=== PATIENT | female | born 1960 | race Caucasian/White ===

== ENCOUNTER → 2018-01-26 07:43 | Outpatient (CLI) | payer OTHER, SELFPAY ==
--- NOTE | 2018-01-26 | DI.MRI.S_ITS ---
PROCEDURE: MR PELVIS WO CON INDICATIONS: Left ischial tuberosity contusion or occult fracture. TECHNIQUE: Noncontrast coronal and axial T1 spin echo and STIR as well as axial T2 with fat saturation through the bony pelvis. COMPARISON: None. FINDINGS: Image quality: Excellent. Bones: Bone marrow of the pelvic ring, sacrum, and proximal femurs demonstrate normal signal. There is a small avulsion fracture of the left ischial tuberosity posteriorly associated with the origin of the hamstring tendons. There is associated mild bone marrow edema. The visualized lower lumbar spine demonstrates mild degenerative disc disease which is incompletely evaluated on the current study. Tendons: The gluteus medius and minimus tendons appear grossly intact. There is associated mild peritendinous edema along the distal gluteal tendons extending through the greater trochanter. The adjacent proximal iliotibial band also appears intact. The iliopsoas tendon appears intact, without adjacent bursal fluid collections or evidence for impingement syndrome. There is a small avulsion fracture at the origin of the left hamstring tendons associated with mild peritendinous edema and minimal fluid. Findings are compatible with a peritendinitis or mild stranding. The straight and reflected heads of the rectus femoris muscle origin appear intact, as well as the conjoint tendon. Soft tissues: Visualized muscles demonstrate mild fatty atrophy of the gluteal muscles, anterior compartment of the visualized proximal thighs, and the visualized proximal hamstring musculature. No joint effusions. No free pelvic fluid. The urinary bladder is incompletely distended. Genitourinary structures and bowel loops appear normal where visualized. IMPRESSION: 1. Small avulsion fracture at the origin of the left hamstring tendons associated with a mild tendon strain or peritendinitis. The Dictated by: Carmelo Allen M.D. on 01/26/2018 at 13:58 Approved by: Carmelo Allen M.D. on 01/26/2018 at 14:05
== END ==
PROVIDERS: PCP Internal Medicine; Visit Provider Physical Medicine & Rehabilitation
DX: S32.612A Displaced avulsion fracture of left ischium, initial encounter for closed fracture (principal)
CPT/HCPCS: 72195

== ENCOUNTER → 2018-04-10 10:40 | Outpatient (CLI) | payer OTHER, SELFPAY ==
[2018-04-10 12:59] LABS: BUN Creatinine Ratio 19.1 (6-22); Blood Urea Nitrogen 21 mg/dL (7-17); Calcium 10.2 mg/dL (8.4-10.2); Carbon Dioxide 27 mmol/L (22-32); Chloride 99 mmol/L (98-107); Estimated Glomerular Filt Rate 51.2 mL/min (>60); Glucose 193 mg/dL (70-100); HEMOLYSIS < 15 (0-50); Potassium 5.2 mmol/L (3.4-5.1); Sodium 137 mmol/L (137-145)
[2018-04-14 18:11] LABS: C Peptide 0.66 ng/mL (0.80-3.85)
== END ==
PROVIDERS: PCP Internal Medicine; Visit Provider Internal Medicine
DX: E11.9 Type 2 diabetes mellitus without complications (principal)
CPT/HCPCS: 36415; 80048; 84681

== ENCOUNTER → 2018-04-26 16:21 | Outpatient (CLI) | payer OTHER, SELFPAY ==
--- NOTE | 2018-04-26 | DI.RAD.S_ITS ---
PROCEDURE: XR LUMBAR SPINE 2-3V INDICATIONS: FALL with lumbar pain TECHNIQUE: The 3 views of the lumbar spine were acquired. COMPARISON: [facility], CR, XR THORACIC SPINE 2V, 04/26/2018, 16:58. FINDINGS: Bones: 5 [id number] vertebrae are present. There is normal bony alignment. No vertebral body compression fractures but there is moderately severe degenerative disc disease at L3-4 and mild to moderate such degeneration at L4-5, and moderate degenerative disc disease at L5 S1. Facet osteoarthritis is progressively more prominent from L3 inferiorly.. No suspicious bony lesions. Soft tissues: Overlying bowel gas pattern is normal. No suspicious soft tissue calcifications. IMPRESSION: Degenerative disc disease and facet osteoarthritis is present over the lower two thirds of the lumbosacral spine to the degree that spinal and foraminal stenosis may be present but no acute trauma is found. Incidental noted is made of a control device for a gastric lap band partially visualized on the thoracic spine imaging same day. Dictated by: Troy Bennett M.D. on 04/26/2018 at 16:51 Approved by: Troy Bennett M.D. on 04/26/2018 at 16:52
--- NOTE | 2018-04-26 | DI.RAD.S_ITS ---
PROCEDURE: XR CHEST 2V INDICATIONS: INTERCOSTAL PAIN, LEFT SIDE CHEST PAIN TECHNIQUE: 2 views of the chest were acquired. COMPARISON: [facility], CR, XR SHOULDER LT MIN 2V, 04/26/2018, 16:49. FINDINGS: Surgical changes and devices: None. Lungs and pleura: Lungs are clear. No pleural effusions or pneumothorax. Mediastinum: Mediastinal contours are normal. Heart size is normal. Bones and chest wall: No suspicious bony abnormalities. Soft tissues appear unremarkable. IMPRESSION: No acute cardiopulmonary disease. Dictated by: Annalise Dee M.D. on 04/27/2018 at 9:21 Approved by: Annalise Dee M.D. on 04/27/2018 at 9:22
--- NOTE | 2018-04-26 | DI.RAD.S_ITS ---
PROCEDURE: XR SHOULDER LT MIN 2V INDICATIONS: left SHOULDER PAIN TECHNIQUE: A 3 views of the shoulder were acquired. COMPARISON: None. FINDINGS: Bones: No fractures or dislocations but there is mild osteoarthritis at the a.c. joint. No suspicious bony lesions. Visualized ribs appear intact. Soft tissues: No suspicious soft tissue calcifications. IMPRESSION: Mild a.c. joint osteoarthritis, no trauma found. Dictated by: Troy Bennett M.D. on 04/26/2018 at 16:50 Approved by: Troy Bennett M.D. on 04/26/2018 at 16:51
--- NOTE | 2018-04-26 | DI.RAD.S_ITS ---
PROCEDURE: XR THORACIC SPINE 2V INDICATIONS: FALL with thorasic rib pain TECHNIQUE: 3 views of the thoracic spine were acquired. COMPARISON: None. FINDINGS: Bones: No fractures or dislocations. No suspicious bony lesions. 12 pairs of ribs are noted, and appear intact where visualized. Soft tissues: No paravertebral stripe thickening. Note is made of what appears to be a lap band at the gastric hiatus as an incidental finding unrelated to the report of trauma. IMPRESSION: No trauma found. Dictated by: Troy Bennett M.D. on 04/26/2018 at 16:45 Approved by: Troy Bennett M.D. on 04/26/2018 at 16:46
== END ==
PROVIDERS: PCP Internal Medicine; Visit Provider Student in an Organized Health Care Education/Training Program
DX: M25.512 Pain in left shoulder (principal); R07.82 Intercostal pain; M19.012 Primary osteoarthritis, left shoulder; M51.36 Other intervertebral disc degeneration, lumbar region; M51.37 Other intervertebral disc degeneration, lumbosacral region; M47.816 Spondylosis without myelopathy or radiculopathy, lumbar region; M47.817 Spondylosis without myelopathy or radiculopathy, lumbosacral region; Z98.84 Bariatric surgery status
CPT/HCPCS: 71046; 72070; 72100; 73030

== ENCOUNTER → 2018-12-20 15:41 | Outpatient (CLI) | payer OTHER, SELFPAY ==
--- NOTE | 2018-12-20 | DI.RAD.S_ITS ---
PROCEDURE: XR ANKLE RT MIN 3V INDICATIONS: right ankle pain TECHNIQUE: 3 views of the ankle were acquired. COMPARISON: None. FINDINGS: Bones: There is mild periosteal reaction along the distal right fibular metaphysis. Ankle mortise is normally aligned. No suspicious bony lesions. Soft tissues: No tibiotalar joint effusion. IMPRESSION: Mild periosteal reaction along the distal right fibular metaphysis, which may represent the sequela of a nondisplaced fracture. Correlation with point tenderness or a history of trauma suggested. Consider followup radiographs if there is continued clinical concern. Dictated by: Jet Eagle M.D. on 12/20/2018 at 17:20 Approved by: Jet Eagle M.D. on 12/20/2018 at 17:24
--- NOTE | 2018-12-20 | DI.RAD.S_ITS ---
PROCEDURE: XR FOOT RT MIN 3V INDICATIONS: right ankle pain TECHNIQUE: 3 views of the foot were acquired. COMPARISON: None. FINDINGS: Bones: No fractures or dislocations. No suspicious bony lesions. There is minimal degenerative change of the right first metatarsophalangeal joint. Soft tissues: No tibiotalar joint effusion. There is minimal calcaneal enthesopathy. IMPRESSION: Minimal degenerative change of the right first metatarsophalangeal joint. Dictated by: Jet Eagle M.D. on 12/20/2018 at 17:31 Approved by: Jet Eagle M.D. on 12/20/2018 at 17:34
== END ==
PROVIDERS: PCP Internal Medicine; Visit Provider Internal Medicine
DX: M25.571 Pain in right ankle and joints of right foot (principal)
CPT/HCPCS: 73610; 73630

== ENCOUNTER → 2019-09-17 11:23 | Outpatient (CLI) | payer OTHER, SELFPAY ==
--- NOTE | 2019-09-17 | DI.RAD.S_ITS ---
PROCEDURE: XR KNEE LT 1TO2V INDICATIONS: Unspecified fall, initial encounter TECHNIQUE: 3 views of the knee were acquired. COMPARISON: None. FINDINGS: Bones: No fractures or dislocations. No suspicious bony lesions. Mild tricompartmental knee joint narrowing with periarticular osteophyte formation. Soft tissues: No joint effusion. No suspicious soft tissue calcifications. IMPRESSION: Mild tricompartmental knee joint degeneration. Dictated by: Alfredo Kay [facility] Interpreted: Donal Russell MD on 09/17/2019 at 11:56 Approved by: Donal Russell M.D. on 09/17/2019 at 17:02
--- NOTE | 2019-09-17 | DI.RAD.S_ITS ---
PROCEDURE: XR FEMUR LT MIN 2V INDICATIONS: Unspecified fall, initial encounter TECHNIQUE: 2 views of the femur were acquired. COMPARISON: [facility], CR, XR KNEE LT 1TO2V, 09/17/2019, 11:27. FINDINGS: Bones: No fractures or dislocations. No suspicious bony lesions. Mild joint narrowing with periarticular osteophyte formation. Soft tissues: No suspicious soft tissue calcifications or masses. IMPRESSION: Mild left hip and knee joint degeneration. Dictated by: Alfredo Kay [facility] Interpreted: Donal Russell MD on 09/17/2019 at 11:56 Approved by: Donal Russell M.D. on 09/17/2019 at 17:02
--- NOTE | 2019-09-17 | DI.RAD.S_ITS ---
PROCEDURE: XR HIP W PEL IF DONE LT 2V INDICATIONS: Unspecified fall, initial encounter TECHNIQUE: AP pelvis with lateral view(s) of the left hip(s). COMPARISON: None. FINDINGS: Bones: No fractures or dislocations. Pelvic ring appears intact. No suspicious bony lesions. Mild joint narrowing with periarticular osteophyte formation. Soft tissues: The visualized bowel gas pattern is normal. No suspicious soft tissue calcifications. IMPRESSION: Mild symmetric hip joint degeneration. Dictated by: Alfredo Kay [facility] Interpreted: Donal Russell MD on 09/17/2019 at 12:09 Approved by: Donal Russell M.D. on 09/17/2019 at 17:02
--- NOTE | 2019-09-17 | DI.RAD.S_ITS ---
PROCEDURE: XR LUMBAR SPINE 2-3V INDICATIONS: Unspecified fall, initial encounter TECHNIQUE: 3 views of the lumbar spine were acquired. COMPARISON: [facility], CR, XR LUMBAR SPINE 2-3V, 04/26/2018, 16:55. FINDINGS: Bones: 5 [id number] vertebrae are present. Mild levoscoliosis. Trace multilevel retrolisthesis. Multilevel disc degeneration, moderate at the at the L3-L4 and L5-S1 levels. Moderate L4-L5 and L5-S1 facet joint arthropathy.. No vertebral body compression fractures. No suspicious bony lesions. Soft tissues: Overlying bowel gas pattern is normal. No suspicious soft tissue calcifications. Change in ostomy tube present. IMPRESSION: Multilevel spondylosis. Dictated by: Alfredo Kay [facility] Interpreted: Donal Russell MD on 09/17/2019 at 11:54 Approved by: Donal Russell M.D. on 09/17/2019 at 17:02
== END ==
PROVIDERS: PCP Internal Medicine; Referring Provider Student in an Organized Health Care Education/Training Program; Visit Provider Student in an Organized Health Care Education/Training Program
DX: M25.552 Pain in left hip (principal); M25.562 Pain in left knee; M47.816 Spondylosis without myelopathy or radiculopathy, lumbar region; M47.817 Spondylosis without myelopathy or radiculopathy, lumbosacral region; M17.12 Unilateral primary osteoarthritis, left knee; M16.12 Unilateral primary osteoarthritis, left hip
CPT/HCPCS: 72100; 73502; 73552; 73560

== ENCOUNTER → 2020-04-16 16:13 | Outpatient (CLI) | payer OTHER, SELFPAY ==
[2020-04-16 17:39] LABS: Add Manual Diff / Slide Review NO; Basophils Absolute Auto 0 /uL (0-100); Basophils Percent Auto 0.5 % (0-2); Eosinophils Absolute Auto 500 /uL (0-450); Eosinophils Percent Auto 5.7 % (2-4); Hematocrit 37.5 % (36-46); Hemoglobin 12.1 g/dL (12.0-16.0); Lymphocytes Absolute Auto 1900 /uL (1100-4500); Mean Corpuscular HGB Conc 32.2 % (30-36); Mean Corpuscular Hemoglobin 26.2 PG (26-34); Mean Corpuscular Volume 81.3 fL (80-100); Monocytes Absolute Auto 700 /uL (0-900); Monocytes Percent Auto 8.3 % (3-14); Neutrophils Absolute Auto 5800 /uL (1500-7000); Neutrophils Percent Auto 64.5 % (50-75); Platelet Count 412 X10^3/uL (150-400); Red Blood Cell Count 4.61 X10^6/uL (4.0-5.2); Red Cell Distribution Width 15.5 % (11.6-14.8); White Blood Cell Count 8.9 X10^3/uL (4.5-11.0)
[2020-04-16 17:53] LABS: Hemoglobin A1C% w Est Avg Glu 9.8 % (4.0-6.0)
[2020-04-16 17:54] LABS: Alanine Aminotransferase 37 IU/L (<35); Albumin 4.6 g/dL (3.5-5.0); Albumin Globulin Ratio 1.6 (1.0-2.8); Alkaline Phosphatase 91 U/L (38-126); Aspartate Aminotransferase 42 IU/L (14-36); BUN Creatinine Ratio 22.1 (6-22); Bilirubin Total 0.4 mg/dL (0.2-1.3); Blood Urea Nitrogen 17 mg/dL (7-17); Calcium 9.6 mg/dL (8.4-10.2); Carbon Dioxide 30 mmol/L (22-32); Chloride 98 mmol/L (98-107); Cholesterol 232 mg/dL (140-199); Estimated Glomerular Filt Rate > 60.0 mL/min (>60); Globulin 2.8 g/dL (1.7-4.1); Glucose 205 mg/dL (70-100); HDL Cholesterol 78 mg/dL (40-60); HEMOLYSIS < 15 (0-50); LDL Cholesterol Calculated 103 mg/dL (<100); Potassium 4.1 mmol/L (3.4-5.1); Sodium 135 mmol/L (137-145); Total Protein 7.4 g/dL (6.3-8.2); Triglycerides 256 mg/dL (35-150)
[2020-04-16 18:48] LABS: Creatinine Urine Random 36.1 mg/dL
[2020-04-16 18:53] LABS: Microalbumi Creatinin Ratio Ur 24.9 ug/mg CR (<30); Microalbumin Urine Random 0.9 mg/dL (0-1.6)
[2020-04-16 18:55] LABS: TSH w/ Reflex to FT4 0.22 uIU/mL (0.47-4.68)
[2020-04-16 19:32] LABS: Free T4, Direct Thyroxine 1.36 ng/dL (0.78-2.19)
== END ==
PROVIDERS: PCP Internal Medicine; Referring Provider Internal Medicine; Visit Provider Internal Medicine
DX: E11.9 Type 2 diabetes mellitus without complications (principal); I10 Essential (primary) hypertension; E03.9 Hypothyroidism, unspecified; E78.2 Mixed hyperlipidemia
CPT/HCPCS: 36415; 80053; 80061; 82043; 82570; 83036; 84439; 84443; 85025

== ENCOUNTER 2020-07-12 13:49 | Observation (INO) | payer OTHER, SELFPAY ==
[2020-07-12] VITALS (20 sets, daily range): BP systolic 135–176; BP diastolic 70–98; PULSE 72–99; RESP 11–20; TEMP 36.4–36.6; O2SAT 94–100; BMI 35.4; BMI 35.9
--- NOTE | 2020-07-12 13:54 | DI.RAD.S_ITS ---
PROCEDURE: XR CHEST 1V INDICATIONS: chest pain TECHNIQUE: One view of the chest was acquired. COMPARISON: [facility], CR, XR CHEST 2V, 04/26/2018, 16:46. FINDINGS: Surgical changes and devices: None. Lungs and pleura: Lungs are clear. No pleural effusions or pneumothorax. Mediastinum: Mediastinal contours appear normal. Heart size is normal. Bones and chest wall: No suspicious bony lesions. Overlying soft tissues appear unremarkable. IMPRESSION: No acute cardiopulmonary disease process. Dictated by: Nicolasa Camejo MD, PhD on 07/12/2020 at 15:03 Approved by: Nicolasa Camejo MD, PhD on 07/12/2020 at 15:03
--- NOTE | 2020-07-12 14:22 | ED.DIZZY ---
HPI - Dizziness General Chief Complaint: Dizziness Stated Complaint: dizzy Time Seen by Provider: 07/12/20 14:19 Source: patient Mode of arrival: Ambulatory Limitations: no limitations History of Present Illness HPI Narrative: 60-year-old female nonsmoker with history of hypertension and diabetes presents with a chief complaint of dizziness affecting her ability to ambulate over the past week or so. She occasionally has episodes of blurred vision but denies any currently. She denies any facial weakness or speech trouble. She is vaguely dizzy and states it seems to be little bit worse when she moves but is also present when sitting still. She has had a difficult time ambulating and feels like she will fall over. She is unsafe to drive, and up until 1 week ago was ambulating without any difficulty. She denies any focal neurologic findings such as unilateral numbness, weakness or tingling. She denies any falls or injuries. She does state that her blood sugars have been abnormally high over the past week or so Related Data Home Medications Medication Instructions Recorded Confirmed benazepril 20 mg tablet 20 mg PO DAILY 06/01/19 06/01/19 clonazepam 0.5 mg tablet 0.25 mg PO BID 06/01/19 06/01/19 duloxetine 60 mg capsule,delayed 60 mg PO DAILY 06/01/19 06/01/19 release insulin detemir U-100 100 unit/mL 40 unit SUBCUT BEDTIME 06/01/19 06/01/19 subcutaneous solution insulin regular human 100 unit/mL 8 unit SUBCUT BID 06/01/19 06/01/19 injection solution levothyroxine 100 mcg capsule 100 mcg PO DAILY 06/01/19 06/01/19 metformin 500 mg tablet 500 mg PO BID 06/01/19 06/01/19 metoprolol succinate 25 mg 25 mg PO DAILY 06/01/19 06/01/19 tablet,extended release 24 hr rosuvastatin 40 mg tablet 40 mg PO DAILY 06/01/19 06/01/19 Previous Rx's Medication Instructions Recorded albuterol sulfate 90 mcg/actuation 2 puff INHALATION Q4-6H PRN #18 06/01/19 aerosol inhaler gram Allergies Allergy/AdvReac Type Severity Reaction Status Date / Time No Known Drug Allergies Allergy Verified 06/01/19 10:12 Review of Systems Constitutional Constitutional: Denies chills, Denies fatigue, Denies fever(s), Reports frequent falls, Denies lethargy and Denies weakness Eyes Eyes: Denies change in vision, Denies eye discharge, Denies irritation and Denies loss of vision ENT Ears, Nose, Mouth, and Throat: Denies change in voice, Reports dizziness, Denies neck pain, Denies sore throat and Denies throat swelling Cardiovascular Cardiovascular: Denies chest pain, Denies irregular heart rhythm, Denies lightheadedness, Denies palpitations, Denies dyspnea, Denies dyspnea on exertion and Denies orthopnea Respiratory Respiratory: Denies cough, Denies dyspnea, Denies dyspnea on exertion and Denies wheezing Gastrointestinal Gastrointestinal: Denies abdominal pain, Denies change in bowel habits, Denies diarrhea, Denies nausea and Denies vomiting Musculoskeletal Musculoskeletal: Denies neck pain and Denies numbness Integumentary/Breasts Skin/Breast: Denies pruritus, Denies erythema, Denies rash and Denies wounds Neurologic Neurologic: Denies behavioral changes, Denies confusion, Reports dizziness, Reports frequent falls, Denies loss of vision, Denies numbness and Denies weakness Psychiatric Psychiatric: Denies anxiety, Denies behavioral changes, Denies confusion, Denies depression, Denies homicidal ideation and Denies suicidal ideation Endocrine Endocrine: Denies fatigue, Denies flushing and Denies palpitations Hematologic/Lymphatic Hematologic/Lymphatic: Denies easy bruising Allergic/Immunologic Allergic/Immunologic: Denies urticaria, Denies throat swelling and Denies wheezing Patient History Medical History Anxiety disorder, unspecified Essential hypertension Hypothyroidism Long-term current use of insulin for diabetes mellitus Low back pain Major depressive disorder, single episode, unspecified Mixed hyperlipidemia Paroxysmal atrial fibrillation Type 2 diabetes mellitus with diabetic neuropathy, unspecified Social History Smoking Status: Never smoker Smoking Status: Never smoker Substance Use Type: does not use Exam Narrative Exam Narrative: GENERAL: [60] year old patient appears stated age. Well-nourished, well-developed patient, in mild distress. HEAD: Atraumatic. Normocephalic. EYES: Pupils equal round and reactive. Extraocular motions intact. No scleral icterus. No injection or drainage. ENT: Nose without bleeding, purulent drainage. Throat without erythema, tonsillar hypertrophy or exudate. Airway patent. Left TM with tube in place, right TM without effusion, bulging or drainage, tympanostomy has fallen out NECK: Trachea midline. Non tender CARDIOVASCULAR: Regular rate and rhythm without murmurs, gallops, or rubs. RESPIRATORY: Clear to auscultation. Breath sounds equal bilaterally. No wheezes, rales, or rhonchi. GASTROINTESTINAL: Abdomen soft, non-tender, nondistended. EXTREMITIES: No edema or joint tenderness. BACK: Nontender without deformity or crepitance. No flank tenderness. NEURO: AOx3. SKIN: No rash or erythema of visible areas NIH Stroke Scale 1a. LOC: Patient is alert and keenly responsive (0) 1b. LOC Questions: Patient answers both LOC questions accurately (0) 1c. LOC Commands: Patient performs both tasks correctly (0) 2. Best Gaze: Normal (0) 3. Visual: No visual loss (0) 4. Facial palsy: Normal symmetrical movements (0) 5. Motor arm: No drift (0) 6. Motor leg: No drift (0) 7. Limb ataxia: Absent (0) 8. Sensory: Normal (0) 9. Best language: No aphasia; normal (0) 10. Dysarthria: Normal (0) 11. Extinction and inattention: No abnormality (0) NIHSS: 0 Initial Vital Signs Initial Vital Signs: Vital Signs Temperature 97.9 F 07/12/20 13:55 Pulse Rate 92 H 07/12/20 13:55 Respiratory Rate 20 07/12/20 13:55 Blood Pressure 176/84 H 07/12/20 13:55 Pulse Oximetry 99 07/12/20 13:55 Course Course Course Narrative: Patient requiring significant assistance with ambulation, she is significantly dizzy, this is addressed departure from her baseline from a few days ago. Orders Ordered: ED Orders 07/12/20 13:54 XR chest 1V Stat EKG-12 Lead Stat 07/12/20 14:15 Complete Blood Count AUTO DIFF Stat Comprehensive Metabolic Panel Stat Lipase Stat Magnesium Stat Partial Thromboplastin Time Stat Prothrombin Time INR Stat Troponin & CK Cardiac Panel Stat 07/12/20 14:31 CT head/brain wo con Stat 07/12/20 16:14 MR head/brain wo con Stat 07/12/20 17:00 COVID19 - ADMIT ([employer]PER[employer]OR swab/PCR) Stat Vital Signs Vital signs: Vital Signs - 8 hr 07/12/20 13:55 07/12/20 14:07 07/12/20 14:08 Temperature 97.9 F Pulse Rate 92 H 85 Pulse Rate [Orthostatic Lying] Pulse Rate [Orthostatic Sitting] Pulse Rate [Orthostatic Standing] Respiratory Rate 20 Blood Pressure 176/84 H Blood Pressure [Orthostatic Lying] Blood Pressure [Orthostatic Sitting] Blood Pressure [Orthostatic Standing] Pulse Oximetry 99 98 98 07/12/20 14:30 07/12/20 15:00 07/12/20 15:30 Temperature Pulse Rate 77 81 80 Pulse Rate [Orthostatic Lying] Pulse Rate [Orthostatic Sitting] Pulse Rate [Orthostatic Standing] Respiratory Rate 12 14 11 L Blood Pressure 135/71 142/72 H 139/82 Blood Pressure [Orthostatic Lying] Blood Pressure [Orthostatic Sitting] Blood Pressure [Orthostatic Standing] Pulse Oximetry 97 96 98 07/12/20 15:53 07/12/20 15:54 07/12/20 15:55 Temperature Pulse Rate 82 83 88 Pulse Rate [Orthostatic Lying] Pulse Rate [Orthostatic Sitting] Pulse Rate [Orthostatic Standing] Respiratory Rate 18 16 16 Blood Pressure 147/80 H 144/80 H 153/73 H Blood Pressure [Orthostatic Lying] Blood Pressure [Orthostatic Sitting] Blood Pressure [Orthostatic Standing] Pulse Oximetry 99 99 98 07/12/20 16:00 07/12/20 16:01 07/12/20 16:33 Temperature Pulse Rate 96 H 88 99 H Pulse Rate [Orthostatic Lying] 83 Pulse Rate [Orthostatic Sitting] 81 Pulse Rate [Orthostatic Standing] 88 Respiratory Rate 16 16 16 Blood Pressure Blood Pressure [Orthostatic Lying] 147/80 H Blood Pressure [Orthostatic Sitting] 144/70 H Blood Pressure [Orthostatic Standing] 153/73 H Pulse Oximetry 94 99 98 07/12/20 17:00 07/12/20 17:30 07/12/20 18:00 Temperature Pulse Rate 72 84 80 Pulse Rate [Orthostatic Lying] Pulse Rate [Orthostatic Sitting] Pulse Rate [Orthostatic Standing] Respiratory Rate 18 17 16 Blood Pressure Blood Pressure [Orthostatic Lying] Blood Pressure [Orthostatic Sitting] Blood Pressure [Orthostatic Standing] Pulse Oximetry 100 99 100 MDM - Dizziness Lab Data Result diagrams: 07/12/20 14:15 07/12/20 14:15 Labs: Lab Results 07/12/20 07/12/20 07/12/20 Range/Units 14:15 14:15 14:15 WBC 6.2 (4.5-11.0) X10^3/uL RBC 4.57 (4.0-5.2) X10^6/uL Hgb 11.6 L (12.0-16.0) g/dL Hct 35.7 L (36-46) % MCV 78.1 L (80-100) fL MCH 25.3 L (26-34) PG MCHC 32.4 (30-36) % RDW 15.6 H (11.6-14.8) % Plt Count 392 (150-400) X10^3/uL Neut % (Auto) 54.5 (50-75) % Lymph % (Auto) 27.3 (25-40) % [place] % (Auto) 9.5 (3-14) % Eos % (Auto) 7.9 H (2-4) % Baso % (Auto) 0.8 (0-2) % Neut # (Auto) 3400 (6080-6967) /uL Lymph # (Auto) 1700 (1786-5113) /uL [place] # (Auto) 600 (0-900) /uL Eos # (Auto) 500 H (0-450) /uL Baso # (Auto) 0 (0-100) /uL PT 10.8 (10.1-12.7) SECONDS INR 1.0 (0.9-1.3) APTT 30 (26.4-36.2) SECONDS Sodium 136 L (137-145) mmol/L Potassium 4.2 (3.4-5.1) mmol/L Chloride 100 (98-107) mmol/L Carbon Dioxide 26 (22-32) mmol/L BUN 16 (7-17) mg/dL Creatinine 0.74 (0.52-1.04) mg/dL Estimated GFR > 60.0 (>60) mL/min BUN/Creatinine Ratio 21.6 (6-22) Glucose 187 H (80-110) mg/dL Calcium 10.0 (8.4-10.2) mg/dL Magnesium 1.6 (1.6-2.3) mg/dL Total Bilirubin 0.5 (0.2-1.3) mg/dL AST 51 H (14-36) IU/L ALT 49 H (<35) IU/L Alkaline Phosphatase 98 (38-126) U/L Total Creatine Kinase 70 (30-135) U/L CK-MB (CK-2) TNP CK-MB (CK-2) Rel Index TNP Troponin I < 0.012 (0.01-0.034) ng/mL Total Protein 7.3 (6.3-8.2) g/dL Albumin 4.2 (3.5-5.0) g/dL Globulin 3.1 (1.7-4.1) g/dL Albumin/Globulin Ratio 1.4 (1.0-2.8) Lipase 62 (23-300) U/L SARS-CoV-2 (PCR) (Negative) 07/12/20 Range/Units 17:00 WBC (4.5-11.0) X10^3/uL RBC (4.0-5.2) X10^6/uL Hgb (12.0-16.0) g/dL Hct (36-46) % MCV (80-100) fL MCH (26-34) PG MCHC (30-36) % RDW (11.6-14.8) % Plt Count (150-400) X10^3/uL Neut % (Auto) (50-75) % Lymph % (Auto) (25-40) % [place] % (Auto) (3-14) % Eos % (Auto) (2-4) % Baso % (Auto) (0-2) % Neut # (Auto) (7239-1767) /uL Lymph # (Auto) (0485-4770) /uL [place] # (Auto) (0-900) /uL Eos # (Auto) (0-450) /uL Baso # (Auto) (0-100) /uL PT (10.1-12.7) SECONDS INR (0.9-1.3) APTT (26.4-36.2) SECONDS Sodium (137-145) mmol/L Potassium (3.4-5.1) mmol/L Chloride (98-107) mmol/L Carbon Dioxide (22-32) mmol/L BUN (7-17) mg/dL Creatinine (0.52-1.04) mg/dL Estimated GFR (>60) mL/min BUN/Creatinine Ratio (6-22) Glucose (80-110) mg/dL Calcium (8.4-10.2) mg/dL Magnesium (1.6-2.3) mg/dL Total Bilirubin (0.2-1.3) mg/dL AST (14-36) IU/L ALT (<35) IU/L Alkaline Phosphatase (38-126) U/L Total Creatine Kinase (30-135) U/L CK-MB (CK-2) CK-MB (CK-2) Rel Index Troponin I (0.01-0.034) ng/mL Total Protein (6.3-8.2) g/dL Albumin (3.5-5.0) g/dL Globulin (1.7-4.1) g/dL Albumin/Globulin Ratio (1.0-2.8) Lipase (23-300) U/L SARS-CoV-2 (PCR) Negative (Negative) Imaging Data CT scan - head: Radiologist's Impression: [address] [id number] Scan ReportSigned Patient: GAURAV ROBERT EMR#: [id number]: 1Acct:[id number]/Sex: 60 / FDate of Service: 07/12/20Loc: EDAccession Number: [id number] Procedure: CT head/brain wo con Ordering Provider: Farhat Linder D.O. PROCEDURE: CT HEAD/BRAIN WO CON INDICATIONS: repeat visit dizzy TECHNIQUE: Noncontrast 4.5 mm thick angled axial sections acquired from the foramen magnum to the vertex, with coronal and sagittal reformats. For radiation dose reduction, the following was used: automated exposure control, adjustment of mA and/or kV according to patient size. COMPARISON: None. FINDINGS: Image quality: Excellent. CSF spaces: Basal cisterns are patent. No extra-axial fluid collections. The ventricles are symmetric in size and shape. Brain: No intracranial bleeds or masses. There is cerebral volume loss for age, with resultant ventricular and sulcal prominence. There are periventricular and deep white matter chronic small vessel ischemic changes. There is intracranial internal carotid artery atherosclerosis. Skull and face: Calvarium and visualized facial bones appear intact, without suspicious lesions. Sinuses: Visualized sinuses and mastoids are clear. IMPRESSION: No acute intracranial disease process. Dictated by: Nicolasa Camejo MD, PhD on 07/12/2020 at 16:07 Approved by: Nicolasa Camejo MD, PhD on 07/12/2020 at 16:08 [facility] Narrative Medical decision making narrative: Patient has significant dizziness, affecting her ability to ambulate for the past few days. She has no nystagmus or clear peripheral etiology. Head CT is unremarkable but given her risk and symptoms she will require hospitalization for stroke workup including echo and MRI. Discharge Plan Departure Patient Disposition: Admitted as Observation Clinical Impression: Brain TIA, Dizziness Prescriptions: No Action metoprolol succinate 25 mg tablet extended release 24 hr 25 mg PO DAILY RF: 0 levothyroxine 100 mcg capsule 100 mcg PO DAILY RF: 0 Levemir U-100 Insulin 100 unit/mL solution 40 unit SUBCUT BEDTIME RF: 0 Humulin R Regular U-100 Insuln 100 unit/mL solution 8 unit SUBCUT BID RF: 0 rosuvastatin 40 mg tablet 40 mg PO DAILY RF: 0 duloxetine 60 mg capsule,delayed release(DR/EC) 60 mg PO DAILY RF: 0 clonazepam 0.5 mg tablet 0.25 mg PO BID RF: 0 metformin 500 mg tablet 500 mg PO BID RF: 0 benazepril 20 mg tablet 20 mg PO DAILY RF: 0 albuterol sulfate 90 mcg/actuation HFA aerosol inhaler 2 puff INHALATION Q4-6H PRN (Reason: shortness of breath or wheezing) Qty: 18 RF: 0 Referrals: Cristhian Méndez MD [Primary Care Provider] -
--- NOTE | 2020-07-12 14:31 | DI.CT.S_ITS ---
PROCEDURE: CT HEAD/BRAIN WO CON INDICATIONS: repeat visit dizzy TECHNIQUE: Noncontrast 4.5 mm thick angled axial sections acquired from the foramen magnum to the vertex, with coronal and sagittal reformats. For radiation dose reduction, the following was used: automated exposure control, adjustment of mA and/or kV according to patient size. COMPARISON: None. FINDINGS: Image quality: Excellent. CSF spaces: Basal cisterns are patent. No extra-axial fluid collections. The ventricles are symmetric in size and shape. Brain: No intracranial bleeds or masses. There is cerebral volume loss for age, with resultant ventricular and sulcal prominence. There are periventricular and deep white matter chronic small vessel ischemic changes. There is intracranial internal carotid artery atherosclerosis. Skull and face: Calvarium and visualized facial bones appear intact, without suspicious lesions. Sinuses: Visualized sinuses and mastoids are clear. IMPRESSION: No acute intracranial disease process. Dictated by: Nicolasa Camejo MD, PhD on 07/12/2020 at 16:07 Approved by: Nicolasa Camejo MD, PhD on 07/12/2020 at 16:08
[2020-07-12 14:33] LABS: Add Manual Diff / Slide Review NO; Basophils Absolute Auto 0 /uL (0-100); Basophils Percent Auto 0.8 % (0-2); Eosinophils Absolute Auto 500 /uL (0-450); Eosinophils Percent Auto 7.9 % (2-4); Hematocrit 35.7 % (36-46); Hemoglobin 11.6 g/dL (12.0-16.0); Lymphocytes Absolute Auto 1700 /uL (1100-4500); Lymphocytes Percent Auto 27.3 % (25-40); Mean Corpuscular HGB Conc 32.4 % (30-36); Mean Corpuscular Hemoglobin 25.3 PG (26-34); Mean Corpuscular Volume 78.1 fL (80-100); Monocytes Absolute Auto 600 /uL (0-900); Monocytes Percent Auto 9.5 % (3-14); Neutrophils Absolute Auto 3400 /uL (1500-7000); Neutrophils Percent Auto 54.5 % (50-75); Platelet Count 392 X10^3/uL (150-400); Red Blood Cell Count 4.57 X10^6/uL (4.0-5.2); Red Cell Distribution Width 15.6 % (11.6-14.8); White Blood Cell Count 6.2 X10^3/uL (4.5-11.0)
[2020-07-12 14:39] LABS: Prothrombin Time 10.8 SECONDS (10.1-12.7)
[2020-07-12 14:41] LABS: PTT Partial Thromboplastin Tim 30 SECONDS (26.4-36.2)
[2020-07-12 14:51] LABS: Alanine Aminotransferase 49 IU/L (<35); Albumin 4.2 g/dL (3.5-5.0); Albumin Globulin Ratio 1.4 (1.0-2.8); Alkaline Phosphatase 98 U/L (38-126); Aspartate Aminotransferase 51 IU/L (14-36); BUN Creatinine Ratio 21.6 (6-22); Bilirubin Total 0.5 mg/dL (0.2-1.3); Blood Urea Nitrogen 16 mg/dL (7-17); Carbon Dioxide 26 mmol/L (22-32); Chloride 100 mmol/L (98-107); Creatine Kinase 70 U/L (30-135); Estimated Glomerular Filt Rate > 60.0 mL/min (>60); Globulin 3.1 g/dL (1.7-4.1); Glucose 187 mg/dL (80-110); HEMOLYSIS < 15 (0-50); Lipase 62 U/L (23-300); Magnesium 1.6 mg/dL (1.6-2.3); Potassium 4.2 mmol/L (3.4-5.1); Sodium 136 mmol/L (137-145); Total Protein 7.3 g/dL (6.3-8.2)
[2020-07-12 15:03] LABS: Troponin I < 0.012 ng/mL (0.01-0.034)
[2020-07-12 18:18] LABS: COVID19 - ADMIT (NP swab/PCR) Negative (Negative)
--- NOTE | 2020-07-12 19:27 | DI.MRI.S_ITS ---
PROCEDURE: MR STROKE Pre- and post-contrast brain MRI, non-contrast brain MR angiogram, pre- and postcontrast neck MR angiogram INDICATIONS: TIA vs stroke TECHNIQUE: Brain: Noncontrast axial T1 spin echo, axial T2 fast spin echo, sagittal and axial FLAIR, coronal T2 fast spin echo, axial gradient echo, axial diffusion and ADC through the brain. After the administration of contrast, axial 3D VIBE of the cranial vasculature and brain. Brain MRA: Non-contrast 3-D time of flight MR angiogram, with multiple arazrzl-sajxiobpd-xxuvvcyatj (MIP) reformats performed. Neck MRA: Axial and sagittal TruFISP through the neck. Coronal dynamic MR angiogram during administration of contrast in the arterial and venous phases, with 3-dimenstional hixaqkz-atycmqnwq-zgaviuwtcd (MIP) reformats constructed from subtraction images. COMPARISON: [facility], CT, CT HEAD/BRAIN WO CON, 07/12/2020, 15:40. FINDINGS: Image quality: Excellent. BRAIN: CSF spaces: Ventricles are normal in size and shape. Basal cisterns are patent. No extra-axial fluid collections. Brain: No intracranial bleeds or mass effects. De [place]a-white matter interface is normal. Diffusion weighted images show no acute ischemic insults. Brainstem appears normal. Normal intravascular flow voids are present. No abnormal intracranial enhancement. Note is made of age-appropriate brain parenchymal volume loss and chronic small vessel ischemic changes. Skull and face: Calvarial marrow signal is normal. Orbits appear normal. Note is made of bilateral lens replacements. Sinuses: Sinuses and mastoids are clear. BRAIN MR ANGIOGRAM: Anterior circulation: Intracranial internal carotid arteries are normal in size and enhancement. The flow within the paired anterior cerebral arteries is normal and symmetric. The flow within the middle cerebral arteries is normal and symmetric. The anterior communicating artery is seen. No stenoses, occlusions, or aneurysms. Posterior circulation: The visualized portions of the vertebral arteries demonstrate normal caliber, and join to form a normal appearing basilar artery. The flow within the posterior cerebral arteries is normal and symmetric. No stenoses, occlusions, or aneurysms. NECK MR ANGIOGRAM: Carotids: Great vessels demonstrate a conventional anatomy as they arise from the aortic arch. The origins of the common carotid arteries appear patent. The calibers and courses of both common carotid arteries are normal. The bifurcation regions demonstrate mild atherosclerotic irregularity. There is 20-30% narrowing seen involving the left proximal internal carotid artery. Posterior circulation: The origins of the vertebral arteries appear patent. More superior portions of both vertebral arteries demonstrate normal course and caliber, and join to form a normal appearing basilar artery. Miscellaneous: Subclavian arteries appear patent. Pre-contrast images through the neck show no soft tissue abnormalities. IMPRESSION: BRAIN MRI: No findings of acute or subacute infarction can be seen. Mild brain parenchymal volume loss and chronic small vessel ischemic change can be seen. BRAIN MR ANGIOGRAM: No significant intracranial arterial abnormality is seen. NECK MR ANGIOGRAM: Within the arteries of the neck, no hemodynamically significant stenosis can be seen. There is 20-30% narrowing seen involving the left proximal internal carotid artery. Dictated by: Ran Marquis M.D. on 07/13/2020 at 9:32 Approved by: Ran Marquis M.D. on 07/13/2020 at 9:35
--- NOTE | 2020-07-12 19:39 | P.HP_ITS ---
History of Present Illness History of Present Illness Date Patient Seen: 07/12/20 Time Patient Seen: 19:39 Chief complaint: dizzy Narrative: Patient is a 60-year-old female Felicitas Simms who presented to the ED with a chief complaint of dizziness affecting her ability to ambulate over the past week or so. She occasionally has episodes of blurred vision but denies any currently. She denies any facial weakness or speech trouble. Patient reports that she has dizziness with laying sitting, standing, or with ambulation. It seems to be triggered with eye movement, unable to state if specific eye movement or direction triggers. Patient feels as if she is spinning knocked the room. Patient denies any pain with eye movement or pressure breathing high knee I, patient wears glasses and has yearly diabetic eye exams. She has had a difficult time ambulating and feels like she will fall over. She is unsafe to drive, and up until 1 week ago was ambulating without any difficulty. 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 patient has had eustachian tubes in place since childhood last placement was a couple years ago, ED found no blockage. She denies any focal neurologic findings such as unilateral numbness, weakness or tingling. She denies any falls or injuries. She does state that her blood sugars have been abnormally high over the past week or so. Patient had advised the nurse upon being admitted to the floor that she was suicidal. Patient stated to me that she is not suicidal at this time and she will not harm herself while in the facility, her depression is 15/10 and her anxiety is 10/10 she states that she feels like her medications are no longer working for her, she does have a gautam eduled appointment with her psychiatrist (Dr. Daniel antoine/[facility]) in 2 days and establishing with a counselor and verbalizes that she has not attempted suicide since the age of 25, and was unable to verbalize a plan. Patient became repeatedly tearful and emotional during the interview when answering questions and she states that this is common for her during any & all conversations with others. Patient verbalized that adjustment of her medications will resolve her current depressive state as it has in the past. Patient has a history hypertension, hyperlipidemia, insulin-dependent diabetes, atrial fibrillation, major depressive disorder, anxiety with a history suicide attempts the last being at age 25, cervical cancer, genetic progressive hearing loss with chronic eustachian tubes, and hypothyroidism. Patient's vitals upon admit temp 97.9?, BP 168/73, HR 76, RR 14, O2 saturation 97% on room air. Patient's labs for the most part are unremarkable HGB 11.6, HCT 35.7, RDW 15.6, Na 136, AST 51, ALT 49, NIH score: 0. Head CT and CXR were both unremarkable. I personally reviewed patient's EKG: Normal sinus rhythm with a ventricular rate of 84 with left BBB noted. Patient admitted for TIA versus stroke. Patient History Medical History (Updated 07/12/20 @ 21:59 by GWENDOLYN Rowe) Anxiety disorder, unspecified Essential hypertension Eustachian tube disorder History of cervical cancer in adulthood Hypothyroidism Long-term current use of insulin for diabetes mellitus Low back pain Major depressive disorder, single episode, unspecified Mixed hyperlipidemia Obesity (BMI 30-39.9) Paroxysmal atrial fibrillation Progressive hearing loss of both ears Type 2 diabetes mellitus with diabetic neuropathy, unspecified Surgical History (Updated 07/12/20 @ 21:59 by LIAN Rowe-KALE) History of arthroscopic surgery of shoulder History of hysterectomy History of laparoscopic adjustable gastric banding History of placement of ear tubes Family & Social History Family History (Updated 07/12/20 @ 22:01 by LIAN Rowe-KALE) Mother Congestive heart failure Lung cancer Father COPD (chronic obstructive pulmonary disease) Cardiovascular disease Diabetes mellitus Social History: household members patient lives with her , but they are estranged and her lives on 1 floor and she lives on the other. Pat tolu's depressive disorder has hindered her ability to seek employment. Patient has no children. Prior Living Arrangements House Safety & Behavioral: Feels Safe in Current Yes Environment Been Physically Hurt or No Threatened By a Person Suicidal Ideation Description Vague- denies at the time of admit. Patient does have a history of suicidal attempts the last 1 age 25 she cut her wrist. Patient has verbalized that she will not harm herself while an in-patient. Patient verbalized that correction of her medication dosages should return her to a manageable state of depression without suicidal ideation. Patient is gautam eduled with Dr. Sanchez psychiatrist in 2 days and outpatient counseling. Suicide Plan Description patient could not verbalize an organized plan or mode of suicide at the time of admit. Patient will complete a safety plan. Tobacco & Substance use: Smoking Status Never smoker alcohol intake never Substance Use Type does not use Meds Home Medications and Allergies Home Medications Medication Instructions Recorded Confirmed Type benazepril 20 mg tablet 20 mg PO DAILY 06/01/19 07/12/20 History clonazepam 0.5 mg tablet 0.25 mg PO DAILY 06/01/19 07/12/20 History duloxetine 60 mg capsule,delayed 60 mg PO DAILY 06/01/19 07/12/20 History release insulin detemir U-100 100 unit/mL 60 unit SUBCUT BEDTIME 06/01/19 07/12/20 History subcutaneous solution levothyroxine 100 mcg capsule 100 mcg PO DAILY 06/01/19 07/12/20 History metformin 500 mg tablet 1,000 mg PO BID 06/01/19 07/12/20 History metoprolol succinate 25 mg 25 mg PO DAILY 06/01/19 07/12/20 History tablet,extended release 24 hr rosuvastatin 40 mg tablet 40 mg PO BEDTIME 06/01/19 07/12/20 History clonazepam 0.5 mg PO BEDTIME 07/12/20 07/12/20 History insulin lispro [Humalog U-100 0 sliding scale dose SUBCUT ACHS 07/12/20 07/12/20 History Insulin] pantoprazole 40 mg PO DAILY 07/12/20 07/12/20 History Allergies Allergy/AdvReac Type Severity Reaction Status Date / Time No Known Drug Allergies Allergy Verified 06/01/19 10:12 Review of Systems Review of Systems ROS: Yes All systems reviewed with the patient and are negative except as otherwise documented Constitutional Constitutional: Reports system reviewed and no additional complaints, except as documented Psychiatric Psychiatric: Reports anxiety, Reports depression and Reports suicidal ideation (Suicidal ideation comes and goes,denies suicidal ideation at time of admit.) Exam Vital Signs (past 8 hours): - 07/12/20 13:55 07/12/20 14:07 07/12/20 14:08 Temperature 97.9 F Pulse Rate 92 H 85 Pulse Rate [Orthostatic Lying] Pulse Rate [Orthostatic Sitting] Pulse Rate [Orthostatic Standing] Respiratory Rate 20 Blood Pressure 176/84 H Blood Pressure [Orthostatic Lying] Blood Pressure [Orthostatic Sitting] Blood Pressure [Orthostatic Standing] Pulse Oximetry 99 98 98 07/12/20 14:30 07/12/20 15:00 07/12/20 15:30 Temperature Pulse Rate 77 81 80 Pulse Rate [Orthostatic Lying] Pulse Rate [Orthostatic Sitting] Pulse Rate [Orthostatic Standing] Respiratory Rate 12 14 11 L Blood Pressure 135/71 142/72 H 139/82 Blood Pressure [Orthostatic Lying] Blood Pressure [Orthostatic Sitting] Blood Pressure [Orthostatic Standing] Pulse Oximetry 97 96 98 07/12/20 15:53 07/12/20 15:54 07/12/20 15:55 Temperature Pulse Rate 82 83 88 Pulse Rate [Orthostatic Lying] Pulse Rate [Orthostatic Sitting] Pulse Rate [Orthostatic Standing] Respiratory Rate 18 16 16 Blood Pressure 147/80 H 144/80 H 153/73 H Blood Pressure [Orthostatic Lying] Blood Pressure [Orthostatic Sitting] Blood Pressure [Orthostatic Standing] Pulse Oximetry 99 99 98 07/12/20 16:00 07/12/20 16:01 07/12/20 16:33 Temperature Pulse Rate 96 H 88 99 H Pulse Rate [Orthostatic Lying] 83 Pulse Rate [Orthostatic Sitting] 81 Pulse Rate [Orthostatic Standing] 88 Respiratory Rate 16 16 16 Blood Pressure Blood Pressure [Orthostatic Lying] 147/80 H Blood Pressure [Orthostatic Sitting] 144/70 H Blood Pressure [Orthostatic Standing] 153/73 H Pulse Oximetry 94 99 98 07/12/20 17:00 07/12/20 17:30 07/12/20 18:00 Temperature Pulse Rate 72 84 80 Pulse Rate [Orthostatic Lying] Pulse Rate [Orthostatic Sitting] Pulse Rate [Orthostatic Standing] Respiratory Rate 18 17 16 Blood Pressure Blood Pressure [Orthostatic Lying] Blood Pressure [Orthostatic Sitting] Blood Pressure [Orthostatic Standing] Pulse Oximetry 100 99 100 07/12/20 18:30 07/12/20 19:00 07/12/20 19:06 Temperature Pulse Rate 74 78 76 Pulse Rate [Orthostatic Lying] Pulse Rate [Orthostatic Sitting] Pulse Rate [Orthostatic Standing] Respiratory Rate 11 L 14 Blood Pressure 168/73 H Blood Pressure [Orthostatic Lying] Blood Pressure [Orthostatic Sitting] Blood Pressure [Orthostatic Standing] Pulse Oximetry 100 97 Oxygen Delivery Method Room Air Narrative Exam Narrative: General: Patient is a well-developed, well-nourished in no distress at this time. HEENT: Normocephalic, atraumatic, extraocular muscles intact, oral pharynx is clear and mucous membranes are moist. Neck is supple and symmetric, trachea is midline, no adenopathy, no thyroid enlargement, nontender, no masses palpated. Negative for JVD Chest: Normal AP diameter and contour without kyphoscoliosis, no nasal flaring, retractions, or tachypneic labored Lungs: Auscultation of all lung arce are clear without adventitious sounds, wheezes, rhonchi, or rales. Cardio: S1 & S2 with regular rate and rhythm without murmur, rubs, or gallops, no carotid bruit, no cardiac pulsations present. Abdomen: Soft nontender, negative for organomegaly, or masses. Bowel sounds are present in all 4 quadrants without guarding or rebound, no CVA tenderness. Musculoskeletal: Muscle strength and tone are equal within normal limits, no deformity, crepitus, effusions, cyanosis, clubbing or edema present. Full range of motion intact radial and pedal pulses are normal. Skin: Warm dry and intact without rashes, ulcerations or petechiae. Neuro: Alert and orientated x3, strength is +5/5 in all extremities, sensation to touch intact, no gross deficits noted of cranial nerves. Psych: Patient has a well-kept appearance, appropriate affect, mental status attitude thought context and judgment are appropriate for age. Objective Labs Result Diagrams: 07/12/20 14:15 07/12/20 14:15 Labs: Laboratory Results - last 24 hr 07/12/20 07/12/20 07/12/20 14:15 14:15 14:15 WBC 6.2 RBC 4.57 Hgb 11.6 L Hct 35.7 L MCV 78.1 L MCH 25.3 L MCHC 32.4 RDW 15.6 H Plt Count 392 Neut % (Auto) 54.5 Lymph % (Auto) 27.3 Carson % (Auto) 9.5 Eos % (Auto) 7.9 H Baso % (Auto) 0.8 Neut # (Auto) 3400 Lymph # (Auto) 1700 Carson # (Auto) 600 Eos # (Auto) 500 H Baso # (Auto) 0 PT 10.8 INR 1.0 APTT 30 Sodium 136 L Potassium 4.2 Chloride 100 Carbon Dioxide 26 BUN 16 Creatinine 0.74 Estimated GFR > 60.0 BUN/Creatinine Ratio 21.6 Glucose 187 H Calcium 10.0 Magnesium 1.6 Total Bilirubin 0.5 AST 51 H ALT 49 H Alkaline Phosphatase 98 Total Creatine Kinase 70 CK-MB (CK-2) TNP CK-MB (CK-2) Rel Index TNP Troponin I < 0.012 Total Protein 7.3 Albumin 4.2 Globulin 3.1 Albumin/Globulin Ratio 1.4 Lipase 62 SARS-CoV-2 (PCR) 07/12/20 17:00 WBC RBC Hgb Hct MCV MCH MCHC RDW Plt Count Neut % (Auto) Lymph % (Auto) Carson % (Auto) Eos % (Auto) Baso % (Auto) Neut # (Auto) Lymph # (Auto) Carson # (Auto) Eos # (Auto) Baso # (Auto) PT INR APTT Sodium Potassium Chloride Carbon Dioxide BUN Creatinine Estimated GFR BUN/Creatinine Ratio Glucose Calcium Magnesium Total Bilirubin AST ALT Alkaline Phosphatase Total Creatine Kinase CK-MB (CK-2) CK-MB (CK-2) Rel Index Troponin I Total Protein Albumin Globulin Albumin/Globulin Ratio Lipase SARS-CoV-2 (PCR) Negative Assessment & Plan Assessment & Plan narrative: This patient requires acute care inpatient hospital management for ruling out TIA vs Stroke . The patient is at much higher risk for medical and surgical complications because of her history of hypertension, atrial fibrillation, hyperlipidemia, insulin-dependent diabetes, atrial fibrillation, depression with anxiety, and hypothyroidism. These factors increase the difficulty and complexity of medical and surgical interventions and increases the chances of poor outcomes such as morbidity and mortality. 1. Neuro deficit (dizziness with unstable gait) rule out possible TIA vs. stroke, acute, guarded, not present on admission -differential diagnosis TIA, stroke symptoms lasting greater than 24 hours, ischemic stroke, intracranial hemorrhage, subdural hematoma, epidural hematoma, seizure, brain tumor, migraine, vertigo, hypoglycemia, Paige [place] syndrome, multiple sclerosis, aortic dissection, vestibular neuritis, benign paroxysmal positional vertigo, vestibular paroxysmia. -suspect benign paroxysmal positional vertigo or vestibular neuritis- if neg MR ordered PT consult for [place]-Hallpike maneuver. Due to patient's long standing history genetic progressive hearing loss related to chronic eustachian tube dysfunction with chronic tube placement. Vital signs q.4 hours, neuro checks as needed, notify provider for temp greater than 38 C, , heart rate >100 -treat systolic blood pressure>220 or diastolic blood pressure> 120 -activity bed rest until initial physical therapy assessment is performed, then mobilize JVOANA as guided by Physical therapy, strict fall precautions. -supplemental O2 to maintain> 94%, check capillary blood glucose q.6 hours. -Diet NPO until swallow evaluation is done, then Carb controlled if cleared -fluids:Saline lock -Medications: Aspirin 325 mg p.o. q.day within 48 hours, Plavix 75 mg daily, atorvastatin 80 mg -labs CBC with platelets, PT/PTT/INR, CMP, TSH, troponins, glucose, hemoglobin A1c, Lipid panel -consult, PT/OT/evaluations -ABCD2 score:5 -diagnostics, non-contrast CT of head- Negative, EKG LT BBB-echo & stroke MR tomorrow -discharge planning establish patient has a safe home environment if going home 2. Major depressive disorder, recurrent with anxiety and history of suicide attempt, acute on chronic, present on admission -patient verbalized to the nurse that she was suicidal and that she had a plan. In completing my admit in review patient denied suicidal ideation at this time and that she would not harm herself at any time during her hospitalization. The patient stated I really like this room all I need is a microwave and I can move in and make at home. Based on her verbalization I felt moving the patient would only cause increased distress. The patient was unable to describe a concrete plan or access for a suicide. I determined patient did not need to be placed in the ICU for 1-1 observation. Nurse to have patient complete safety plan and Nurse to complete Room safety checklist. Devanen depression 28/11, anxiety 11/23. Patient has scheduled follow-up appointment with Dr. Sanchez(psychiatrist) at [facility] July 15, 2020 and with counseling for follow up care following hospitalization. -Ordered ativan 2mg Q6 hrs for anxiety -continue patient's clonazepam 0.25 mg in a.m. and 0.5 mg p.o. at bedtime and duloxetine 60 mg. 3. Atrial fibrillation Paroxysmal, chronic, not present on admission, in the setting essential hypertension, acute on chronic, present on admission and hyperlipidemia, chronic, not present on admission, induced due to insulin- dependent type 2 diabetes with neuropathy, acute on chronic, present on admission, control unknown -as evidence by admit BP 168/73, glucose 187. Patient placed on telemedicine, lipid panel, A1c ordered -continue patient's benazepril, metoprolol. -patient placed on diabetes protocol medium does meal insulin, blood sugars ACHS, and 60 units of Lantus at bedtime. Holding patient's metformin. -holding patient's rosuvastatin, placed on atorvastatin 80 mg q.day 4. Hypothyroidism, acquired, chronic, not present on admission, control unknown -TSH ordered continue patient's levothyroxine 5. Obesity, as evidence by BMI 35.9, acute on chronic, present on admission -consideration will be given to dietary counseling Code status: DNR (per patient) Surrogate decision maker: Patient's spouse (estranged) Beck SINGLETON PCR: Negative DVT/VTE prophylaxis: Medication contraindicated patient placed on Plavix 75 mg and SCDs only Scores GCS Garibaldi coma scale eye opening: Spontaneous Garibaldi coma scale verbal response: Orientated Garibaldi coma scale motor response: Obey commands Zhao coma scale total score: 15 ABCD2 Age >= 60 years: yes Initial BP. Either SBP >= 140 or DBP >= 90.: yes Clinical features of the TIA: other symptoms Duration of symptoms: >= 60 minutes History of diabetes: yes ABCD2 Score: 5 NIHSS Level of Conciousness: Alert, keenly responsive Ask month/age: Answers both questions correctly. Open/close eyes, close hand: Performs both tasks correctly Best gaze horizontal: Normal Visual arce: No visual loss Facial palsy: Normal symetrical movement Left arm drift: No drift for full 10 sec Right arm drift: No drift for full 10 sec Left leg drift: No drift for full 5 sec Right leg drift: No drift for full 5 sec Limb ataxia: Absent Sensory on face/arms/legs: Normal, no sensory loss Best language: No aphasia, normal Dysarthria: Normal Extinction or inattention: No abnormality Total NIH Stroke scale score: 0 Wells' Criteria for PE Clinical signs and symptoms of DVT: No Heart rate > 100: No Immobilization at least 3 days or surg in previous 4 weeks: No History of PE or DVT: No Hemoptysis: No Malignancy w/Treatment within 6 months or palliative: No Quality VTE Deep Vein Thrombosis/Pulmonary Embolism Present on Admission: No
--- NOTE | 2020-07-12 20:19 | PC.NURSE ---
Addendum entered by Yasmin Love R.N. 07/12/20 21:12: FLOOR WORKER evaluated patient and denies suicidal ideation at this time and made verbal contract with FLOOR WORKER that she will not harm herself while in facility. Original Note: Admission note: Patient arrived to floor at 1910, transferred self to inpatient bed with c/o dizziness. Last fall was 4 months ago. During admission assessment, patient reported suicidal ideation with clear plan (disappear and overdose on medications). Notified coordinator and JASMINE Restrepo of patients suicidal ideation. NIH: 0, passed swallow screen, placed on telemetry and notified ICU. Hypertensive, all other vital signs stable. Moderate fall risk, d/t weakness. Fall risk and call light education given, bed alarm on and functioning, call light in reach. Awaiting bed reassignment plan for patient from coordinator at this time.
[2020-07-12 20:54] LABS: Magnesium 1.6 mg/dL (1.6-2.3)
[2020-07-12 21:06] LABS: Troponin I < 0.012 ng/mL (0.01-0.034)
[2020-07-12] MEDS: ATORVASTATIN 20 MG TABLET 80 MG PO (21:45)
[2020-07-12] MEDS: clonazePAM 0.5 MG TABLET PO (21:45)
[2020-07-12] MEDS: INSULIN GLARGINE 100 UNIT/ML 3ML PEN 60 UNIT SUBCUT (21:46)
[2020-07-12] MEDS: INSULIN LISPRO 100 UNIT/ML 3ML VIAL SUBCUT (21:46)
[2020-07-13] VITALS (9 sets, daily range): BP systolic 115–143; BP diastolic 65–86; PULSE 71–85; RESP 14–20; TEMP 35.8–36.6; O2SAT 95–97
[2020-07-13] MEDS: LEVOTHYROXINE 100 MCG TABLET PO (05:46)
[2020-07-13] MEDS: PANTOPRAZOLE DR 20 MG TABLET PO (05:46)
[2020-07-13 06:13] LABS: Add Manual Diff / Slide Review NO; Basophils Absolute Auto 100 /uL (0-100); Basophils Percent Auto 1.1 % (0-2); Eosinophils Absolute Auto 500 /uL (0-450); Eosinophils Percent Auto 7.9 % (2-4); Hematocrit 33.6 % (36-46); Lymphocytes Absolute Auto 2000 /uL (1100-4500); Lymphocytes Percent Auto 32.4 % (25-40); Mean Corpuscular HGB Conc 32.7 % (30-36); Mean Corpuscular Hemoglobin 25.4 PG (26-34); Mean Corpuscular Volume 77.6 fL (80-100); Monocytes Absolute Auto 600 /uL (0-900); Monocytes Percent Auto 10.4 % (3-14); Neutrophils Absolute Auto 3000 /uL (1500-7000); Neutrophils Percent Auto 48.2 % (50-75); Platelet Count 384 X10^3/uL (150-400); Red Blood Cell Count 4.33 X10^6/uL (4.0-5.2); Red Cell Distribution Width 15.8 % (11.6-14.8); White Blood Cell Count 6.1 X10^3/uL (4.5-11.0)
[2020-07-13 06:15] LABS: Prothrombin Time 11.6 SECONDS (10.1-12.7)
[2020-07-13 06:22] LABS: BUN Creatinine Ratio 21.1 (6-22); Blood Urea Nitrogen 15 mg/dL (7-17); Calcium 9.5 mg/dL (8.4-10.2); Carbon Dioxide 27 mmol/L (22-32); Chloride 104 mmol/L (98-107); Cholesterol 186 mg/dL (140-199); Estimated Glomerular Filt Rate > 60.0 mL/min (>60); Glucose 149 mg/dL (80-110); HDL Cholesterol 48 mg/dL (40-60); HEMOLYSIS < 15 (0-50); LDL Cholesterol Calculated 92 mg/dL (<100); Potassium 3.9 mmol/L (3.4-5.1); Sodium 138 mmol/L (137-145); Triglycerides 232 mg/dL (35-150)
[2020-07-13 06:28] LABS: Hemoglobin A1C% w Est Avg Glu 11.5 % (4.0-6.0)
[2020-07-13 06:51] LABS: Thyroid Stimulating Hormone 2.23 uIU/mL (0.47-4.68)
[2020-07-13] MEDS: clonazePAM 0.5 MG TABLET 0.25 MG PO (08:36)
[2020-07-13] MEDS: CLOPIDOGREL 75 MG TABLET PO (08:36)
[2020-07-13] MEDS: ASPIRIN EC 325 MG TABLET PO (08:36)
[2020-07-13] MEDS: lisinopriL 20 MG TABLET PO (08:38)
[2020-07-13] MEDS: DULOXETINE 30 MG CAPSULE 60 MG PO (08:38)
[2020-07-13] MEDS: METOPROLOL ER 25 MG TABLET PO (08:38)
[2020-07-13] MEDS: INSULIN LISPRO 100 UNIT/ML 3ML VIAL SUBCUT ×2 (08:38→11:15)
--- NOTE | 2020-07-13 09:35 | PC.NURSE ---
Day shift: Pt off unit for MRI at approx 0930. Off tele and [employer]ING APPRENTICE informed.
--- NOTE | 2020-07-13 10:12 | PC.NURSE ---
Day shift: Pt back on AC unit at this time (1012).. Call light in reach. Bed alrm is on. Pt agrees to not get OOB w/o help from staff.
--- NOTE | 2020-07-13 12:34 | PT.IIE ---
Surgical History (Last Updated 07/12/20 @ 21:59 by Nellie Restrepo [facility]) History of arthroscopic surgery of shoulder History of hysterectomy History of laparoscopic adjustable gastric banding History of placement of ear tubes Medical History (Last Updated 07/12/20 @ 21:59 [facility] Anxiety disorder, unspecified Essential hypertension Eustachian tube disorder History of cervical cancer in adulthood Hypothyroidism Long-term current use of insulin for diabetes mellitus Low back pain Major depressive disorder, single episode, unspecified Mixed hyperlipidemia Obesity (BMI 30-39.9) Paroxysmal atrial fibrillation Progressive hearing loss of both ears Type 2 diabetes mellitus with diabetic neuropathy, unspecified Physical Therapy Inpatient Evaluation/Re-Eval M1 PT/OT-IP Prior Functional Status Start: 07/13/20 09:42 Freq: NEEDED Status: Discharge Protocol: Document 07/13/20 12:34 AW (Rec: 07/13/20 14:35 AW [id number]) Medical Review Prior Functional Status Medical History Reviewed Yes Communication WNL Mobility and Gait Pt ambulates without AD but does have a falls history. She has had progressive hearing loss since childhood and is regularly treated with eutstachian tubes. She was treated by OP PT in [place] for balance disturbance earlier this year. After she had a new left eustachian tube placed, her balance improved significantly and she was discharged from therapy. Activities of Daily Living and IADL's Independent Prior Functional Level (Other details) Pt has depression and anxiety which she reports are worse recently but she has mental health providers in place and plans to see them this week. Social History Household Members spouse Living Arrangements House Number of Floors (Floors) Two Floors Number of Stairs To Enter/Railing? 8 [place]INT[place] with R rail ascending. Pt stays carpentry specialist. Home Environment High Toilet,Walk in Shower Home Equipment Four Wheel Walker,Hand Held Shower Employment Status Unemployed Additional Social History Comment Pt lives with her spouse, Beck . M2 PT-IP Current Condition Start: 07/13/20 09:42 Freq: NEEDED Status: Discharge Protocol: Document 07/13/20 12:34 AW (Rec: 07/13/20 14:35 AW [id number]) Physical Therapy Current Condition Current Condition Evaluation Date 07/13/20 Treatment Diagnosis dizziness; balance disturbance Onset Date one week M3 PT-IP Subjective Start: 07/13/20 09:42 Freq: NEEDED Status: Discharge Protocol: Document 07/13/20 12:34 AW (Rec: 07/13/20 14:35 AW [id number]) Subjective Physical Therapy Visit Type Type Initial Evaluation Visit Start Time 12:11 Visit Stop Time 12:34 Total Visit Minutes 23 Notes Pt states she was prescribed meclizine earlier this week for dizziness but it made her symptoms worse. Number of FLOWER CHENILLER Visits 0 Physical Therapy Visit Comments Patient Comments Pt is willing to work with PT Patient Goals Decrease dizziness, improve balance Therapy Pain Assessment Pain When Pain Assessed During Mobility Pain Present Pain Present Pain Reported Location left hip Scale Used not quantified M4 PT-IP Mobility and Gait Start: 07/13/20 09:42 Freq: NEEDED Status: Discharge Protocol: Document 07/13/20 12:34 AW (Rec: 07/13/20 14:35 AW [id number]) PT-Bed Mobility Assessment Supine to Sit Supine to Sit Independent Scooting Scooting to Edge of Bed Independent PT-Transfer Assessment Sit to and From Stand Sit to and from Stand Independent Equipment Transfer Assistive Device None,Gait Belt Orthotic/Prosthetic Devices or Brace: No Transfers Transfer Destination Chair Transfer Technique Stand Step Pivot Transfer Ability Level of Assist Independent Comments Mobility Comments Pt was sitting up in bed as PT arrived. She completed all bed mobility without assist and stood for static balance assessment. She ambulated the halls with decreased LLE stance time. Pt complained of left hip pain in weightbearing . On return to the room, pt transferred to the chair without assist where she was left with call light in reach. Gait Assessment Gait Gait Assistance Required: Standby Assistance Distance (Feet) 250 Assistive Devices Assistive Device None,Gait Belt Orthotic/Prosthetic Devices or Brace: No Gait Deviations General Gait Pattern Antalgic,Step-to Gait Factors Limiting Gait Function Factors Limiting Gait Function Decreased Sensation,Pain,Poor Balance Comments Gait Comments Pt completed 4-item DGI, scoring 10/12 with single points deducted for path deviation and mild change in gait speed during vertical and horizontal head turns. Stair Climbing Assessment Evaluation Level of Assist On Stairs Independent Devices Stair Climbing Assistive Devices Right Railing Technique/Endurance Stair Climbing Direction Ascend and Descend Stair Climbing Technique Step Over Step Number of Steps Climbed 3 Query Text: Stair Climbing Set # Repetitions (reps) 2 PT-Balance Assessment Sitting Balance and Reactions Static Sitting Balance Ability Good Dynamic Sitting Balance Ability Good Standing Balance and Reactions Static Standing Balance Ability Good Dynamic Standing Balance Ability Good Device Used no AD Balance Tests Romberg WNL EO; increased sway with EC Tandem Standing requires assist to get into position; unable to hold Functional Assessments Functional Tests Dynamic Gait Index 4 item DGI: 11/25 M5 PT-IP Objective Assessments Start: 07/13/20 09:42 Freq: NEEDED Status: Discharge Protocol: Document 07/13/20 12:34 AW (Rec: 07/13/20 14:35 AW [id number]) Orientation Orientation/Cognition Level of Alertness Alert Orientation Name,Day of Week,Place, Situation Language Function Ability No Deficits Noted Safety Awareness Understands Safety Issues Memory Description No Deficits Noted Gross Range of Motion Upper Extremity ROM Assessment Within Functional Limits Lower Extremity ROM Assessment Within Functional Limits Strength Upper Extremity Strength Assessment Within Functional Limits Lower Extremity Strength Assessment Within Functional Limits Coordination Assessment Gross Coordination Gross Coordination WNL Assessment Finger to Nose Test Normal Performance Foot Tapping Test Normal Performance Sensation Assessment Sensation Gross Sensation Right LE Impaired,Left LE Impaired Light Touch Impaired Proprioception (Position) Impaired Comments Sensation Comments Chronic peripheral neuropathy affects bilateral feet up to mid raphael. Muscle Tone Muscle Tone WNL Yes Other Assessments Other Other Assessments Occulomotor and vestibular exam were grossly normal. Smooth pursuits, saccades, and head thrust did not provoke dizziness and were normal. M6 PT-IP Treatment Start: 07/13/20 09:42 Freq: NEEDED Status: Discharge Protocol: Document 07/13/20 12:34 AW (Rec: 07/13/20 14:35 AW [id number]) Physical Therapy Treatment Education Education Provided Safety M7 PT-IP Assessment and Plan Start: 07/13/20 09:42 Freq: NEEDED Status: Discharge Protocol: Document 07/13/20 12:34 AW (Rec: 07/13/20 14:35 AW [id number]) PT Summary Assessment and Plan Potential Rehabilitation Potential Good Status of Condition at Evaluation Stable Summary Impairments Pain,Balance,Gait Assessment Summary Felicitas is a 60 yo woman who is followed by ENT for progressive hearing loss and need for eustachian tubes. She presents to acute PT with complaints of dizziness worsening over the last week ( particularly exacerbated by meclizine) which has now cleared. Pt described her dizziness as associated with occular movement. When I move my eyes to the right, it sounds like bees in my head closing a zipper going to the left. This PT was unable to provoke this sensation on clinical exam. Cranial nerves and vestibulo-occular reflex were grossly normal. Coordination was normal. Pt did have some path deviation in gait during horizontal and vertical head turns but 4-item DGI score of 10/12 does not indicate need for further testing. Pt was advised to seek the assistance of a vestibular physical therapist should symptoms return. At this time, no acute PT needs are identified and pt is safe to return home. Frequency of Treatment Frequency Of Treatment Discharge Recommendations To Nursing Amount of Assist Needed Independent,Standby Assistance Discharge Recommendations PT Discharge Recommendations Home,Outpatient PT Transportation Needs at Discharge Private Vehicle
--- NOTE | 2020-07-13 12:45 | PM.DS.1 ---
History of Present Illness History of Present Illness Date Patient Seen: 07/13/20 Time Patient Seen: 12:45 Chief complaint: dizzy Narrative: Per Nellie Restrepo, INSURANCE SALES REPRESENTATIVE-[facility]: Patient is a 60-year-old female Felicitas Simms who presented to the ED with a chief complaint of dizziness affecting her ability to ambulate over the past week or so. She occasionally has episodes of blurred vision but denies any currently. She denies any facial weakness or speech trouble. Patient reports that she has dizziness with laying sitting, standing, or with ambulation. It seems to be triggered with eye movement, unable to state if specific eye movement or direction triggers. Patient feels as if she is spinning knocked the room. Patient denies any pain with eye movement or pressure breathing high knee I, patient wears glasses and has yearly diabetic eye exams. She has had a difficult time ambulating and feels like she will fall over. She is unsafe to drive, and up until 1 week ago was ambulating without any difficulty. 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 patient has had eustachian tubes in place since childhood last placement was a couple years ago, ED found no blockage. She denies any focal neurologic findings such as unilateral numbness, weakness or tingling. She denies any falls or injuries. She does state that her blood sugars have been abnormally high over the past week or so. Patient had advised the nurse upon being admitted to the floor that she was suicidal. Patient stated to me that she is not suicidal at this time and she will not harm herself while in the facility, her depression is 15/10 and her anxiety is 10/10 she states that she feels like her medications are no longer working for her, she does have a scheduled appointment with her psychiatrist (Dr. Daniel antoine/[facility]) in 2 days and establishing with a counselor and verbalizes that she has not attempted suicide since the age of 25, and was unable to verbalize a plan. Patient became repeatedly tearful and emotional during the interview when answering questions and she states that this is common for her during any & all conversations with others. Patient verbalized that adjustment of her medications will resolve her current depressive state as it has in the past. Patient has a history hypertension, hyperlipidemia, insulin-dependent diabetes, atrial fibrillation, major depressive disorder, anxiety with a history suicide attempts the last being at age 25, cervical cancer, genetic progressive hearing loss with chronic eustachian tubes, and hypothyroidism. Patient's vitals upon admit temp 97.9?, BP 168/73, HR 76, RR 14, O2 saturation 97% on room air. Patient's labs for the most part are unremarkable HGB 11.6, HCT 35.7, RDW 15.6, Na 136, AST 51, ALT 49, NIH score: 0. Head CT and CXR were both unremarkable. I personally reviewed patient's EKG: Normal sinus rhythm with a ventricular rate of 84 with left BBB noted. Patient admitted for TIA versus stroke. Discharge Providers Provider Date of admission: 07/12/20 19:03 Discharge Date: 07/13/20 Primary care physician: Cristhian Méndez MD Consults: 07/12/20 19:27 Consult to Discharge Planning Routine Comment: Consult to Occupational Therapy Evaluate & Treat Comment: Physician Instructions: Evaluate and treat Consult to Physical Therapy Evaluate & Treat Comment: Physician Instructions: Evaluate and Treat Consult to Speech Therapy Evaluate & Treat Comment: Physician Instructions: Evaluate and treat 07/13/20 10:00 Consult to Physical Therapy Evaluate & Treat Comment: Rogers-Hallpike maneuver after neg MR Physician Instructions: Evaluate and Treat Discharge provider: Vlad Scott DO Summary Hospital Course Discharge Diagnosis: 1. Peipneral vertigo, present on admission, improved. 2. Major depressive disorder, recurrent with anxiety and history of suicide attempt, acute on chronic, present on admission 3. Atrial fibrillation Paroxysmal, chronic 4. Hypothyroidism, acquired, chronic 5. Obesity, as evidenced by BMI 35.9 6. Essential hypertension 7. History of eustacean tube placement 8. type 2 diabetes with hyperglcyemia, uncontrolled. Hospital Course: This is a 60 year old who was admitted over concern for possible TIA or CVA given description of dizziness that was present at rest. The following morning her symptoms had resolved, and her description had changed slightly to predominantly dizziness associated with movement. She had an MRI which revealed no acute infarcts. Patient was seen by PT and cleared for discharge home. Per PT it also appeared symptoms were more peripheral in nature. Patient's symptoms also improved with meclizine. She should follow up with her ENT provider (eustacean tubes) for possible referral to vestibular therapy and can trial meclizine at home. No other medication changes are currently recommended. She already takes a baby aspirin and statin medication which can serve as secondary prevention. Her glucose levels were also markedly elevated and A1c was >11%. She reported glucose readings of too high to be read at home. This may also be contributing to her dizziness as well. She was recommended to add 20 units of levemir in the morning in addition to her 60 units at night. She was advised to keep a strict log and plans to follow up with her PCP for continued adjustments of medications. Exam Vital Signs (past 8 hours): - 07/13/20 06:00 07/13/20 06:42 07/13/20 08:28 Temperature 97.1 F L 96.4 F L Pulse Rate 79 78 Respiratory Rate 16 14 Blood Pressure 121/74 115/69 Pulse Oximetry 97 96 95 07/13/20 08:38 07/13/20 10:12 07/13/20 10:20 Temperature Pulse Rate 71 85 Respiratory Rate Blood Pressure Pulse Oximetry 95 07/13/20 11:23 Temperature 98 F Pulse Rate 85 Respiratory Rate 14 Blood Pressure 124/65 Pulse Oximetry 95 Oxygen Delivery Method Room Air Oxygen Flow Rate 0 Narrative Exam Narrative: General: Patient is a well-developed, well-nourished in no distress at this time. HEENT: Normocephalic, atraumatic, extraocular muscles intact, oral pharynx is clear and mucous membranes are moist. Neck is supple and symmetric, trachea is midline, no adenopathy, no thyroid enlargement, nontender, no masses palpated. Negative for JVD Chest: Normal AP diameter and contour without kyphoscoliosis, no nasal flaring, retractions, or tachypneic labored Lungs: Auscultation of all lung arce are clear without adventitious sounds, wheezes, rhonchi, or rales. Cardio: S1 & S2 with regular rate and rhythm without murmur, rubs, or gallops, no carotid bruit, no cardiac pulsations present. Abdomen: Soft nontender, negative for organomegaly, or masses. Bowel sounds are present in all 4 quadrants without guarding or rebound, no CVA tenderness. Musculoskeletal: Muscle strength and tone are equal within normal limits, no deformity, crepitus, effusions, cyanosis, clubbing or edema present. Full range of motion intact radial and pedal pulses are normal. Skin: Warm dry and intact without rashes, ulcerations or petechiae. Neuro: Alert and orientated x3, strength is +5/5 in all extremities, sensation to touch intact, no gross deficits noted of cranial nerves. No nystagmus. Psych: Patient has a well-kept appearance, appropriate affect, mental status attitude thought context and judgment are appropriate for age. Objective Labs Result Diagrams: 07/13/20 05:55 07/13/20 05:55 Labs: Laboratory Results - last 24 hr 07/12/20 07/12/20 07/12/20 14:15 14:15 14:15 WBC 6.2 RBC 4.57 Hgb 11.6 L Hct 35.7 L MCV 78.1 L MCH 25.3 L MCHC 32.4 RDW 15.6 H Plt Count 392 Neut % (Auto) 54.5 Lymph % (Auto) 27.3 [place] % (Auto) 9.5 Eos % (Auto) 7.9 H Baso % (Auto) 0.8 Neut # (Auto) 3400 Lymph # (Auto) 1700 [place] # (Auto) 600 Eos # (Auto) 500 H Baso # (Auto) 0 PT 10.8 INR 1.0 APTT 30 Sodium 136 L Potassium 4.2 Chloride 100 Carbon Dioxide 26 BUN 16 Creatinine 0.74 Estimated GFR > 60.0 BUN/Creatinine Ratio 21.6 Glucose 187 H Hemoglobin A1c Calcium 10.0 Magnesium 1.6 Total Bilirubin 0.5 AST 51 H ALT 49 H Alkaline Phosphatase 98 Total Creatine Kinase 70 CK-MB (CK-2) TNP CK-MB (CK-2) Rel Index TNP Troponin I < 0.012 Total Protein 7.3 Albumin 4.2 Globulin 3.1 Albumin/Globulin Ratio 1.4 Triglycerides Cholesterol LDL Cholesterol, Calc HDL Cholesterol Lipase 62 TSH SARS-CoV-2 (PCR) 07/12/20 07/12/20 07/12/20 17:00 20:25 20:25 WBC RBC Hgb Hct MCV MCH MCHC RDW Plt Count Neut % (Auto) Lymph % (Auto) [place] % (Auto) Eos % (Auto) Baso % (Auto) Neut # (Auto) Lymph # (Auto) [place] # (Auto) Eos # (Auto) Baso # (Auto) PT INR APTT Sodium Potassium Chloride Carbon Dioxide BUN Creatinine Estimated GFR BUN/Creatinine Ratio Glucose Hemoglobin A1c Calcium Magnesium 1.6 Total Bilirubin AST ALT Alkaline Phosphatase Total Creatine Kinase CK-MB (CK-2) CK-MB (CK-2) Rel Index Troponin I < 0.012 Total Protein Albumin Globulin Albumin/Globulin Ratio Triglycerides Cholesterol LDL Cholesterol, Calc HDL Cholesterol Lipase TSH SARS-CoV-2 (PCR) Negative 07/13/20 07/13/20 07/13/20 05:55 05:55 05:55 WBC RBC Hgb Hct MCV MCH MCHC RDW Plt Count Neut % (Auto) Lymph % (Auto) [place] % (Auto) Eos % (Auto) Baso % (Auto) Neut # (Auto) Lymph # (Auto) [place] # (Auto) Eos # (Auto) Baso # (Auto) PT 11.6 INR 1.0 APTT Sodium 138 Potassium 3.9 Chloride 104 Carbon Dioxide 27 BUN 15 Creatinine 0.71 Estimated GFR > 60.0 BUN/Creatinine Ratio 21.1 Glucose 149 H Hemoglobin A1c 11.5 H Calcium 9.5 Magnesium Total Bilirubin AST ALT Alkaline Phosphatase Total Creatine Kinase CK-MB (CK-2) CK-MB (CK-2) Rel Index Troponin I Total Protein Albumin Globulin Albumin/Globulin Ratio Triglycerides 232 H Cholesterol 186 LDL Cholesterol, Calc 92 HDL Cholesterol 48 Lipase TSH SARS-CoV-2 (PCR) 07/13/20 07/13/20 05:55 05:55 WBC 6.1 RBC 4.33 Hgb 11.0 L Hct 33.6 L MCV 77.6 L MCH 25.4 L MCHC 32.7 RDW 15.8 H Plt Count 384 Neut % (Auto) 48.2 L Lymph % (Auto) 32.4 [place] % (Auto) 10.4 Eos % (Auto) 7.9 H Baso % (Auto) 1.1 Neut # (Auto) 3000 Lymph # (Auto) 2000 [place] # (Auto) 600 Eos # (Auto) 500 H Baso # (Auto) 100 PT INR APTT Sodium Potassium Chloride Carbon Dioxide BUN Creatinine Estimated GFR BUN/Creatinine Ratio Glucose Hemoglobin A1c Calcium Magnesium Total Bilirubin AST ALT Alkaline Phosphatase Total Creatine Kinase CK-MB (CK-2) CK-MB (CK-2) Rel Index Troponin I Total Protein Albumin Globulin Albumin/Globulin Ratio Triglycerides Cholesterol LDL Cholesterol, Calc HDL Cholesterol Lipase TSH 2.23 SARS-CoV-2 (PCR) [facility] Medical History (Updated 07/12/20 @ 21:59 by NEVAEH Rowe) Anxiety disorder, unspecified Essential hypertension Eustachian tube disorder History of cervical cancer in adulthood Hypothyroidism Long-term current use of insulin for diabetes mellitus Low back pain Major depressive disorder, single episode, unspecified Mixed hyperlipidemia Obesity (BMI 30-39.9) Paroxysmal atrial fibrillation Progressive hearing loss of both ears Type 2 diabetes mellitus with diabetic neuropathy, unspecified Surgical History (Updated 07/12/20 @ 21:59 by Nellie Restrepo [facility]) History of arthroscopic surgery of shoulder History of hysterectomy History of laparoscopic adjustable gastric banding History of placement of ear tubes Family History (Updated 07/12/20 @ 22:01 by Nellie Restrepo [facility]) Mother Congestive heart failure Lung cancer Father COPD (chronic obstructive pulmonary disease) Cardiovascular disease Diabetes mellitus Social History household members: spouse Smoking Status: Never smoker alcohol intake: never Discharge Plan Discharge Plan Patient Disposition: Home Provider Discharge Comment: You were admitted to the hospital with dizziness. You had an MRI which did not show any evidence of a stroke. That does not rule out a TIA, or commonly called a mini-stroke. This may be due to your ear issues as well and can ask your ENT office next week. You are currently on medications designed to help reduce your risk of having a stroke including aspirin and appropriate statin therapy. Your A1c was very elevated at 11.5%. Please follow-up with your primary care provider as previously scheduled. I do recommend that you add 20 units of Levemir in the morning. Watch your diet for high glucose foods. If you develop lows please consult your PCP for adjustments. Please try and keep an accurate log over the next few days of your blood sugar levels, testing 4-5 times per day ideally. Discharge orders & Medications Prescriptions: New Levemir FlexTouch U-100 Insuln 100 unit/mL (3 mL) insulin pen 20 unit SUBCUT DAILY 30 Days Qty: 3 RF: 0 Continued metoprolol succinate 25 mg tablet extended release 24 hr 25 mg PO DAILY RF: 0 levothyroxine 100 mcg capsule 100 mcg PO DAILY RF: 0 Levemir U-100 Insulin 100 unit/mL solution 60 unit SUBCUT BEDTIME RF: 0 rosuvastatin 40 mg tablet 40 mg PO BEDTIME RF: 0 duloxetine 60 mg capsule,delayed release(DR/EC) 60 mg PO DAILY RF: 0 clonazepam 0.5 mg tablet 0.25 mg PO DAILY RF: 0 metformin 500 mg tablet 1,000 mg PO BID RF: 0 benazepril 20 mg tablet 20 mg PO DAILY RF: 0 clonazepam 0.5 mg tablet 0.5 mg PO BEDTIME RF: 0 insulin lispro [Humalog U-100 Insulin] 100 unit/mL solution 0 sliding scale dose SUBCUT ACHS RF: 0 pantoprazole 40 mg tablet,delayed release (DR/EC) 40 mg PO DAILY RF: 0 Medication counseling provided by Pharmacist: Yes Follow up/Referrals: Cristhian Méndez MD [Primary Care Provider] - Diet/Activity/Treatments Diet: Diet as Tolerated Activity: As tolerated Visit Report/Discharge Packet Instructions: DI for Transient Ischemic Attack, How to Prevent Falls Discharge Data Primary Care Provider: Cristhian Méndez Attending Provider: Vlad Scott VTE Deep Vein Thrombosis/Pulmonary Embolism Present on Admission: No
--- NOTE | 2020-07-13 14:04 | PC.NURSE ---
Day shift: Pt left unit at approx 1400. Taken to car via WC by this caption writer. Pt's spouse is driving her home. No new MD scripts. MD made a change in Pt's insulin dosage and Pt has that information. Paperwork signed and all questions answered. Pt has all personal belongings. Pt stated that she is happy to be going home today.
--- NOTE | 2020-07-13 14:36 | CM.DANOTE ---
Discharge Planning/Care Management DCP: case received, EMR reviewed. Discussed case during Team Bedside Rounds but did not meet pt and she was off the until for MRI. At that time Dr. Scott stated that pt would likely be able to d/c to home later today pending results of MRI. Pt is a 60 year old female who admitted last night to care of hospitalist team. PCP: Cristhian Méndez Payer: [facility] Admission status: OBS: confirmed by UR SHOBHA Tapia. Pt also sees an ENT specialist for ongoing issues that affect her hearing. A check in now shows pt was cleared for d/c by Dr. Scott and will follow up with her PCP as well as ENT provider. Went home in company of her Beck. No d/c concerns were noted by the care team members. CM Discharge Assessment Start: 07/13/20 14:35 Freq: Status: Active Protocol: Document 07/13/20 14:35 ITV (Rec: 07/13/20 14:36 ITV [id number]) Discharge Planning Assessment Advance Directives? No History Provided By Medical Record Prior Living Arrangements House Household Members spouse Is patient alert and oriented? Yes Discharge Plan Home
== END 2020-07-13 14:10 | disposition home or self-care (01) ==
LOC: ED 18:23 → AC 19:04
PROVIDERS: Emergency Medicine; Nurse Practitioner Family; Admitting Provider Internal Medicine; Emergency Provider Emergency Medicine; PCP Internal Medicine; Referring Provider Emergency Medicine; Visit Provider Internal Medicine
DX: R42 Dizziness and giddiness (principal); I10 Essential (primary) hypertension; Z79.4 Long term (current) use of insulin; F32.9 Major depressive disorder, single episode, unspecified; F41.9 Anxiety disorder, unspecified; Z91.5 Personal history of self-harm; E78.5 Hyperlipidemia, unspecified; H69.90 Unspecified Eustachian tube disorder, unspecified ear; E03.9 Hypothyroidism, unspecified; E66.9 Obesity, unspecified; Z68.35 Body mass index [BMI] 35.0-35.9, adult; I48.0 Paroxysmal atrial fibrillation; E11.40 Type 2 diabetes mellitus with diabetic neuropathy, unspecified; Z20.822 Contact with and (suspected) exposure to COVID-19
CPT/HCPCS: 36415; 70450; 70548; 70553; 71045; 80048; 80053; 80061; 82550; 82962; 83036; 83690; 83735; 84443; 84484; 85025; 85610; 85730; 87635; 93005; 96372; 97161; 99285; C9803; G0378; J1815

== ENCOUNTER → 2020-07-23 15:13 | Outpatient (CLI) | payer OTHER, SELFPAY ==
[2020-07-12 19:16] VITALS: BMI 35.9
--- NOTE | 2020-07-23 15:18 | DI.RAD.S_ITS ---
PROCEDURE: XR HIP W PEL IF DONE ERIKA MIN 4V INDICATIONS: LT HIP PAIN TECHNIQUE: AP pelvis with lateral view(s) of the left and right hip(s). COMPARISON: Merged With [facility], [facility]I, XR HIP W PEL IF DONE LT 2V, 09/17/2019, 11:27. FINDINGS: Bones: No fractures or dislocations. Pelvic ring appears intact. No suspicious bony lesions. Soft tissues: The visualized bowel gas pattern is normal. No suspicious soft tissue calcifications. IMPRESSION: No trauma found, source of pain is not identified. There is a mild degree of hip joint osteoarthritis, symmetric bilaterally. Dictated by: Troy Bennett M.D. on 07/23/2020 at 16:30 Approved by: Troy Bennett M.D. on 07/23/2020 at 16:31
== END ==
PROVIDERS: PCP Internal Medicine; Referring Provider Internal Medicine; Visit Provider Internal Medicine
DX: M25.552 Pain in left hip (principal); M16.0 Bilateral primary osteoarthritis of hip
CPT/HCPCS: 73522

== ENCOUNTER → 2021-09-10 15:45 | Outpatient (CLI) | payer OTHER, SELFPAY ==
[2020-07-12 19:16] VITALS: BMI 35.9
--- NOTE | 2021-09-10 15:51 | DI.RAD.S_ITS ---
PROCEDURE: XR HAND RT MIN 3V INDICATIONS: Pain in right hand TECHNIQUE: 3 views of the hand(s) acquired. COMPARISON: None. FINDINGS: Bones: No fractures or dislocations. Carpal bones are normally aligned. No suspicious bony lesions. Soft tissues: No suspicious soft tissue calcifications. IMPRESSION: No definite radiographic abnormality. If pain persists with conservative management, consider cross sectional imaging such as CT or MRI for further assessment. Dictated by: Alfredo Kay [facility] Interpreted: Samanta Maya MD on 09/10/2021 at 16:12 Transcribed by: PATTI on 09/10/2021 at 16:12 Approved by: Samanta Maya M.D. on 09/10/2021 at 17:28
== END ==
PROVIDERS: PCP Internal Medicine; Referring Provider Internal Medicine; Visit Provider Internal Medicine
DX: M79.641 Pain in right hand (principal)
CPT/HCPCS: 73130

== ENCOUNTER → 2021-10-21 15:04 | Outpatient (CLI) | payer OTHER, SELFPAY ==
[2020-07-12 19:16] VITALS: BMI 35.9
--- NOTE | 2021-10-21 | DI.MRI.S_ITS ---
PROCEDURE: MR HEAD/BRAIN WO CON INDICATIONS: syncope and collapse/acute post traumatic headache TECHNIQUE: Non-contrast axial T1 spin echo, axial T2 fast spin echo, sagittal and axial FLAIR, coronal T2 fast spin echo, axial gradient echo, axial diffusion and ADC through the brain. COMPARISON: MR, MR STROKE, 07/13/2020, 9:22. FINDINGS: Image quality: Excellent. CSF spaces: Ventricles appear symmetric in size and shape. Basal cisterns are patent. No extra-axial fluid collections. Brain: No intracranial bleeds or mass effects. There is cerebral volume loss for age. There are periventricular and deep white matter chronic small vessel ischemic changes. Brainstem appears normal. Diffusion-weighted images show no acute ischemic insults. No chronic ischemic insults. Normal intravascular flow voids are present. Skull and face: Calvarial bone marrow is normal in signal. Orbits are normal. Sinuses: Mild bilateral maxillary sinus mucosal thickening. Sinuses and mastoids are otherwise clear. IMPRESSION: 1. Volume loss and small vessel ischemic disease. 2. No acute intracranial abnormality. No recent infarct. 3. Mild sinus disease. Dictated by: Rubens Barnes M.D. on 10/21/2021 at 15:56 Transcribed by: LALY on 10/21/2021 at 15:57 Approved by: Rubens Barnes M.D. on 10/21/2021 at 16:56
== END ==
PROVIDERS: PCP Internal Medicine; Referring Provider Internal Medicine; Visit Provider Internal Medicine
DX: R55 Syncope and collapse (principal); G44.319 Acute post-traumatic headache, not intractable; I67.89 Other cerebrovascular disease; J32.8 Other chronic sinusitis
CPT/HCPCS: 70551

== ENCOUNTER → 2022-02-15 10:38 | Outpatient (CLI) | payer OTHER, MEDICAID, SELFPAY ==
[2020-07-12 19:16] VITALS: BMI 35.9
[2022-02-15 11:38] LABS: Hemoglobin A1C% w Est Avg Glu 8.3 % (4.0-6.0)
[2022-02-15 11:42] LABS: Alanine Aminotransferase 25 IU/L (<35); Albumin 4.4 g/dL (3.5-5.0); Albumin Globulin Ratio 1.3 (1.0-2.8); Alkaline Phosphatase 73 U/L (38-126); Aspartate Aminotransferase 29 IU/L (14-36); BUN Creatinine Ratio 14.7 (6-22); Bilirubin Total 0.5 mg/dL (0.2-1.3); Blood Urea Nitrogen 11 mg/dL (7-17); Calcium 9.5 mg/dL (8.4-10.2); Carbon Dioxide 25 mmol/L (22-32); Chloride 99 mmol/L (98-107); Cholesterol 194 mg/dL (140-199); Estimated Glomerular Filt Rate > 60 mL/min (>60); Globulin 3.3 g/dL (1.7-4.1); Glucose 113 mg/dL (80-110); HDL Cholesterol 73 mg/dL (40-60); HEMOLYSIS < 15 (0-50); LDL Cholesterol Calculated 92 mg/dL (<100); Potassium 4.3 mmol/L (3.4-5.1); Sodium 136 mmol/L (137-145); Total Protein 7.7 g/dL (6.3-8.2); Triglycerides 144 mg/dL (35-150)
[2022-02-15 12:01] LABS: Creatinine Urine Random 64.7 mg/dL
[2022-02-15 12:07] LABS: Microalbumi Creatinin Ratio Ur 15.4 ug/mg CR (<30)
== END ==
PROVIDERS: PCP Family Medicine; Referring Provider Family Medicine; Visit Provider Family Medicine
DX: E11.40 Type 2 diabetes mellitus with diabetic neuropathy, unspecified (principal); E78.5 Hyperlipidemia, unspecified; F32.9 Major depressive disorder, single episode, unspecified; F41.1 Generalized anxiety disorder; I10 Essential (primary) hypertension; I48.0 Paroxysmal atrial fibrillation; Z79.4 Long term (current) use of insulin
CPT/HCPCS: 36415; 80053; 80061; 82043; 82570; 83036

== ENCOUNTER → 2022-03-08 12:07 | Outpatient (CLI) | payer OTHER, MEDICAID, SELFPAY ==
[2020-07-12 19:16] VITALS: BMI 35.9
[2022-03-09 07:37] LABS: Fecal Immunochemical Test Positive (Negative)
== END ==
PROVIDERS: PCP Family Medicine; Referring Provider Family Medicine; Visit Provider Family Medicine
DX: Z12.11 Encounter for screening for malignant neoplasm of colon (principal)
CPT/HCPCS: 82274

== ENCOUNTER → 2022-03-30 14:29 | Outpatient (CLI) | payer OTHER, MEDICAID, SELFPAY ==
[2020-07-12 19:16] VITALS: BMI 35.9
--- NOTE | 2022-03-30 14:30 | DI.MG.S_ITS ---
BILATERAL DIGITAL SCREENING MAMMOGRAM 3D/2D WITH CAD: 03/30/2022 CLINICAL: Routine screening. Family history of breast cancer. No prior exams were available for comparison. Both breasts are almost entirely fatty (category a/<25% glandular tissue). Current study was also evaluated with a Computer Aided Detection (CAD) system. There is a possible 0.5 cm oval equal density asymmetry in the right breast sub-areolar depth lateral region seen on the craniocaudal view only. No other significant masses, calcifications, or other findings are seen in either breast. IMPRESSION: INCOMPLETE: NEEDS ADDITIONAL IMAGING EVALUATION The possible 0.5 cm oval equal density asymmetry in the right breast is indeterminate. Additional views with possible ultrasound are recommended. Based on the Tyrer Cuzick model (a risk assessment model) the patient's lifetime risk is 10.9% and her 10 year risk is 4.6%. According to the ACR, ACS, and NCCN guidelines, an annual breast MRI exam along with mammogram is recommended if the patient's lifetime risk is 20% or greater. This exam was interpreted at Station ID: [id number]. NOTE: For mammograms, a report in lay terms will be sent to the patient. Approximately 15% of breast malignancies will not be visualized mammographically. In the management of a palpable breast mass, a negative mammogram must not discourage biopsy of a clinically suspicious lesion. Electronically Signed By: Abundio shaver/lucille:03/30/2022 15:26:16 letter sent: Additional Imaging Needed ACR BI-RADS Category 0: Incomplete 3340F
== END ==
PROVIDERS: PCP Family Medicine; Referring Provider Family Medicine; Visit Provider Family Medicine
DX: Z12.31 Encounter for screening mammogram for malignant neoplasm of breast (principal); Z80.3 Family history of malignant neoplasm of breast
CPT/HCPCS: 77063; 77067

== ENCOUNTER 2022-04-06 10:30 | Day surgery (SDC) | payer OTHER, MEDICAID, SELFPAY ==
[2020-07-12 19:16] VITALS: BMI 35.9
[2022-04-06 10:59] VITALS: BP 144/82; PULSE 84; RESP 16; TEMP 36.4; O2SAT 96
[2022-04-06 11:26] VITALS: BMI 31.4
[2022-04-06] MEDS: LACTATED RINGERS 1,000 ML 200 ML IV (11:39)
--- NOTE | 2022-04-06 11:42 | P.HP_ITS ---
History of Present Illness History of Present Illness Date Patient Seen: 04/06/22 Time Patient Seen: 11:42 Chief complaint: Colonoscopy Narrative: The patient presents for colorectal screening. She is here for diagnostic colonoscopy after a positive fit. Previously normal colonoscopy 10 years ago No personal or family history of colon cancer. On further history denies any recent gastrointestinal symptoms. No nausea, vomiting, abdominal pain, loss of appetite, unexplained weight loss, change in bowel habits, or blood per rectum. Patient History Medical History (Updated 04/06/22 @ 11:43 by Florentin Goodman MD) Anxiety disorder, unspecified Benign essential HTN Essential hypertension Eustachian tube disorder JUANA (generalized anxiety disorder) GERD (gastroesophageal reflux disease) History of cervical cancer in adulthood Hyperlipidemia Hypothyroidism Hypothyroidism Long-term current use of insulin for diabetes mellitus Low back pain Major depression Major depressive disorder, single episode, unspecified Mixed hyperlipidemia Obesity (BMI 30-39.9) Paroxysmal atrial fibrillation Paroxysmal atrial fibrillation Progressive hearing loss of both ears Type 2 diabetes mellitus with diabetic neuropathy, unspecified Type 2 diabetes mellitus with diabetic neuropathy, with long-term current use of insulin Surgical History (Updated 02/10/22 @ 10:49 by Pedro Alberto DO) History of arthroscopic surgery of shoulder History of hysterectomy History of laparoscopic adjustable gastric banding Family & Social History Family History (Updated 07/12/20 @ 22:01 by [facility] Mother Congestive heart failure Lung cancer Father COPD (chronic obstructive pulmonary disease) Cardiovascular disease Diabetes mellitus Social History: household members spouse Tobacco & Substance use: Smoking Status Never smoker alcohol intake never Substance Use Type does not use Meds Home Medications and Allergies Home Medications Medication Instructions Recorded Confirmed Type alpha lipoic acid 600 mg capsule 600 mg PO BID 02/10/22 04/06/22 History aripiprazole 5 mg tablet 5 mg PO DAILY #90 tabs 02/10/22 04/06/22 Rx aspirin 81 mg tablet,delayed 81 mg PO DAILY 02/10/22 04/06/22 History release (Adult Aspirin Regimen) benazepril 20 mg tablet 20 mg PO DAILY #90 tabs 02/10/22 04/06/22 Rx cetirizine 10 mg tablet (Aller-Rosibel) 10 mg PO DAILY PRN Allergy Symptoms 02/10/22 04/06/22 History cholecalciferol (vitamin D3) 25 25 mcg PO DAILY 02/10/22 04/06/22 History mcg (1,000 unit) capsule chromium picolinate 400 mcg tablet 800 mcg PO DAILY 02/10/22 04/06/22 History clonazepam 0.5 mg tablet 0.5 mg PO BEDTIME Anxiety #30 tabs 02/10/22 04/06/22 Rx coenzyme Q10 [H2Q CoQ10] See Rx Instructions .Route .COMPLEX 02/10/22 04/06/22 History cranberry extract See Rx Instructions .Route 02/10/22 04/06/22 History .COMPLEX cholesterol control dabigatran etexilate 150 mg 150 mg PO BID #180 caps 02/10/22 04/06/22 Rx capsule (Pradaxa) duloxetine 20 mg capsule,delayed 20 mg PO DAILY #90 caps 02/10/22 04/06/22 Rx release (Cymbalta) duloxetine 60 mg capsule,delayed 60 mg PO DAILY #90 caps 02/10/22 04/06/22 Rx release insulin detemir U-100 100 unit/mL 56 unit (0.56 mL) SUBCUT BID #60 mL 02/10/22 04/06/22 Rx subcutaneous solution (Levemir U-100 Insulin) levothyroxine 100 mcg capsule 100 mcg PO DAILY #90 caps 02/10/22 04/06/22 Rx metformin 500 mg tablet 1,000 mg PO BID #360 tabs 02/10/22 04/06/22 Rx metoprolol succinate 25 mg 25 mg PO DAILY #90 tabs 02/10/22 04/06/22 Rx tablet,extended release 24 hr pantoprazole 40 mg tablet,delayed 40 mg PO DAILY #90 tabs 02/10/22 04/06/22 Rx release rosuvastatin 40 mg tablet 40 mg PO BEDTIME #90 tabs 02/10/22 04/06/22 Rx insulin lispro 100 unit/mL See Rx Instructions .Route .COMPLEX 04/06/22 04/06/22 History subcutaneous pen (Humalog KwikPen (U-100) Insulin) Allergies Allergy/AdvReac Type Severity Reaction Status Date / Time No Known Drug Allergies Allergy Verified 04/06/22 11:25 Exam Vital Signs (past 8 hours): - 04/06/22 10:59 Temperature 97.5 F L Pulse Rate 84 Respiratory Rate 16 Blood Pressure 144/82 H Pulse Oximetry 96 Oxygen Delivery Method Room Air Oxygen Delivery Method Room Air Narrative Exam Narrative: General adult woman alert oriented no acute distress Assessment & Plan Assessment and plan (1) Positive FIT (fecal immunochemical test): Status: Acute Assessment & Plan narrative: Patient needs a colonoscopy following a positive fit. Technical details were discussed. Risks, benefits, alternatives explained. Risks including but not limited to myocardial infarction, aspiration, bleeding, pain, missed lesion, incomplete examination, need for further radiographic studies, colonic perforation, and need for major abdominal surgery were discussed. All questions were answered to their satisfaction, and they are in agreement with this plan. Time Spent With Patient Critical Care time: I spent a total of [] minutes of critical care time on this patient's care today; this time is exclusive of procedural time.
--- NOTE | 2022-04-06 11:43 | PM.OP.COLON ---
Operative Date/Time/Diagnoses Date of procedure: 04/06/22 Time of procedure: 12:15 Pre-op diagnosis: Positive fecal immunochemical test Post-op diagnosis: same Procedure & Clinicians Study performed: Colonoscopy Same procedure as scheduled: Yes Indications: Positive fecal immunochemical test Surgeon: Florentin Goodman Procedure Notes Procedure in detail: The history and physical was performed/updated and the patient is ASA class is 2. The procedure was discussed in detail with the patient. Potential risks complications including infection, bleeding, missed diagnosis, perforation, need for surgery, and were explained. Their questions were answered and informed consent was obtained. Patient was brought to the procedure room and placed standard monitoring equipment. The patient's vital signs were monitored continuously throughout the entire procedure. Prior to starting time-out was performed. The patient was placed in the left lateral recumbent position. Procedural sedation was administered by anesthesia. Examination began with a thorough inspection of the perianal area there was no evidence of fissures, fistulae, external hemorrhoids or cutaneous malignancy. The colonoscopy scope was then placed into the anal canal and was advanced to the cecum, which was identified by the ileocecal valve, the appendiceal orifice and the confluence of the taenia. The scope was then slowly withdrawn examining colon thoroughly in all directions, irrigating it of any residual stool. No masses polyps or inflammation were observed within the colon. Grade 1 internal hemorrhoids on retroflexion within the rectum. The patient tolerated the procedure well. They will be discharged once criteria are met. The prep was of good/excellent quality. The withdrawl time was 6 minutes. Specimen(s): none sent Complications: none Impression: Normal colonoscopy Post-procedure Recommendations: Colonoscopy in 10 years and High fiber diet Disposition: same day surgery
[2022-04-06 12:16] VITALS: BP 101/65; PULSE 73; RESP 14; TEMP 36.4; O2SAT 98
[2022-04-06 12:21] VITALS: BP 100/53; PULSE 70; RESP 15; O2SAT 99
[2022-04-06 12:28] VITALS: BP 111/48; PULSE 77; RESP 15; TEMP 36.4; O2SAT 96
== END 2022-04-06 12:38 | disposition home or self-care (01) ==
PROVIDERS: PCP Family Medicine; Referring Provider Surgery; Visit Provider Surgery
PROC: 0DJD8ZZ Inspection of Lower Intestinal Tract, Via Natural or Artificial Opening Endoscopic (ICD-10-PCS; CPT 45378; principal; 2022-04-06 11:45)
DX: Z12.11 Encounter for screening for malignant neoplasm of colon (principal); R19.5 Other fecal abnormalities; K64.0 First degree hemorrhoids
CPT/HCPCS: 45378; J2704

== ENCOUNTER → 2022-04-20 08:39 | Outpatient (CLI) | payer OTHER, MEDICAID, SELFPAY ==
[2020-07-12 19:16] VITALS: BMI 35.9
--- NOTE | 2022-04-20 08:41 | DI.MG.S_ITS ---
UNILATERAL RIGHT DIGITAL DIAGNOSTIC MAMMOGRAM 3D/2D WITH ADDITIONAL VIEWS: 04/20/2022 CLINICAL: Additional evaluation requested from prior study. Comparison is made to exam dated: 03/30/2022 mammogram - [facility]. The right breast is almost entirely fatty (category a/<25% glandular tissue). Previously questioned asymmetry is confirmed and likely represents 0.5 cm dilated duct in the right breast sub-areolar depth central to the nipple seen on the craniocaudal view only. IMPRESSION: INCOMPLETE: NEEDS ADDITIONAL IMAGING EVALUATION Suspected 0.5 cm dilated duct in the right breast. An ultrasound is recommended. Based on the Tyrer Cuzick model (a risk assessment model) the patient's lifetime risk is 10.9% and her 10 year risk is 4.6%. According to the ACR, ACS, and NCCN guidelines, an annual breast MRI exam along with mammogram is recommended if the patient's lifetime risk is 20% or greater. This exam was interpreted at Station ID: [id number]. NOTE: For mammograms, a report in lay terms will be sent to the patient. Approximately 15% of breast malignancies will not be visualized mammographically. In the management of a palpable breast mass, a negative mammogram must not discourage biopsy of a clinically suspicious lesion. Electronically Signed By: Hamzah Gonzalez M.D. jr/:04/20/2022 13:59:36 ACR BI-RADS Category 0: Incomplete 3340F
--- NOTE | 2022-04-20 08:41 | DI.US.S_ITS ---
LIMITED ULTRASOUND OF RIGHT BREAST: 04/20/2022 CLINICAL: Patient returns today to evaluate a focal asymmetry in the right breast. Comparison is made to exams dated: 04/20/2022 mammogram and 03/30/2022 mammogram - [facility]. Color flow and real-time ultrasound of the right breast were performed. There is a benign 0.5 cm dilated duct in the right breast central to the nipple in the retroareolar region. This dilated duct displays no posterior acoustic shadowing or enhancement. IMPRESSION: BENIGN There is no sonographic evidence of malignancy. The 0.5 cm dilated duct in the right breast is benign. A 1 year screening mammogram is recommended. This exam was interpreted at Station ID: [id number]. Electronically Signed By: Hamzah Gonzalez M.D., jr/lucille:04/20/2022 14:00:24 letter sent: Normal Exam Ultrasound BI-RADS: 2 Benign
== END ==
PROVIDERS: PCP Family Medicine; Referring Provider Family Medicine; Visit Provider Family Medicine
DX: R92.8 Other abnormal and inconclusive findings on diagnostic imaging of breast (principal); N60.41 Mammary duct ectasia of right breast
CPT/HCPCS: 76642; 77065; G0279

== ENCOUNTER → 2022-05-05 11:06 | Outpatient (CLI) | payer OTHER, MEDICAID, SELFPAY ==
[2020-07-12 19:16] VITALS: BMI 35.9
[2022-05-05 12:22] LABS: Hemoglobin A1C% w Est Avg Glu 7.7 % (4.0-6.0)
== END ==
PROVIDERS: PCP Family Medicine; Referring Provider Family Medicine; Visit Provider Family Medicine
DX: E11.40 Type 2 diabetes mellitus with diabetic neuropathy, unspecified (principal); Z79.4 Long term (current) use of insulin
CPT/HCPCS: 36415; 83036

== ENCOUNTER 2022-06-06 10:00 | Observation (INO) | payer OTHER, MEDICAID, SELFPAY ==
[2020-07-12 19:16] VITALS: BMI 35.9
[2022-06-06] VITALS (23 sets, daily range): BP systolic 120–168; BP diastolic 62–76; PULSE 76–94; RESP 11–20; TEMP 36.2–36.8; O2SAT 93–99; BMI 33.0
--- NOTE | 2022-06-06 10:06 | ED.SOB ---
HPI - SOB/Dyspnea General Chief Complaint: Shortness of Breath/Dyspnea Stated Complaint: SOB Time Seen by Provider: 06/06/22 10:01 History of Present Illness HPI Narrative: Patient is a 62-year-old female history of diabetes atrial fibrillation on Pradaxa and metoprolol, hypertension, hyperlipidemia, presenting today with shortness of breath. She reports that she woke up about 4:00 a.m. was feeling short of breath she had a little bit of dizziness and chest tightness. EMS was called she is found to be in AFib with RVR heart rate 120-190. She self converted and has been in normal science. She has no evidence of hypoxia. She is overall feeling better. She states she was in her normal state of health when she went to bed. She denies any fever or chills. No nausea vomiting or other symptoms. Related Data Home Medications Medication Instructions Recorded Confirmed alpha lipoic acid 600 mg capsule 600 mg PO BID 02/10/22 06/06/22 aspirin 81 mg tablet,delayed 81 mg PO DAILY 02/10/22 06/06/22 release (Adult Aspirin Regimen) cetirizine 10 mg tablet (Aller-Rosibel) 10 mg PO DAILY PRN Allergy Symptoms 02/10/22 06/06/22 cholecalciferol (vitamin D3) 25 25 mcg PO DAILY 02/10/22 06/06/22 mcg (1,000 unit) capsule chromium picolinate 400 mcg tablet 800 mcg PO DAILY 02/10/22 06/06/22 coenzyme Q10 [H2Q CoQ10] See Rx Instructions .Route .COMPLEX 02/10/22 06/06/22 cranberry extract See Rx Instructions .Route 02/10/22 06/06/22 .COMPLEX cholesterol control insulin lispro 100 unit/mL See Rx Instructions .Route .COMPLEX 04/06/22 06/06/22 subcutaneous pen (Humalog KwikPen (U-100) Insulin) Previous Rx's Medication Instructions Recorded aripiprazole 5 mg tablet 5 mg PO DAILY #90 tabs 02/10/22 benazepril 20 mg tablet 20 mg PO DAILY #90 tabs 02/10/22 clonazepam 0.5 mg tablet 0.5 mg PO BEDTIME Anxiety #30 tabs 02/10/22 dabigatran etexilate 150 mg 150 mg PO BID #180 caps 02/10/22 capsule (Pradaxa) duloxetine 20 mg capsule,delayed 20 mg PO DAILY #90 caps 02/10/22 release (Cymbalta) duloxetine 60 mg capsule,delayed 60 mg PO DAILY #90 caps 02/10/22 release insulin detemir U-100 100 unit/mL 56 unit (0.56 mL) SUBCUT BID #60 mL 02/10/22 subcutaneous solution (Levemir U-100 Insulin) levothyroxine 100 mcg capsule 100 mcg PO DAILY #90 caps 02/10/22 metformin 500 mg tablet 1,000 mg PO BID #360 tabs 02/10/22 metoprolol succinate 25 mg 25 mg PO DAILY #90 tabs 02/10/22 tablet,extended release 24 hr pantoprazole 40 mg tablet,delayed 40 mg PO DAILY #90 tabs 02/10/22 release rosuvastatin 40 mg tablet 40 mg PO BEDTIME #90 tabs 02/10/22 liraglutide 0.6 mg/0.1 mL (18 mg/3 0.6 mg (0.1 mL) SUBCUT DAILY 05/26/22 mL) subcutaneous pen injector diabetes #18 mL (Victoza 2-Cecilio) blood sugar diagnostic (Advocate #100 ea 06/02/22 Test Strips) Allergies Allergy/AdvReac Type Severity Reaction Status Date / Time No Known Drug Allergies Allergy Verified 05/05/22 10:24 Review of Systems Review of Systems ROS Unobtainable: All systems reviewed & are unremarkable except as noted in HPI and below Patient History Medical History (Updated 06/06/22 @ 15:35 by Tia Garibay) Anxiety disorder, unspecified Benign essential HTN Carpal tunnel syndrome (~2015) Cervical cancer (~1979) Chicken pox (~1964) COPD (chronic obstructive pulmonary disease) Essential hypertension Eustachian tube disorder JUANA (generalized anxiety disorder) (~1987) GERD (gastroesophageal reflux disease) History of cervical cancer in adulthood History of recurrent ear infection Hyperlipidemia Hyperthyroidism (~1991) Hypothyroidism Hypothyroidism Long-term current use of insulin for diabetes mellitus Low back pain Major depression Major depressive disorder, single episode, unspecified Measles (~1964) Mixed hyperlipidemia Mumps (~1964) Neuropathy of both feet Obesity (BMI 30-39.9) Paroxysmal atrial fibrillation Paroxysmal atrial fibrillation (~2018) Progressive hearing loss of both ears PTSD (post-traumatic stress disorder) Recurrent sinusitis Type 2 diabetes mellitus with diabetic neuropathy, unspecified Type 2 diabetes mellitus with diabetic neuropathy, with long-term current use of insulin (~1988) Surgical History (Updated 05/04/22 @ 18:58 by Jazmin Gleason) Anesthesia History of arthroscopic surgery of shoulder History of carpal tunnel release History of hysterectomy History of laparoscopic adjustable gastric banding Family History (Updated 05/04/22 @ 18:59 by Jazmin Gleason) Mother Congestive heart failure Lung cancer Hyperlipidemia Hypertension Father COPD (chronic obstructive pulmonary disease) Cardiovascular disease Diabetes mellitus History of heart disease Hypertension Hyperlipidemia Social History household members: spouse Smoking Status: Never smoker alcohol intake: never Smoking Status: Never smoker Substance Use Type: does not use Exam Initial Vital Signs Initial Vital Signs: Vital Signs Pulse Rate 90 06/06/22 10:03 Pulse Oximetry 96 06/06/22 10:03 GENERAL: Alert pleasant 62-year-old and in no acute distress. HEENT: Head atraumatic,EOMI, pupils reactive, face symmetric, moist mucous membranes CARDIOVASCULAR: Regular rate and rhythm without murmurs, rubs or gallops. RESPIRATORY: Breath sounds equal bilaterally, no wheezes rales or rhonchi. ABDOMEN: Soft, nontender. Normoactive bowel sounds all 4 quadrants. No guarding or rebound. EXTREMITIES: Normal range of motion, no clubbing or edema. Neurovascularly intact NEUROLOGICAL: Alert and oriented x4.Normal gait and speech. Cranial nerves II through XII grossly intact. SKIN: Warm, dry, no laceration, no petechiae, no rashes or lesions. Course Orders Ordered: ED Orders 06/06/22 10:07 XR chest 1V Stat 06/06/22 10:10 Complete Blood Count AUTO DIFF Stat Comprehensive Metabolic Panel Stat Lipase Stat NT-proBNP (BNP-Adult 18+) Stat PTT [PTT Partial Thromboplastin Sammy] Stat Prothrombin Time INR Stat Troponin & CK Cardiac Panel Stat 06/06/22 11:59 Urine Culture Stat Urine Microscopic Stat 06/06/22 12:10 Trop I [Troponin I] Stat 06/06/22 13:15 COVID19 -Nasal RAPID Stat Vital Signs Vital signs: Vital Signs - 8 hr 06/06/22 10:04 06/06/22 10:03 06/06/22 10:30 Temperature 97.1 F L Pulse Rate 89 90 Respiratory Rate 18 Blood Pressure 130/67 120/62 Pulse Oximetry 94 96 Oxygen Delivery Method Room Air 06/06/22 10:30 06/06/22 11:00 06/06/22 11:00 Temperature Pulse Rate 86 86 Respiratory Rate 12 13 Blood Pressure 129/68 Pulse Oximetry 98 99 Oxygen Delivery Method 06/06/22 11:30 06/06/22 11:30 06/06/22 11:47 Temperature Pulse Rate 79 Respiratory Rate 12 Blood Pressure 123/66 134/69 Pulse Oximetry 98 Oxygen Delivery Method 06/06/22 11:47 06/06/22 12:00 06/06/22 12:00 Temperature Pulse Rate 80 94 H Respiratory Rate 15 20 Blood Pressure 166/69 H Pulse Oximetry 99 93 Oxygen Delivery Method Room Air 06/06/22 12:15 06/06/22 12:15 06/06/22 12:30 Temperature Pulse Rate 80 Respiratory Rate 13 Blood Pressure 130/62 139/66 Pulse Oximetry 99 Oxygen Delivery Method 06/06/22 12:30 06/06/22 12:45 06/06/22 12:45 Temperature Pulse Rate 83 76 Respiratory Rate 15 11 L Blood Pressure 132/67 Pulse Oximetry 98 98 Oxygen Delivery Method 06/06/22 13:00 06/06/22 13:01 06/06/22 13:15 Temperature Pulse Rate 78 Respiratory Rate 13 Blood Pressure 138/72 136/69 Pulse Oximetry 99 Oxygen Delivery Method 06/06/22 13:15 06/06/22 13:30 06/06/22 13:30 Temperature Pulse Rate 84 78 Respiratory Rate 18 19 Blood Pressure 129/69 Pulse Oximetry 97 98 Oxygen Delivery Method 06/06/22 13:45 06/06/22 13:45 Temperature Pulse Rate 76 Respiratory Rate 17 Blood Pressure 133/69 Pulse Oximetry 98 Oxygen Delivery Method MDM - SOB/Dyspnea Lab Data 06/06/22 10:10 06/06/22 10:10 Labs: Lab Results 06/06/22 06/06/22 06/06/22 Range/Units 10:10 10:10 10:10 WBC 5.8 (4.5-11.0) X10^3/uL RBC 4.39 (4.0-5.2) X10^6/uL Hgb 9.5 L (12.0-16.0) g/dL Hct 30.1 L (36-46) % MCV 68.7 L (80-100) fL MCH 21.7 L (26-34) PG MCHC 31.6 (30-36) % RDW 17.8 H (11.6-14.8) % Plt Count 425 H (150-400) X10^3/uL Neut % (Auto) 72.5 (50-75) % Lymph % (Auto) 15.1 L (25-40) % [place] % (Auto) 7.6 (3-14) % Eos % (Auto) 3.7 (2-4) % Baso % (Auto) 1.1 (0-2) % Neut # (Auto) 4200 (1736-6817) /uL Lymph # (Auto) 900 L (8225-1449) /uL [place] # (Auto) 400 (0-900) /uL Eos # (Auto) 200 (0-450) /uL Baso # (Auto) 100 (0-100) /uL RBC Morphology See below Hypochromasia 1+ H Poikilocytosis 1+ H Anisocytosis 1+ H Microcytosis 1+ H PT 12.7 (10.1-12.7) SECONDS INR 1.1 (0.9-1.3) APTT 49 H (26-36) SECONDS Sodium 133 L (137-145) mmol/L Potassium 5.3 H (3.4-5.1) mmol/L Chloride 100 (98-107) mmol/L Carbon Dioxide 25 (22-32) mmol/L BUN 13 (7-17) mg/dL Creatinine 0.70 (0.52-1.04) mg/dL Estimated GFR > 60 (>60) mL/min BUN/Creatinine Ratio 18.6 (6-22) Glucose 299 H (80-110) mg/dL Calcium 9.3 (8.4-10.2) mg/dL Magnesium (1.6-2.3) mg/dL Total Bilirubin 0.5 (0.2-1.3) mg/dL AST 46 H (14-36) IU/L ALT 25 (<35) IU/L Alkaline Phosphatase 62 (38-126) U/L Total Creatine Kinase 100 (30-135) U/L CK-MB (CK-2) TNP CK-MB (CK-2) Rel Index TNP Troponin I 0.208 H* (0.01-0.034) ng/mL NT-Pro-B Natriuret Pep 171 H (<125) pg/mL Total Protein 6.7 (6.3-8.2) g/dL Albumin 4.0 (3.5-5.0) g/dL Globulin 2.7 (1.7-4.1) g/dL Albumin/Globulin Ratio 1.5 (1.0-2.8) Lipase 82 (23-300) U/L Urine RBC (0-5/HPF) Urine WBC (0-5/HPF) Ur Squamous Epith Cells (0-5/HPF) Urine Bacteria (None) Ur Culture Indicated? SARS-CoV-2 (PCR) (Negative) 06/06/22 06/06/22 06/06/22 Range/Units 11:59 12:10 12:10 WBC (4.5-11.0) X10^3/uL RBC (4.0-5.2) X10^6/uL Hgb (12.0-16.0) g/dL Hct (36-46) % MCV (80-100) fL MCH (26-34) PG MCHC (30-36) % RDW (11.6-14.8) % Plt Count (150-400) X10^3/uL Neut % (Auto) (50-75) % Lymph % (Auto) (25-40) % [place] % (Auto) (3-14) % Eos % (Auto) (2-4) % Baso % (Auto) (0-2) % Neut # (Auto) (1332-8691) /uL Lymph # (Auto) (2074-6486) /uL [place] # (Auto) (0-900) /uL Eos # (Auto) (0-450) /uL Baso # (Auto) (0-100) /uL RBC Morphology Hypochromasia Poikilocytosis Anisocytosis Microcytosis PT (10.1-12.7) SECONDS INR (0.9-1.3) APTT (26-36) SECONDS Sodium (137-145) mmol/L Potassium (3.4-5.1) mmol/L Chloride (98-107) mmol/L Carbon Dioxide (22-32) mmol/L BUN (7-17) mg/dL Creatinine (0.52-1.04) mg/dL Estimated GFR (>60) mL/min BUN/Creatinine Ratio (6-22) Glucose (80-110) mg/dL Calcium (8.4-10.2) mg/dL Magnesium 1.7 (1.6-2.3) mg/dL Total Bilirubin (0.2-1.3) mg/dL AST (14-36) IU/L ALT (<35) IU/L Alkaline Phosphatase (38-126) U/L Total Creatine Kinase (30-135) U/L CK-MB (CK-2) CK-MB (CK-2) Rel Index Troponin I 0.770 H* (0.01-0.034) ng/mL NT-Pro-B Natriuret Pep (<125) pg/mL Total Protein (6.3-8.2) g/dL Albumin (3.5-5.0) g/dL Globulin (1.7-4.1) g/dL Albumin/Globulin Ratio (1.0-2.8) Lipase (23-300) U/L Urine RBC 0-1/hpf (0-5/HPF) Urine WBC 10-30/hpf H (0-5/HPF) Ur Squamous Epith Cells 1-5 /hpf (0-5/HPF) Urine Bacteria Moderate (10-30) H (None) Ur Culture Indicated? Specimen cultured SARS-CoV-2 (PCR) (Negative) 06/06/22 Range/Units 13:15 WBC (4.5-11.0) X10^3/uL RBC (4.0-5.2) X10^6/uL Hgb (12.0-16.0) g/dL Hct (36-46) % MCV (80-100) fL MCH (26-34) PG MCHC (30-36) % RDW (11.6-14.8) % Plt Count (150-400) X10^3/uL Neut % (Auto) (50-75) % Lymph % (Auto) (25-40) % [place] % (Auto) (3-14) % Eos % (Auto) (2-4) % Baso % (Auto) (0-2) % Neut # (Auto) (5905-7005) /uL Lymph # (Auto) (7853-9696) /uL [place] # (Auto) (0-900) /uL Eos # (Auto) (0-450) /uL Baso # (Auto) (0-100) /uL RBC Morphology Hypochromasia Poikilocytosis Anisocytosis Microcytosis PT (10.1-12.7) SECONDS INR (0.9-1.3) APTT (26-36) SECONDS Sodium (137-145) mmol/L Potassium (3.4-5.1) mmol/L Chloride (98-107) mmol/L Carbon Dioxide (22-32) mmol/L BUN (7-17) mg/dL Creatinine (0.52-1.04) mg/dL Estimated GFR (>60) mL/min BUN/Creatinine Ratio (6-22) Glucose (80-110) mg/dL Calcium (8.4-10.2) mg/dL Magnesium (1.6-2.3) mg/dL Total Bilirubin (0.2-1.3) mg/dL AST (14-36) IU/L ALT (<35) IU/L Alkaline Phosphatase (38-126) U/L Total Creatine Kinase (30-135) U/L CK-MB (CK-2) CK-MB (CK-2) Rel Index Troponin I (0.01-0.034) ng/mL NT-Pro-B Natriuret Pep (<125) pg/mL Total Protein (6.3-8.2) g/dL Albumin (3.5-5.0) g/dL Globulin (1.7-4.1) g/dL Albumin/Globulin Ratio (1.0-2.8) Lipase (23-300) U/L Urine RBC (0-5/HPF) Urine WBC (0-5/HPF) Ur Squamous Epith Cells (0-5/HPF) Urine Bacteria (None) Ur Culture Indicated? SARS-CoV-2 (PCR) Negative (Negative) Urine Dip Bedside Urine Glucose 250 mg/dl Bedside Urine Bilirubin - Negative Bedside Urine Ketone - Negative Urine Specific [place] 1.010 Bedside Urine Occult Blood - Negative Bedside Urine pH 7.0 Bedside Urine Protein - Negative Bedside Urine Urobilinogen - Negative Bedside Urine Nitrite - Negative Bedside Urine Leukocytes + 70 Esterase Imaging Data Chest x-ray: Radiologist's Impression: PROCEDURE:? XR CHEST 1V ? INDICATIONS:? chest pain ? TECHNIQUE:? One view of the chest was acquired.? ? COMPARISON:? [facility], CR, XR CHEST 1V, 07/12/2020, 14:32. ? FINDINGS:? ? Surgical changes and devices:? None.? ? Lungs and pleura:? Lungs are clear.? No pleural effusions or pneumothorax.? ? Mediastinum:? Mediastinal contours appear normal.? Heart size is normal.? ? Bones and chest wall:? No suspicious bony lesions.? Overlying soft tissues appear unremarkable.? ? IMPRESSION:? No acute cardiopulmonary findings ? ? ? Approved by: Kenrick Dobbs M.D. on 06/06/2022 at 11:09? ECG Data Interpretation: Normal sinus rhythm rate 86 [place] interval 136 QRS [address] changes no T-wave inversions with left bundle-branch block similar to previous EKGs, no Sgarbossa criteria EKG 2. Sinus rhythm rate 81 similar to prior no acute ischemic MDM Narrative Medical decision making narrative: Patient is 62-year-old female history of hypertension hyperlipidemia atrial fibrillation on Pradaxa presenting today with shortness of breath she was initially found to be in AFib with RVR per EMS however she self converted. Overall feeling better now in the ED in sinus rhythm. Mild anemia hemoglobin 9.5, hematocrit 30.1 previously 11, 33.6 respectively. No evidence of bleeding. Sodium is noted to be 133 potassium 5.3 glucose 299 creatinine 0.7. Troponins are noted to be elevated and rising with initial troponin 0.208 and 0.770. Initially thought elevated troponins were secondary to AFib with RVR. Dr. Wheeler Cardiology updated patient's symptoms test results agrees likely secondary to AFib with RVR however based on multiple risk factors recommends placing an observation for echo and stress test. Dr. Ricci updated on patient's test results Cardiology recommendations and kindly accepts patient. Patient has a history of atrial fibrillation presents with symptoms of atrial fibrillation. Unlikely to be pulmonary embolism on Pradaxa she is not hypoxic, no evidence congestive heart failure, pneumonia or pneumothorax. Discharge Plan Departure Patient Disposition: Admitted as Observation Clinical Impression: Acute non-ST elevation myocardial infarction (NSTEMI), Atrial fibrillation, Hyperlipidemia Admit Date/Time: 06/06/22 13:59 Admit Provider: Minerva Sterling
--- NOTE | 2022-06-06 10:07 | DI.RAD.S_ITS ---
PROCEDURE: XR CHEST 1V INDICATIONS: chest pain TECHNIQUE: One view of the chest was acquired. COMPARISON: [facility], CR, XR CHEST 1V, 07/12/2020, 14:32. FINDINGS: Surgical changes and devices: None. Lungs and pleura: Lungs are clear. No pleural effusions or pneumothorax. Mediastinum: Mediastinal contours appear normal. Heart size is normal. Bones and chest wall: No suspicious bony lesions. Overlying soft tissues appear unremarkable. IMPRESSION: No acute cardiopulmonary findings Approved by: Kenrick Dobbs M.D. on 06/06/2022 at 11:09
[2022-06-06 10:22] LABS: Add Manual Diff / Slide Review NO; Basophils Absolute Auto 100 /uL (0-100); Basophils Percent Auto 1.1 % (0-2); Eosinophils Absolute Auto 200 /uL (0-450); Eosinophils Percent Auto 3.7 % (2-4); Hematocrit 30.1 % (36-46); Hemoglobin 9.5 g/dL (12.0-16.0); Lymphocytes Absolute Auto 900 /uL (1100-4500); Lymphocytes Percent Auto 15.1 % (25-40); Mean Corpuscular HGB Conc 31.6 % (30-36); Mean Corpuscular Hemoglobin 21.7 PG (26-34); Mean Corpuscular Volume 68.7 fL (80-100); Monocytes Absolute Auto 400 /uL (0-900); Monocytes Percent Auto 7.6 % (3-14); Neutrophils Absolute Auto 4200 /uL (1500-7000); Neutrophils Percent Auto 72.5 % (50-75); Platelet Count 425 X10^3/uL (150-400); Red Blood Cell Count 4.39 X10^6/uL (4.0-5.2); Red Cell Distribution Width 17.8 % (11.6-14.8); White Blood Cell Count 5.8 X10^3/uL (4.5-11.0)
[2022-06-06 10:36] LABS: Alanine Aminotransferase 25 IU/L (<35); Albumin Globulin Ratio 1.5 (1.0-2.8); Alkaline Phosphatase 62 U/L (38-126); Aspartate Aminotransferase 46 IU/L (14-36); BUN Creatinine Ratio 18.6 (6-22); Bilirubin Total 0.5 mg/dL (0.2-1.3); Blood Urea Nitrogen 13 mg/dL (7-17); Calcium 9.3 mg/dL (8.4-10.2); Carbon Dioxide 25 mmol/L (22-32); Chloride 100 mmol/L (98-107); Creatine Kinase 100 U/L (30-135); Estimated Glomerular Filt Rate > 60 mL/min (>60); Globulin 2.7 g/dL (1.7-4.1); Glucose 299 mg/dL (80-110); Lipase 82 U/L (23-300); Sodium 133 mmol/L (137-145); Total Protein 6.7 g/dL (6.3-8.2)
[2022-06-06 10:40] LABS: Potassium 5.3 mmol/L (3.4-5.1)
[2022-06-06 10:48] LABS: NT-proBNP (BNP-Adult 18+) 171 pg/mL (<125)
[2022-06-06 11:02] LABS: Anisocytosis 1+; Hypochromasia 1+; Microcytosis 1+
[2022-06-06 11:03] LABS: Poikilocytosis 1+
[2022-06-06 11:12] LABS: HEMOLYSIS 77 (0-50)
[2022-06-06 11:14] LABS: Troponin I 0.208 ng/mL (0.01-0.034)
[2022-06-06 11:38] LABS: INR 1.1 (0.9-1.3); Prothrombin Time 12.7 SECONDS (10.1-12.7)
[2022-06-06 11:41] LABS: PTT Partial Thromboplastin Tim 49 SECONDS (26-36)
[2022-06-06 12:24] LABS: RBC Urine 0-1/HPF (0-5/HPF); Squamous Epithelial Cell Urine 1-5 /HPF (0-5/HPF); WBC Urine 10-30/HPF (0-5/HPF)
[2022-06-06 12:25] LABS: Bacteria Urine Moderate (10-30); Culture Indicated Urine Specimen Cultured
[2022-06-06 13:40] LABS: COVID19 -Nasal RAPID Negative (Negative)
[2022-06-06 14:56] LABS: Magnesium 1.7 mg/dL (1.6-2.3)
--- NOTE | 2022-06-06 16:08 | PC.NURSE ---
Patient arrived from ER via wheelchair at 1510. A&O x4, SBA/independent. Telemetry box #3 placed, NSR and BBB. VSS.
--- NOTE | 2022-06-06 16:31 | PM.HP.1 ---
History of Present Illness History of Present Illness Date Patient Seen: 06/06/22 Chief complaint: SOB Narrative: Patient is a 62-year-old female history of diabetes atrial fibrillation on Pradaxa and metoprolol, hypertension, hyperlipidemia, presented today to the ER with shortness of breath.? She reports that she woke up about 4:00 a.m. was feeling short of breath. She had a little bit of dizziness and chest tightness.? EMS was called she is found to be in AFib with RVR heart rate 120-190.? She self converted on route to the hospital and has been in normal since.? She has no evidence of hypoxia.? She is overall feeling better.? She states she was in her normal state of health when she went to bed.? She denies any fever or chills.? No nausea vomiting or other symptoms. [facility] Medical History Anxiety disorder, unspecified Benign essential HTN Carpal tunnel syndrome (~2015) Cervical cancer (~1979) Chicken pox (~1964) COPD (chronic obstructive pulmonary disease) Essential hypertension Eustachian tube disorder JUANA (generalized anxiety disorder) (~1987) GERD (gastroesophageal reflux disease) History of cervical cancer in adulthood History of recurrent ear infection Hyperlipidemia Hyperthyroidism (~1991) Hypothyroidism Hypothyroidism Long-term current use of insulin for diabetes mellitus Low back pain Major depression Major depressive disorder, single episode, unspecified Measles (~1964) Mixed hyperlipidemia Mumps (~1964) Neuropathy of both feet Obesity (BMI 30-39.9) Paroxysmal atrial fibrillation Paroxysmal atrial fibrillation (~2018) Progressive hearing loss of both ears PTSD (post-traumatic stress disorder) Recurrent sinusitis Type 2 diabetes mellitus with diabetic neuropathy, unspecified Type 2 diabetes mellitus with diabetic neuropathy, with long-term current use of insulin (~1988) Surgical History Anesthesia History of arthroscopic surgery of shoulder History of carpal tunnel release History of hysterectomy History of laparoscopic adjustable gastric banding Family History Mother Congestive heart failure Lung cancer Hyperlipidemia Hypertension Father COPD (chronic obstructive pulmonary disease) Cardiovascular disease Diabetes mellitus History of heart disease Hypertension Hyperlipidemia Social History household members: spouse Smoking Status: Never smoker alcohol intake: never Meds Home Medications and Allergies Home Medications Medication Instructions Recorded Confirmed Type alpha lipoic acid 600 mg capsule 600 mg PO BID 02/10/22 06/06/22 History aripiprazole 5 mg tablet 5 mg PO DAILY #90 tabs 02/10/22 06/06/22 Rx aspirin 81 mg tablet,delayed 81 mg PO DAILY 02/10/22 06/06/22 History release (Adult Aspirin Regimen) benazepril 20 mg tablet 20 mg PO DAILY #90 tabs 02/10/22 06/06/22 Rx cetirizine 10 mg tablet (Aller-Rosibel) 10 mg PO DAILY PRN Allergy Symptoms 02/10/22 06/06/22 History cholecalciferol (vitamin D3) 25 25 mcg PO DAILY 02/10/22 06/06/22 History mcg (1,000 unit) capsule chromium picolinate 400 mcg tablet 800 mcg PO DAILY 02/10/22 06/06/22 History clonazepam 0.5 mg tablet 0.5 mg PO BEDTIME Anxiety #30 tabs 02/10/22 06/06/22 Rx coenzyme Q10 [H2Q CoQ10] See Rx Instructions .Route .COMPLEX 02/10/22 06/06/22 History cranberry extract See Rx Instructions .Route 02/10/22 06/06/22 History .COMPLEX cholesterol control dabigatran etexilate 150 mg 150 mg PO BID #180 caps 02/10/22 06/06/22 Rx capsule (Pradaxa) duloxetine 20 mg capsule,delayed 20 mg PO DAILY #90 caps 02/10/22 06/06/22 Rx release (Cymbalta) duloxetine 60 mg capsule,delayed 60 mg PO DAILY #90 caps 02/10/22 06/06/22 Rx release insulin detemir U-100 100 unit/mL 56 unit (0.56 mL) SUBCUT BID #60 mL 02/10/22 06/06/22 Rx subcutaneous solution (Levemir U-100 Insulin) levothyroxine 100 mcg capsule 100 mcg PO DAILY #90 caps 02/10/22 06/06/22 Rx metformin 500 mg tablet 1,000 mg PO BID #360 tabs 02/10/22 06/06/22 Rx metoprolol succinate 25 mg 25 mg PO DAILY #90 tabs 02/10/22 06/06/22 Rx tablet,extended release 24 hr pantoprazole 40 mg tablet,delayed 40 mg PO DAILY #90 tabs 02/10/22 06/06/22 Rx release rosuvastatin 40 mg tablet 40 mg PO BEDTIME #90 tabs 02/10/22 06/06/22 Rx insulin lispro 100 unit/mL See Rx Instructions .Route .COMPLEX 04/06/22 06/06/22 History subcutaneous pen (Humalog KwikPen (U-100) Insulin) liraglutide 0.6 mg/0.1 mL (18 mg/3 0.6 mg (0.1 mL) SUBCUT DAILY 05/26/22 06/06/22 Rx mL) subcutaneous pen injector diabetes #18 mL (Victoza 2-Cecilio) blood sugar diagnostic (Advocate #100 ea 06/02/22 06/06/22 Rx Test Strips) Allergies Allergy/AdvReac Type Severity Reaction Status Date / Time No Known Drug Allergies Allergy Verified 05/05/22 10:24 Review of Systems Review of Systems Narrative: Fourteen system review was completed and pertinent findings in history of chief complaint Exam Vital Signs (past 8 hours): - 06/06/22 10:04 06/06/22 10:03 06/06/22 10:30 Temperature 97.1 F L Pulse Rate 89 90 Respiratory Rate 18 Blood Pressure 130/67 120/62 Pulse Oximetry 94 96 Oxygen Delivery Method Room Air 06/06/22 10:30 06/06/22 11:00 06/06/22 11:00 Temperature Pulse Rate 86 86 Respiratory Rate 12 13 Blood Pressure 129/68 Pulse Oximetry 98 99 Oxygen Delivery Method 06/06/22 11:30 06/06/22 11:30 06/06/22 11:47 Temperature Pulse Rate 79 Respiratory Rate 12 Blood Pressure 123/66 134/69 Pulse Oximetry 98 Oxygen Delivery Method 06/06/22 11:47 06/06/22 12:00 06/06/22 12:00 Temperature Pulse Rate 80 94 H Respiratory Rate 15 20 Blood Pressure 166/69 H Pulse Oximetry 99 93 Oxygen Delivery Method Room Air 06/06/22 12:15 06/06/22 12:15 06/06/22 12:30 Temperature Pulse Rate 80 Respiratory Rate 13 Blood Pressure 130/62 139/66 Pulse Oximetry 99 Oxygen Delivery Method 06/06/22 12:30 06/06/22 12:45 06/06/22 12:45 Temperature Pulse Rate 83 76 Respiratory Rate 15 11 L Blood Pressure 132/67 Pulse Oximetry 98 98 Oxygen Delivery Method 06/06/22 13:00 06/06/22 13:01 06/06/22 13:15 Temperature Pulse Rate 78 Respiratory Rate 13 Blood Pressure 138/72 136/69 Pulse Oximetry 99 Oxygen Delivery Method 06/06/22 13:15 06/06/22 13:30 06/06/22 13:30 Temperature Pulse Rate 84 78 Respiratory Rate 18 19 Blood Pressure 129/69 Pulse Oximetry 97 98 Oxygen Delivery Method 06/06/22 13:45 06/06/22 13:45 06/06/22 14:00 Temperature Pulse Rate 76 Respiratory Rate 17 Blood Pressure 133/69 140/67 Pulse Oximetry 98 Oxygen Delivery Method 06/06/22 14:00 06/06/22 14:15 06/06/22 14:15 Temperature Pulse Rate 84 81 Respiratory Rate 16 16 Blood Pressure 152/76 H Pulse Oximetry 98 98 Oxygen Delivery Method Room Air 06/06/22 14:30 06/06/22 14:30 06/06/22 14:45 Temperature Pulse Rate 76 Respiratory Rate 20 Blood Pressure 130/71 145/74 H Pulse Oximetry 98 Oxygen Delivery Method 06/06/22 14:45 06/06/22 15:13 Temperature 98.2 F Pulse Rate 81 77 Respiratory Rate 17 16 Blood Pressure 140/63 Pulse Oximetry 97 98 Oxygen Delivery Method Oxygen Delivery Method Room Air Narrative Exam Narrative: GENERAL:? Alert pleasant 62-year-old and in no acute medical distress. HEENT: Head atraumatic, extraocular movements normal, pupils reactive, face symmetric, moist mucous membranes CARDIOVASCULAR: Regular rate and rhythm with no extra sounds or murmurs. RESPIRATORY: Breath sounds equal bilaterally, no wheezes rales or rhonchi. ABDOMEN: Soft, nontender.? Bowel sounds normal. Nontender. EXTREMITIES: Normal range of motion, no clubbing or edema.? Neurovascularly intact NEUROLOGICAL: Alert and oriented x4.Normal gait and speech. Cranial nerves II through XII grossly intact. ? SKIN: Warm, dry, no laceration, no rashes or lesions. Objective Labs 06/06/22 10:10 06/06/22 10:10 Labs: Laboratory Results - last 24 hr 06/06/22 06/06/2206/06/23 10:10 10:10 10:10 WBC 5.8 RBC 4.39 Hgb 9.5 L Hct 30.1 L MCV 68.7 L MCH 21.7 L MCHC 31.6 RDW 17.8 H Plt Count 425 H Neut % (Auto) 72.5 Lymph % (Auto) 15.1 L [place] % (Auto) 7.6 Eos % (Auto) 3.7 Baso % (Auto) 1.1 Neut # (Auto) 4200 Lymph # (Auto) 900 L [place] # (Auto) 400 Eos # (Auto) 200 Baso # (Auto) 100 RBC Morphology See below Hypochromasia 1+ H Poikilocytosis 1+ H Anisocytosis 1+ H Microcytosis 1+ H PT 12.7 INR 1.1 APTT 49 H Sodium 133 L Potassium 5.3 H Chloride 100 Carbon Dioxide 25 BUN 13 Creatinine 0.70 Estimated GFR > 60 BUN/Creatinine Ratio 18.6 Glucose 299 H Calcium 9.3 Magnesium Total Bilirubin 0.5 AST 46 H ALT 25 Alkaline Phosphatase 62 Total Creatine Kinase 100 CK-MB (CK-2) TNP CK-MB (CK-2) Rel Index TNP Troponin I 0.208 H* NT-Pro-B Natriuret Pep 171 H Total Protein 6.7 Albumin 4.0 Globulin 2.7 Albumin/Globulin Ratio 1.5 Lipase 82 Urine RBC Urine WBC Ur Squamous Epith Cells Urine Bacteria Ur Culture Indicated? SARS-CoV-2 (PCR) 06/06/22 06/06/22 06/06/22 11:59 12:10 12:10 WBC RBC Hgb Hct MCV MCH MCHC RDW Plt Count Neut % (Auto) Lymph % (Auto) [place] % (Auto) Eos % (Auto) Baso % (Auto) Neut # (Auto) Lymph # (Auto) [place] # (Auto) Eos # (Auto) Baso # (Auto) RBC Morphology Hypochromasia Poikilocytosis Anisocytosis Microcytosis PT INR APTT Sodium Potassium Chloride Carbon Dioxide BUN Creatinine Estimated GFR BUN/Creatinine Ratio Glucose Calcium Magnesium 1.7 Total Bilirubin AST ALT Alkaline Phosphatase Total Creatine Kinase CK-MB (CK-2) CK-MB (CK-2) Rel Index Troponin I 0.770 H* NT-Pro-B Natriuret Pep Total Protein Albumin Globulin Albumin/Globulin Ratio Lipase Urine RBC 0-1/hpf Urine WBC 10-30/hpf H Ur Squamous Epith Cells 1-5 /hpf Urine Bacteria Moderate (10-30) H Ur Culture Indicated? Specimen cultured SARS-CoV-2 (PCR) 06/06/22 13:15 WBC RBC Hgb Hct MCV MCH MCHC RDW Plt Count Neut % (Auto) Lymph % (Auto) [place] % (Auto) Eos % (Auto) Baso % (Auto) Neut # (Auto) Lymph # (Auto) [place] # (Auto) Eos # (Auto) Baso # (Auto) RBC Morphology Hypochromasia Poikilocytosis Anisocytosis Microcytosis PT INR APTT Sodium Potassium Chloride Carbon Dioxide BUN Creatinine Estimated GFR BUN/Creatinine Ratio Glucose Calcium Magnesium Total Bilirubin AST ALT Alkaline Phosphatase Total Creatine Kinase CK-MB (CK-2) CK-MB (CK-2) Rel Index Troponin I NT-Pro-B Natriuret Pep Total Protein Albumin Globulin Albumin/Globulin Ratio Lipase Urine RBC Urine WBC Ur Squamous Epith Cells Urine Bacteria Ur Culture Indicated? SARS-CoV-2 (PCR) Negative Assessment & Plan Assessment & Plan narrative: ?1. Rapid rate atrial fibrillation. Settled spontaneously. Continue to monitor with telemetry to ensure stability. History of atrial fibrillation paroxysmal in the past. Echocardiogram. 2. Shortness of breaths showed a weighted with atrial fibrillation. Resolved. 3. Major depressive disorder history. Previous history of suicide attempt. Continue patient's regular medication duloxetine. Continue Abilify. 4. Type 2 diabetes. Continue patient's regular medication. Associated neuropathy with type 2 diabetes. 5. Hypertension. Continue benazepril 20 mg daily continue metoprolol as ordered for atrial fibrillation. 6. Hyperlipidemia. Continue rosuvastatin 40 mg day 7. Hypothyroidism. Measure TSH, free T4 and free T3, continue levothyroxine 100 mcg to 8. General obesity. No active treatment. 9. Concern for urinary tract infection. Culture urine. Treat expectantly with ceftriaxone 1 g IV every 24. 10. Elevated troponin. Likely demand ischemia secondary to atrial fibrillation. Follow trend. Nuclear stress test. Aspirin 81 mg daily 11. GERD. Continue pantoprazole 40 mg daily 12. Concern for NSTEMI. Monitored troponin to see trend evaluate for NSTEMI. With stress test, echocardiogram. Telemetry monitoring. 13. Anxiety. Clonazepam 0.5 mg p.o. q.h.s. Code status: DNR (per patient) Surrogate decision maker:? Patient's spouse (estranged) Beck Simms ARELI PCR: Negative DVT/VTE prophylaxis:? Medication contraindicated patient placed on Dabigatran and SCDs only Disposition:? Patient admitted for observation expected length of stay less than 2 midnights. I have utilized all available immediate resources to obtain, update, or review the patient's current medications. I confirmed that the patient's advanced care plan is present, Code status is documented and/or surrogate decision maker is listed in the patient's medical record. I have personally reviewed patient's chart notes from PCP, specialists, diagnostic imaging, and laboratory results. Quality VTE Deep Vein Thrombosis/Pulmonary Embolism Present on Admission: Yes
--- NOTE | 2022-06-06 16:55 | DI.NM.S_ITS ---
PROCEDURE: NM PAULINE PERF SPECT R&S PHARM Rest and pharmacological stress myocardial perfusion SPECT with gated imaging and ejection fraction RADIOPHARMACEUTICAL: 8.6 mCi Tc-99m tetrafosmin IV at rest and 26.6 mCi Tc-99m tetrafosmin IV at peak effect of pharmacological stress. A [id number] was performed. INDICATIONS: Shortness of breath/atrial fibrillation TECHNIQUE: Radiopharmaceutical was injected at peak stress test, and also at rest. SPECT images were obtained. SPECT myocardial perfusion images were displayed in short axis, horizontal long axis, and vertical long axis views. Gated images were reviewed using [employer] software. COMPARISON: None. CARDIAC STRESS: A pharmacologic stress test was performed under the supervision of an attending staff, using an infusion of regadenoson 0.4 mg IV. Hemodynamic data: There is normal blood pressure and heart rate response to pharmacologic stress. Symptoms: The patient complained of shortness of breath and mild chest tightness 2 out of 10. EKG: No diagnostic changes of ischemia; no ectopy. FINDINGS: Raw data: There is good myocardial uptake of radiotracer. No significant motion artifacts. Narc-ec-[id number] ratio is 0.39 (normal is less than 0.38 for tetrafosmin tracer). Left ventricle function: Gated images demonstrate normal left ventricular wall thickening. No segmental wall motion abnormalities. No transient ischemic dilation; TID is 1.2 (normal less than 1.3). Left ventricle stress ejection fraction is 74%; normal range is above 45%. Myocardial perfusion: There is a large size, moderate intensity fixed inferior and inferoseptal wall defect that mostly resolves in prone imaging however remains fixed in the apical inferoseptal region. No reversible perfusion defects. IMPRESSION: Likely low risk study. No reversible perfusion defects. The fixed inferior and inferoseptal wall defect shows near complete resolution in prone imaging however remains fixed in the apical inferoseptal region and so prior infarct in this area cannot be ruled out. In the setting of normal wall motion, this defect is most likely due to attenuation artifact. Normal LV function and wall motion. Dictated by: Shital Tapia D.O. on 06/07/2022 at 16:28 Approved by: Shital Tapia D.O. on 06/07/2022 at 16:35
--- NOTE | 2022-06-06 16:55 | DI.ECHO.S_ITS ---
[facility]---------+ [facility] +---------+ : : [address] : : : : [id number] : : : : Phone: [phone]+ Echocardiogram Report + + :Name: GAURAV ROBERT Study Date: 06/07/2022 Height: 70 in : [facility] ReadingLocation: Weight: 230 lb : : Gender: Female BSA: 2.2 m2 : :: 1960 Age: 62 yrs BP: 165/71 mmHg: :Reason For Study: ATRIAL FIBRILLATION : :Ordering Physician: BRITTANY, : :REFUGIO Performed By: Maddison Roman : :Referring: REFUGIO SOTO : + + Interpretation Summary The patient was in atrial fibrillation with heart rates between 89-114 bpm during the exam. Mild concentric left ventricular hypertrophy with ejection fraction 55-60%. Mild aortic valve sclerosis. No valvular regurgitation. Procedure: A two-dimensional transthoracic echocardiogram with color flow and Doppler was performed. The study quality was technically difficult. There is no prior echocardiogram noted for this patient. The patient was in atrial fibrillation with heart rates between 89-114 bpm during the exam. The patient had a bundle branch block rhythm during the exam. Left Ventricle: The left ventricle is normal in size. There is mild concentric left ventricular hypertrophy. The ejection fraction is estimated to be 55-60%. Septal motion is consistent with conduction abnormality. Diastolic function could not be accurately assessed due to atrial fibrillation. Right Ventricle: The right ventricle is normal in size and function. Atria: The left atrial size is normal. Right atrial size is normal. There is no Doppler evidence for an interatrial shunt. Mitral Valve: The mitral valve is normal in structure and function. There is no mitral regurgitation noted. Aortic Valve: The aortic valve is trileaflet. The aortic valve opens well. There is mild aortic valve sclerosis. There is no aortic valve stenosis. No aortic regurgitation is present. Tricuspid Valve: The tricuspid valve is normal in structure and function. There is trace tricuspid regurgitation. Pulmonic Valve: The pulmonic valve is not well visualized. There is no pulmonic valvular regurgitation. Great Vessels: The aortic root is normal size. The dimensions of the ascending aorta are normal. The IVC is of normal diameter and collapses greater than 50% with a sniff. This suggests a low right atrial pressure of 3 mm Hg. Pericardium/ Pleura There is no pericardial effusion. There is no pleural effusion. MMode/2D Measurements & Calculations LVIDd: 5.0 cm LVOT diam: 2.2 cm LVIDs: 3.7 cm Ao root diam: 2.8 cm FS: 26.0 % asc Aorta Diam: 2.9 cm EPSS: 0.94 cm Ao Arch Diam (Prox Trans): 2.7 cm IVSd: 1.2 cm LVPWd: 0.88 cm LV perez. diameter/BSA (cm/m^2): 2.2 LV sys. diameter/BSA (cm/m^2): 1.7 LA A2 area: 19.1 cm2 RA long axis: 5.0 cm LA A4 area: 16.9 cm2 RA area: 13.9 cm2 LA length (vol): 5.3 cm RA vol: 32.7 ml LA vol: 52.3 ml RA : 14.7 ml/m2 LA vol index: 23.6 ml/m2 IVC diam: 1.3 cm RVD1 (basal): 3.0 cm TAPSE: 2.3 cm Doppler Measurements & Calculations Ao V2 max: 148.4 cm/sec LVOT Max Jeyson: 81.6 cm/sec Ao V2 mean: 106.2 cm/sec LV V1 max P.7 mmHg Ao max P.8 mmHg LV V1 VTI: 14.9 cm Ao mean P.0 mmHg DILLAN(I,D): 2.1 cm2 Ao V2 VTI: 27.6 cm DILLAN(V,D): 2.1 cm2 sev ratio: 0.54 DILLAN indexed to BSA (cm^2/m^2): 0.95 Med Peak E' Jeyson: 11.4 cm/sec SV(LVOT): 58.0 ml Lat Peak E' Jeyson: 10.8 cm/sec Electronically signed by: Mahogany Zimmer on Reading Physician:06/07/2022 10:24 AM
[2022-06-06] MEDS: SODIUM CHLORIDE 0.9% 500 ML 21 ML IV (17:03)
[2022-06-06] MEDS: cefTRIAXone 1,000 MG in SODIUM CHLORIDE 0.9% 100 ML 200 MG IV (17:38)
[2022-06-06] MEDS: ATORVASTATIN 20 MG TABLET 80 MG PO (20:41)
[2022-06-06] MEDS: METFORMIN HCL 500 MG TABLET 1000 MG PO (20:41)
[2022-06-06] MEDS: clonazePAM 0.5 MG TABLET PO (20:42)
[2022-06-06] MEDS: MELATONIN 3 MG TABLET PO (20:42)
[2022-06-06] MEDS: INSULIN GLARGINE 100 UNIT/ML 3ML PEN 56 UNIT SUBCUT (20:43)
[2022-06-06] MEDS: NITROGLYCERIN OINT 1 INCH/GM OINT...G. 0.5 INCH TOP (20:44)
[2022-06-06 21:18] LABS: Hemoglobin 8.9 g/dL (12.0-16.0); Mean Corpuscular HGB Conc 31.8 % (30-36); Mean Corpuscular Hemoglobin 21.7 PG (26-34); Mean Corpuscular Volume 68.1 fL (80-100); Platelet Count 398 X10^3/uL (150-400); Red Blood Cell Count 4.11 X10^6/uL (4.0-5.2); Red Cell Distribution Width 17.8 % (11.6-14.8); White Blood Cell Count 6.5 X10^3/uL (4.5-11.0)
[2022-06-06 21:21] LABS: INR 1.1 (0.9-1.3)
[2022-06-06 21:23] LABS: PTT Partial Thromboplastin Tim 40 SECONDS (26-36)
[2022-06-06] MEDS: HEPARIN DRIP 25,000 UNIT/500 ML IV.SOLN 20 UNIT IV (21:37)
[2022-06-07 02:32] LABS: Basophils Absolute Auto 0 /uL (0-100); Basophils Percent Auto 0.7 % (0-2); Eosinophils Absolute Auto 200 /uL (0-450); Eosinophils Percent Auto 3.1 % (2-4); Hematocrit 26.6 % (36-46); Hemoglobin 8.6 g/dL (12.0-16.0); Lymphocytes Absolute Auto 1700 /uL (1100-4500); Lymphocytes Percent Auto 25.9 % (25-40); Mean Corpuscular HGB Conc 32.1 % (30-36); Mean Corpuscular Volume 68.5 fL (80-100); Monocytes Absolute Auto 800 /uL (0-900); Monocytes Percent Auto 11.4 % (3-14); Neutrophils Absolute Auto 3900 /uL (1500-7000); Neutrophils Percent Auto 58.9 % (50-75); Platelet Count 387 X10^3/uL (150-400); Red Blood Cell Count 3.89 X10^6/uL (4.0-5.2); Red Cell Distribution Width 17.4 % (11.6-14.8); White Blood Cell Count 6.7 X10^3/uL (4.5-11.0)
[2022-06-07 02:38] LABS: PTT Partial Thromboplastin Tim 32 SECONDS (26-36)
[2022-06-07 02:40] LABS: Alanine Aminotransferase 23 IU/L (<35); Albumin 3.8 g/dL (3.5-5.0); Albumin Globulin Ratio 1.6 (1.0-2.8); Alkaline Phosphatase 74 U/L (38-126); Aspartate Aminotransferase 31 IU/L (14-36); BUN Creatinine Ratio 21.1 (6-22); Bilirubin Total 0.4 mg/dL (0.2-1.3); Blood Urea Nitrogen 15 mg/dL (7-17); Carbon Dioxide 25 mmol/L (22-32); Chloride 98 mmol/L (98-107); Estimated Glomerular Filt Rate > 60 mL/min (>60); Globulin 2.4 g/dL (1.7-4.1); Glucose 296 mg/dL (80-110); HEMOLYSIS < 15 (0-50); Sodium 132 mmol/L (137-145); Total Protein 6.2 g/dL (6.3-8.2)
[2022-06-07 02:41] LABS: Add Manual Diff / Slide Review SLIDE REVIEW
[2022-06-07 03:00] VITALS: PULSE 93
[2022-06-07 03:12] LABS: Anisocytosis 2+; Microcytosis 2+
[2022-06-07 03:14] LABS: Free T3, Triiodothyronine Free 3.25 pg/mL (2.77-5.27); Free T4, Direct Thyroxine 1.16 ng/dL (0.78-2.19)
[2022-06-07 03:28] LABS: Thyroid Stimulating Hormone 2.63 uIU/mL (0.47-4.68)
[2022-06-07 04:12] VITALS: BP 165/71; PULSE 98; RESP 16; TEMP 37.2; O2SAT 95
[2022-06-07 08:00] VITALS: TEMP 36.7
[2022-06-07 08:38] LABS: PTT Partial Thromboplastin Tim 58 SECONDS (26-36)
[2022-06-07 11:00] VITALS: BP 165/75; PULSE 80; RESP 18; TEMP 36.5; O2SAT 97
--- NOTE | 2022-06-07 12:33 | CM.DANOTE ---
DCP/Assessment: Reviewed chart. Patient is a 62yr old female admitted to [facility] under [facility] with chest pain. Cardiac w/u in progress. PCP is Dr. Alberto. Primary payor is 1)STinser. Met with spouse at bedside, patient off floor for stress test. Spouse reports that patient is completely I with all ADL's. Spouse does not anticipate any d/c planning needs. P: Home when stable. [facility] Discharge Planning/Care Management CM Discharge Assessment Start: 06/07/22 12:24 Freq: Status: Active Protocol: Document 06/07/22 12:24 KJS (Rec: 06/07/22 12:33 KJS [id number]) Discharge Planning Assessment Assigned Autobody Technician LUCERO Jay DPOA/Assigned Designee Name Beck Simms Advance Directives? No History Provided By Patient,Medical Record Has Patient been admitted in last 30 No days? Prior Living Arrangements House Household Members spouse Type of transporation used prior to Drives own vehicle admit Independent with ADL's Yes Is patient alert and oriented? Yes Caregiver for Another No Patient/Family Preference [facility] Facility Barriers to Discharge No Discharge Plan Home Transportation Arrangement Family Referrals Initiated None needed Whiteboard Updated in Patient Room with Yes name and ext. # of Autobody Technician Review Status In Process Next Review Type Continued Stay Review
[2022-06-07] MEDS: ASPIRIN EC 81 MG TABLET PO (12:36)
[2022-06-07] MEDS: PANTOPRAZOLE DR 40 MG TABLET PO (12:36)
[2022-06-07] MEDS: DULOXETINE 20 MG CAPSULE PO (12:36)
[2022-06-07] MEDS: LEVOTHYROXINE 100 MCG TABLET PO (12:36)
[2022-06-07] MEDS: MAGNESIUM CHLORIDE 64 MG TABLET 128 MG PO (12:36)
[2022-06-07] MEDS: METFORMIN HCL 500 MG TABLET 1000 MG PO ×2 (12:37→20:39)
[2022-06-07] MEDS: DULOXETINE 30 MG CAPSULE 60 MG PO (12:37)
[2022-06-07] MEDS: CHOLECALCIFEROL (VITAMIN D3) 1,000 UNIT TABLET 1000 UNIT PO (12:37)
[2022-06-07] MEDS: lisinopriL 20 MG TABLET PO (12:38)
[2022-06-07] MEDS: ARIPiprazole 10 MG TABLET 5 MG PO (12:38)
[2022-06-07] MEDS: INSULIN LISPRO 100 UNIT/ML 3ML VIAL 8 UNIT SUBCUT ×2 (12:40→17:22)
--- NOTE | 2022-06-07 14:31 | P.PN_ITS ---
Subjective Subjective Interval history: Feels well not complaining of chest pain. Had your medicine stress test today, results not available yet. No new complaints. Exam Vital Signs (past 8 hours): - 06/07/22 08:00 06/07/22 11:00 Temperature 98.1 F 97.7 F Pulse Rate 80 Respiratory Rate 18 Blood Pressure 165/75 H Pulse Oximetry 97 Oxygen Flow Rate 0 Oxygen Delivery Method Room Air Oxygen Flow Rate 0 Narrative Exam Narrative: GENERAL:? Alert pleasant in no acute medical distress. HEENT: Head atraumatic, extraocular movements normal, pupils reactive, face symmetric, moist mucous membranes CARDIOVASCULAR: Regular rate and rhythm with no extra sounds or murmurs. RESPIRATORY: Breath sounds equal bilaterally, no wheezes rales or rhonchi. ABDOMEN: Soft, nontender.? Bowel sounds normal.? Nontender. EXTREMITIES: Normal range of motion, no clubbing or edema.? Neurovascularly intact NEUROLOGICAL: Alert and oriented x4.Normal gait and speech. Cranial nerves II through XII grossly intact. ? SKIN: Warm, dry, no laceration, no rashes or lesions. Objective Labs 06/07/22 02:16 06/07/22 02:16 Labs: Laboratory Results - last 24 hr 06/06/22 06/06/22 06/06/22 12:10 16:55 20:49 WBC 6.5 RBC 4.11 Hgb 8.9 L Hct 28.0 L MCV 68.1 L MCH 21.7 L MCHC 31.8 RDW 17.8 H Plt Count 398 Neut % (Auto) Lymph % (Auto) [place] % (Auto) Eos % (Auto) Baso % (Auto) Neut # (Auto) Lymph # (Auto) [place] # (Auto) Eos # (Auto) Baso # (Auto) RBC Morphology Anisocytosis Microcytosis PT INR APTT Sodium Potassium Chloride Carbon Dioxide BUN Creatinine Estimated GFR BUN/Creatinine Ratio Glucose Calcium Magnesium 1.7 Total Bilirubin AST ALT Alkaline Phosphatase Troponin I 1.880 H* Total Protein Albumin Globulin Albumin/Globulin Ratio TSH Free T4 Free T3 06/06/22 06/06/22 06/07/22 20:49 23:20 02:16 WBC RBC Hgb Hct MCV MCH MCHC RDW Plt Count Neut % (Auto) Lymph % (Auto) [place] % (Auto) Eos % (Auto) Baso % (Auto) Neut # (Auto) Lymph # (Auto) [place] # (Auto) Eos # (Auto) Baso # (Auto) RBC Morphology Anisocytosis Microcytosis PT 13.0 H INR 1.1 APTT 40 H D Sodium Potassium Chloride Carbon Dioxide BUN Creatinine Estimated GFR BUN/Creatinine Ratio Glucose Calcium Magnesium Total Bilirubin AST ALT Alkaline Phosphatase Troponin I 1.830 H* Total Protein Albumin Globulin Albumin/Globulin Ratio TSH 2.63 Free T4 1.16 Free T3 3.25 06/07/22 06/07/22 06/07/22 02:16 02:16 02:16 WBC 6.7 RBC 3.89 L Hgb 8.6 L Hct 26.6 L MCV 68.5 L MCH 22.0 L MCHC 32.1 RDW 17.4 H Plt Count 387 Neut % (Auto) 58.9 Lymph % (Auto) 25.9 [place] % (Auto) 11.4 Eos % (Auto) 3.1 Baso % (Auto) 0.7 Neut # (Auto) 3900 Lymph # (Auto) 1700 [place] # (Auto) 800 Eos # (Auto) 200 Baso # (Auto) 0 RBC Morphology See below Anisocytosis 2+ H Microcytosis 2+ H PT INR APTT Sodium 132 L Potassium 4.0 D Chloride 98 Carbon Dioxide 25 BUN 15 Creatinine 0.71 Estimated GFR > 60 BUN/Creatinine Ratio 21.1 Glucose 296 H Calcium 9.0 Magnesium Total Bilirubin 0.4 AST 31 ALT 23 Alkaline Phosphatase 74 Troponin I 1.540 H* Total Protein 6.2 L Albumin 3.8 Globulin 2.4 Albumin/Globulin Ratio 1.6 TSH Free T4 Free T3 06/07/22 06/07/22 02:16 08:05 WBC RBC Hgb Hct MCV MCH MCHC RDW Plt Count Neut % (Auto) Lymph % (Auto) [place] % (Auto) Eos % (Auto) Baso % (Auto) Neut # (Auto) Lymph # (Auto) [place] # (Auto) Eos # (Auto) Baso # (Auto) RBC Morphology Anisocytosis Microcytosis PT INR APTT 32 D 58 H D Sodium Potassium Chloride Carbon Dioxide BUN Creatinine Estimated GFR BUN/Creatinine Ratio Glucose Calcium Magnesium Total Bilirubin AST ALT Alkaline Phosphatase Troponin I Total Protein Albumin Globulin Albumin/Globulin Ratio TSH Free T4 Free T3 [facility] Medical History Anxiety disorder, unspecified Benign essential HTN Carpal tunnel syndrome (~2016) Cervical cancer (~1979) Chicken pox (~1964) COPD (chronic obstructive pulmonary disease) Essential hypertension Eustachian tube disorder JUANA (generalized anxiety disorder) (~1987) GERD (gastroesophageal reflux disease) History of cervical cancer in adulthood History of recurrent ear infection Hyperlipidemia Hyperthyroidism (~1991) Hypothyroidism Hypothyroidism Long-term current use of insulin for diabetes mellitus Low back pain Major depression Major depressive disorder, single episode, unspecified Measles (~1964) Mixed hyperlipidemia Mumps (~1964) Neuropathy of both feet Obesity (BMI 30-39.9) Paroxysmal atrial fibrillation Paroxysmal atrial fibrillation (~2018) Progressive hearing loss of both ears PTSD (post-traumatic stress disorder) Recurrent sinusitis Type 2 diabetes mellitus with diabetic neuropathy, unspecified Type 2 diabetes mellitus with diabetic neuropathy, with long-term current use of insulin (~1988) Surgical History Anesthesia History of arthroscopic surgery of shoulder History of carpal tunnel release History of hysterectomy History of laparoscopic adjustable gastric banding Family History Mother Congestive heart failure Lung cancer Hyperlipidemia Hypertension Father COPD (chronic obstructive pulmonary disease) Cardiovascular disease Diabetes mellitus History of heart disease Hypertension Hyperlipidemia Social History household members: spouse Smoking Status: Never smoker alcohol intake: never Assessment & Plan Assessment & Plan narrative: ?1. Rapid rate atrial fibrillation.? Settled spontaneously.? Continue to monitor with telemetry to ensure stability.? History of atrial fibrillation paroxysmal in the past.? Echocardiogram shows ejection fracture 55-60%. 2. Shortness of breaths showed a weighted with atrial fibrillation.? Resolved. 3. Major depressive disorder history.? Previous history of suicide attempt.? Continue patient's regular medication duloxetine.? Continue Abilify. 4. Type 2 diabetes.? Continue patient's regular medication.? Associated neuropathy with type 2 diabetes. 5. Hypertension.? Continue benazepril 20 mg daily continue metoprolol as ordered for atrial fibrillation. 6. Hyperlipidemia.? Continue rosuvastatin 40 mg day 7. Hypothyroidism.? Measure TSH, free T4 and free T3, continue levothyroxine 100 mcg -all thyroid tests done today are within normal values. 8. General obesity.? No active treatment. 9. Concern for urinary tract infection.? Culture urine.? Treat expectantly with ceftriaxone 1 g IV every 24. Urine shows no growth therefore discontinued ceftriaxone. 10. Elevated troponin.? Likely demand ischemia secondary to atrial fibrillation.? Follow trend.? Nuclear stress test.? Aspirin 81 mg daily. Pending result from nuclear stress test. Troponin is trending downward continue to follow. 11. GERD.? Continue pantoprazole 40 mg daily 12. Concern for NSTEMI.? Monitored troponin to see trend evaluate for NSTEMI.? With stress test, echocardiogram.? Telemetry monitoring. Pending stress test results. 13. Anxiety.? Clonazepam 0.5 mg p.o. q.h.s. Code status: DNR (per patient) Surrogate decision maker:? Patient's spouse (estranged) Beck SINGLETON PCR: Negative DVT/VTE prophylaxis:? Medication contraindicated patient placed on Dabigatran and SCDs only Quality VTE Deep Vein Thrombosis/Pulmonary Embolism Present on Admission: Yes
[2022-06-07 16:00] VITALS: BP 137/77; PULSE 89; RESP 18; TEMP 36.7; O2SAT 98
[2022-06-07 19:53] VITALS: BP 140/73; PULSE 92; RESP 19; TEMP 36.5; O2SAT 99
[2022-06-07] MEDS: ATORVASTATIN 20 MG TABLET 80 MG PO (20:38)
[2022-06-07] MEDS: INSULIN GLARGINE 100 UNIT/ML 3ML PEN 56 UNIT SUBCUT (20:38)
[2022-06-07] MEDS: clonazePAM 0.5 MG TABLET PO (20:39)
[2022-06-07] MEDS: SENNOSIDES 8.6 MG TABLET 17.2 MG PO (20:39)
[2022-06-07] MEDS: MELATONIN 3 MG TABLET PO (20:39)
[2022-06-08] VITALS (8 sets, daily range): BP systolic 124–145; BP diastolic 62–71; PULSE 85–98; RESP 15–19; TEMP 36.1–36.7; O2SAT 93–98
--- NOTE | 2022-06-08 03:51 | PC.NURSE ---
0325: Tele reading wide QRS tachycardia for 15 beats. pt was sleeping, vitals taken: BP 145/65 HR 82 96% RA. Hospitalist Dr. Pozo made aware.
[2022-06-08] MEDS: LEVOTHYROXINE 100 MCG TABLET PO (05:28)
[2022-06-08 05:37] LABS: Add Manual Diff / Slide Review SLIDE REVIEW; Basophils Absolute Auto 100 /uL (0-100); Eosinophils Absolute Auto 300 /uL (0-450); Eosinophils Percent Auto 5.4 % (2-4); Hematocrit 27.4 % (36-46); Hemoglobin 8.9 g/dL (12.0-16.0); Lymphocytes Absolute Auto 1400 /uL (1100-4500); Lymphocytes Percent Auto 25.3 % (25-40); Mean Corpuscular HGB Conc 32.3 % (30-36); Mean Corpuscular Volume 68.1 fL (80-100); Monocytes Absolute Auto 500 /uL (0-900); Monocytes Percent Auto 9.8 % (3-14); Neutrophils Absolute Auto 3200 /uL (1500-7000); Neutrophils Percent Auto 58.5 % (50-75); Platelet Count 405 X10^3/uL (150-400); Red Blood Cell Count 4.03 X10^6/uL (4.0-5.2); Red Cell Distribution Width 17.5 % (11.6-14.8); White Blood Cell Count 5.5 X10^3/uL (4.5-11.0)
[2022-06-08 05:48] LABS: Magnesium 1.6 mg/dL (1.6-2.3)
[2022-06-08 05:49] LABS: Alanine Aminotransferase 21 IU/L (<35); Albumin 3.9 g/dL (3.5-5.0); Albumin Globulin Ratio 1.7 (1.0-2.8); Alkaline Phosphatase 70 U/L (38-126); Aspartate Aminotransferase 26 IU/L (14-36); BUN Creatinine Ratio 20.3 (6-22); Bilirubin Total 0.5 mg/dL (0.2-1.3); Blood Urea Nitrogen 13 mg/dL (7-17); Calcium 9.1 mg/dL (8.4-10.2); Carbon Dioxide 25 mmol/L (22-32); Chloride 100 mmol/L (98-107); Estimated Glomerular Filt Rate > 60 mL/min (>60); Globulin 2.3 g/dL (1.7-4.1); Glucose 208 mg/dL (80-110); HEMOLYSIS < 15 (0-50); Potassium 4.4 mmol/L (3.4-5.1); Sodium 133 mmol/L (137-145); Total Protein 6.2 g/dL (6.3-8.2)
[2022-06-08 05:59] LABS: Troponin I 0.871 ng/mL (0.01-0.034)
[2022-06-08 06:19] LABS: Anisocytosis 2+; Microcytosis 1+
--- NOTE | 2022-06-08 06:54 | PM.EVENT ---
Event Note Date Patient Seen: 06/08/22 Time Patient Seen: 06:10 Event Note (Rapid Response, Code, or fall): Called by RN for clinical change in patient. Was noted on telemetry to be in rapid rhythm, wide complex, concerning for ventricular tachycardia with monomorphic appearance. Arrived in room and patient felt mild symptoms of shortness of breath and lightheadedness that had some improvement on their own. She was mentating normally, work of breathing normal. Vitals showed heart rate in the 190s-200s, blood pressure 90s/60s, with maps in the high 60s-70s throughout the event. EKG done showed winde complex tachcyardia with rate 198, consistent likely with ventricular tachycardia vs atrial fibrillation with aberrancy. Pacer pads were put in place if cardioversion were to be needed. Iv fluid bolus ordered. Labs ordered and notable for magensium of 1.6. 2gm magnesium ordered. Amiodarone was planned to be given and ordered, but with vagal maneuver her heart rhythm converted to sinus rhythm. Her symptoms resolved with no shortness of breath. Her heart rate improved to 90s-100s, blood pressure to systolic 140s. EKG showed left bundle branch block and sinus rhythm rate of 97.
[2022-06-08] MEDS: METOPROLOL ER 25 MG TABLET PO ×3 (06:57→09:48)
[2022-06-08] MEDS: MAGNESIUM SULFATE 2 GM/50 ML PIGGYBACK IV (06:58)
[2022-06-08] MEDS: SODIUM CHLORIDE 0.9% 1,000 ML 1000 ML IV (07:00)
--- NOTE | 2022-06-08 07:43 | PC.NURSE ---
0605: LINER CHECKER noticed tele showing Vtach. Dr. Pozo notified and arrived to room. Coordinator, 2 LINER CHECKER and this RN in room. Pt Axo3, c/o of some SOB. Vitals 88/55 HR 190-200s 98% RA. EKG completed showing wide tachy. 1L NS bolus and 2mg magnesium started. Vagal maneuver done, HR down to 90s, pt stating 'i feel better'. Another EKG completed, showing NSR. BP 146/72, HR 90s 98% RA. Metoprolol PO given.
--- NOTE | 2022-06-08 08:06 | PC.NURSE ---
Late entry for 06/08 810am: VORB: Dr. Oh order to stop heparin gtt this morning (discontinue heparin infusion). PTT already just drawn by lab. Patient without complaint, waiting for stress test and ECHO results.
[2022-06-08] MEDS: ARIPiprazole 10 MG TABLET 5 MG PO (08:49)
[2022-06-08] MEDS: PANTOPRAZOLE DR 40 MG TABLET PO (08:50)
[2022-06-08] MEDS: CHOLECALCIFEROL (VITAMIN D3) 1,000 UNIT TABLET 1000 UNIT PO (08:50)
[2022-06-08] MEDS: ASPIRIN EC 81 MG TABLET PO (08:50)
[2022-06-08] MEDS: METFORMIN HCL 500 MG TABLET 1000 MG PO (08:50)
[2022-06-08] MEDS: INSULIN GLARGINE 100 UNIT/ML 3ML PEN 56 UNIT SUBCUT (08:51)
[2022-06-08] MEDS: lisinopriL 20 MG TABLET PO (08:51)
[2022-06-08] MEDS: DULOXETINE 30 MG CAPSULE 60 MG PO (08:51)
[2022-06-08] MEDS: DULOXETINE 20 MG CAPSULE PO (08:51)
[2022-06-08] MEDS: INSULIN LISPRO 100 UNIT/ML 3ML VIAL 8 UNIT SUBCUT ×2 (08:52→12:21)
--- NOTE | 2022-06-08 12:35 | PM.DS.1 ---
History of Present Illness History of Present Illness Date Patient Seen: 06/06/22 Chief complaint: SOB Narrative: Patient is a 62-year-old female history of diabetes atrial fibrillation on Pradaxa and metoprolol, hypertension, hyperlipidemia, presented today to the ER with shortness of breath.? She reports that she woke up about 4:00 a.m. was feeling short of breath. She had a little bit of dizziness and chest tightness.? EMS was called she is found to be in AFib with RVR heart rate 120-190.? She self converted on route to the hospital and has been in normal since.? She has no evidence of hypoxia.? She is overall feeling better.? She states she was in her normal state of health when she went to bed.? She denies any fever or chills.? No nausea vomiting or other symptoms. Discharge Providers Provider Date of admission: 06/08/22 10:27 Discharge Date: 06/08/22 Primary care physician: Pdero Feliciano, Discharge provider: Will Lowe DO Summary Hospital Course Discharge Diagnosis: 1. Rapid rate atrial fibrillation.? Settled spontaneously.? Continue to monitor with telemetry to ensure stability.? History of atrial fibrillation paroxysmal in the past.? Echocardiogram shows ejection fracture 55-60%. Home metoprolol increased to 50mg BID with good rate control effect. 2. Shortness of breaths related to atrial fibrillation.? Resolved. 3. Major depressive disorder history.? Previous history of suicide attempt.? Continue patient's regular medication duloxetine.? Continue Abilify. 4. Type 2 diabetes.? Continue patient's regular medication.? Associated neuropathy with type 2 diabetes. 5. Hypertension.? Continue benazepril 20 mg daily continue metoprolol as ordered for atrial fibrillation. 6. Hyperlipidemia.? Continue rosuvastatin 40 mg day 7. Hypothyroidism.? TSH normal at 2.63, continue levothyroxine 100 mcg 8. General obesity.? No active treatment. 9. Concern for urinary tract infection.? Culture urine.? Treat expectantly with ceftriaxone 1 g IV every 24.? Urine shows no growth therefore discontinued ceftriaxone. 10. Elevated troponin.? Likely demand ischemia secondary to atrial fibrillation.? Follow trend.? Nuclear stress test reassuring.? Aspirin 81 mg daily.? Troponin is trending downward continue to follow. 11. GERD.? Continue pantoprazole 40 mg daily 12. Concern for NSTEMI.? Monitored troponin to see trend evaluate for NSTEMI.? Stress test and echo were reassuring. 13. Anxiety.? Clonazepam 0.5 mg p.o. q.h.s. Hospital Course: Admitted for A-fib RVR which improved with increase in metoprolol dosage to 50mg BID. Spoke with cardiology who recommended f/u with Dr. Venessa JIMENEZ cardiology as outpatient. Had elevated troponin but nuclear stress test and echo were reassuring. Time Spent with Patient Time spent: Greater than 30 minutes Exam Vital Signs (past 8 hours): - 06/08/22 06:57 06/08/22 08:50 06/08/22 08:51 Temperature Pulse Rate 91 H 98 H 98 H Respiratory Rate Blood Pressure 134/70 143/70 H 143/70 H Pulse Oximetry Oxygen Flow Rate 06/08/22 08:00 06/08/22 09:48 06/08/22 12:00 Temperature 97.0 F L 98.0 F Pulse Rate 98 H 98 H 85 Respiratory Rate 16 15 Blood Pressure 143/70 H 143/70 H 143/70 H Pulse Oximetry 95 98 Oxygen Flow Rate 0 0 Oxygen Delivery Method Room Air Oxygen Flow Rate 0 Narrative Exam Narrative: GENERAL:? Alert pleasant in no acute medical distress. HEENT: Head atraumatic, extraocular movements normal, pupils reactive, face symmetric, moist mucous membranes CARDIOVASCULAR: Regular rate and rhythm with no extra sounds or murmurs. RESPIRATORY: Breath sounds equal bilaterally, no wheezes rales or rhonchi. ABDOMEN: Soft, nontender.? Bowel sounds normal.? Nontender. EXTREMITIES: Normal range of motion, no clubbing or edema.? Neurovascularly intact NEUROLOGICAL: Alert and oriented x4.Normal gait and speech. Cranial nerves II through XII grossly intact. ? SKIN: Warm, dry, no laceration, no rashes or lesions. Objective Labs 06/08/22 04:50 06/08/22 04:50 Labs: Laboratory Results - last 24 hr 06/08/22 06/08/22 06/08/22 04:50 04:50 04:50 WBC 5.5 RBC 4.03 Hgb 8.9 L Hct 27.4 L MCV 68.1 L MCH 22.0 L MCHC 32.3 RDW 17.5 H Plt Count 405 H Neut % (Auto) 58.5 Lymph % (Auto) 25.3 [place] % (Auto) 9.8 Eos % (Auto) 5.4 H Baso % (Auto) 1.0 Neut # (Auto) 3200 Lymph # (Auto) 1400 [place] # (Auto) 500 Eos # (Auto) 300 Baso # (Auto) 100 RBC Morphology See below Anisocytosis 2+ H Microcytosis 1+ H Sodium Potassium Chloride Carbon Dioxide BUN Creatinine Estimated GFR BUN/Creatinine Ratio Glucose Calcium Magnesium 1.6 Total Bilirubin AST ALT Alkaline Phosphatase Troponin I 0.871 H* Total Protein Albumin Globulin Albumin/Globulin Ratio 06/08/22 04:50 WBC RBC Hgb Hct MCV MCH MCHC RDW Plt Count Neut % (Auto) Lymph % (Auto) [place] % (Auto) Eos % (Auto) Baso % (Auto) Neut # (Auto) Lymph # (Auto) [place] # (Auto) Eos # (Auto) Baso # (Auto) RBC Morphology Anisocytosis Microcytosis Sodium 133 L Potassium 4.4 Chloride 100 Carbon Dioxide 25 BUN 13 Creatinine 0.64 Estimated GFR > 60 BUN/Creatinine Ratio 20.3 Glucose 208 H Calcium 9.1 Magnesium Total Bilirubin 0.5 AST 26 ALT 21 Alkaline Phosphatase 70 Troponin I Total Protein 6.2 L Albumin 3.9 Globulin 2.3 Albumin/Globulin Ratio 1.7 PFSH Medical History Anxiety disorder, unspecified Benign essential HTN Carpal tunnel syndrome (~2015) Cervical cancer (~1979) Chicken pox (~1964) COPD (chronic obstructive pulmonary disease) Essential hypertension Eustachian tube disorder UJANA (generalized anxiety disorder) (~1987) GERD (gastroesophageal reflux disease) History of cervical cancer in adulthood History of recurrent ear infection Hyperlipidemia Hyperthyroidism (~1991) Hypothyroidism Hypothyroidism Long-term current use of insulin for diabetes mellitus Low back pain Major depression Major depressive disorder, single episode, unspecified Measles (~1964) Mixed hyperlipidemia Mumps (~1964) Neuropathy of both feet Obesity (BMI 30-39.9) Paroxysmal atrial fibrillation Paroxysmal atrial fibrillation (~2018) Progressive hearing loss of both ears PTSD (post-traumatic stress disorder) Recurrent sinusitis Type 2 diabetes mellitus with diabetic neuropathy, unspecified Type 2 diabetes mellitus with diabetic neuropathy, with long-term current use of insulin (~1988) Surgical History Anesthesia History of arthroscopic surgery of shoulder History of carpal tunnel release History of hysterectomy History of laparoscopic adjustable gastric banding Family History Mother Congestive heart failure Lung cancer Hyperlipidemia Hypertension Father COPD (chronic obstructive pulmonary disease) Cardiovascular disease Diabetes mellitus History of heart disease Hypertension Hyperlipidemia Social History household members: spouse Smoking Status: Never smoker alcohol intake: never Discharge Plan Discharge Plan Patient Disposition: Home Provider Discharge Comment: You came into the hospital due to rapid A-fib which we controlled with increased dose of metoprolol. You will now be on 50mg twice daily. Please get a referral from your PCP to see Dr. Clifford at [facility] who is a specialist in A-fib. Discharge orders & Medications Prescriptions: New metoprolol succinate 50 mg tablet extended release 24 hr 50 mg PO BID Qty: 60 0RF Continued Victoza 2-Cecilio 0.6 mg/0.1 mL (18 mg/3 mL) pen injector 0.6 mg SUBCUT DAILY Qty: 18 3RF (DME) Advocate Test Strips Strip See Rx Instructions .ROUTE .MEDSUPPLY Qty: 100 3RF Rx Instructions: As directed, 4 times daily as needed aspirin [Adult Aspirin Regimen] 81 mg tablet,delayed release (DR/EC) 81 mg PO DAILY cetirizine [Aller-Rosibel] 10 mg tablet 10 mg PO DAILY PRN (Reason: Allergy Symptoms) cholecalciferol (vitamin D3) 25 mcg (1,000 unit) capsule 25 mcg PO DAILY coenzyme Q10 [H2Q CoQ10] See Rx Instructions .ROUTE .COMPLEX Rx Instructions: cholesterol control cranberry extract See Rx Instructions .ROUTE .COMPLEX Rx Instructions: PO alpha lipoic acid 600 mg capsule 600 mg PO BID chromium picolinate 400 mcg tablet 800 mcg PO DAILY aripiprazole 5 mg tablet 5 mg PO DAILY Qty: 90 3RF benazepril 20 mg tablet 20 mg PO DAILY Qty: 90 3RF clonazepam 0.5 mg tablet 0.5 mg PO BEDTIME Qty: 30 5RF Rx Instructions: to last 30 days duloxetine 60 mg capsule,delayed release(DR/EC) 60 mg PO DAILY Qty: 90 3RF Rx Instructions: 80 mg total/day duloxetine [Cymbalta] 20 mg capsule,delayed release(DR/EC) 20 mg PO DAILY Qty: 90 3RF Rx Instructions: 80 mg total/day dabigatran etexilate [Pradaxa] 150 mg capsule 150 mg PO BID Qty: 180 3RF Levemir U-100 Insulin 100 unit/mL solution 56 unit SUBCUT BID Qty: 60 3RF levothyroxine 100 mcg capsule 100 mcg PO DAILY Qty: 90 3RF metformin 500 mg tablet 1,000 mg PO BID Qty: 360 3RF pantoprazole 40 mg tablet,delayed release (DR/EC) 40 mg PO DAILY Qty: 90 3RF rosuvastatin 40 mg tablet 40 mg PO BEDTIME Qty: 90 3RF insulin lispro [Humalog KwikPen Insulin] 100 unit/mL insulin pen See Rx Instructions .ROUTE .COMPLEX Rx Instructions: prn sliding scale if needed. Discontinued metoprolol succinate 25 mg tablet extended release 24 hr 25 mg PO DAILY Qty: 90 3RF Follow up/Referrals: Pedro Felicaino DO [Primary Care Provider] - 06/22/22 10:00 am (appt:06/22 @ 10:00 w/Dr Feliciano please arrive 15 minutes prior to your scheduled appointment time.Dr feliciano's nurse is placing a referaal for Dr Clifford you should hear from that office. ) Visit Report/Discharge Packet Instructions: DI for Heart Attack Stand Alone Forms: Patient Portal/API, Stroke Signs & Symptoms Discharge Data Primary Care Provider: Pedro Feliciano Attending Provider: Minerva Sterling Admit Date/Time: 06/06/22 13:59 Discharges patient from system. Discharge Date/Time: 06/08/22 14:01 Quality VTE Deep Vein Thrombosis/Pulmonary Embolism Present on Admission: Yes
== END 2022-06-08 14:01 | disposition home or self-care (01) ==
LOC: ED 10:22 → AC 13:59
PROVIDERS: Nurse Practitioner Family; Admitting Provider Neuromusculoskeletal Medicine, Sports Medicine; Emergency Provider Emergency Medicine; PCP Family Medicine; Referring Provider Emergency Medicine; Visit Provider Neuromusculoskeletal Medicine, Sports Medicine
DX: I48.91 Unspecified atrial fibrillation (principal); E11.9 Type 2 diabetes mellitus without complications; Z79.4 Long term (current) use of insulin; I10 Essential (primary) hypertension; Z79.84 Long term (current) use of oral hypoglycemic drugs; F32.A Depression, unspecified; E03.9 Hypothyroidism, unspecified; E66.9 Obesity, unspecified; R77.8 Other specified abnormalities of plasma proteins; F41.9 Anxiety disorder, unspecified; K21.9 Gastro-esophageal reflux disease without esophagitis; Z20.822 Contact with and (suspected) exposure to COVID-19
CPT/HCPCS: 36415; 71045; 78452; 80053; 81003; 81015; 82550; 82962; 83690; 83735; 83880; 84439; 84443; 84481; 84484; 85025; 85027; 85610; 85730; 87086; 87635; 93005; 93010; 93017; 93306; 96361; 96365; 96366; 96367; 96372; 99283; 99284; C9803; G0378; A9502; J0696; J1644; J1815; J2785; J3475

== ENCOUNTER → 2022-06-22 10:15 | Outpatient (CLI) | payer OTHER, MEDICAID, SELFPAY ==
[2022-06-06 15:06] VITALS: BMI 33.0
[2022-06-22 11:44] LABS: HEMOLYSIS < 15 (0-50); Iron 22 ug/dL (37-170)
[2022-06-22 11:53] LABS: Percent Iron Saturation 4 % (15-50); Total Iron Binding Capacity 512 ug/dL (265-497); Transferrin 392 mg/dL (206-381)
[2022-06-22 12:24] LABS: Ferritin 3 ng/mL (11-264)
== END ==
PROVIDERS: PCP Family Medicine; Referring Provider Family Medicine; Visit Provider Family Medicine
DX: R71.8 Other abnormality of red blood cells (principal)
CPT/HCPCS: 36415; 82728; 83540; 83550

== ENCOUNTER → 2022-08-04 11:21 | Outpatient (CLI) | payer OTHER, MEDICAID, SELFPAY ==
[2022-06-06 15:06] VITALS: BMI 33.0
[2022-08-05 07:17] LABS: x Labcorp Estim. Avg Glu (eAG) 146 mg/dL (.); x Labcorp Hemoglobin A1c 6.7 % (4.8-5.6)
== END ==
PROVIDERS: PCP Family Medicine; Referring Provider Family Medicine; Visit Provider Family Medicine
DX: E11.9 Type 2 diabetes mellitus without complications (principal)
CPT/HCPCS: 83036

== ENCOUNTER → 2022-09-06 15:30 | Oncology outpatient (ONC) | payer OTHER, MEDICAID, SELFPAY ==
[2022-06-06 15:06] VITALS: BMI 33.0
[2022-08-30 15:39] VITALS: BP 146/73; PULSE 69; RESP 18; TEMP 36.7; O2SAT 100
[2022-08-30] MEDS: ferumoxytoL 510 MG in SODIUM CHLORIDE 0.9% 100 ML 351 MG IV (16:00)
[2022-09-06] MEDS: ferumoxytoL 510 MG in SODIUM CHLORIDE 0.9% 100 ML 351 MG IV (15:55)
[2022-09-06 16:33] VITALS: BP 144/74; PULSE 65; RESP 16; TEMP 36.2; O2SAT 98
== END ==
PROVIDERS: PCP Family Medicine; Referring Provider Family Medicine; Visit Provider Family Medicine
DX: D50.9 Iron deficiency anemia, unspecified (principal)
CPT/HCPCS: 96365; Q0138

== ENCOUNTER 2022-11-08 20:51 | Inpatient (IN) | payer OTHER, MEDICAID, SELFPAY ==
[2022-06-06 15:06] VITALS: BMI 33.0
[2022-11-08 20:55] VITALS: BP 194/93; PULSE 63; RESP 18; TEMP 36.4; O2SAT 96; BMI 33.5
[2022-11-08 20:56] VITALS: BP 194/93; PULSE 63; O2SAT 96
[2022-11-08 21:00] VITALS: BP 173/90; PULSE 61; RESP 19; O2SAT 97
[2022-11-08] MEDS: ONDANSETRON 4 MG/2 ML INJ IV (21:08)
[2022-11-08 21:13] LABS: Add Manual Diff / Slide Review NO; Basophils Absolute Auto 0 /uL (0-100); Basophils Percent Auto 0.2 % (0-2); Eosinophils Absolute Auto 0 /uL (0-450); Eosinophils Percent Auto 0.2 % (2-4); Hematocrit 37.8 % (36-46); Hemoglobin 12.5 g/dL (12.0-16.0); Lymphocytes Absolute Auto 300 /uL (1100-4500); Lymphocytes Percent Auto 2.7 % (25-40); Mean Corpuscular HGB Conc 33.2 % (30-36); Mean Corpuscular Hemoglobin 27.2 PG (26-34); Mean Corpuscular Volume 81.8 fL (80-100); Monocytes Absolute Auto 900 /uL (0-900); Neutrophils Absolute Auto 10100 /uL (1500-7000); Neutrophils Percent Auto 88.9 % (50-75); Platelet Count 312 X10^3/uL (150-400); Red Blood Cell Count 4.62 X10^6/uL (4.0-5.2); Red Cell Distribution Width 24.9 % (11.6-14.8); White Blood Cell Count 11.4 X10^3/uL (4.5-11.0)
[2022-11-08 21:22] LABS: Creatine Kinase 40 U/L (30-135)
[2022-11-08 21:23] LABS: Alanine Aminotransferase 508 IU/L (<35); Albumin Globulin Ratio 1.3 (1.0-2.8); Alkaline Phosphatase 265 U/L (38-126); Aspartate Aminotransferase 397 IU/L (14-36); Bilirubin Total 1.7 mg/dL (0.2-1.3); Blood Urea Nitrogen 11 mg/dL (7-17); Calcium 8.8 mg/dL (8.4-10.2); Carbon Dioxide 21 mmol/L (22-32); Chloride 97 mmol/L (98-107); Estimated Glomerular Filt Rate > 60 mL/min (>60); Globulin 3.1 g/dL (1.7-4.1); Glucose 200 mg/dL (80-110); HEMOLYSIS 46 (0-50); Lipase 44 U/L (23-300); Potassium 4.5 mmol/L (3.4-5.1); Sodium 128 mmol/L (137-145); Total Protein 7.1 g/dL (6.3-8.2)
[2022-11-08 21:31] LABS: Anisocytosis 2+
--- NOTE | 2022-11-08 21:32 | DI.US.S_ITS ---
PROCEDURE: US ABDOMEN COMPLETE INDICATIONS: LEFT UPPER QUADRANT PAIN. INCREASED LIVER FUNCTION TESTS. TECHNIQUE: Real-time scanning was performed of the abdominal and retroperitoneal organs, with image documentation. COMPARISON: None. FINDINGS: Liver: The liver demonstrates no focal mass lesions. There is increased parenchymal echogenicity compatible with fatty infiltration. Gallbladder: Multiple mobile gallstones are demonstrated in the fundus. There is gallbladder wall thickening measuring up to 1.1 cm in thickness. There is a small amount of pericholecystic fluid. Biliary system: No intra or extrahepatic biliary ductal dilatation. Pancreas: Visualized pancreas appears unremarkable sonographically. Spleen: The spleen is normal in size. Kidneys: Right kidney measures 12.3 cm long; left kidney measures 11.5 cm long. No hydronephrosis. Aorta: Visualized aorta is normal in caliber at less than 3 cm. Iliacs: Proximal common iliac arteries are normal in caliber at less than 2.5 cm. IVC: Intrahepatic inferior vena cava is patent. Miscellaneous: No free abdominal fluid. IMPRESSION: 1. Cholelithiasis with gallbladder wall thickening and pericholecystic fluid suspicious for cholecystitis. Dictated by: Carmelo Allen M.D. on 11/08/2022 at 23:50 Approved by: Carmelo Allen M.D. on 11/08/2022 at 23:53
[2022-11-08 21:33] LABS: Acanthocytes 1+
[2022-11-08 21:34] LABS: Ammonia (NH3) < 9 umol/L (9-30)
[2022-11-08 21:35] LABS: Troponin I < 0.012 ng/mL (0.01-0.034)
[2022-11-08] MEDS: KETOROLAC 30 MG/ML VIAL 15 MG IV (21:54)
[2022-11-08 23:13] VITALS: PULSE 66; O2SAT 95
[2022-11-08 23:14] VITALS: BP 171/76; PULSE 56; O2SAT 95
[2022-11-08 23:30] VITALS: BP 171/77; PULSE 65; O2SAT 94
[2022-11-08] MEDS: PIPERACILLIN/TAZO 4.5 GM in SODIUM CHLORIDE 0.9% 100 ML IV (23:45)
[2022-11-09] VITALS (21 sets, daily range): BP systolic 94–196; BP diastolic 50–97; PULSE 55–85; RESP 18–32; TEMP 36.2–37.3; O2SAT 88–100; BMI 33.5
--- NOTE | 2022-11-09 00:35 | ED.ABDPAIN ---
HPI - Abdominal Pain General Chief Complaint: Abdominal Pain Stated Complaint: Abd pain Time Seen by Provider: 11/08/22 21:32 Source: patient and EMS Mode of arrival: EMS Limitations: no limitations History of Present Illness HPI narrative: 62-year-old female with history of insulin-dependent diabetes, dyslipidemia, atrial fibrillation on Pradaxa, tremor, prior coronary artery disease, hypothyroidism with complaint of upper abdominal pain left and right that started about 5 days ago it resolved and then returned. Been worsening over time it is a little bit more localized to the right currently but with somewhat on the left. She is been sweaty and chilled intermittently. No chest pain, no shortness of breath. She would nausea dry heaves today. She denies any diarrhea constipation states she was stooling regularly. No she is having little difficulty with urination but has been able to urinate today no dysuria urgency or frequency noted. She is not had similar symptoms in the past. Denies back or flank pain. Patient states she is had a prior hysterectomy, denies any other intra-abdominal surgeries. No known drug allergies. No tobacco, alcohol or illicit. Dr. Alberto is her primary care physician. Related Data Home Medications Medication Instructions Recorded Confirmed alpha lipoic acid 600 mg capsule 600 mg PO BID 02/10/22 11/09/22 aspirin 81 mg tablet,delayed 81 mg PO DAILY A-fib 02/10/22 11/09/22 release (Adult Aspirin Regimen) cetirizine 10 mg tablet (Aller-Rosibel) 10 mg PO DAILY PRN Allergy Symptoms 02/10/22 11/09/22 cholecalciferol (vitamin D3) 25 25 mcg PO DAILY 02/10/22 11/09/22 mcg (1,000 unit) capsule chromium picolinate 400 mcg tablet 800 mcg PO DAILY 02/10/22 11/09/22 coenzyme Q10 [H2Q CoQ10] See Rx Instructions .Route .COMPLEX 02/10/22 11/09/22 cranberry extract See Rx Instructions .Route 02/10/22 11/09/22 .COMPLEX cholesterol control insulin lispro 100 unit/mL See Rx Instructions .Route .COMPLEX 04/06/22 11/09/22 subcutaneous pen (Humalog KwikPen (U-100) Insulin) aripiprazole 5 mg tablet 5 mg PO DAILY depression 11/09/22 11/09/22 benazepril 20 mg tablet 20 mg PO DAILY High blood pressure 11/09/22 11/09/22 blood sugar diagnostic (True 11/09/22 11/09/22 Metrix Glucose Test Strip) insulin detemir U-100 100 unit/mL 50 unit SUBCUT BID 11/09/22 11/09/22 subcutaneous solution (Levemir U-100 Insulin) Previous Rx's Medication Instructions Recorded dabigatran etexilate 150 mg 150 mg PO BID #180 caps 02/10/22 capsule (Pradaxa) duloxetine 20 mg capsule,delayed 20 mg PO DAILY #90 caps 02/10/22 release (Cymbalta) duloxetine 60 mg capsule,delayed 60 mg PO DAILY #90 caps 02/10/22 release metformin 500 mg tablet 1,000 mg PO BID #360 tabs 02/10/22 pantoprazole 40 mg tablet,delayed 40 mg PO DAILY #90 tabs 02/10/22 release rosuvastatin 40 mg tablet 40 mg PO BEDTIME #90 tabs 02/10/22 liraglutide 0.6 mg/0.1 mL (18 mg/3 0.6 mg (0.1 mL) SUBCUT DAILY 05/26/22 mL) subcutaneous pen injector diabetes #18 mL (Victoza 2-Cecilio) metoprolol succinate 50 mg 50 mg PO BID #180 tabs 07/05/22 tablet,extended release 24 hr clonazepam 0.5 mg tablet 0.5 mg PO BEDTIME Anxiety #30 tabs 08/12/22 levothyroxine 100 mcg tablet 100 mcg PO DAILY #90 tabs 11/02/22 Allergies Allergy/AdvReac Type Severity Reaction Status Date / Time No Known Drug Allergies Allergy Verified 08/04/22 10:27 Review of Systems Review of Systems ROS Unobtainable: All systems reviewed & are unremarkable except as noted in HPI and below Patient History Medical History Anxiety disorder, unspecified Benign essential HTN Cervical cancer (~1979) Chicken pox (~1964) COPD (chronic obstructive pulmonary disease) Essential hypertension Eustachian tube disorder JUANA (generalized anxiety disorder) (~1987) GERD (gastroesophageal reflux disease) History of cervical cancer in adulthood History of recurrent ear infection Hyperlipidemia Hyperthyroidism (~1991) Hypothyroidism Hypothyroidism Iron deficiency anemia Long-term current use of insulin for diabetes mellitus Low back pain Major depression Major depressive disorder, single episode, unspecified Measles (~1964) Mixed hyperlipidemia Mumps (~1964) Neuropathy of both feet Obesity (BMI 30-39.9) Paroxysmal atrial fibrillation Progressive hearing loss of both ears PTSD (post-traumatic stress disorder) Tremor Type 2 diabetes mellitus with diabetic neuropathy, unspecified Type 2 diabetes mellitus with diabetic neuropathy, with long-term current use of insulin (~1988) Surgical History Anesthesia History of arthroscopic surgery of shoulder History of carpal tunnel release History of hysterectomy History of laparoscopic adjustable gastric banding Family History Mother Congestive heart failure Lung cancer Hyperlipidemia Hypertension Father COPD (chronic obstructive pulmonary disease) Cardiovascular disease Diabetes mellitus History of heart disease Hypertension Hyperlipidemia Social History household members: spouse Smoking Status: Never smoker alcohol intake: never Smoking Status: Never smoker Substance Use Type: does not use Exam Narrative Exam Narrative: GENERAL: Alert and oriented x three, obese female in mild distress. HEENT: Head normocephalic, atraumatic, EOMI, pupils reactive, face symmetric, moist mucous membranes NECK: Supple, full range of motion CARDIOVASCULAR: Regular rate and rhythm without murmurs, rubs or gallops. RESPIRATORY: Breath sounds equal bilaterally, no wheezes rales or rhonchi. ABDOMEN: Soft, positive for upper abdominal pain right greater than left. Normoactive bowel sounds all 4 quadrants. No guarding or rebound, rigidity, no mass : No CVA tenderness EXTREMITIES: Normal range of motion, no clubbing or edema. Neurovascularly intact NEUROLOGICAL: Cranial nerves II through XII grossly intact. Moving all extremities, patient does have tremor of the right upper extremity, does sometimes resolve when she is focused in discussion but then recurs. SKIN: Warm, dry, no petechiae, no rashes or lesions. Initial Vital Signs Initial Vital Signs: Vital Signs Temperature 97.5 F L 11/08/22 20:55 Pulse Rate 63 11/08/22 20:55 Respiratory Rate 18 11/08/22 20:55 Blood Pressure 194/93 H 11/08/22 20:55 Pulse Oximetry 96 11/08/22 20:55 Oxygen Delivery Method Room Air 11/08/22 20:55 Course Orders Ordered: ED Orders 11/08/22 21:02 Ammonia (NH3) Stat Complete Blood Count AUTO DIFF Stat Comprehensive Metabolic Panel Stat Lipase Stat Troponin & CK Cardiac Panel Stat 11/08/22 21:32 US abdomen complete Stat 11/09/22 EKG-12 Lead Stat Dextrose (Dextrose 50 % In Water 25 Gm/50 Ml Syringe) 25 gm IV PRN PRN; Protocol PRN Reason: Hypoglycemia Sodium Chloride (Normal Saline 0.9%) 1,000 mls @ 100 mls/hr IV CONT TEODORO Last Admin: 11/09/22 02:22 Dose: 100 mls/hr Documented By: RONY Piperacillin Sod/Tazobactam (Sod 3.375 gm/ Sodium Chloride) 100 mls @ 25 mls/hr IV Q8H [facility] Last Admin: 11/09/22 04:29 Dose: 25 mls/hr Documented By: ZACHARIAH Dextrose (D10w) 100 mls @ 1,200 mls/hr IV PRN PRN PRN Reason: Hypoglycemia Sodium Chloride (Normal Saline 0.45%) 1,000 mls @ 100 mls/hr IV CONT [facility] Last Admin: 11/09/22 04:21 Dose: 100 mls/hr Documented By: ZACHARIAH Insulin Glargine (Insulin Glargine 100 Unit/Ml 3ml Pen) 10 unit SUBCUT Q12HR TE[facility]O Insulin Human Lispro (Insulin Lispro 100 Unit/Ml 3ml Vial) 0 unit SUBCUT ACHS TEODORO; Protocol Metoprolol Tartrate (Metoprolol Tartrate 5 Mg/5 Ml Inj) 2 mg IV Q6H TE[facility] Morphine Sulfate (Morphine 4 Mg/Ml Inj) 3 mg IV Q4HR PRN PRN Reason: Pain, Severe (7-10) Naloxone HCl (Naloxone 0.4 Mg/Ml Vial) 0.2 mg IV Q2MIN PRN PRN Reason: Opiate Reversal Ondansetron HCl (Ondansetron 4 Mg/2 Ml Inj) 4 mg IV Q8HR PRN PRN Reason: Nausea And Vomiting Discontinued Medications Piperacillin Sod/Tazobactam (Sod 4.5 gm/ Sodium Chloride) 100 mls @ 200 mls/hr IV NOW ONE Stop: 11/08/22 23:34 Last Infusion: 11/09/22 00:18 Dose: 0 mls/hr Documented By: Admin: 11/08/22 23:45 Dose: 200 mls/hr Documented By: Influenza Virus Vaccine (Influenza Vaccine Qiv 0.5 Ml Syringe) 0.5 ml IM .ONCE ONE Stop: 11/09/22 03:00 Ketorolac Tromethamine (Ketorolac 30 Mg/Ml Vial) 15 mg IV NOW ONE Stop: 11/08/22 21:33 Last Admin: 11/08/22 21:54 Dose: 15 mg Documented By: ES Metoprolol Succinate (Metoprolol Er 50 Mg Tablet) 50 mg PO NOW ONE Stop: 11/09/22 00:36 Last Admin: 11/09/22 00:49 Dose: 50 mg Documented By: Ondansetron HCl (Ondansetron 4 Mg/2 Ml Inj) 4 mg IV NOW ONE Stop: 11/08/22 21:02 Last Admin: 11/08/22 21:08 Dose: 4 mg Documented By: Vital Signs Vital signs: Vital Signs - 8 hr 11/08/22 23:13 11/08/22 23:14 11/08/22 23:14 Pulse Rate 66 56 L Respiratory Rate Blood Pressure 171/76 H Pulse Oximetry 95 95 11/08/22 23:30 11/08/22 23:30 11/09/22 00:00 Pulse Rate 65 60 Respiratory Rate Blood Pressure 171/77 H Pulse Oximetry 94 98 11/09/22 00:01 11/09/22 00:01 11/09/22 00:34 Pulse Rate 60 68 Respiratory Rate Blood Pressure 196/86 H Pulse Oximetry 98 100 11/09/22 00:34 11/09/22 01:00 11/09/22 01:01 Pulse Rate 61 60 Respiratory Rate 20 21 Blood Pressure 170/75 H Pulse Oximetry 98 99 11/09/22 01:01 11/09/22 01:30 11/09/22 01:30 Pulse Rate 70 Respiratory Rate Blood Pressure 162/72 H 162/72 H 154/97 H Pulse Oximetry 11/09/22 01:30 11/09/22 02:00 11/09/22 02:00 Pulse Rate 69 68 Respiratory Rate 19 21 Blood Pressure 179/79 H Pulse Oximetry 96 100 MDM - Abdominal Pain Lab Data 11/08/22 21:02 11/08/22 21:02 Labs: Lab Results 11/08/22 11/08/22 11/08/22 Range/Units 21:02 21:02 21:02 WBC 11.4 H (4.5-11.0) X10^3/uL RBC 4.62 (4.0-5.2) X10^6/uL Hgb 12.5 (12.0-16.0) g/dL Hct 37.8 (36-46) % MCV 81.8 (80-100) fL MCH 27.2 (26-34) PG MCHC 33.2 (30-36) % RDW 24.9 H (11.6-14.8) % Plt Count 312 (150-400) X10^3/uL Neut % (Auto) 88.9 H (50-75) % Lymph % (Auto) 2.7 L (25-40) % [place] % (Auto) 8.0 (3-14) % Eos % (Auto) 0.2 L (2-4) % Baso % (Auto) 0.2 (0-2) % Neut # (Auto) 91679 H (3437-2074) /uL Lymph # (Auto) 300 L (4458-8620) /uL [place] # (Auto) 900 (0-900) /uL Eos # (Auto) 0 (0-450) /uL Baso # (Auto) 0 (0-100) /uL RBC Morphology See below Anisocytosis 2+ H Acanthocytes (Spur) 1+ H Sodium 128 L (137-145) mmol/L Potassium 4.5 (3.4-5.1) mmol/L Chloride 97 L (98-107) mmol/L Carbon Dioxide 21 L (22-32) mmol/L BUN 11 (7-17) mg/dL Creatinine 0.58 (0.52-1.04) mg/dL Estimated GFR > 60 (>60) mL/min BUN/Creatinine Ratio 19.0 (6-22) Glucose 200 H (80-110) mg/dL Calcium 8.8 (8.4-10.2) mg/dL Total Bilirubin 1.7 H (0.2-1.3) mg/dL AST 397 H (14-36) IU/L ALT 508 H (<35) IU/L Alkaline Phosphatase 265 H (38-126) U/L Ammonia < 9 L (9-30) umol/L Total Creatine Kinase (30-135) U/L Troponin I (0.01-0.034) ng/mL Total Protein 7.1 (6.3-8.2) g/dL Albumin 4.0 (3.5-5.0) g/dL Globulin 3.1 (1.7-4.1) g/dL Albumin/Globulin Ratio 1.3 (1.0-2.8) Lipase 44 (23-300) U/L 11/08/22 Range/Units 21:02 WBC (4.5-11.0) X10^3/uL RBC (4.0-5.2) X10^6/uL Hgb (12.0-16.0) g/dL Hct (36-46) % MCV (80-100) fL MCH (26-34) PG MCHC (30-36) % RDW (11.6-14.8) % Plt Count (150-400) X10^3/uL Neut % (Auto) (50-75) % Lymph % (Auto) (25-40) % [place] % (Auto) (3-14) % Eos % (Auto) (2-4) % Baso % (Auto) (0-2) % Neut # (Auto) (7470-9992) /uL Lymph # (Auto) (3785-2513) /uL [place] # (Auto) (0-900) /uL Eos # (Auto) (0-450) /uL Baso # (Auto) (0-100) /uL RBC Morphology Anisocytosis Acanthocytes (Spur) Sodium (137-145) mmol/L Potassium (3.4-5.1) mmol/L Chloride (98-107) mmol/L Carbon Dioxide (22-32) mmol/L BUN (7-17) mg/dL Creatinine (0.52-1.04) mg/dL Estimated GFR (>60) mL/min BUN/Creatinine Ratio (6-22) Glucose (80-110) mg/dL Calcium (8.4-10.2) mg/dL Total Bilirubin (0.2-1.3) mg/dL AST (14-36) IU/L ALT (<35) IU/L Alkaline Phosphatase (38-126) U/L Ammonia (9-30) umol/L Total Creatine Kinase 40 (30-135) U/L Troponin I < 0.012 (0.01-0.034) ng/mL Total Protein (6.3-8.2) g/dL Albumin (3.5-5.0) g/dL Globulin (1.7-4.1) g/dL Albumin/Globulin Ratio (1.0-2.8) Lipase (23-300) U/L Point of care testing: Urine Dip Bedside Urine Glucose 250 mg/dl Bedside Urine Bilirubin - Negative Bedside Urine Ketone + 15 Urine Specific Conrad 1.015 Bedside Urine Occult Blood - Negative Bedside Urine pH 6.0 Bedside Urine Protein - Negative Bedside Urine Urobilinogen - Negative Bedside Urine Nitrite - Negative Imaging Data US - abdomen: Radiologist's Impression: Felicitas Simms??She/Her/Hers??62??F??1960 ? Allergy/Adv: No Known Drug Allergies (More??) Close Abdomen Ultrasound (Signed) Carmelo Allen - 11/08/22 Myocardial Perfusion Scan Nuc Med (Signed) Shital Tapia - 06/06/22 Echocardiogram Ultrasound (Signed) Mahogany Brandon - 06/06/22 Telemetry Strips 06/06/22 Telemetry Strips 06/06/22 Chest X-Ray (Signed) Kenrick Dobbs - 06/06/22 Mammogram, Additional Views (Signed) Hamzah Gonzalez - 04/20/22 Breast Ultrasound (Signed) Hamzah Gonzalez - 04/20/22 Mammogram Screening (Signed) Abundio Carney - 03/30/22 Brain MRI (Signed) Rubens Barnes - 10/21/21 Hand X-Ray (Signed) Samanat Maya - 09/10/21 Hip X-Ray (Signed) Troy Bennett - 07/23/20 Brain MRI (Signed) Ran Marquis - 07/12/20 Telemetry Strips 07/12/[address] (Signed) Nicolasa Camejo - 07/12/20 Chest X-Ray (Signed) Nicolasa Camejo - 07/12/20 Lumbar Spine X-Ray (Signed) Donal Russell - 09/17/19 Knee X-Ray (Signed) Donal Russell - 09/17/19 Hip X-Ray (Signed) Dnoal Russell - 09/17/19 Femur X-Ray (Signed) Donal Russell - 09/17/19 Foot X-Ray (Signed) Jet Eagle - 12/20/18 Ankle X-Ray (Signed) Jet Eagle - 12/20/18 Thoracic Spine X-Ray (Signed) DonaldTroy - 04/26/18 Shoulder X-Ray (Signed) Troy Bennett - 04/26/18 Lumbar Spine X-Ray (Signed) Troy Bennett - 04/26/18 Chest X-Ray (Signed) Sanya Dee - 04/26/18 Pelvis MRI (Signed) Carmelo Allen - 01/26/18 [place] [address] Ultrasound Report Signed Patient: Felicitas Simms MR#: [id number] : 1960 Acct:[id number] Age/Sex: 62 / F Date of Service: 11/08/22 Loc: ED Accession Number: [id number] ?? Procedure: US abdomen complete Ordering Provider: Aisha Parsons D.O. PROCEDURE:? US ABDOMEN COMPLETE ? INDICATIONS:? LEFT UPPER QUADRANT PAIN. INCREASED LIVER FUNCTION TESTS. ? TECHNIQUE:? Real-time scanning was performed of the abdominal and retroperitoneal organs, with image documentation.? ? COMPARISON:? None. ? FINDINGS:? ? Liver: The liver demonstrates no focal mass lesions.? There is increased parenchymal echogenicity compatible with fatty infiltration. ? Gallbladder:? Multiple mobile gallstones are demonstrated in the fundus.? There is gallbladder wall thickening measuring up to 1.1 cm in thickness.? There is a small amount of pericholecystic fluid. ? Biliary system: No intra or extrahepatic biliary ductal dilatation. ? Pancreas: Visualized pancreas appears unremarkable sonographically. ? Spleen:? The spleen is normal in size. ? Kidneys:? Right kidney measures 12.3 cm long; left kidney measures 11.5 cm long.? No hydronephrosis.? ? Aorta:? Visualized aorta is normal in caliber at less than 3 cm.? ? Iliacs:? Proximal common iliac arteries are normal in caliber at less than 2.5 cm.? ? IVC:? Intrahepatic inferior vena cava is patent.? ? Miscellaneous:? No free abdominal fluid.? ? ? IMPRESSION:? ? 1. Cholelithiasis with gallbladder wall thickening and pericholecystic fluid suspicious for cholecystitis. ? Dictated by: Carmelo Allen M.D. on 11/08/2022 at 23:50 ? ? Approved by: Carmelo Allen M.D. on 11/08/2022 at 23:53?? ECG Data Attestation: I personally reviewed and interpreted this ECG as follows: Prior ECG tracings: available for review Interpretation: Sinus rhythm, left axis deviation, left bundle-branch block. Rate of 60 2p are 148 QRS of 162 QTC 489. Patient has prior from 06/08/2022 which appears similar. MDM Narrative Medical decision making narrative: This is a pleasant 62-year-old female with multiple medical issues anticoagulated with aspirin and Pradaxa for atrial fibrillation, patient presents today with upper abdominal pain, nausea vomiting slight leukocytosis at 11 normal Platelets. Sodium is 128, patient does not appear to run on the lower end but slightly lower than her usual she was 133 on 06/08. Potassium 4.5, creatinine is appropriate glucose is 200, bilirubin is 1.7, AST ALT of [id number], alk-phos is 265, troponin is negative. Patient's EKG shows left bundle-branch which appears similar to prior. Patient is quite tender on examination and had ultrasound of abdomen which shows changes consistent with cholecystitis. Patient has cholelithiasis with gallbladder wall thickening pericholecystic fluid suspicious for cholecystitis. Dr. Johnson, general surgery: Reviewed patient's findings, workup thus far appears to have cholecystitis. He is happy to see the patient for poteniall surgery in the a.m.. Patient has multiple medical issues and felt appropriate for admission to the hospitalist with General surgery consult. Dr. Porter, tele-hospitalist: accepts for admission for cholecystitis with cholelithiasis, patient has multiple medical issues is on Pradaxa daily which will be held this with plan for OR for surgical treatment. Discussed patient does not appear septic at this time. She did receive her home metoprolol doses she is quite hypertensive. Has received fluids, pain medication and dose of Zosyn. Pain is currently controlled. Discharge Plan Departure Patient Disposition: Admitted As Inpatient Clinical Impression: Cholecystitis Admit Date/Time: 11/09/22 02:23 Admit Provider: Jada Porter
[2022-11-09] MEDS: METOPROLOL ER 50 MG TABLET PO (00:49)
[2022-11-09] MEDS: SODIUM CHLORIDE 0.9% 1,000 ML 100 ML IV ×2 (02:22→15:28)
[2022-11-09] MEDS: SODIUM CHLORIDE 0.45% 1,000 ML 100 ML IV (04:21)
[2022-11-09] MEDS: PIPERACILLIN/TAZO 3.375 GM in SODIUM CHLORIDE 0.9% 100 ML IV ×3 (04:29→20:14)
--- NOTE | 2022-11-09 05:09 | P.HP_ITS ---
History of Present Illness History of Present Illness Chief complaint: Abd pain Narrative: CHIEF COMPLAINT Epigastric pain, Nausea, and vomiting X 3 days HPI 62-year-old female with a history of psychiatric illness, paroxysmal atrial fibrillation, Pradaxa anticoagulation, COPD, laparoscopic adjustable band, diabetes mellitus type 2, hypothyroidism, hysterectomy for cervical cancer. For the past 3-4 days she has experienced sharp epigastric pain radiating to the right side of her abdomen associated with nausea. It would worsen when she would try to eat or drink. She did feel clammy and did experience some sweats. In the emergency room she did not appear toxic. She was afebrile with a normal heart rate and her blood pressure was elevated to 154/97. There was tenderness in the epigastric and right upper upper quadrant regions without surgical signs. Labs are significant for WBC 11.4, sodium 128, bicarb 21, glucose 200, total bilirubin 1.7, AST 397, ALT 508, and alkaline phosphatase of 265. Lipase was normal. Urinalysis was negative. Abdominal ultrasound confirmed calculus cholecystitis with associated pericholecystic fluid. General surgery agrees to consult. Zosyn, IV fluids, a nd other as needed medications have been started. [facility] Medical History Anxiety disorder, unspecified Benign essential HTN Cervical cancer (~1979) Chicken pox (~1964) COPD (chronic obstructive pulmonary disease) Essential hypertension Eustachian tube disorder JUANA (generalized anxiety disorder) (~1987) GERD (gastroesophageal reflux disease) History of cervical cancer in adulthood History of recurrent ear infection Hyperlipidemia Hyperthyroidism (~1991) Hypothyroidism Hypothyroidism Iron deficiency anemia Long-term current use of insulin for diabetes mellitus Low back pain Major depression Major depressive disorder, single episode, unspecified Measles (~1964) Mixed hyperlipidemia Mumps (~1964) Neuropathy of both feet Obesity (BMI 30-39.9) Paroxysmal atrial fibrillation Progressive hearing loss of both ears PTSD (post-traumatic stress disorder) Tremor Type 2 diabetes mellitus with diabetic neuropathy, unspecified Type 2 diabetes mellitus with diabetic neuropathy, with long-term current use of insulin (~1988) Surgical History Anesthesia History of arthroscopic surgery of shoulder History of carpal tunnel release History of hysterectomy History of laparoscopic adjustable gastric banding Family History Mother Congestive heart failure Lung cancer Hyperlipidemia Hypertension Father COPD (chronic obstructive pulmonary disease) Cardiovascular disease Diabetes mellitus History of heart disease Hypertension Hyperlipidemia Social History household members: spouse Smoking Status: Never smoker alcohol intake: never Meds Home Medications and Allergies Home Medications Medication Instructions Recorded Confirmed Type alpha lipoic acid 600 mg capsule 600 mg PO BID 02/10/22 11/09/22 History aspirin 81 mg tablet,delayed 81 mg PO DAILY A-fib 02/10/22 11/09/22 History release (Adult Aspirin Regimen) cetirizine 10 mg tablet (Aller-Rosibel) 10 mg PO DAILY PRN Allergy Symptoms 02/10/22 11/09/22 History cholecalciferol (vitamin D3) 25 25 mcg PO DAILY 02/10/22 11/09/22 History mcg (1,000 unit) capsule chromium picolinate 400 mcg tablet 800 mcg PO DAILY 02/10/22 11/09/22 History coenzyme Q10 [H2Q CoQ10] See Rx Instructions .Route .COMPLEX 02/10/22 11/09/22 History cranberry extract See Rx Instructions .Route 02/10/22 11/09/22 History .COMPLEX cholesterol control dabigatran etexilate 150 mg 150 mg PO BID #180 caps 02/10/22 11/09/22 Rx capsule (Pradaxa) duloxetine 20 mg capsule,delayed 20 mg PO DAILY #90 caps 02/10/22 11/09/22 Rx release (Cymbalta) duloxetine 60 mg capsule,delayed 60 mg PO DAILY #90 caps 02/10/22 11/09/22 Rx release metformin 500 mg tablet 1,000 mg PO BID #360 tabs 02/10/22 11/09/22 Rx pantoprazole 40 mg tablet,delayed 40 mg PO DAILY #90 tabs 02/10/22 11/09/22 Rx release rosuvastatin 40 mg tablet 40 mg PO BEDTIME #90 tabs 02/10/22 11/09/22 Rx insulin lispro 100 unit/mL See Rx Instructions .Route .COMPLEX 04/06/22 11/09/22 History subcutaneous pen (Humalog KwikPen (U-100) Insulin) liraglutide 0.6 mg/0.1 mL (18 mg/3 0.6 mg (0.1 mL) SUBCUT DAILY 05/26/22 11/09/22 Rx mL) subcutaneous pen injector diabetes #18 mL (Victoza 2-Cecilio) metoprolol succinate 50 mg 50 mg PO BID #180 tabs 07/05/22 11/09/22 Rx tablet,extended release 24 hr clonazepam 0.5 mg tablet 0.5 mg PO BEDTIME Anxiety #30 tabs 08/12/22 11/09/22 Rx levothyroxine 100 mcg tablet 100 mcg PO DAILY #90 tabs 11/02/22 11/09/22 Rx aripiprazole 5 mg tablet 5 mg PO DAILY depression 11/09/22 11/09/22 History benazepril 20 mg tablet 20 mg PO DAILY High blood pressure 11/09/22 11/09/22 History blood sugar diagnostic (True 11/09/22 11/09/22 History Metrix Glucose Test Strip) insulin detemir U-100 100 unit/mL 50 unit SUBCUT BID 11/09/22 11/09/22 History subcutaneous solution (Levemir U-100 Insulin) Allergies Allergy/AdvReac Type Severity Reaction Status Date / Time No Known Drug Allergies Allergy Verified 08/04/22 10:27 Current Medications Medications: Home Medications alpha lipoic acid 600 mg capsule 600 mg PO BID 02/10/22 [History Confirmed 11/09/22] aspirin 81 mg tablet,delayed release (Adult Aspirin Regimen) 81 mg PO DAILY A- fib 02/10/22 [History Confirmed 11/09/22] cetirizine 10 mg tablet (Aller-Rosibel) 10 mg PO DAILY PRN Allergy Symptoms 02/10/22 [History Confirmed 11/09/22] cholecalciferol (vitamin D3) 25 mcg (1,000 unit) capsule 25 mcg PO DAILY 02/10/22 [History Confirmed 11/09/22] chromium picolinate 400 mcg tablet 800 mcg PO DAILY 02/10/22 [History Confirmed 11/09/22] coenzyme Q10 [H2Q CoQ10] See Rx Instructions .Route .COMPLEX 02/10/22 [History Confirmed 11/09/22] cranberry extract See Rx Instructions .Route .COMPLEX cholesterol control 02/10/22 [History Confirmed 11/09/22] dabigatran etexilate 150 mg capsule (Pradaxa) 150 mg PO BID #180 caps 02/10/22 [Rx Confirmed 11/09/22] duloxetine 20 mg capsule,delayed release (Cymbalta) 20 mg PO DAILY #90 caps 02/10/22 [Rx Confirmed 11/09/22] duloxetine 60 mg capsule,delayed release 60 mg PO DAILY #90 caps 02/10/22 [Rx Confirmed 11/09/22] metformin 500 mg tablet 1,000 mg PO BID #360 tabs 02/10/22 [Rx Confirmed 11/09/22] pantoprazole 40 mg tablet,delayed release 40 mg PO DAILY #90 tabs 02/10/22 [Rx Confirmed 11/09/22] rosuvastatin 40 mg tablet 40 mg PO BEDTIME #90 tabs 02/10/22 [Rx Confirmed 11/09/22] insulin lispro 100 unit/mL subcutaneous pen (Humalog KwikPen (U-100) Insulin) See Rx Instructions .Route .COMPLEX 04/06/22 [History Confirmed 11/09/22] liraglutide 0.6 mg/0.1 mL (18 mg/3 mL) subcutaneous pen injector (Victoza 2-Cecilio) 0.6 mg (0.1 mL) SUBCUT DAILY diabetes #18 mL 05/26/22 [Rx Confirmed 11/09/22] metoprolol succinate 50 mg tablet,extended release 24 hr 50 mg PO BID #180 tabs 07/05/22 [Rx Confirmed 11/09/22] clonazepam 0.5 mg tablet 0.5 mg PO BEDTIME Anxiety #30 tabs 08/12/22 [Rx Confirmed 11/09/22] levothyroxine 100 mcg tablet 100 mcg PO DAILY #90 tabs 11/02/22 [Rx Confirmed 11/09/22] aripiprazole 5 mg tablet 5 mg PO DAILY depression 11/09/22 [History Confirmed 11/09/22] benazepril 20 mg tablet 20 mg PO DAILY High blood pressure 11/09/22 [History Confirmed 11/09/22] blood sugar diagnostic (True Metrix Glucose Test Strip) 11/09/22 [History Confirmed 11/09/22] insulin detemir U-100 100 unit/mL subcutaneous solution (Levemir U-100 Insulin) 50 unit SUBCUT BID 11/09/22 [History Confirmed 11/09/22] Visit Medications (administered) Generic Name Dose Route Start Last Admin Trade Name Freq PRN Reason Stop Dose Admin Sodium Chloride 1,000 mls @ 100 mls/hr 11/09/22 02:15 11/09/22 02:22 Normal Saline 0.9% IV 100 mls/hr CONT TEODORO Administration Piperacillin Sod/Tazobactam 100 mls @ 25 mls/hr 11/09/22 04:00 11/09/22 04:29 Sod 3.375 gm/ Sodium Chloride IV 25 mls/hr Q8H TEODORO Administration Sodium Chloride 1,000 mls @ 100 mls/hr 11/09/22 04:15 11/09/22 04:21 Normal Saline 0.45% IV 100 mls/hr CONT TEODORO Administration Review of Systems Review of Systems Narrative: Significant for findings noted in the HPI. Rest of complete review of systems is negative Exam Vital Signs (past 8 hours): - 11/08/22 23:13 11/08/22 23:14 11/08/22 23:14 Temperature Pulse Rate 66 56 L Respiratory Rate Blood Pressure 171/76 H Pulse Oximetry 95 95 Oxygen Delivery Method Oxygen Flow Rate 11/08/22 23:30 11/08/22 23:30 11/09/22 00:00 Temperature Pulse Rate 65 60 Respiratory Rate Blood Pressure 171/77 H Pulse Oximetry 94 98 Oxygen Delivery Method Oxygen Flow Rate 11/09/22 00:01 11/09/22 00:01 11/09/22 00:34 Temperature Pulse Rate 60 68 Respiratory Rate Blood Pressure 196/86 H Pulse Oximetry 98 100 Oxygen Delivery Method Oxygen Flow Rate 11/09/22 00:34 11/09/22 01:00 11/09/22 01:01 Temperature Pulse Rate 61 60 Respiratory Rate 20 21 Blood Pressure 170/75 H Pulse Oximetry 98 99 Oxygen Delivery Method Oxygen Flow Rate 11/09/22 01:01 11/09/22 01:30 11/09/22 01:30 Temperature Pulse Rate 70 Respiratory Rate Blood Pressure 162/72 H 162/72 H 154/97 H Pulse Oximetry Oxygen Delivery Method Oxygen Flow Rate 11/09/22 01:30 11/09/22 02:00 11/09/22 02:00 Temperature Pulse Rate 69 68 Respiratory Rate 19 21 Blood Pressure 179/79 H Pulse Oximetry 96 100 Oxygen Delivery Method Oxygen Flow Rate 11/09/22 02:30 11/09/22 02:30 11/09/22 02:59 Temperature Pulse Rate 74 Respiratory Rate 23 Blood Pressure 165/77 H Pulse Oximetry 100 Oxygen Delivery Method Room Air Oxygen Flow Rate 11/09/22 02:35 Temperature 99.2 F Pulse Rate 74 Respiratory Rate 19 Blood Pressure 157/63 H Pulse Oximetry 98 Oxygen Delivery Method Oxygen Flow Rate 0 Oxygen Delivery Method Room Air Oxygen Flow Rate 0 Narrative Exam Narrative: EXAMINATION: Bedside RN assisted in examination along with telemedicine devices. Please note there are inherent limitations to this exam GEN: Alert and oriented x3 does not appear toxic or distressed HEENT: Normocephalic. Pupils are equal and reactive to light. Mucous membranes are moist. NECK: No lumps, JVD, or bruit CVS: S1 + S2 RESP: Clear to auscultation bilaterally GIT: Protuberant abdomen. Minimal epigastric tenderness. No current surgical signs. EXTR: No cyanosis, clubbing or edema. 2+ Pulses. NEURO: No gross focal motor deficits + resting tremor in the right hand. Improved with wrapping SKIN: No rash or breakdown Objective ECG Impression: NSR 60's with LBBB Imaging US - abdomen: My impression: Agree with report Radiologist's impression: IMPRESSION:? ? 1. Cholelithiasis with gallbladder wall thickening and pericholecystic fluid suspicious for cholecystitis. ? Dictated by: Carmelo Allen M.D. on 11/08/2022 at 23:50 ? ? Approved by: Carmelo Allen M.D. on 11/08/2022 at 23:53 ? Labs 11/08/22 21:02 11/08/22 21:02 Labs: Laboratory Results - last 24 hr 11/08/22 11/08/22 11/08/22 21:02 21:02 21:02 WBC 11.4 H RBC 4.62 Hgb 12.5 Hct 37.8 MCV 81.8 MCH 27.2 MCHC 33.2 RDW 24.9 H Plt Count 312 Neut % (Auto) 88.9 H Lymph % (Auto) 2.7 L [place] % (Auto) 8.0 Eos % (Auto) 0.2 L Baso % (Auto) 0.2 Neut # (Auto) 01066 H Lymph # (Auto) 300 L [place] # (Auto) 900 Eos # (Auto) 0 Baso # (Auto) 0 RBC Morphology See below Anisocytosis 2+ H Acanthocytes (Spur) 1+ H Sodium 128 L Potassium 4.5 Chloride 97 L Carbon Dioxide 21 L BUN 11 Creatinine 0.58 Estimated GFR > 60 BUN/Creatinine Ratio 19.0 Glucose 200 H Calcium 8.8 Total Bilirubin 1.7 H AST 397 H ALT 508 H Alkaline Phosphatase 265 H Ammonia < 9 L Total Creatine Kinase Troponin I Total Protein 7.1 Albumin 4.0 Globulin 3.1 Albumin/Globulin Ratio 1.3 Lipase 44 11/08/22 21:02 WBC RBC Hgb Hct MCV MCH MCHC RDW Plt Count Neut % (Auto) Lymph % (Auto) [place] % (Auto) Eos % (Auto) Baso % (Auto) Neut # (Auto) Lymph # (Auto) [place] # (Auto) Eos # (Auto) Baso # (Auto) RBC Morphology Anisocytosis Acanthocytes (Spur) Sodium Potassium Chloride Carbon Dioxide BUN Creatinine Estimated GFR BUN/Creatinine Ratio Glucose Calcium Total Bilirubin AST ALT Alkaline Phosphatase Ammonia Total Creatine Kinase 40 Troponin I < 0.012 Total Protein Albumin Globulin Albumin/Globulin Ratio Lipase Assessment & Plan Assessment and plan (1) Cholecystitis: Status: Acute (2) Hyponatremia: Status: Acute (3) Atrial fibrillation: Qualifiers: Atrial fibrillation type: paroxysmal Qualified Code(s): I48.0 - Paroxysmal atrial fibrillation Status: Acute Assessment & Plan narrative: ASSESSMENT/PLAN: 62-year-old female with a history of psychiatric illness, paroxysmal atrial fibrillation, Pradaxa anticoagulation, COPD, laparoscopic adjustable band, diabetes mellitus type 2, hypothyroidism, hysterectomy for cervical cancer. She is admitted for calculus cholecystitis #Calculus cholecystitis 4 days of epigastric pain, right upper quadrant pain, with nausea and vomiting Has elevated LFTs -Zosyn -N.p.o. ?Normal saline -Dr. Johnson from general surgery was consulted by the ER ?Last Pradaxa dose was on Tuesday morning 11/08 #Hyponatremia Related to nausea and vomiting -Normal saline #Atrial fibrillation: Paroxysmal Normal sinus rhythm with left bundle branch block -Telemetry -Metoprolol IV #Diabetes mellitus type 2 Requires insulin and oral hypoglycemics -Reduce Lantus -Sliding scale -Hypoglycemics MED REC - Reviewed. DVT Risk -SCDs -Hold Eliquis CODE STATUS: -Full Code FEN - IV Fluids # SECONDARY PROBLEMS Anxiety Major depression disorder PTSD Trauma Tremor Neuropathy Hypertension COPD Ear infections GERD Laparoscopic adjustable gastric band Obesity Cervical cancer Diabetes mellitus type 2 + long-term insulin Hypothyroid Hyperlipidemia Iron deficiency anemia Low back pain Measles history -Hold all other home medications and resume once taking PO -Note she is on levothyroixine dailys. Quality VTE Deep Vein Thrombosis/Pulmonary Embolism Present on Admission: No
[2022-11-09 05:21] LABS: Basophils Absolute Auto 0 /uL (0-100); Basophils Percent Auto 0.1 % (0-2); Eosinophils Absolute Auto 0 /uL (0-450); Eosinophils Percent Auto 0.3 % (2-4); Lymphocytes Absolute Auto 200 /uL (1100-4500); Lymphocytes Percent Auto 1.7 % (25-40); Mean Corpuscular HGB Conc 33.4 % (30-36); Mean Corpuscular Hemoglobin 27.3 PG (26-34); Mean Corpuscular Volume 81.9 fL (80-100); Monocytes Absolute Auto 1300 /uL (0-900); Monocytes Percent Auto 9.3 % (3-14); Neutrophils Absolute Auto 12800 /uL (1500-7000); Neutrophils Percent Auto 88.6 % (50-75); Platelet Count 307 X10^3/uL (150-400); Red Cell Distribution Width 24.7 % (11.6-14.8); White Blood Cell Count 14.4 X10^3/uL (4.5-11.0)
[2022-11-09 05:28] LABS: Alanine Aminotransferase 406 IU/L (<35); Albumin 3.6 g/dL (3.5-5.0); Albumin Globulin Ratio 1.2 (1.0-2.8); Alkaline Phosphatase 245 U/L (38-126); Aspartate Aminotransferase 193 IU/L (14-36); BUN Creatinine Ratio 16.4 (6-22); Bilirubin Total 1.5 mg/dL (0.2-1.3); Blood Urea Nitrogen 12 mg/dL (7-17); Calcium 8.7 mg/dL (8.4-10.2); Carbon Dioxide 21 mmol/L (22-32); Chloride 94 mmol/L (98-107); Estimated Glomerular Filt Rate > 60 mL/min (>60); Globulin 2.9 g/dL (1.7-4.1); Glucose 233 mg/dL (80-110); HEMOLYSIS < 15 (0-50); Potassium 4.5 mmol/L (3.4-5.1); Sodium 127 mmol/L (137-145); Total Protein 6.5 g/dL (6.3-8.2)
[2022-11-09 05:32] LABS: Add Manual Diff / Slide Review SLIDE REVIEW
[2022-11-09 06:59] LABS: Anisocytosis 2+; Microcytosis 1+
--- NOTE | 2022-11-09 09:06 | CM.DANOTE ---
DCP: Case received, EMR reviewed and met with patient. Spouse, Beck, was at bedside. Introduced self and role. Was able to obtain information regarding patient's baseline activity status at home prior to admission. DCP assessment completed with information currently available. Patient is a 62 year old female who admitted early this morning to the care of the hospitalist team. PCP: Dr. Alberto. Payer: confirmed: [employer]/Medicaid. Patient came to the hospital via ambulance secondary to having complaints of upper abdominal pain, worsening. Notes indicate that patient had also complained of being sweaty and chilled intermittently. Patient was diagnosed with cholecystitis. Plan is for patient to have surgery today. Met with patient and spouse today. Confirmed that they both reside in the [facility]. Patient is independent at her baseline. Confirmed that she sees Dr. Alberto as her provider. Patient confirmed that she is having surgery today. P: DCP to continue to follow. Patient should be able to go home when deemed medically stable. Magaly Colin RN/Executive Pilot Discharge Planning/Care Management CM Discharge Assessment Start: 11/09/22 09:02 Freq: Status: Active Protocol: Document 11/09/22 09:02 (Rec: 11/09/22 09:03 [id number]) Discharge Planning Assessment Assigned [employer] Magaly Colin RN/Executive Pilot Advance Directives? No History Provided By Patient,Medical Record Prior Living Arrangements House Household Members spouse Type of transporation used prior to Drives own vehicle admit Independent with ADL's Yes Is patient alert and oriented? Yes Caregiver for Another No Barriers to Discharge No Discharge Plan Home Transportation Arrangement Family Referrals Initiated None needed Whiteboard Updated in Patient Room with Yes name and ext. # of [employer] Review Status In Process Next Review Type Continued Stay Review
[2022-11-09] MEDS: INSULIN LISPRO 100 UNIT/ML 3ML VIAL SUBCUT ×4 (09:42→20:33)
--- NOTE | 2022-11-09 10:36 | PM.HP.1 ---
History of Present Illness History of Present Illness Date Patient Seen: 11/09/22 Time Patient Seen: 10:36 Date of Onset of Symptoms: 11/07/22 Chief complaint: Abd pain Narrative: 62-year-old female with a history of psychiatric illness, paroxysmal atrial fibrillation, Pradaxa anticoagulation, COPD, laparoscopic adjustable band, diabetes mellitus type 2, hypothyroidism, hysterectomy for cervical cancer.? For the past 3-4 days she has experienced sharp epigastric pain radiating to the right side of her abdomen associated with nausea.? It would worsen when she would try to eat or drink.? She did feel clammy and did experience some sweats. In the emergency room she did not appear toxic.? She was afebrile with a normal heart rate and her blood pressure was elevated to 154/97.? There was tenderness in the epigastric and right upper upper quadrant regions without surgical signs. Labs are significant for WBC 11.4, sodium 128, bicarb 21, glucose 200, total bilirubin 1.7, AST 397, ALT 508, and alkaline phosphatase of 265.? Lipase was normal.? Urinalysis was negative. Abdominal ultrasound confirmed calculus cholecystitis with associated pericholecystic fluid.? General surgery agrees to consult.? Zosyn, IV fluids, and other as needed medications have been started. 11/09 AM: pain has improved, she is doing well. It is primarily RUQ and does not radiate. It comes and goes and increases with eating. Urine was very dark transiently several days ago. [facility] Medical History Anxiety disorder, unspecified Benign essential HTN Cervical cancer (~1979) Chicken pox (~1964) COPD (chronic obstructive pulmonary disease) Essential hypertension Eustachian tube disorder JUANA (generalized anxiety disorder) (~1987) GERD (gastroesophageal reflux disease) History of cervical cancer in adulthood History of recurrent ear infection Hyperlipidemia Hyperthyroidism (~1991) Hypothyroidism Hypothyroidism Iron deficiency anemia Long-term current use of insulin for diabetes mellitus Low back pain Major depression Major depressive disorder, single episode, unspecified Measles (~1964) Mixed hyperlipidemia Mumps (~1964) Neuropathy of both feet Obesity (BMI 30-39.9) Paroxysmal atrial fibrillation Progressive hearing loss of both ears PTSD (post-traumatic stress disorder) Tremor Type 2 diabetes mellitus with diabetic neuropathy, unspecified Type 2 diabetes mellitus with diabetic neuropathy, with long-term current use of insulin (~1988) Surgical History Anesthesia History of arthroscopic surgery of shoulder History of carpal tunnel release History of hysterectomy History of laparoscopic adjustable gastric banding Family History Mother Congestive heart failure Lung cancer Hyperlipidemia Hypertension Father COPD (chronic obstructive pulmonary disease) Cardiovascular disease Diabetes mellitus History of heart disease Hypertension Hyperlipidemia Social History household members: spouse Smoking Status: Never smoker alcohol intake: never Meds Home Medications and Allergies Home Medications Medication Instructions Recorded Confirmed Type alpha lipoic acid 600 mg capsule 600 mg PO BID 02/10/22 11/09/22 History aspirin 81 mg tablet,delayed 81 mg PO DAILY A-fib 02/10/22 11/09/22 History release (Adult Aspirin Regimen) cetirizine 10 mg tablet (Aller-Rosibel) 10 mg PO DAILY PRN Allergy Symptoms 02/10/22 11/09/22 History cholecalciferol (vitamin D3) 25 25 mcg PO DAILY 02/10/22 11/09/22 History mcg (1,000 unit) capsule chromium picolinate 400 mcg tablet 800 mcg PO DAILY 02/10/22 11/09/22 History coenzyme Q10 [H2Q CoQ10] See Rx Instructions .Route .COMPLEX 02/10/22 11/09/22 History cranberry extract See Rx Instructions .Route 02/10/22 11/09/22 History .COMPLEX cholesterol control dabigatran etexilate 150 mg 150 mg PO BID #180 caps 02/10/22 11/09/22 Rx capsule (Pradaxa) duloxetine 20 mg capsule,delayed 20 mg PO DAILY #90 caps 02/10/22 11/09/22 Rx release (Cymbalta) duloxetine 60 mg capsule,delayed 60 mg PO DAILY #90 caps 02/10/22 11/09/22 Rx release metformin 500 mg tablet 1,000 mg PO BID #360 tabs 02/10/22 11/09/22 Rx pantoprazole 40 mg tablet,delayed 40 mg PO DAILY #90 tabs 02/10/22 11/09/22 Rx release rosuvastatin 40 mg tablet 40 mg PO BEDTIME #90 tabs 02/10/22 11/09/22 Rx insulin lispro 100 unit/mL See Rx Instructions .Route .COMPLEX 04/06/22 11/09/22 History subcutaneous pen (Humalog KwikPen (U-100) Insulin) liraglutide 0.6 mg/0.1 mL (18 mg/3 0.6 mg (0.1 mL) SUBCUT DAILY 05/26/22 11/09/22 Rx mL) subcutaneous pen injector diabetes #18 mL (Victoza 2-Cecilio) metoprolol succinate 50 mg 50 mg PO BID #180 tabs 07/05/22 11/09/22 Rx tablet,extended release 24 hr clonazepam 0.5 mg tablet 0.5 mg PO BEDTIME Anxiety #30 tabs 08/12/22 11/09/22 Rx levothyroxine 100 mcg tablet 100 mcg PO DAILY #90 tabs 11/02/22 11/09/22 Rx aripiprazole 5 mg tablet 5 mg PO DAILY depression 11/09/22 11/09/22 History benazepril 20 mg tablet 20 mg PO DAILY High blood pressure 11/09/22 11/09/22 History blood sugar diagnostic (True 11/09/22 11/09/22 History Metrix Glucose Test Strip) insulin detemir U-100 100 unit/mL 50 unit SUBCUT BID 11/09/22 11/09/22 History subcutaneous solution (Levemir U-100 Insulin) Allergies Allergy/AdvReac Type Severity Reaction Status Date / Time No Known Drug Allergies Allergy Verified 08/04/22 10:27 Review of Systems Review of Systems Narrative: All else reviewed and otherwise unremarkable except as noted on the H&P. Denies pain, dyspnea, constipation or other concerns. Exam Vital Signs (past 8 hours): - 11/09/22 02:59 11/09/22 07:00 Temperature 97.1 F L Pulse Rate 76 Respiratory Rate 18 Blood Pressure 123/50 L Pulse Oximetry 94 Oxygen Delivery Method Room Air Oxygen Flow Rate 0 Oxygen Delivery Method Room Air Oxygen Flow Rate 0 Narrative Exam Narrative: The patient is awake and in NAD. Normal speech and mentation. Normal judgement, and calm affect. She has an essential tremor affecting her right arm and both feet. Head is atraumatic and EOMI. Anicteric sclera. Oropharynx is moist. Neck is supple and trachea is midline. Lungs are CTA, with normal rate and effort. Heart is RRR, without murmur, gallop, or rub. Abdomen is soft, NT and ND. Extremities are free of edema. Good arm pulses. Good leg pulses. Skin is free of rash or lesions. Joints are free of swelling or deformity. Back with normal ROM. Objective Labs 11/09/22 05:07 11/09/22 05:07 Labs: Laboratory Results - last 24 hr 11/08/22 11/08/22 11/08/22 21:02 21:02 21:02 WBC 11.4 H RBC 4.62 Hgb 12.5 Hct 37.8 MCV 81.8 MCH 27.2 MCHC 33.2 RDW 24.9 H Plt Count 312 Neut % (Auto) 88.9 H Lymph % (Auto) 2.7 L [place] % (Auto) 8.0 Eos % (Auto) 0.2 L Baso % (Auto) 0.2 Neut # (Auto) 82065 H Lymph # (Auto) 300 L [place] # (Auto) 900 Eos # (Auto) 0 Baso # (Auto) 0 RBC Morphology See below Anisocytosis 2+ H Microcytosis Acanthocytes (Spur) 1+ H Sodium 128 L Potassium 4.5 Chloride 97 L Carbon Dioxide 21 L BUN 11 Creatinine 0.58 Estimated GFR > 60 BUN/Creatinine Ratio 19.0 Glucose 200 H Calcium 8.8 Total Bilirubin 1.7 H AST 397 H ALT 508 H Alkaline Phosphatase 265 H Ammonia < 9 L Total Creatine Kinase Troponin I Total Protein 7.1 Albumin 4.0 Globulin 3.1 Albumin/Globulin Ratio 1.3 Lipase 44 11/08/22 11/09/22 11/09/22 21:02 05:07 05:07 WBC 14.4 H RBC 4.40 Hgb 12.0 Hct 36.0 MCV 81.9 MCH 27.3 MCHC 33.4 RDW 24.7 H Plt Count 307 Neut % (Auto) 88.6 H Lymph % (Auto) 1.7 L [place] % (Auto) 9.3 Eos % (Auto) 0.3 L Baso % (Auto) 0.1 Neut # (Auto) 94565 H Lymph # (Auto) 200 L [place] # (Auto) 1300 H Eos # (Auto) 0 Baso # (Auto) 0 RBC Morphology See below Anisocytosis 2+ H Microcytosis 1+ H Acanthocytes (Spur) Sodium 127 L Potassium 4.5 Chloride 94 L Carbon Dioxide 21 L BUN 12 Creatinine 0.73 Estimated GFR > 60 BUN/Creatinine Ratio 16.4 Glucose 233 H Calcium 8.7 Total Bilirubin 1.5 H AST 193 H ALT 406 H Alkaline Phosphatase 245 H Ammonia Total Creatine Kinase 40 Troponin I < 0.012 Total Protein 6.5 Albumin 3.6 Globulin 2.9 Albumin/Globulin Ratio 1.2 Lipase Assessment & Plan Assessment & Plan narrative: 62-year-old female with a history of psychiatric illness, paroxysmal atrial fibrillation, Pradaxa anticoagulation, COPD, laparoscopic adjustable band, diabetes mellitus type 2, hypothyroidism, hysterectomy for cervical cancer.? She is admitted for calculus cholecystitis 1. Calculus cholecystitis, POA and active. -4 days of epigastric pain, right upper quadrant pain, with nausea and vomiting and has elevated LFTs -Zosyn IV Q8 -N.p.o. ?Normal saline -Dr. Johnson from general surgery was consulted by the ER ?Last Pradaxa dose was on Tuesday morning 11/08 2. Hyponatremia (hypovolemic), POA and active. -Related to nausea and vomiting -Normal saline, contiuous infusion. 3. Atrial fibrillation: Paroxysmal. POA and stable. -Normal sinus rhythm with left bundle branch block -Telemetry -Metoprolol IV 4. Diabetes mellitus type 2, POA and stable. -Requires insulin and oral hypoglycemics -Reduce Lantus -Sliding scale -Hypoglycemics MED REC - Reviewed.? DVT Risk? -SCDs -Hold Eliquis CODE STATUS:? -Full Code FEN -? IV Fluids SECONDARY PROBLEMS (POA and stable): Anxiety Major depression disorder PTSD Trauma Tremor Neuropathy Hypertension COPD Ear infections GERD Laparoscopic adjustable gastric band Obesity Cervical cancer Diabetes mellitus type 2 + long-term insulin Hypothyroid Hyperlipidemia Iron deficiency anemia Low back pain Measles history Plan: -Hold all other home medications and resume once taking PO -Note she is on levothyroixine daily. Quality VTE Deep Vein Thrombosis/Pulmonary Embolism Present on Admission: No Time Spent With Patient Time with patient: 30 to 49 minutes with 50% spent counseling/coordinating care Quality VTE Deep Vein Thrombosis/Pulmonary Embolism Present on Admission: No
--- NOTE | 2022-11-09 11:36 | P.CONS_ITS ---
History of Present Illness Consult details Date Patient Seen: 11/09/22 Time Patient Seen: 11:37 Chief complaint: Abd pain Narrative: Felicitas is a 62-year-old woman with atrial fibrillation who presented with 4 days of right upper quadrant pain. She was found to acute cholecystitis on ultrasound. She has an elevated white blood cell count and mildly elevated LFTs. She does take Pradaxa and her last dose was yesterday morning about 24 hours ago. Meds Home Medications and Allergies Home Medications Medication Instructions Recorded Confirmed Type alpha lipoic acid 600 mg capsule 600 mg PO BID 02/10/22 11/09/22 History aspirin 81 mg tablet,delayed 81 mg PO DAILY A-fib 02/10/22 11/09/22 History release (Adult Aspirin Regimen) cetirizine 10 mg tablet (Aller-Rosibel) 10 mg PO DAILY PRN Allergy Symptoms 02/10/22 11/09/22 History cholecalciferol (vitamin D3) 25 25 mcg PO DAILY 02/10/22 11/09/22 History mcg (1,000 unit) capsule chromium picolinate 400 mcg tablet 800 mcg PO DAILY 02/10/22 11/09/22 History coenzyme Q10 [H2Q CoQ10] See Rx Instructions .Route .COMPLEX 02/10/22 11/09/22 History cranberry extract See Rx Instructions .Route 02/10/22 11/09/22 History .COMPLEX cholesterol control dabigatran etexilate 150 mg 150 mg PO BID #180 caps 02/10/22 11/09/22 Rx capsule (Pradaxa) duloxetine 20 mg capsule,delayed 20 mg PO DAILY #90 caps 02/10/22 11/09/22 Rx release (Cymbalta) duloxetine 60 mg capsule,delayed 60 mg PO DAILY #90 caps 02/10/22 11/09/22 Rx release metformin 500 mg tablet 1,000 mg PO BID #360 tabs 02/10/22 11/09/22 Rx pantoprazole 40 mg tablet,delayed 40 mg PO DAILY #90 tabs 02/10/22 11/09/22 Rx release rosuvastatin 40 mg tablet 40 mg PO BEDTIME #90 tabs 02/10/22 11/09/22 Rx insulin lispro 100 unit/mL See Rx Instructions .Route .COMPLEX 04/06/22 11/09/22 History subcutaneous pen (Humalog KwikPen (U-100) Insulin) liraglutide 0.6 mg/0.1 mL (18 mg/3 0.6 mg (0.1 mL) SUBCUT DAILY 05/26/22 11/09/22 Rx mL) subcutaneous pen injector diabetes #18 mL (Victoza 2-Cecilio) metoprolol succinate 50 mg 50 mg PO BID #180 tabs 07/05/22 11/09/22 Rx tablet,extended release 24 hr clonazepam 0.5 mg tablet 0.5 mg PO BEDTIME Anxiety #30 tabs 08/12/22 11/09/22 Rx levothyroxine 100 mcg tablet 100 mcg PO DAILY #90 tabs 11/02/22 11/09/22 Rx aripiprazole 5 mg tablet 5 mg PO DAILY depression 11/09/22 11/09/22 History benazepril 20 mg tablet 20 mg PO DAILY High blood pressure 11/09/22 11/09/22 History blood sugar diagnostic (True 11/09/22 11/09/22 History Metrix Glucose Test Strip) insulin detemir U-100 100 unit/mL 50 unit SUBCUT BID 11/09/22 11/09/22 History subcutaneous solution (Levemir U-100 Insulin) Allergies Allergy/AdvReac Type Severity Reaction Status Date / Time No Known Drug Allergies Allergy Verified 08/04/22 10:27 Exam Vital Signs (past 8 hours): - 11/09/22 07:00 Temperature 97.1 F L Pulse Rate 76 Respiratory Rate 18 Blood Pressure 123/50 L Pulse Oximetry 94 Oxygen Flow Rate 0 Oxygen Delivery Method Room Air Oxygen Flow Rate 0 Narrative Exam Narrative: Right upper quadrant tender to palpation No peritoneal signs Sclera are anicteric Objective Labs 11/09/22 05:07 11/09/22 05:07 Labs: Laboratory Results - last 24 hr 11/08/22 11/08/22 11/08/22 21:02 21:02 21:02 WBC 11.4 H RBC 4.62 Hgb 12.5 Hct 37.8 MCV 81.8 MCH 27.2 MCHC 33.2 RDW 24.9 H Plt Count 312 Neut % (Auto) 88.9 H Lymph % (Auto) 2.7 L [place] % (Auto) 8.0 Eos % (Auto) 0.2 L Baso % (Auto) 0.2 Neut # (Auto) 49480 H Lymph # (Auto) 300 L [place] # (Auto) 900 Eos # (Auto) 0 Baso # (Auto) 0 RBC Morphology See below Anisocytosis 2+ H Microcytosis Acanthocytes (Spur) 1+ H Sodium 128 L Potassium 4.5 Chloride 97 L Carbon Dioxide 21 L BUN 11 Creatinine 0.58 Estimated GFR > 60 BUN/Creatinine Ratio 19.0 Glucose 200 H Calcium 8.8 Total Bilirubin 1.7 H AST 397 H ALT 508 H Alkaline Phosphatase 265 H Ammonia < 9 L Total Creatine Kinase Troponin I Total Protein 7.1 Albumin 4.0 Globulin 3.1 Albumin/Globulin Ratio 1.3 Lipase 44 11/08/22 11/09/22 11/09/22 21:02 05:07 05:07 WBC 14.4 H RBC 4.40 Hgb 12.0 Hct 36.0 MCV 81.9 MCH 27.3 MCHC 33.4 RDW 24.7 H Plt Count 307 Neut % (Auto) 88.6 H Lymph % (Auto) 1.7 L [place] % (Auto) 9.3 Eos % (Auto) 0.3 L Baso % (Auto) 0.1 Neut # (Auto) 15771 H Lymph # (Auto) 200 L [place] # (Auto) 1300 H Eos # (Auto) 0 Baso # (Auto) 0 RBC Morphology See below Anisocytosis 2+ H Microcytosis 1+ H Acanthocytes (Spur) Sodium 127 L Potassium 4.5 Chloride 94 L Carbon Dioxide 21 L BUN 12 Creatinine 0.73 Estimated GFR > 60 BUN/Creatinine Ratio 16.4 Glucose 233 H Calcium 8.7 Total Bilirubin 1.5 H AST 193 H ALT 406 H Alkaline Phosphatase 245 H Ammonia Total Creatine Kinase 40 Troponin I < 0.012 Total Protein 6.5 Albumin 3.6 Globulin 2.9 Albumin/Globulin Ratio 1.2 Lipase [facility] Medical History Anxiety disorder, unspecified Benign essential HTN Cervical cancer (~1979) Chicken pox (~1964) COPD (chronic obstructive pulmonary disease) Essential hypertension Eustachian tube disorder JUANA (generalized anxiety disorder) (~1987) GERD (gastroesophageal reflux disease) History of cervical cancer in adulthood History of recurrent ear infection Hyperlipidemia Hyperthyroidism (~1991) Hypothyroidism Hypothyroidism Iron deficiency anemia Long-term current use of insulin for diabetes mellitus Low back pain Major depression Major depressive disorder, single episode, unspecified Measles (~1964) Mixed hyperlipidemia Mumps (~1964) Neuropathy of both feet Obesity (BMI 30-39.9) Paroxysmal atrial fibrillation Progressive hearing loss of both ears PTSD (post-traumatic stress disorder) Tremor Type 2 diabetes mellitus with diabetic neuropathy, unspecified Type 2 diabetes mellitus with diabetic neuropathy, with long-term current use of insulin (~1988) Surgical History Anesthesia History of arthroscopic surgery of shoulder History of carpal tunnel release History of hysterectomy History of laparoscopic adjustable gastric banding Family History Mother Congestive heart failure Lung cancer Hyperlipidemia Hypertension Father COPD (chronic obstructive pulmonary disease) Cardiovascular disease Diabetes mellitus History of heart disease Hypertension Hyperlipidemia Social History household members: spouse Tobacco & Substance Use Smoking Status: Never smoker alcohol intake: never Assessment & Plan Assessment and plan (1) Acute cholecystitis: Status: Acute Plan Plan for laparoscopic cholecystectomy with Dr. Stack tomorrow. She can have clear liquid diet tonight and be NPO after midnight.
[2022-11-09] MEDS: INSULIN GLARGINE 100 UNIT/ML 3ML PEN 10 UNIT SUBCUT ×2 (12:23→20:33)
[2022-11-09] MEDS: ARIPiprazole 10 MG TABLET 5 MG PO (15:27)
[2022-11-09] MEDS: DULOXETINE 20 MG CAPSULE PO (15:28)
[2022-11-09] MEDS: DULOXETINE 30 MG CAPSULE 60 MG PO (15:28)
[2022-11-09] MEDS: ONDANSETRON 4 MG/2 ML INJ IV (20:18)
[2022-11-09] MEDS: AMIODARONE 150 MG/3 ML VIAL 300 MG IV (21:50)
[2022-11-09] MEDS: LORazepam 2 MG/ML INJ (21:58)
[2022-11-09] MEDS: AMIODARONE 360 MG/200 ML PIGGYBACK 33.3 MG IV (22:00)
--- NOTE | 2022-11-09 22:11 | PM.CALLCOV.1 ---
Call Coverage Note Note Narrative of Care Provided: D/W team. Seen patient seen via telemed. 9:39 pm PST Stable but sustained VTACH Gave Amio 300 mg IV and started gtt STAT BMP, Mag, and Trop sent Persistent STABLE VTACH Gave Lorazepam 2 mg IV for sedation and performed synchronized cardioversion - successful result to sinus rhythm now Patient is asyptomaitc. Transfer to ICU. Serial cardiac enzymes. TTE in AM. Cardiology consult in AM. D/W House sup and care team Mary Ann Collier MD
[2022-11-09 22:35] LABS: BUN Creatinine Ratio 11.9 (6-22); Blood Urea Nitrogen 8 mg/dL (7-17); Calcium 8.9 mg/dL (8.4-10.2); Carbon Dioxide 21 mmol/L (22-32); Chloride 99 mmol/L (98-107); Estimated Glomerular Filt Rate > 60 mL/min (>60); Glucose 228 mg/dL (80-110); HEMOLYSIS < 15 (0-50); Magnesium 1.5 mg/dL (1.6-2.3); Potassium 3.8 mmol/L (3.4-5.1); Sodium 129 mmol/L (137-145)
[2022-11-09 22:47] LABS: Troponin I < 0.012 ng/mL (0.01-0.034)
[2022-11-09] MEDS: MAGNESIUM SULFATE 2 GM/50 ML PIGGYBACK IV (23:09)
--- NOTE | 2022-11-09 23:20 | PM.CALLCOV.1 ---
Call Coverage Note Note Narrative of Care Provided: Reassessed and stable Mag 1.5 - replaced IV Amiodarone gtt infusing Patient is in ICU and comfortbale Post code debrief completed with care team Sinus rhythm
[2022-11-10] VITALS (65 sets, daily range): BP systolic 106–192; BP diastolic 61–122; PULSE 67–178; RESP 14–33; TEMP 37.4–38.1; O2SAT 89–96
[2022-11-10] MEDS: AMIODARONE 360 MG/200 ML PIGGYBACK 16.7 MG IV ×2 (03:31→14:35)
--- NOTE | 2022-11-10 03:53 | PC.NURSE ---
Rapid Response Note @2149 Rapid Response activated overhead. Telehealth Dr. Martina Collier attending provider @2149 Pulses present, airway patent, patient A/Ox4, AED pads in place, rhythm is monomorphic V-tach with HR 178, BP 102/65. Amiodarone 300 mg IVP and NS flush IVP administered @2150 Rhythm V-tach with HR 161 @2153 left hand PIV started @2154 Rhythm V-tach with HR 162 and BP 145/71 @2157 Lorazepam 2 mg IVP and NS flush IVP administered in preparation for syncronized cardioversion @2158 Rhythm V-tach with HR 210, pulses present. Shock of 200 joules delivered @2158 Rhythm converted to NSR with wide QRS and pulses present. BP 155/60 and HR 93 @0 Amiodarone drip 360 mg/200 mL started at 33.3 mL/hr. Full blood panel drawn, orders for BNP, troponin, and magnesium ordered @2206 Rhythm NSR. BP 136/65 HR 82 RR 26 SpO2 98% RA @2210 Patient transferred to ICU from Acute Care See Rapid Response Form for additional details
[2022-11-10] MEDS: PIPERACILLIN/TAZO 3.375 GM in SODIUM CHLORIDE 0.9% 100 ML IV ×3 (04:35→20:28)
[2022-11-10 05:27] LABS: Magnesium 1.9 mg/dL (1.6-2.3)
[2022-11-10 05:28] LABS: Alanine Aminotransferase 234 IU/L (<35); Albumin 3.4 g/dL (3.5-5.0); Albumin Globulin Ratio 1.2 (1.0-2.8); Alkaline Phosphatase 216 U/L (38-126); Aspartate Aminotransferase 45 IU/L (14-36); BUN Creatinine Ratio 10.8 (6-22); Bilirubin Total 1.1 mg/dL (0.2-1.3); Blood Urea Nitrogen 7 mg/dL (7-17); Calcium 8.5 mg/dL (8.4-10.2); Carbon Dioxide 21 mmol/L (22-32); Chloride 98 mmol/L (98-107); Estimated Glomerular Filt Rate > 60 mL/min (>60); Globulin 2.9 g/dL (1.7-4.1); Glucose 245 mg/dL (80-110); HEMOLYSIS < 15 (0-50); Potassium 3.9 mmol/L (3.4-5.1); Sodium 128 mmol/L (137-145); Total Protein 6.3 g/dL (6.3-8.2)
[2022-11-10] MEDS: MAGNESIUM SULFATE 2 GM/50 ML PIGGYBACK IV (06:08)
--- NOTE | 2022-11-10 07:21 | DI.ECHO.S_ITS ---
[facility]---------+ [facility] +---------+ : : [address] : : : : [id number] : : : : Phone: [phone]+ Echocardiogram Report + + :Name: GAURAV ROBERT Study Date: 11/10/2022 Height: 70 in : :[facility] ReadingLocation: Weight: 217 lb : : Gender: Female BSA: 2.2 m2 : :: 1960 Age: 62 yrs BP: 182/77 mmHg: :Reason For Study: VTACH : :Ordering Physician: JAYE, : :TRIPP Guerra Performed By: Maddisno Roman : :Referring: TRIPP CEE : + + Interpretation Summary The study quality was technically difficult. The ejection fraction is estimated to be 50-55%. Unable to grade diastolic function. The right ventricle grossly appears normal in size with probable normal systolic function. There is mild mitral regurgitation. Pulmonary artery pressures cannot be estimated because of the lack of a measurable TR jet velocity but the IVC suggests a CVP of around 8 mmHg. Compared to the prior study dated 06/07/2022, sinus rhythm with frequent ectopy has replaced atrial fibrillation and there is a very slight reduction in ejection fraction. Procedure: A two-dimensional transthoracic echocardiogram with color flow and Doppler was performed. The study quality was technically difficult. Comparison is made with the echocardiogram of 06/07/2022. The heart rate ranged between 45-141 bpm during the study. Left Ventricle: The left ventricle is normal in size and wall thickness. The ejection fraction is estimated to be 50-55%. There is a significant dyssynchronous contraction pattern, consistent with a conduction abnormality. Right Ventricle: The right ventricle is not well visualized. The right ventricle grossly appears normal in size with probable normal systolic function. Atria: The left atrial size is normal. Right atrial size is normal. There is no Doppler evidence for an interatrial shunt. Mitral Valve: The mitral valve is normal. There is mild mitral regurgitation. Aortic Valve: The aortic valve is not well visualized. The aortic valve opens well. There is no aortic valve stenosis. No aortic regurgitation is present. Tricuspid Valve: The tricuspid valve is normal in structure and function. There is trace tricuspid regurgitation. Pulmonary artery pressures cannot be estimated because of the lack of a measurable TR jet velocity but the IVC suggests a CVP of around 8 mmHg. Pulmonic Valve: The pulmonic valve is not well visualized. There is no pulmonic valvular regurgitation. Great Vessels: The aortic root is normal size. The dimensions of the ascending aorta are normal. The IVC is dilated (diameter is greater than 2.1 cm) yet it collapses greater than 50% with a sniff. This suggests a right atrial pressure of 8 mm Hg. Pericardium/ Pleura There is no pericardial effusion. There is no pleural effusion. MMode/2D Measurements & Calculations LVIDd: 5.7 cm LVOT diam: 2.3 cm LVIDs: 3.8 cm Ao root diam: 2.6 cm FS: 34.1 % asc Aorta Diam: 2.8 cm IVSd: 1.0 cm Ao Arch Diam (Prox Trans): 2.8 cm LVPWd: 0.77 cm LV perez. diameter/BSA (cm/m^2): 2.7 LV sys. diameter/BSA (cm/m^2): 1.8 LA A2 area: 18.5 cm2 RA long axis: 5.4 cm LA A4 area: 16.7 cm2 RA area: 14.6 cm2 LA length (vol): 5.0 cm RA vol: 33.8 ml LA vol: 52.1 ml RA : 15.6 ml/m2 LA vol index: 24.1 ml/m2 IVC diam: 2.1 cm Doppler Measurements & Calculations Ao V2 max: 152.7 cm/sec LVOT Max Jeyson: 94.6 cm/sec Ao V2 mean: 111.6 cm/sec LV V1 max P.6 mmHg Ao max P.3 mmHg LV V1 VTI: 20.7 cm Ao mean P.5 mmHg DILLAN(I,D): 2.6 cm2 Ao V2 VTI: 33.2 cm DILLAN(V,D): 2.6 cm2 sev ratio: 0.62 DILLAN indexed to BSA (cm^2/m^2): 1.2 MV E max jeyson: 81.0 cm/sec PA pr(Accel): 46.5 mmHg MV A max jeyson: 104.7 cm/sec MV E/A: 0.77 Med Peak E' Jeyson: 6.9 cm/sec E/E' med: 11.8 Lat Peak E' Jeyson: 7.5 cm/sec E/E' lat: 10.8 E/e' average: 11.3 MV dec time: 0.22 sec SV(LVOT): 87.2 ml Reading Physician:01:04 PM
[2022-11-10] MEDS: INSULIN LISPRO 100 UNIT/ML 3ML VIAL SUBCUT ×3 (08:14→18:49)
--- NOTE | 2022-11-10 08:42 | P.PN_ITS ---
Subjective Subjective Interval history: Had stable VT requiring a cardioversion last night. On AMiodarone IV. No cardiac history and chronic LBBB. Mg was 1.5, repleted. Denies chest pain or dyspnea. Her for abdomen pain and cholecystitis (planned surgery today, will be deferred_. Minimal RUQ pain this AM, No nausea. Exam Vital Signs (past 8 hours): - 11/10/22 01:00 11/10/22 01:00 11/10/22 01:30 Pulse Rate 74 Respiratory Rate 23 Blood Pressure 160/73 H 163/73 H Pulse Oximetry 95 11/10/22 01:30 11/10/22 02:00 11/10/22 02:00 Pulse Rate 73 73 Respiratory Rate 26 H 24 Blood Pressure 156/74 H Pulse Oximetry 96 95 11/10/22 02:30 11/10/22 02:30 11/10/22 03:00 Pulse Rate 72 Respiratory Rate 24 Blood Pressure 160/74 H 164/77 H Pulse Oximetry 95 11/10/22 03:00 11/10/22 03:13 11/10/22 03:13 Pulse Rate 71 87 Respiratory Rate 23 24 Blood Pressure 173/74 H Pulse Oximetry 95 95 11/10/22 03:30 11/10/22 03:30 11/10/22 04:00 Pulse Rate 71 Respiratory Rate 22 Blood Pressure 153/68 H 173/79 H Pulse Oximetry 95 11/10/22 04:00 11/10/22 04:30 11/10/22 04:30 Pulse Rate 68 72 Respiratory Rate 23 25 H Blood Pressure 174/81 H Pulse Oximetry 94 93 11/10/22 05:00 11/10/22 05:01 11/10/22 05:01 Pulse Rate 68 70 Respiratory Rate 27 H 25 H Blood Pressure 169/76 H Pulse Oximetry 93 93 11/10/22 05:30 11/10/22 05:30 11/10/22 06:00 Pulse Rate 70 Respiratory Rate 26 H Blood Pressure 172/78 H 168/96 H Pulse Oximetry 95 11/10/22 06:00 11/10/22 06:30 11/10/22 06:30 Pulse Rate 73 74 Respiratory Rate 24 25 H Blood Pressure 171/79 H Pulse Oximetry 94 90 L 11/10/22 07:00 11/10/22 07:00 11/10/22 07:30 Pulse Rate 75 71 Respiratory Rate 26 H 28 H Blood Pressure 192/81 H Pulse Oximetry 94 90 L 11/10/22 07:31 11/10/22 07:31 Pulse Rate 121 H Respiratory Rate 29 H Blood Pressure 141/65 H Pulse Oximetry 89 L Oxygen Delivery Method Room Air Oxygen Flow Rate 0 Narrative Exam Narrative: NAD, normal speech and calm. Atraumatic head, EOMI. Neck supple and midline trachea. Lungs CTA, normal rate and effort. Heart RRR, without murmur, gallop, or rub. Abdomen Soft, N (except some very mild RUQ pain), ND No leg edema. No skin rash. Objective Labs 11/09/22 05:07 11/10/22 04:55 Labs: Laboratory Results - last 24 hr 11/09/22 11/09/22 11/09/22 22:05 22:05 22:05 Sodium 129 L Potassium 3.8 Chloride 99 Carbon Dioxide 21 L BUN 8 Creatinine 0.67 Estimated GFR > 60 BUN/Creatinine Ratio 11.9 Glucose 228 H Calcium 8.9 Magnesium 1.5 L Total Bilirubin AST ALT Alkaline Phosphatase Troponin I < 0.012 Total Protein Albumin Globulin Albumin/Globulin Ratio 11/10/22 11/10/22 04:55 04:55 Sodium 128 L Potassium 3.9 Chloride 98 Carbon Dioxide 21 L BUN 7 Creatinine 0.65 Estimated GFR > 60 BUN/Creatinine Ratio 10.8 Glucose 245 H Calcium 8.5 Magnesium 1.9 Total Bilirubin 1.1 AST 45 H ALT 234 H Alkaline Phosphatase 216 H Troponin I Total Protein 6.3 Albumin 3.4 L Globulin 2.9 Albumin/Globulin Ratio 1.2 PFSH Medical History Anxiety disorder, unspecified Benign essential HTN Cervical cancer (~1979) Chicken pox (~1964) COPD (chronic obstructive pulmonary disease) Essential hypertension Eustachian tube disorder JUANA (generalized anxiety disorder) (~1987) GERD (gastroesophageal reflux disease) History of cervical cancer in adulthood History of recurrent ear infection Hyperlipidemia Hyperthyroidism (~1991) Hypothyroidism Hypothyroidism Iron deficiency anemia Long-term current use of insulin for diabetes mellitus Low back pain Major depression Major depressive disorder, single episode, unspecified Measles (~1964) Mixed hyperlipidemia Mumps (~1964) Neuropathy of both feet Obesity (BMI 30-39.9) Paroxysmal atrial fibrillation Progressive hearing loss of both ears PTSD (post-traumatic stress disorder) Tremor Type 2 diabetes mellitus with diabetic neuropathy, unspecified Type 2 diabetes mellitus with diabetic neuropathy, with long-term current use of insulin (~1988) Surgical History Anesthesia History of arthroscopic surgery of shoulder History of carpal tunnel release History of hysterectomy History of laparoscopic adjustable gastric banding Family History Mother Congestive heart failure Lung cancer Hyperlipidemia Hypertension Father COPD (chronic obstructive pulmonary disease) Cardiovascular disease Diabetes mellitus History of heart disease Hypertension Hyperlipidemia Social History household members: spouse Smoking Status: Never smoker alcohol intake: never Assessment & Plan Assessment & Plan narrative: [address] [address] History & Physical Report Patient: Felicitas Simms MR#: [id number] : 1960 Acct:[id number] Age/Sex: 62 / F ? Date of Se rvice: 11/09/22 Provider:?Byron Olivier MD History of Present Illness History of Present Illness Date Patient Seen: 11/09/22 Time Patient Seen: 10:36 Date of Onset of Symptoms: 11/07/22 Chief complaint: Abd pain Narrative: 62-year-old female with a history of psychiatric illness, paroxysmal atrial fibrillation, Pradaxa anticoagulation, COPD, laparoscopic adjustable band, diabetes mellitus type 2, hypothyroidism, hysterectomy for cervical cancer.? For the past 3-4 days she has experienced sharp epigastric pain radiating to the right side of her abdomen associated with nausea.? It would worsen when she would try to eat or drink.? She did feel clammy and did experience some sweats. In the emergency room she did not appear toxic.? She was afebrile with a normal heart rate and her blood pressure was elevated to 154/97.? There was tenderness in the epigastric and right upper upper quadrant regions without surgical signs. Labs are significant for WBC 11.4, sodium 128, bicarb 21, glucose 200, total bilirubin 1.7, AST 397, ALT 508, and alkaline phosphatase of 265.? Lipase was normal.? Urinalysis was negative. Abdominal ultrasound confirmed calculus cholecystitis with associated pericholecystic fluid.? General surgery agrees to consult.? Zosyn, IV fluids, and other as needed medications have been started. 11/09 AM: pain has improved, she is doing well. It is primarily RUQ and does not radiate. It comes and goes and increases with eating. Urine was very dark transiently several days ago.? PFSH Medical History? Anxiety disorder, unspecified Benign essential HTN Cervical cancer (~1979) Chicken pox (~1964) COPD (chronic obstructive pulmonary disease) Essential hypertension Eustachian tube disorder JUANA (generalized anxiety disorder) (~1987) GERD (gastroesophageal reflux disease) History of cervical cancer in adulthood History of recurrent ear infection Hyperlipidemia Hyperthyroidism (~1991) Hypothyroidism Hypothyroidism Iron deficiency anemia Long-term current use of insulin for diabetes mellitus Low back pain Major depression Major depressive disorder, single episode, unspecified Measles (~1964) Mixed hyperlipidemia Mumps (~1964) Neuropathy of both feet Obesity (BMI 30-39.9) Paroxysmal atrial fibrillation Progressive hearing loss of both ears PTSD (post-traumatic stress disorder) Tremor Type 2 diabetes mellitus with diabetic neuropathy, unspecified Type 2 diabetes mellitus with diabetic neuropathy, with long-term current use of insulin (~1988) Surgical History? Anesthesia History of arthroscopic surgery of shoulder History of carpal tunnel release History of hysterectomy History of laparoscopic adjustable gastric banding Family History? Mother?? Congestive heart failure Lung cancer Hyperlipidemia HypertensionFather?? COPD (chronic obstructive pulmonary disease) Cardiovascular disease Diabetes mellitus History of heart disease Hypertension Hyperlipidemia Social History? household members:? spouse Smoking Status:? Never smoker alcohol intake:? never Meds Home Medications and Allergies Home Medications ?Medication ?Instructions ?Recorded ?Confirmed ?Type alpha lipoic acid 600 mg capsule 600 mg PO BID 02/10/22 11/09/22 History aspirin 81 mg tablet,delayed 81 mg PO DAILY A-fib 02/10/22 11/09/22 History release (Adult Aspirin Regimen) ? cetirizine 10 mg tablet (Aller-Rosibel) 10 mg PO DAILY PRN Allergy Symptoms 02/10/22 11/09/22 History cholecalciferol (vitamin D3) 25 25 mcg PO DAILY 02/10/22 11/09/22 History mcg (1,000 unit) capsule ? chromium picolinate 400 mcg tablet 800 mcg PO DAILY 02/10/22 11/09/22 History coenzyme Q10 [H2Q CoQ10] See Rx Instructions .Route .COMPLEX 02/10/22 11/09/22 History cranberry extract See Rx Instructions .Route 02/10/22 11/09/22 History ? .COMPLEX cholesterol control ? ? ? dabigatran etexilate 150 mg 150 mg PO BID #180 caps 02/10/22 11/09/22 Rx capsule (Pradaxa) ? duloxetine 20 mg capsule,delayed 20 mg PO DAILY #90 caps 02/10/22 11/09/22 Rx release (Cymbalta) ? duloxetine 60 mg capsule,delayed 60 mg PO DAILY #90 caps 02/10/22 11/09/22 Rx release ? metformin 500 mg tablet 1,000 mg PO BID #360 tabs 02/10/22 11/09/22 Rx pantoprazole 40 mg tablet,delayed 40 mg PO DAILY #90 tabs 02/10/22 11/09/22 Rx release ? rosuvastatin 40 mg tablet 40 mg PO BEDTIME #90 tabs 02/10/22 11/09/22 Rx insulin lispro 100 unit/mL See Rx Instructions .Route .COMPLEX 04/06/22 11/09/22 History subcutaneous pen (Humalog KwikPen ? (U-100) Insulin) ? liraglutide 0.6 mg/0.1 mL (18 mg/3 0.6 mg (0.1 mL) SUBCUT DAILY 05/26/22 11/09/22 Rx mL) subcutaneous pen injector diabetes #18 mL ? ? ? (Victoza 2-Cecilio) ? metoprolol succinate 50 mg 50 mg PO BID #180 tabs 07/05/22 11/09/22 Rx tablet,extended release 24 hr ? clonazepam 0.5 mg tablet 0.5 mg PO BEDTIME Anxiety #30 tabs 08/12/22 11/09/22 Rx levothyroxine 100 mcg tablet 100 mcg PO DAILY #90 tabsA 11/02/22 11/09/22 Rx aripiprazole 5 mg tablet 5 mg PO DAILY depression 11/09/22 11/09/22 History benazepril 20 mg tablet 20 mg PO DAILY High blood pressure 11/09/22 11/09/22 Hi story blood sugar diagnostic (True ? 11/09/22 11/09/22 History Metrix Glucose Test Strip) ? insulin detemir U-100 100 unit/mL 50 unit SUBCUT BID 11/09/22 11/09/22 History subcutaneous solution (Levemir ? U-100 Insulin) ? Allergies Allergy/AdvReac Type Severity Reaction Status Date / Time No Known Drug Allergies Allergy ? ? Verified 08/04/22 10:27 Review of Systems Review of Systems Narrative: All else reviewed and otherwise unremarkable except as noted on the H&P. Denies pain, dyspnea, constipation or other concerns. Exam Vital Signs (past 8 hours): - ? 11/09/2301:59 11/09/2306:00 Temperature ? 97.1 F L Pulse Rate ? 76 Respiratory Rate ? 18 Blood Pressure ? 123/50 L Pulse Oximetry ? 94 Oxygen Delivery Method Room Air ? Oxygen Flow Rate ? 0 Oxygen Delivery Method? Room Air? Oxygen Flow Rate? 0 ? Narrative Exam Narrative: The patient is awake and in NAD. Normal speech and mentation. Normal judgement, and calm affect. She has an essential tremor affecting her right arm and both feet. Head is atraumatic and EOMI. Anicteric sclera. Oropharynx is moist. Neck is supple and trachea is midline. Lungs are CTA, with normal rate and effort. Heart is RRR, without murmur, gallop, or rub. Abdomen is soft, NT and ND. Extremities are free of edema. Good arm pulses. Good leg pulses. Skin is free of rash or lesions. Joints are free of swelling or deformity. Back with normal ROM. Objective Labs 11/09/22 05:07? 11/09/22 05:07? Labs: Laboratory Results - last 24 hr ? 11/08/22 11/08/22 11/08/22 ? 21:02 21:02 21:02 WBC ?11.4 H ? ? RBC ?4.62 ? ? Hgb ?12.5 ? ? Hct ?37.8 ? ? MCV ?81.8 ? ? MCH ?27.2 ? ? MCHC ?33.2 ? ? RDW ?24.9 H ? ? Plt Count ?312 ? ? Neut % (Auto) ?88.9 H ? ? Lymph % (Auto) ?2.7 L ? ? [place] % (Auto) ?8.0B ? ? Eos % (Auto) ?0.2 L ? ? Baso % (Auto) ?0.2 ? ? Neut # (Auto) ?54219 H ? ? Lymph # (Auto) ?300 L ? ? [place] # (Auto) ?900 ? ? Eos # (Auto) ?0 ? ? Baso # (Auto) ?0 ? ? RBC Morphology ?See below ? ? Anisocytosis ?2+ H ? ? Microcytosis ? ?B ? Acanthocytes (Spur) ?1+ H ? ? Sodium ? ?128 L ? Potassium ? ?4.5 ? Chloride ? ?97 L ? Carbon Dioxide ? ?21 L ? BUN ? ?11 ? Creatinine ?B ?0.58 ? Estimated GFR ? ?> 60 ? BUN/Creatinine Ratio ? ?19.0 ? Glucose ? ?200 H ? Calcium ? ?8.8 ? Total Bilirubin ? ?1.7 H ? AST ? ?397 H ? ALT ? ?508 H ? Alkaline Phosphatase ? ?265 H ? Ammonia ? ? ?< 9 L Total Creatine Kinase ? ? ? Troponin I ? ? ? Total Protein ?B ?7.1 ? Albumin ? ?4.0 ? Globulin ? ?3.1 ? Albumin/Globulin Ratio ? ?1.3 ? Lipase ? ?44 ? ? 11/08/22 11/09/22 11/09/22 ? 21:02 05:07 05:07 WBC ? ?14.4 H ? RBC ? ?4.40 ? Hgb ? ?12.0 ? Hct ? ?36.0 ? MCV ? ?81.9B ? MCH ? ?27.3 ? MCHC ? ?33.4 ? RDW ? ?24.7 H ? Plt Count ? ?307B ? Neut % (Auto) ? ?88.6 H ? Lymph % (Auto) ? ?1.7 L ? [place] % (Auto) ? ?9.3 ? Eos % (Auto) ? ?0.3 L ? Baso % (Auto) ? ?0.1 ? Neut # (Auto) ? ?41500 H ? Lymph # (Auto) ? ?200 L ? [place] # (Auto) ? ?1300 H ? Eos # (Auto) ? ?0 ? Baso # (Auto) ? ?0 ? RBC Morphology ? ?See below ? Anisocytosis ? ?2+ H ? Microcytosis ? ?1+ H ? Acanthocytes (Spur) ? ? ? Sodium ? ? ?127 L Potassium ? ? ?4.5 Chloride ? ? ?94 L Carbon Dioxide ? ? ?21 L BUN ? ? ?12 Creatinine ? ? ?0.73 Estimated GFR ? ? ?> 60 BUN/Creatinine Ratio ? ? ?16.4 Glucose ? ? ?233 H Calcium ? ? ?8.7 Total Bilirubin ? ? ?1.5 H AST ? ? ?193 H ALT ? ? ?406 H Alkaline Phosphatase ? ? ?245 H Ammonia ? ? ? Total Creatine Kinase ?40 ? ? Troponin I ?< 0.012 ? ? Total Protein ? ? ?6.5 Albumin ? ? ?3.6 Globulin ? ? ?2.9 Albumin/Globulin Ratio ? ? ?1.2 Lipase ? ? ? Assessment & Plan Assessment & Plan narrative: 62-year-old female with a history of psychiatric illness, paroxysmal atrial fibrillation, Pradaxa anticoagulation, COPD, laparoscopic adjustable band, diabetes mellitus type 2, hypothyroidism, hysterectomy for cervical cancer.? She is admitted for calculus cholecystitis. Complicated by VT night of 11/09. 1. VT required cardioversion, new and active -continue amiodarone infusion -replete and monitor lytes -cardiac ECHO to assess heart structurally -dw cards (SRC) after ECHO 2. Calculus cholecystitis, POA and active. -4 days of epigastric pain, right upper quadrant pain, with nausea and vomiting and has elevated LFTs -Zosyn IV Q8 -N.p.o. ?Normal saline -Dr. Johnson from general surgery was consulted by the ER ?Last Pradaxa dose was on Tuesday morning 11/08 -surgery on hold pending cardiac issues resolution. 3. Hyponatremia (hypovolemic), POA and active. -Related to nausea and vomiting -Normal saline, contiuous infusion. 4. Atrial fibrillation Paroxysmal (and chronic LBBB). POA and stable. -Normal sinus rhythm with left bundle branch block -Telemetry -Metoprolol IV 5. Diabetes mellitus type 2, POA and stable. -Requires insulin and oral hypoglycemics -Reduce Lantus -Sliding scale -Hypoglycemics DVT Risk? -SCDs -Hold Eliquis CODE STATUS:? -Full Code SECONDARY PROBLEMS (POA and stable): Chronic LBBB Anxiety Major depression disorder PTSD Trauma Tremor Neuropathy Hypertension COPD Ear infections GERD Laparoscopic adjustable gastric band Obesity Cervical cancer Diabetes mellitus type 2 + long-term insulin Hypothyroid Hyperlipidemia Iron deficiency anemia Low back pain Measles history Time Spent With Patient Time with patient: 30 to 49 minutes with 50% spent counseling/coordinating care Quality VTE Deep Vein Thrombosis/Pulmonary Embolism Present on Admission: No
[2022-11-10] MEDS: DULOXETINE 20 MG CAPSULE PO (09:32)
[2022-11-10] MEDS: ARIPiprazole 10 MG TABLET 5 MG PO (09:32)
[2022-11-10] MEDS: DULOXETINE 30 MG CAPSULE 60 MG PO (09:32)
[2022-11-10] MEDS: INSULIN GLARGINE 100 UNIT/ML 3ML PEN 10 UNIT SUBCUT ×2 (09:32→20:39)
--- NOTE | 2022-11-10 10:56 | CM.DPC ---
DCP Cont: Per MD, pt had a run of Vtach yesterday and was able to cardio-vert and no hx of cardiac issues and to have an Echo today. Surgeon plans to take pt to the OR today for Lap Amriaelena. Plan: SW to follow post surg to confirm safe d/c home with spouse when medically stable as pt is independent at baseline. SW to follow for any further identified discharge planning needs. LUCERO Hannah
[2022-11-10] MEDS: METOPROLOL ER 50 MG TABLET PO ×2 (11:30→20:28)
[2022-11-10] MEDS: ASPIRIN EC 81 MG TABLET PO (11:30)
[2022-11-10] MEDS: SODIUM CHLORIDE 0.9% 1,000 ML 100 ML IV ×2 (11:35→22:01)
--- NOTE | 2022-11-10 14:18 | PC.NURSE ---
1200--pt's called hospital; he was unaware of the events of last evening; status report given and he is en route to the hospital
--- NOTE | 2022-11-10 14:23 | PC.NURSE ---
3241--echo report posted; Dr Olivier notified; he came and spoke to pt and at bedside
--- NOTE | 2022-11-10 14:32 | PC.NURSE ---
1040--electronics repair technician here to do echo; pt denies any complaints
--- NOTE | 2022-11-10 15:13 | PM.PN.1 ---
Subjective Subjective Interval history: Interval history: Had stable VT requiring a cardioversion last night. On AMiodarone IV. No cardiac history and chronic LBBB. Mg was 1.5, repleted. Denies chest pain or dyspnea. Her for abdomen pain and cholecystitis (planned surgery today, will be deferred_. Minimal RUQ pain this AM, No nausea. Exam Vital Signs (past 8 hours): - 11/10/22 07:30 11/10/22 07:31 11/10/22 07:31 Pulse Rate 71 121 H Respiratory Rate 28 H 29 H Blood Pressure 141/65 H Pulse Oximetry 90 L 89 L Oxygen Delivery Method 11/10/22 08:00 11/10/22 08:00 11/10/22 08:30 Pulse Rate 72 Respiratory Rate 23 Blood Pressure 153/72 H 156/72 H Pulse Oximetry 93 Oxygen Delivery Method 11/10/22 08:30 11/10/22 08:00 11/10/22 09:00 Pulse Rate 70 Respiratory Rate 23 Blood Pressure 159/67 H Pulse Oximetry 94 Oxygen Delivery Method Nasal Cannula 11/10/22 09:00 11/10/22 09:30 11/10/22 09:30 Pulse Rate 71 67 Respiratory Rate 23 20 Blood Pressure 155/110 H Pulse Oximetry 95 94 Oxygen Delivery Method 11/10/22 09:38 11/10/22 09:38 11/10/22 10:00 Pulse Rate 76 Respiratory Rate 21 Blood Pressure 170/72 H 182/78 H Pulse Oximetry 96 Oxygen Delivery Method 11/10/22 10:00 11/10/22 10:30 11/10/22 10:31 Pulse Rate 77 79 78 Respiratory Rate 21 18 14 Blood Pressure Pulse Oximetry 96 95 96 Oxygen Delivery Method 11/10/22 10:31 11/10/22 11:00 11/10/22 11:01 Pulse Rate 71 75 Respiratory Rate 23 24 Blood Pressure 182/77 H Pulse Oximetry 95 96 Oxygen Delivery Method 11/10/22 11:01 11/10/22 11:30 11/10/22 11:30 Pulse Rate 70 Respiratory Rate Blood Pressure 130/68 171/83 H 171/83 H Pulse Oximetry Oxygen Delivery Method 11/10/22 11:30 11/10/22 12:00 11/10/22 12:00 Pulse Rate 69 68 Respiratory Rate 26 H 23 Blood Pressure 163/78 H Pulse Oximetry 96 95 Oxygen Delivery Method 11/10/22 12:00 11/10/22 12:23 11/10/22 12:30 Pulse Rate 67 67 Respiratory Rate 25 H Blood Pressure 163/78 H Pulse Oximetry 93 Oxygen Delivery Method Room Air 11/10/22 12:32 11/10/22 12:32 11/10/22 13:00 Pulse Rate 69 71 Respiratory Rate 25 H 24 Blood Pressure 171/79 H Pulse Oximetry 93 90 L Oxygen Delivery Method Oxygen Delivery Method Room Air Oxygen Flow Rate 0 Narrative Exam Narrative: NAD, normal speech and calm. Atraumatic head, EOMI. Neck supple and midline trachea. Lungs CTA, normal rate and effort. Heart RRR, without murmur, gallop, or rub. Abdomen Soft, N (except some very mild RUQ pain), ND No leg edema. No skin rash. Objective Labs 11/09/22 05:07 11/10/22 04:55 Labs: Laboratory Results - last 24 hr 11/09/22 11/09/22 11/09/22 22:05 22:05 22:05 Sodium 129 L Potassium 3.8 Chloride 99 Carbon Dioxide 21 L BUN 8 Creatinine 0.67 Estimated GFR > 60 BUN/Creatinine Ratio 11.9 Glucose 228 H Calcium 8.9 Magnesium 1.5 L Total Bilirubin AST ALT Alkaline Phosphatase Troponin I < 0.012 Total Protein Albumin Globulin Albumin/Globulin Ratio 11/10/22 11/10/22 04:55 04:55 Sodium 128 L Potassium 3.9 Chloride 98 Carbon Dioxide 21 L BUN 7 Creatinine 0.65 Estimated GFR > 60 BUN/Creatinine Ratio 10.8 Glucose 245 H Calcium 8.5 Magnesium 1.9 Total Bilirubin 1.1 AST 45 H ALT 234 H Alkaline Phosphatase 216 H Troponin I Total Protein 6.3 Albumin 3.4 L Globulin 2.9 Albumin/Globulin Ratio 1.2 [facility] [place] Medical History Anxiety disorder, unspecified Benign essential HTN Cervical cancer (~1979) Chicken pox (~1964) COPD (chronic obstructive pulmonary disease) Essential hypertension Eustachian tube disorder JUANA (generalized anxiety disorder) (~1987) GERD (gastroesophageal reflux disease) History of cervical cancer in adulthood History of recurrent ear infection Hyperlipidemia Hyperthyroidism (~1991) Hypothyroidism Hypothyroidism Iron deficiency anemia Long-term current use of insulin for diabetes mellitus Low back pain Major depression Major depressive disorder, single episode, unspecified Measles (~1964) Mixed hyperlipidemia Mumps (~1964) Neuropathy of both feet Obesity (BMI 30-39.9) Paroxysmal atrial fibrillation Progressive hearing loss of both ears PTSD (post-traumatic stress disorder) Tremor Type 2 diabetes mellitus with diabetic neuropathy, unspecified Type 2 diabetes mellitus with diabetic neuropathy, with long-term current use of insulin (~1988) Surgical History Anesthesia History of arthroscopic surgery of shoulder History of carpal tunnel release History of hysterectomy History of laparoscopic adjustable gastric banding Family History Mother Congestive heart failure Lung cancer Hyperlipidemia Hypertension Father COPD (chronic obstructive pulmonary disease) Cardiovascular disease Diabetes mellitus History of heart disease Hypertension Hyperlipidemia Social History household members: spouse Smoking Status: Never smoker alcohol intake: never Assessment & Plan Assessment & Plan narrative: 62-year-old female with a history of psychiatric illness, paroxysmal atrial fibrillation, Pradaxa anticoagulation, COPD, laparoscopic adjustable band, diabetes mellitus type 2, hypothyroidism, hysterectomy for cervical cancer.? She is admitted for calculus cholecystitis. Complicated by VT night of 11/09. 1. VT required cardioversion, new and active -continue amiodarone infusion -replete and monitor lytes -cardiac ECHO to assess heart structurally -dw cards (SRC) after ECHO 2. Acalculus cholecystitis, POA and active. -4 days of epigastric pain, right upper quadrant pain, with nausea and vomiting and has elevated LFTs -Zosyn IV Q8 -N.p.o. ?Normal saline -Dr. Johnson from general surgery was consulted by the ER ?Last Pradaxa dose was on Tuesday morning 11/08 -surgery on hold pending cardiac issues resolution. 3. Hyponatremia (hypovolemic), POA and active. -Related to nausea and vomiting -Normal saline, continuous infusion. 4. Atrial fibrillation Paroxysmal (and chronic LBBB). POA and stable. -Normal sinus rhythm with left bundle branch block -Telemetry -Metoprolol IV 5. Diabetes mellitus type 2, POA and stable. -Requires insulin and oral hypoglycemics -Reduce Lantus -Sliding scale -Hypoglycemics DVT Risk? -SCDs -Hold Eliquis CODE STATUS:? -Full Code Time Spent With Patient Time with patient: 30 to 49 minutes with 50% spent counseling/coordinating care Quality VTE Deep Vein Thrombosis/Pulmonary Embolism Present on Admission: No
[2022-11-10 15:52] LABS: Troponin I < 0.012 ng/mL (0.01-0.034)
[2022-11-10] MEDS: METOPROLOL TARTRATE 5 MG/5 ML INJ IV ×2 (16:13→16:22)
[2022-11-10] MEDS: AMIODARONE 150 MG/100 ML PIGGYBACK 600 MG IV (16:52)
--- NOTE | 2022-11-10 17:28 | PC.NURSE ---
1602--Pts HR increased to 170s; pt denied sob or chest pain; bedside vagal maneuvers ineffective; Dr Olivier notified; Metoprolol 5mg iv given at 1613 and 1622; EKG done; HR 170s-180s
--- NOTE | 2022-11-10 17:31 | PC.NURSE ---
1652--amiodarone 150mg iv bolus given over 10 minutes; pt remains asymptomatic
--- NOTE | 2022-11-10 17:33 | PC.NURSE ---
1716-- pt converted to NSR-77; Dr Olivier notified; pt started having ectopy but rate remains controlled in 70s
[2022-11-10] MEDS: HEPARIN DRIP 25,000 UNIT/500 ML IV.SOLN 20 UNIT IV (17:46)
[2022-11-10] MEDS: HEPARIN 5,000 UNIT/ML VIAL 5000 UNIT IV (17:46)
--- NOTE | 2022-11-10 17:52 | PC.NURSE ---
1746--heparin 5000units iv given and drip started at 1000units/hr
--- NOTE | 2022-11-10 18:11 | PC.NURSE ---
1809--called [facility] with status report and pending transfer to another facility; questions answered; will pass on to notify him when accepting facility secured
[2022-11-10 19:25] LABS: Alanine Aminotransferase 161 IU/L (<35); Albumin 3.1 g/dL (3.5-5.0); Albumin Globulin Ratio 1.1 (1.0-2.8); Alkaline Phosphatase 215 U/L (38-126); Aspartate Aminotransferase 29 IU/L (14-36); BUN Creatinine Ratio 13.6 (6-22); Bilirubin Total 0.9 mg/dL (0.2-1.3); Blood Urea Nitrogen 8 mg/dL (7-17); Calcium 8.3 mg/dL (8.4-10.2); Carbon Dioxide 20 mmol/L (22-32); Chloride 98 mmol/L (98-107); Estimated Glomerular Filt Rate > 60 mL/min (>60); Globulin 2.8 g/dL (1.7-4.1); Glucose 221 mg/dL (80-110); HEMOLYSIS < 15 (0-50); Magnesium 1.8 mg/dL (1.6-2.3); Potassium 3.6 mmol/L (3.4-5.1); Sodium 128 mmol/L (137-145); Total Protein 5.9 g/dL (6.3-8.2)
[2022-11-10] MEDS: ATORVASTATIN 20 MG TABLET 80 MG PO (20:28)
[2022-11-10] MEDS: AMIODARONE 360 MG/200 ML PIGGYBACK 33.3 MG IV (22:01)
[2022-11-11] VITALS (69 sets, daily range): BP systolic 94–178; BP diastolic 55–96; PULSE 53–161; RESP 16–33; TEMP 36.4–37.2; O2SAT 90–100
[2022-11-11] LABS: PTT Partial Thromboplastin Tim 39 SECONDS (26-36)
[2022-11-11] MEDS: INSULIN LISPRO 100 UNIT/ML 3ML VIAL SUBCUT ×4 (00:10→17:36)
[2022-11-11] MEDS: METOPROLOL TARTRATE 5 MG/5 ML INJ IV (03:21)
[2022-11-11] MEDS: PIPERACILLIN/TAZO 3.375 GM in SODIUM CHLORIDE 0.9% 100 ML IV ×3 (03:21→20:49)
[2022-11-11] MEDS: AMIODARONE 360 MG/200 ML PIGGYBACK 33.3 MG IV (04:16)
[2022-11-11] MEDS: LEVOTHYROXINE 100 MCG TABLET PO (06:15)
--- NOTE | 2022-11-11 06:23 | PC.NURSE ---
At 1999 assessment Amiodarone found to be infusing at 33.3 despite current order for 16.7. Day shift RN called and informed me at approximately 1745 Dr. Olivier gave verbal order to increase Amiodaron to 33.3 in light of recent Afib RVR. Night hospitalist called and informed of the situation, Order placed for Amiodarone infusion at 33.3 until day shift for cardiology to reevaluate. Patient in and out of SR and Afib rvr 120s-150s,asymptomatic. one 5mg push of metoprolol given with no effect.
[2022-11-11 06:43] LABS: PTT Partial Thromboplastin Tim 36 SECONDS (26-36)
[2022-11-11 06:46] LABS: Alanine Aminotransferase 127 IU/L (<35); Albumin 2.9 g/dL (3.5-5.0); Alkaline Phosphatase 231 U/L (38-126); Aspartate Aminotransferase 22 IU/L (14-36); BUN Creatinine Ratio 13.1 (6-22); Blood Urea Nitrogen 8 mg/dL (7-17); Calcium 8.1 mg/dL (8.4-10.2); Carbon Dioxide 21 mmol/L (22-32); Chloride 99 mmol/L (98-107); Estimated Glomerular Filt Rate > 60 mL/min (>60); Globulin 2.8 g/dL (1.7-4.1); Glucose 205 mg/dL (80-110); HEMOLYSIS < 15 (0-50); Potassium 3.5 mmol/L (3.4-5.1); Sodium 129 mmol/L (137-145); Total Protein 5.7 g/dL (6.3-8.2)
--- NOTE | 2022-11-11 08:02 | PM.PN.1 ---
Subjective Subjective Interval history: Patient now stable on amio drip. Awaiting transfer to [facility] for cardiology consultation. Exam Vital Signs (past 8 hours): - 11/12/22 00:30 11/12/22 00:30 11/12/22 01:00 Pulse Rate 58 L Respiratory Rate 18 Blood Pressure 112/54 L 111/56 L Pulse Oximetry 97 Oxygen Delivery Method 11/12/22 01:00 11/12/22 01:30 11/12/22 01:30 Pulse Rate 56 L 56 L Respiratory Rate 16 20 Blood Pressure 114/54 L Pulse Oximetry 96 97 Oxygen Delivery Method 11/12/22 02:00 11/12/22 02:00 11/12/22 02:30 Pulse Rate 57 L Respiratory Rate 21 Blood Pressure 102/54 L 106/53 L Pulse Oximetry 95 Oxygen Delivery Method 11/12/22 02:30 11/12/22 03:00 11/12/22 03:00 Pulse Rate 55 L 56 L Respiratory Rate 19 21 Blood Pressure 94/54 L Pulse Oximetry 97 94 Oxygen Delivery Method 11/12/22 04:00 11/12/22 03:30 11/12/22 03:30 Pulse Rate 55 L Respiratory Rate 20 Blood Pressure 102/55 L Pulse Oximetry 96 Oxygen Delivery Method Room Air 11/12/22 04:00 11/12/22 04:01 11/12/22 04:01 Pulse Rate 56 L 55 L Respiratory Rate 23 20 Blood Pressure 109/51 L Pulse Oximetry 96 97 Oxygen Delivery Method 11/12/22 04:30 11/12/22 04:30 11/12/22 05:00 Pulse Rate 54 L Respiratory Rate 21 Blood Pressure 102/51 L 101/53 L Pulse Oximetry 97 Oxygen Delivery Method 11/12/22 05:00 11/12/22 05:30 11/12/22 05:30 Pulse Rate 55 L 55 L Respiratory Rate 20 13 Blood Pressure 122/58 L Pulse Oximetry 96 96 Oxygen Delivery Method 11/12/22 06:00 11/12/22 06:00 11/12/22 06:30 Pulse Rate 52 L Respiratory Rate 18 Blood Pressure 101/55 L 98/54 L Pulse Oximetry 96 Oxygen Delivery Method 11/12/22 06:30 11/12/22 07:00 11/12/22 07:00 Pulse Rate 56 L 52 L Respiratory Rate 16 15 Blood Pressure 99/54 L Pulse Oximetry 97 96 Oxygen Delivery Method Fraction of Inspired Oxygen 24 SaO2/FiO2 Ratio 387 Oxygen Delivery Method Room Air Oxygen Flow Rate 1 Narrative Exam Narrative: NAD, normal speech and calm. Atraumatic head, EOMI. Neck supple and midline trachea. Lungs CTA, normal rate and effort. Heart RRR, without murmur, gallop, or rub. Abdomen Soft, ND No leg edema. No skin rash. Objective Labs 11/12/22 03:03 11/12/22 03:03 Labs: Laboratory Results - last 24 hr 11/11/22 11/11/22 11/11/22 06:08 09:39 12:00 WBC RBC Hgb Hct MCV MCH MCHC RDW Plt Count Neut % (Auto) Lymph % (Auto) [place] % (Auto) Eos % (Auto) Baso % (Auto) Neut # (Auto) Lymph # (Auto) [place] # (Auto) Eos # (Auto) Baso # (Auto) RBC Morphology Anisocytosis Microcytosis Acanthocytes (Spur) APTT 41 H Sodium Potassium Chloride Carbon Dioxide BUN Creatinine Estimated GFR BUN/Creatinine Ratio Glucose Calcium Magnesium 1.7 Total Bilirubin AST ALT Alkaline Phosphatase Total Protein Albumin Globulin Albumin/Globulin Ratio TSH 0.73 Free T3 1.92 L 11/11/22 11/12/22 11/12/22 20:18 03:03 03:03 WBC 9.3 RBC 3.63 L Hgb 10.2 L Hct 29.7 L MCV 81.7 MCH 28.0 MCHC 34.3 RDW 25.2 H Plt Count 234 Neut % (Auto) 84.0 H Lymph % (Auto) 5.9 L [place] % (Auto) 7.9 Eos % (Auto) 1.8 L Baso % (Auto) 0.4 Neut # (Auto) 7800 H Lymph # (Auto) 500 L [place] # (Auto) 700 Eos # (Auto) 200 Baso # (Auto) 0 RBC Morphology See below Anisocytosis 2+ H Microcytosis 1+ H Acanthocytes (Spur) 1+ H APTT 35 Sodium 131 L Potassium 3.6 Chloride 99 Carbon Dioxide 24 BUN 10 Creatinine 0.68 Estimated GFR > 60 BUN/Creatinine Ratio 14.7 Glucose 181 H Calcium 8.1 L Magnesium Total Bilirubin 2.7 H AST 165 H ALT 205 H Alkaline Phosphatase 544 H D Total Protein 5.7 L Albumin 2.7 L Globulin 3.0 Albumin/Globulin Ratio 0.9 L TSH Free T3 11/12/22 11/12/22 03:03 03:03 WBC RBC Hgb Hct MCV MCH MCHC RDW Plt Count Neut % (Auto) Lymph % (Auto) [place] % (Auto) Eos % (Auto) Baso % (Auto) Neut # (Auto) Lymph # (Auto) [place] # (Auto) Eos # (Auto) Baso # (Auto) RBC Morphology Anisocytosis Microcytosis Acanthocytes (Spur) APTT 43 H D Sodium Potassium Chloride Carbon Dioxide BUN Creatinine Estimated GFR BUN/Creatinine Ratio Glucose Calcium Magnesium 2.2 Total Bilirubin AST ALT Alkaline Phosphatase Total Protein Albumin Globulin Albumin/Globulin Ratio TSH Free T3 PFSH Medical History Anxiety disorder, unspecified Benign essential HTN Cervical cancer (~1979) Chicken pox (~1964) COPD (chronic obstructive pulmonary disease) Essential hypertension Eustachian tube disorder JUANA (generalized anxiety disorder) (~1987) GERD (gastroesophageal reflux disease) History of cervical cancer in adulthood History of recurrent ear infection Hyperlipidemia Hyperthyroidism (~1991) Hypothyroidism Hypothyroidism Iron deficiency anemia Long-term current use of insulin for diabetes mellitus Low back pain Major depression Major depressive disorder, single episode, unspecified Measles (~1964) Mixed hyperlipidemia Mumps (~1964) Neuropathy of both feet Obesity (BMI 30-39.9) Paroxysmal atrial fibrillation Progressive hearing loss of both ears PTSD (post-traumatic stress disorder) Tremor Type 2 diabetes mellitus with diabetic neuropathy, unspecified Type 2 diabetes mellitus with diabetic neuropathy, with long-term current use of insulin (~1988) Surgical History Anesthesia History of arthroscopic surgery of shoulder History of carpal tunnel release History of hysterectomy History of laparoscopic adjustable gastric banding Family History Mother Congestive heart failure Lung cancer Hyperlipidemia Hypertension Father COPD (chronic obstructive pulmonary disease) Cardiovascular disease Diabetes mellitus History of heart disease Hypertension Hyperlipidemia Social History household members: spouse Smoking Status: Never smoker alcohol intake: never Assessment & Plan Assessment & Plan narrative: 62-year-old female with a history of psychiatric illness, paroxysmal atrial fibrillation, Pradaxa anticoagulation, COPD, laparoscopic adjustable band, diabetes mellitus type 2, hypothyroidism, hysterectomy for cervical cancer.? She is admitted for calculus cholecystitis. Complicated by VT night of 11/09. 1. VT required cardioversion, new and active -continue amiodarone infusion -replete and monitor lytes -Echo with EF -transferring to [facility] for cardiology consultation 2. Acalculus cholecystitis, POA and active. -4 days of epigastric pain, right upper quadrant pain, with nausea and vomiting and has elevated LFTs -Zosyn IV Q8 -N.p.o. ?Normal saline -Dr. Johnson from general surgery was consulted by the ER ?Last Pradaxa dose was on Tuesday morning 11/08 -surgery on hold pending cardiac issues resolution. 3. Hyponatremia (hypovolemic), POA and active. -Related to nausea and vomiting -Normal saline, continuous infusion. 4. Atrial fibrillation Paroxysmal (and chronic LBBB). POA and stable. -Normal sinus rhythm with left bundle branch block -Telemetry -Metoprolol IV 5. Diabetes mellitus type 2, POA and stable. -Requires insulin and oral hypoglycemics -Reduce Lantus -Sliding scale -Hypoglycemics DVT Risk? -SCDs -Hold Eliquis CODE STATUS:? -Full Code Time Spent With Patient Time with patient: 30 to 49 minutes with 50% spent counseling/coordinating care Quality VTE Deep Vein Thrombosis/Pulmonary Embolism Present on Admission: No
[2022-11-11] MEDS: SODIUM CHLORIDE 0.9% 1,000 ML 100 ML IV ×2 (08:16→18:18)
[2022-11-11] MEDS: ARIPiprazole 10 MG TABLET 5 MG PO (08:47)
[2022-11-11] MEDS: DULOXETINE 20 MG CAPSULE PO (08:48)
[2022-11-11] MEDS: METOPROLOL ER 50 MG TABLET PO ×2 (08:48→21:27)
[2022-11-11] MEDS: DULOXETINE 30 MG CAPSULE 60 MG PO (08:49)
[2022-11-11] MEDS: ASPIRIN EC 81 MG TABLET PO (08:50)
[2022-11-11] MEDS: INSULIN GLARGINE 100 UNIT/ML 3ML PEN 10 UNIT SUBCUT (08:51)
[2022-11-11] MEDS: AMIODARONE 360 MG/200 ML PIGGYBACK 18.517 MG IV ×3 (09:33→20:45)
[2022-11-11] MEDS: POTASSIUM CHLORIDE IN WATER 10 MEQ/100 ML PIGGYBACK 100 MEQ IV ×2 (09:47→10:52)
[2022-11-11 09:53] LABS: Magnesium 1.7 mg/dL (1.6-2.3)
--- NOTE | 2022-11-11 10:20 | PC.NURSE ---
amiodarone continues for frequent runs vt/svt. Dr. Chau updated on pt condition, requested we contact surgeon to check status of possible surgery. Call placed to OR and message left for Dr. Stevens.
[2022-11-11] MEDS: MAGNESIUM SULFATE 2 GM/50 ML PIGGYBACK IV (10:34)
--- NOTE | 2022-11-11 10:44 | P.PN_ITS ---
Exam Vital Signs (past 8 hours): - 11/11/22 03:00 11/11/22 03:00 11/11/22 03:30 Temperature Pulse Rate 147 H Respiratory Rate 30 H Blood Pressure 157/79 H 149/81 H Pulse Oximetry 92 Oxygen Delivery Method Oxygen Flow Rate 0 Fraction of Inspired Oxygen 11/11/22 03:30 11/11/22 04:00 11/11/22 04:00 Temperature 97.6 F Pulse Rate 124 H 148 H Respiratory Rate 29 H 28 H Blood Pressure 147/87 H Pulse Oximetry 94 94 Oxygen Delivery Method Oxygen Flow Rate 2 Fraction of Inspired Oxygen 11/11/22 04:30 11/11/22 04:30 11/11/22 05:00 Temperature Pulse Rate 70 74 Respiratory Rate 31 H 28 H Blood Pressure 134/65 129/96 H Pulse Oximetry 93 95 Oxygen Delivery Method Oxygen Flow Rate 2 Fraction of Inspired Oxygen 11/11/22 05:30 11/11/22 05:30 11/11/22 06:00 Temperature Pulse Rate 69 Respiratory Rate 28 H Blood Pressure 146/65 H 146/67 H Pulse Oximetry Oxygen Delivery Method Oxygen Flow Rate Fraction of Inspired Oxygen 11/11/22 06:00 11/11/22 06:30 11/11/22 06:30 Temperature Pulse Rate 69 69 Respiratory Rate 24 24 Blood Pressure 151/76 H Pulse Oximetry 94 95 Oxygen Delivery Method Oxygen Flow Rate 1 Fraction of Inspired Oxygen 11/11/22 07:00 11/11/22 07:00 11/11/22 07:30 Temperature Pulse Rate 69 67 Respiratory Rate 23 26 H Blood Pressure 157/72 H Pulse Oximetry 94 93 Oxygen Delivery Method Oxygen Flow Rate Fraction of Inspired Oxygen 11/11/22 07:31 11/11/22 07:31 11/11/22 08:00 Temperature Pulse Rate 67 Respiratory Rate 27 H Blood Pressure 134/63 148/71 H Pulse Oximetry 93 Oxygen Delivery Method Oxygen Flow Rate Fraction of Inspired Oxygen 11/11/22 08:00 11/11/22 08:00 11/11/22 08:48 Temperature Pulse Rate 64 96 H Respiratory Rate 23 Blood Pressure 154/67 H Pulse Oximetry 96 Oxygen Delivery Method Nasal Cannula Oxygen Flow Rate Fraction of Inspired Oxygen 11/11/22 09:00 11/11/22 09:20 11/11/22 08:45 Temperature 97.6 F Pulse Rate 153 H 140 H 64 Respiratory Rate 26 H Blood Pressure 127/69 138/68 Pulse Oximetry 94 93 Oxygen Delivery Method Nasal Cannula Oxygen Flow Rate 1 Fraction of Inspired Oxygen 24 11/11/22 08:30 11/11/22 08:30 11/11/22 08:57 Temperature Pulse Rate 64 68 Respiratory Rate 18 24 Blood Pressure 154/67 H Pulse Oximetry 95 94 Oxygen Delivery Method Oxygen Flow Rate Fraction of Inspired Oxygen 11/11/22 08:57 11/11/22 09:00 11/11/22 09:00 Temperature Pulse Rate 146 H Respiratory Rate 24 Blood Pressure 135/74 127/69 Pulse Oximetry 94 Oxygen Delivery Method Oxygen Flow Rate Fraction of Inspired Oxygen 11/11/22 09:30 11/11/22 09:30 11/11/22 09:39 Temperature Pulse Rate 146 H 66 Respiratory Rate 22 27 H Blood Pressure 128/79 Pulse Oximetry 94 93 Oxygen Delivery Method Oxygen Flow Rate Fraction of Inspired Oxygen 11/11/22 09:39 11/11/22 10:00 11/11/22 10:00 Temperature Pulse Rate 139 H Respiratory Rate 26 H Blood Pressure 138/61 133/83 Pulse Oximetry 94 Oxygen Delivery Method Oxygen Flow Rate Fraction of Inspired Oxygen Fraction of Inspired Oxygen 24 SaO2/FiO2 Ratio 387 Oxygen Delivery Method Nasal Cannula Oxygen Flow Rate 1 Narrative Exam Narrative: NAD, normal speech and calm. Atraumatic head, EOMI. Neck supple and midline trachea. Lungs CTA, normal rate and effort. Heart RRR, without murmur, gallop, or rub. Abdomen Soft, NT, ND No leg edema. No skin rash. Objective Labs 11/09/22 05:07 11/11/22 06:08 Labs: Laboratory Results - last 24 hr 11/10/22 11/10/22 11/10/22 15:20 19:05 23:45 APTT 39 H Sodium 128 L Potassium 3.6 Chloride 98 Carbon Dioxide 20 L BUN 8 Creatinine 0.59 Estimated GFR > 60 BUN/Creatinine Ratio 13.6 Glucose 221 H Calcium 8.3 L Magnesium 1.8 Total Bilirubin 0.9 AST 29 ALT 161 H Alkaline Phosphatase 215 H Troponin I < 0.012 Total Protein 5.9 L Albumin 3.1 L Globulin 2.8 Albumin/Globulin Ratio 1.1 11/11/22 11/11/22 11/11/22 06:08 06:08 09:39 APTT 36 Sodium 129 L Potassium 3.5 Chloride 99 Carbon Dioxide 21 L BUN 8 Creatinine 0.61 Estimated GFR > 60 BUN/Creatinine Ratio 13.1 Glucose 205 H Calcium 8.1 L Magnesium 1.7 Total Bilirubin 1.0 AST 22 ALT 127 H Alkaline Phosphatase 231 H Troponin I Total Protein 5.7 L Albumin 2.9 L Globulin 2.8 Albumin/Globulin Ratio 1.0 COUNT INCLUDES THE [facility] Medical History Anxiety disorder, unspecified Benign essential HTN Cervical cancer (~1979) Chicken pox (~1964) COPD (chronic obstructive pulmonary disease) Essential hypertension Eustachian tube disorder JUANA (generalized anxiety disorder) (~1987) GERD (gastroesophageal reflux disease) History of cervical cancer in adulthood History of recurrent ear infection Hyperlipidemia Hyperthyroidism (~1991) Hypothyroidism Hypothyroidism Iron deficiency anemia Long-term current use of insulin for diabetes mellitus Low back pain Major depression Major depressive disorder, single episode, unspecified Measles (~1964) Mixed hyperlipidemia Mumps (~1964) Neuropathy of both feet Obesity (BMI 30-39.9) Paroxysmal atrial fibrillation Progressive hearing loss of both ears PTSD (post-traumatic stress disorder) Tremor Type 2 diabetes mellitus with diabetic neuropathy, unspecified Type 2 diabetes mellitus with diabetic neuropathy, with long-term current use of insulin (~1988) Surgical History Anesthesia History of arthroscopic surgery of shoulder History of carpal tunnel release History of hysterectomy History of laparoscopic adjustable gastric banding Family History Mother Congestive heart failure Lung cancer Hyperlipidemia Hypertension Father COPD (chronic obstructive pulmonary disease) Cardiovascular disease Diabetes mellitus History of heart disease Hypertension Hyperlipidemia Social History household members: spouse Smoking Status: Never smoker alcohol intake: never Assessment & Plan Assessment & Plan narrative: 62-year-old female with a history of psychiatric illness, paroxysmal atrial fibrillation, Pradaxa anticoagulation, COPD, laparoscopic adjustable band, diabetes mellitus type 2, hypothyroidism, hysterectomy for cervical cancer.? She is admitted for calculus cholecystitis. Complicated by VT night of 11/09. 1. VT required cardioversion, new and active -continue amiodarone infusion -replete and monitor lytes -cardiac ECHO to assess heart structurally -dw cards (SRC) after ECHO 2. Acalculus cholecystitis, POA and active. -4 days of epigastric pain, right upper quadrant pain, with nausea and vomiting and has elevated LFTs -Zosyn IV Q8 -N.p.o. ?Normal saline -Dr. Johnson from general surgery was consulted by the ER ?Last Pradaxa dose was on Tuesday morning 11/08 -surgery on hold pending cardiac issues resolution. 3. Hyponatremia (hypovolemic), POA and active. -Related to nausea and vomiting -Normal saline, continuous infusion. 4. Atrial fibrillation Paroxysmal (and chronic LBBB). POA and stable. -Normal sinus rhythm with left bundle branch block -Telemetry -Metoprolol IV 5. Diabetes mellitus type 2, POA and stable. -Requires insulin and oral hypoglycemics -continue Lantus -Sliding scale -Hypoglycemics DVT Risk? -SCDs -Hold Eliquis CODE STATUS:? -Full Code Time Spent With Patient Time with patient: 30 to 49 minutes with 50% spent counseling/coordinating care Quality VTE Deep Vein Thrombosis/Pulmonary Embolism Present on Admission: No
--- NOTE | 2022-11-11 10:51 | P.TELICUCN_ITS ---
History of Present Illness Consult details IF CAMERA ACTIVATED, patient seen via real-time interactive audiovisual communication: Camera activated Chief complaint: Abd pain Consent obtained for tele-electrical technician instructor care: Yes Patient Location: ICU Provider location (State): [place] Other participants/roles: Dr. Lowe bedside nursing team Narrative: 62 year old female admitted to ICU for acute cholesystisis with plan for OR. OR canceled patient had vtach/afib which required cardioversion. no acute events overnight currently no complaints [facility] Medical History Anxiety disorder, unspecified Benign essential HTN Cervical cancer (~1979) Chicken pox (~1964) COPD (chronic obstructive pulmonary disease) Essential hypertension Eustachian tube disorder JUAAN (generalized anxiety disorder) (~1987) GERD (gastroesophageal reflux disease) History of cervical cancer in adulthood History of recurrent ear infection Hyperlipidemia Hyperthyroidism (~1991) Hypothyroidism Hypothyroidism Iron deficiency anemia Long-term current use of insulin for diabetes mellitus Low back pain Major depression Major depressive disorder, single episode, unspecified Measles (~1964) Mixed hyperlipidemia Mumps (~1964) Neuropathy of both feet Obesity (BMI 30-39.9) Paroxysmal atrial fibrillation Progressive hearing loss of both ears PTSD (post-traumatic stress disorder) Tremor Type 2 diabetes mellitus with diabetic neuropathy, unspecified Type 2 diabetes mellitus with diabetic neuropathy, with long-term current use of insulin (~1988) Surgical History Anesthesia History of arthroscopic surgery of shoulder History of carpal tunnel release History of hysterectomy History of laparoscopic adjustable gastric banding Family History Mother Congestive heart failure Lung cancer Hyperlipidemia Hypertension Father COPD (chronic obstructive pulmonary disease) Cardiovascular disease Diabetes mellitus History of heart disease Hypertension Hyperlipidemia Social History household members: spouse Smoking Status: Never smoker alcohol intake: never Current Medications Current Medications Medications: Home Medications alpha lipoic acid 600 mg capsule 600 mg PO BID 02/10/22 [History Confirmed 11/09/22] aspirin 81 mg tablet,delayed release (Adult Aspirin Regimen) 81 mg PO DAILY A- fib 02/10/22 [History Confirmed 11/09/22] cetirizine 10 mg tablet (Aller-Rosibel) 10 mg PO DAILY PRN Allergy Symptoms 02/10/22 [History Confirmed 11/09/22] cholecalciferol (vitamin D3) 25 mcg (1,000 unit) capsule 25 mcg PO DAILY 02/10/22 [History Confirmed 11/09/22] chromium picolinate 400 mcg tablet 800 mcg PO DAILY 02/10/22 [History Confirmed 11/09/22] coenzyme Q10 [H2Q CoQ10] See Rx Instructions .Route .COMPLEX 02/10/22 [History Confirmed 11/09/22] cranberry extract See Rx Instructions .Route .COMPLEX cholesterol control 02/10/22 [History Confirmed 11/09/22] dabigatran etexilate 150 mg capsule (Pradaxa) 150 mg PO BID #180 caps 02/10/22 [Rx Confirmed 11/09/22] duloxetine 20 mg capsule,delayed release (Cymbalta) 20 mg PO DAILY #90 caps 02/10/22 [Rx Confirmed 11/09/22] duloxetine 60 mg capsule,delayed release 60 mg PO DAILY #90 caps 02/10/22 [Rx Confirmed 11/09/22] metformin 500 mg tablet 1,000 mg PO BID #360 tabs 02/10/22 [Rx Confirmed 11/09/22] pantoprazole 40 mg tablet,delayed release 40 mg PO DAILY #90 tabs 02/10/22 [Rx Confirmed 11/09/22] rosuvastatin 40 mg tablet 40 mg PO BEDTIME #90 tabs 02/10/22 [Rx Confirmed 11/09/22] insulin lispro 100 unit/mL subcutaneous pen (Humalog KwikPen (U-100) Insulin) See Rx Instructions .Route .COMPLEX 04/06/22 [History Confirmed 11/09/22] liraglutide 0.6 mg/0.1 mL (18 mg/3 mL) subcutaneous pen injector (Victoza 2-Cecilio) 0.6 mg (0.1 mL) SUBCUT DAILY diabetes #18 mL 05/26/22 [Rx Confirmed 11/09/22] metoprolol succinate 50 mg tablet,extended release 24 hr 50 mg PO BID #180 tabs 07/05/22 [Rx Confirmed 11/09/22] clonazepam 0.5 mg tablet 0.5 mg PO BEDTIME Anxiety #30 tabs 08/12/22 [Rx Confirmed 11/09/22] levothyroxine 100 mcg tablet 100 mcg PO DAILY #90 tabs 11/02/22 [Rx Confirmed 11/09/22] aripiprazole 5 mg tablet 5 mg PO DAILY depression 11/09/22 [History Confirmed 11/09/22] benazepril 20 mg tablet 20 mg PO DAILY High blood pressure 11/09/22 [History Confirmed 11/09/22] blood sugar diagnostic (True Metrix Glucose Test Strip) 11/09/22 [History Confirmed 11/09/22] insulin detemir U-100 100 unit/mL subcutaneous solution (Levemir U-100 Insulin) 50 unit SUBCUT BID 11/09/22 [History Confirmed 11/09/22] Visit Medications (administered) Generic Name Dose Route Start Last Admin Trade Name Freq PRN Reason Stop Dose Admin Aripiprazole 5 mg 11/09/22 15:30 11/11/22 08:47 Aripiprazole 10 Mg Tablet PO 5 mg DAILY TEODORO Administration Aspirin 81 mg 11/10/22 10:30 11/11/22 08:50 Aspirin Ec 81 Mg Tablet PO 81 mg DAILY TEODORO Administration Atorvastatin Calcium 80 mg 11/10/22 21:00 11/10/22 20:28 Atorvastatin 20 Mg Tablet PO 80 mg BEDTIME TEODORO Administration Duloxetine HCl 60 mg 11/09/22 15:30 11/11/22 08:49 Duloxetine 30 Mg Capsule PO 60 mg DAILY TEODORO Administration Duloxetine HCl 20 mg 11/09/22 15:30 11/11/22 08:48 Duloxetine 20 Mg Capsule PO 20 mg DAILY TEODORO Administration Piperacillin Sod/Tazobactam 100 mls @ 25 mls/hr 11/09/22 04:00 11/11/22 07:53 Sod 3.375 gm/ Sodium Chloride IV Infused Q8H TEODORO Infusion Sodium Chloride 1,000 mls @ 100 mls/hr 11/09/22 15:30 11/11/22 08:16 Normal Saline 0.9% IV 100 mls/hr CONT TEODORO Administration Heparin Sodium/Dextrose 25,000 unit in 500 mls @ 20 mls/hr 11/10/22 17:30 11/11/22 06:46 Heparin Drip IV 1,100 units/hr CONT TEODORO 22 mls/hr Titration Protocol 1,000 UNITS/HR Amiodarone HCl/Dextrose 360 mg in 200 mls @ 33.333 mls/hr 11/11/22 09:30 11/11/22 09:33 Nexterone IV 11/12/22 09:29 33.33 mg/hr CONT TEODORO 18.517 mls/hr Administration Protocol POTASSIUM CHLORIDE IN WATER 10 meq in 100 mls @ 100 mls/hr 11/11/22 09:30 11/11/22 09:47 Potassium Cl 10 Meq/100 Ml Shae IV 11/11/22 11:29 100 mls/hr Q1H TEODORO Administration Magnesium Sulfate 2 gm in 50 mls @ 25 mls/hr 11/11/22 10:30 11/11/22 10:34 Magnesium Sulfate IV 11/11/22 12:29 25 mls/hr NOW ONE Administration Insulin Human Lispro 0 unit 11/10/22 12:00 11/11/22 06:16 Insulin Lispro 100 Unit/Ml 3ml Vial SUBCUT 4 unit Q6H TEODORO Administration Protocol Levothyroxine Sodium 100 mcg 11/11/22 06:00 11/11/22 06:15 Levothyroxine 100 Mcg Tablet PO 100 mcg 0600 [facility] Administration Metoprolol Succinate 50 mg 11/10/22 10:30 11/11/22 08:48 Metoprolol Er 50 Mg Tablet PO 50 mg BID TEODORO Administration Ondansetron HCl 4 mg 11/09/22 04:01 11/09/22 20:18 Ondansetron 4 Mg/2 Ml Inj IV 4 mg Q8HR PRN Administration Nausea And Vomiting Exam Vital Signs (past 8 hours): - 11/11/22 03:00 11/11/22 03:00 11/11/22 03:30 Temperature Pulse Rate 147 H Respiratory Rate 30 H Blood Pressure 157/79 H 149/81 H Pulse Oximetry 92 Oxygen Delivery Method Oxygen Flow Rate 0 Fraction of Inspired Oxygen 11/11/22 03:30 11/11/22 04:00 11/11/22 04:00 Temperature 97.6 F Pulse Rate 124 H 148 H Respiratory Rate 29 H 28 H Blood Pressure 147/87 H Pulse Oximetry 94 94 Oxygen Delivery Method Oxygen Flow Rate 2 Fraction of Inspired Oxygen 11/11/22 04:30 11/11/22 04:30 11/11/22 05:00 Temperature Pulse Rate 70 74 Respiratory Rate 31 H 28 H Blood Pressure 134/65 129/96 H Pulse Oximetry 93 95 Oxygen Delivery Method Oxygen Flow Rate 2 Fraction of Inspired Oxygen 11/11/22 05:30 11/11/22 05:30 11/11/22 06:00 Temperature Pulse Rate 69 Respiratory Rate 28 H Blood Pressure 146/65 H 146/67 H Pulse Oximetry Oxygen Delivery Method Oxygen Flow Rate Fraction of Inspired Oxygen 11/11/22 06:00 11/11/22 06:30 11/11/22 06:30 Temperature Pulse Rate 69 69 Respiratory Rate 24 24 Blood Pressure 151/76 H Pulse Oximetry 94 95 Oxygen Delivery Method Oxygen Flow Rate 1 Fraction of Inspired Oxygen 11/11/22 07:00 11/11/22 07:00 11/11/22 07:30 Temperature Pulse Rate 69 67 Respiratory Rate 23 26 H Blood Pressure 157/72 H Pulse Oximetry 94 93 Oxygen Delivery Method Oxygen Flow Rate Fraction of Inspired Oxygen 11/11/22 07:31 11/11/22 07:31 11/11/22 08:00 Temperature Pulse Rate 67 Respiratory Rate 27 H Blood Pressure 134/63 148/71 H Pulse Oximetry 93 Oxygen Delivery Method Oxygen Flow Rate Fraction of Inspired Oxygen 11/11/22 08:00 11/11/22 08:00 11/11/22 08:48 Temperature Pulse Rate 64 96 H Respiratory Rate 23 Blood Pressure 154/67 H Pulse Oximetry 96 Oxygen Delivery Method Nasal Cannula Oxygen Flow Rate Fraction of Inspired Oxygen 11/11/22 09:00 11/11/22 09:20 11/11/22 08:45 Temperature 97.6 F Pulse Rate 153 H 140 H 64 Respiratory Rate 26 H Blood Pressure 127/69 138/68 Pulse Oximetry 94 93 Oxygen Delivery Method Nasal Cannula Oxygen Flow Rate 1 Fraction of Inspired Oxygen 11/11/22 08:30 11/11/22 08:30 11/11/22 08:57 Temperature Pulse Rate 64 68 Respiratory Rate 18 24 Blood Pressure 154/67 H Pulse Oximetry 95 94 Oxygen Delivery Method Oxygen Flow Rate Fraction of Inspired Oxygen 11/11/22 08:57 11/11/22 09:00 11/11/22 09:00 Temperature Pulse Rate 146 H Respiratory Rate 24 Blood Pressure 135/74 127/69 Pulse Oximetry 94 Oxygen Delivery Method Oxygen Flow Rate Fraction of Inspired Oxygen 11/11/22 09:30 11/11/22 09:30 11/11/22 09:39 Temperature Pulse Rate 146 H 66 Respiratory Rate 22 27 H Blood Pressure 128/79 Pulse Oximetry 94 93 Oxygen Delivery Method Oxygen Flow Rate Fraction of Inspired Oxygen 11/11/22 09:39 11/11/22 10:00 11/11/22 10:00 Temperature Pulse Rate 139 H Respiratory Rate 26 H Blood Pressure 138/61 133/83 Pulse Oximetry 94 Oxygen Delivery Method Oxygen Flow Rate Fraction of Inspired Oxygen Fraction of Inspired Oxygen 24 SaO2/FiO2 Ratio 387 Oxygen Delivery Method Nasal Cannula Oxygen Flow Rate 1 Objective Labs 11/09/22 05:07 11/11/22 06:08 Labs: Laboratory Results - last 24 hr 11/10/22 11/10/22 11/10/22 15:20 19:05 23:45 APTT 39 H Sodium 128 L Potassium 3.6 Chloride 98 Carbon Dioxide 20 L BUN 8 Creatinine 0.59 Estimated GFR > 60 BUN/Creatinine Ratio 13.6 Glucose 221 H Calcium 8.3 L Magnesium 1.8 Total Bilirubin 0.9 AST 29 ALT 161 H Alkaline Phosphatase 215 H Troponin I < 0.012 Total Protein 5.9 L Albumin 3.1 L Globulin 2.8 Albumin/Globulin Ratio 1.1 11/11/22 11/11/22 11/11/22 06:08 06:08 09:39 APTT 36 Sodium 129 L Potassium 3.5 Chloride 99 Carbon Dioxide 21 L BUN 8 Creatinine 0.61 Estimated GFR > 60 BUN/Creatinine Ratio 13.1 Glucose 205 H Calcium 8.1 L Magnesium 1.7 Total Bilirubin 1.0 AST 22 ALT 127 H Alkaline Phosphatase 231 H Troponin I Total Protein 5.7 L Albumin 2.9 L Globulin 2.8 Albumin/Globulin Ratio 1.0 Assessment & Plan Assessment & Plan narrative: 62 year old with PMHx of AFIB, COPD, Psych issues admitted to ICU with acute cholesystitis vtach s/p cardioversion afib hyponatremia currently afebrile, HD stable mental status intact no complaints wbc 14 echo eF 55% suggest -neurochecks/seizure precautions -avoid benzos/opiods -amio drip, can transition to po -continue metoprolol 50mg q12 -restart ac per primary team -check tsh/[id number] -check cxr -check ekg -cardio eval pending -continue abx, check final cxs -if no surgery plan consider starting diet -if tolerating diet can dc ivf -monitor ins/ous -replace lytes prn -keep glucose 140-180s -gi/dvt ppx -please call eICU if condition changes -d/w at length with Dr. Lowe Time Spent With Patient Time with patient: 30 to 49 minutes with 50% spent counseling/coordinating care
--- NOTE | 2022-11-11 11:08 | DI.RAD.S_ITS ---
PROCEDURE: XR CHEST 1V INDICATIONS: assess for pulm edema, PNA TECHNIQUE: One view of the chest was acquired. COMPARISON: [facility], CR, XR CHEST 1V, 06/06/2022, 10:07. [facility], CR, XR CHEST 1V, 07/12/2020, 14:32. FINDINGS: Surgical changes and devices: None. Lungs and pleura: Lungs are clear. No pleural effusions or pneumothorax. Mediastinum: Mediastinal contours appear normal. Heart size is normal. Bones and chest wall: No suspicious bony lesions. Overlying soft tissues appear unremarkable. IMPRESSION: Portable chest within normal limits for age. Dictated by: Tremayne Walker M.D. on 11/11/2022 at 11:41 Approved by: Tremayne Walker M.D. on 11/11/2022 at 11:42
[2022-11-11 11:34] LABS: Free T3, Triiodothyronine Free 1.92 pg/mL (2.77-5.27)
[2022-11-11 11:48] LABS: TSH w/ Reflex to FT4 0.73 uIU/mL (0.47-4.68)
[2022-11-11 12:20] LABS: PTT Partial Thromboplastin Tim 41 SECONDS (26-36)
[2022-11-11] MEDS: MORPHINE 4 MG/ML INJ 3 MG IV (12:45)
[2022-11-11] MEDS: HEPARIN DRIP 25,000 UNIT/500 ML IV.SOLN 23 UNIT IV (15:51)
--- NOTE | 2022-11-11 20:21 | PM.ICURNDS ---
- :: This patient was seen via real time interactive two-way audiovisual telecommunication. Note: no acute events during the day continue current care
[2022-11-11 20:39] LABS: PTT Partial Thromboplastin Tim 35 SECONDS (26-36)
[2022-11-11] MEDS: ATORVASTATIN 20 MG TABLET 80 MG PO (21:27)
[2022-11-11] MEDS: INSULIN GLARGINE 100 UNIT/ML 3ML PEN 13 UNIT SUBCUT (21:28)
[2022-11-12] VITALS (41 sets, daily range): BP systolic 94–135; BP diastolic 50–79; PULSE 51–60; RESP 13–23; TEMP 36.6–37.1; O2SAT 93–100
[2022-11-12] MEDS: INSULIN LISPRO 100 UNIT/ML 3ML VIAL SUBCUT ×2 (00:13→06:33)
[2022-11-12] MEDS: AMIODARONE 360 MG/200 ML PIGGYBACK 18.517 MG IV ×2 (02:16→08:34)
[2022-11-12 03:22] LABS: Basophils Absolute Auto 0 /uL (0-100); Basophils Percent Auto 0.4 % (0-2); Eosinophils Absolute Auto 200 /uL (0-450); Eosinophils Percent Auto 1.8 % (2-4); Hematocrit 29.7 % (36-46); Hemoglobin 10.2 g/dL (12.0-16.0); Lymphocytes Absolute Auto 500 /uL (1100-4500); Lymphocytes Percent Auto 5.9 % (25-40); Mean Corpuscular HGB Conc 34.3 % (30-36); Mean Corpuscular Volume 81.7 fL (80-100); Monocytes Absolute Auto 700 /uL (0-900); Monocytes Percent Auto 7.9 % (3-14); Neutrophils Absolute Auto 7800 /uL (1500-7000); Platelet Count 234 X10^3/uL (150-400); Red Blood Cell Count 3.63 X10^6/uL (4.0-5.2); Red Cell Distribution Width 25.2 % (11.6-14.8); White Blood Cell Count 9.3 X10^3/uL (4.5-11.0)
[2022-11-12 03:23] LABS: PTT Partial Thromboplastin Tim 43 SECONDS (26-36)
[2022-11-12 03:34] LABS: Alanine Aminotransferase 205 IU/L (<35); Albumin 2.7 g/dL (3.5-5.0); Albumin Globulin Ratio 0.9 (1.0-2.8); Alkaline Phosphatase 544 U/L (38-126); Aspartate Aminotransferase 165 IU/L (14-36); BUN Creatinine Ratio 14.7 (6-22); Bilirubin Total 2.7 mg/dL (0.2-1.3); Blood Urea Nitrogen 10 mg/dL (7-17); Calcium 8.1 mg/dL (8.4-10.2); Carbon Dioxide 24 mmol/L (22-32); Chloride 99 mmol/L (98-107); Estimated Glomerular Filt Rate > 60 mL/min (>60); Glucose 181 mg/dL (80-110); HEMOLYSIS < 15 (0-50); Magnesium 2.2 mg/dL (1.6-2.3); Potassium 3.6 mmol/L (3.4-5.1); Sodium 131 mmol/L (137-145); Total Protein 5.7 g/dL (6.3-8.2)
[2022-11-12 03:58] LABS: Acanthocytes 1+; Anisocytosis 2+; Microcytosis 1+
[2022-11-12] MEDS: SODIUM CHLORIDE 0.9% 1,000 ML 100 ML IV ×2 (04:34→14:12)
[2022-11-12] MEDS: PIPERACILLIN/TAZO 3.375 GM in SODIUM CHLORIDE 0.9% 100 ML IV ×2 (04:35→12:34)
[2022-11-12] MEDS: LEVOTHYROXINE 100 MCG TABLET PO (06:33)
--- NOTE | 2022-11-12 08:02 | P.DS_ITS ---
History of Present Illness <Byron Olivier MD - Last Filed: 11/10/22 18:27> History of Present Illness Date Patient Seen: 11/10/22 Time Patient Seen: 18:19 Chief complaint: Abd pain Narrative: 62-year-old female with a history of psychiatric illness, paroxysmal atrial fibrillation, Pradaxa anticoagulation, COPD, laparoscopic adjustable band, diabetes mellitus type 2, hypothyroidism, hysterectomy for cervical cancer.? For the past 3-4 days she has experienced sharp epigastric pain radiating to the right side of her abdomen associated with nausea.? It would worsen when she would try to eat or drink.? She did feel clammy and did experience some sweats. In the emergency room she did not appear toxic.? She was afebrile with a normal heart rate and her blood pressure was elevated to 154/97.? There was tenderness in the epigastric and right upper upper quadrant regions without surgical signs. Labs are significant for WBC 11.4, sodium 128, bicarb 21, glucose 200, total bilirubin 1.7, AST 397, ALT 508, and alkaline phosphatase of 265.? Lipase was normal.? Urinalysis was negative. Abdominal ultrasound confirmed calculus cholecystitis with associated pericholecystic fluid.? General surgery agrees to consult.? Zosyn, IV fluids, and other as needed medications have been started. 11/09 AM: pain has improved, she is doing well. It is primarily RUQ and does not radiate. It comes and goes and increases with eating. Urine was very dark transiently several days ago. Discharge Providers <Byron Olivier MD - Last Filed: 11/10/22 18:27> Provider Date of admission: 11/09/22 02:23 Primary care physician: Pedro Alberto DO Consults: Surgery Discharge provider: Byron Olivier MD <Will Lowe DO - Last Filed: 11/12/22 08:02> Provider Discharge Date: 11/12/22 Summary <Byron Olivier MD - Last Filed: 11/10/22 18:27> Hospital Course Discharge Diagnosis: Possible sustained ventricular tachycardia, new and active. Paroxysmal atrial fibrillation, not present on admission or active. Acalculous cholecystitis, present on admission and active Hypertension, present on admission and active Anxiety, present on admission and stable PAF, present on admission and stable Diabetes mellitus, present on admission and stable Possible COPD, present on admission and stable Hospital Course: The patient presented with abdominal pain was felt to have acalculous cholecystitis. She was seen by surgery with a decision for cholecystectomy. The surgery was delayed for a day due to scheduling wide complex tachycardia on the senior analytical chemist of November 10 which required cardioversion. She was started on amiodarone and her rhythm strips were reviewed with Cardiology at [facility], with a feeling that this may represent ventricular tachycardia. She does have a chronic left bundle-branch block, also raising the issue of possible aberrant atrial fibrillation. Since admission, and developed a rapid ta chycardia again the afternoon of November 10. This resolved with an additional 150 mg of amiodarone on top of her drip rate of 0.5 milligrams/minute. Reduce Cardiology, the patient's triple be increased to 1 milligram/minute and plan is to transfer to [facility] for further evaluation. Status at Discharge Cognitive/behavioral status at discharge: oriented Functional status at discharge: independent ambulation Overall status at discharge: patient is progressing back to baseline Time Spent with Patient Time spent: Greater than 30 minutes <Will Lowe DO - Last Filed: 11/12/22 08:02> Hospital Course Hospital Course: The patient presented with abdominal pain was felt to have acalculous cholecystitis. Put on Zosyn. She was seen by surgery with a decision for cholecystectomy. The surgery was delayed for a day due to scheduling wide complex tachycardia on the senior analytical chemist of November 10 which required cardioversion. She was started on amiodarone and her rhythm strips were reviewed with Cardiology at [facility], with a feeling that this may represent ventricular tachycardia. She does have a chronic left bundle-branch block, also raising the issue of possible aberrant atrial fibrillation. Since admission, and developed a rapid tachycardia again the afternoon of November 10. This resolved with an additional 150 mg of amiodarone on top of her drip rate of 0.5 milligrams/minute. Per Cardiology, the patient's amio be increased to 1 milligram/minute and plan is to transfer to [facility] for f urther evaluation. Exam <Byron Olivier MD - Last Filed: 11/10/22 18:27> Vital Signs (past 8 hours): - 11/10/22 10:30 11/10/22 10:31 11/10/22 10:31 Temperature Pulse Rate 79 78 Respiratory Rate 18 14 Blood Pressure 182/77 H Pulse Oximetry 95 96 Oxygen Delivery Method 11/10/22 11:00 11/10/22 11:01 11/10/22 11:01 Temperature Pulse Rate 71 75 Respiratory Rate 23 24 Blood Pressure 130/68 Pulse Oximetry 95 96 Oxygen Delivery Method 11/10/22 11:30 11/10/22 11:30 11/10/22 11:30 Temperature Pulse Rate 70 69 Respiratory Rate 26 H Blood Pressure 171/83 H 171/83 H Pulse Oximetry 96 Oxygen Delivery Method 11/10/22 12:00 11/10/22 12:00 11/10/22 12:00 Temperature Pulse Rate 68 Respiratory Rate 23 Blood Pressure 163/78 H Pulse Oximetry 95 Oxygen Delivery Method Room Air 11/10/22 12:23 11/10/22 12:30 11/10/22 12:32 Temperature Pulse Rate 67 67 69 Respiratory Rate 25 H 25 H Blood Pressure 163/78 H Pulse Oximetry 93 93 Oxygen Delivery Method 11/10/22 12:32 11/10/22 13:00 11/10/22 13:30 Temperature Pulse Rate 71 71 Respiratory Rate 24 24 Blood Pressure 171/79 H Pulse Oximetry 90 L 92 Oxygen Delivery Method 11/10/22 14:00 11/10/22 14:30 11/10/22 15:00 Temperature Pulse Rate 71 72 73 Respiratory Rate 19 25 H 27 H Blood Pressure Pulse Oximetry 92 94 95 Oxygen Delivery Method 11/10/22 15:30 11/10/22 15:47 11/10/22 15:47 Temperature Pulse Rate 69 74 Respiratory Rate 26 H 27 H Blood Pressure 168/80 H Pulse Oximetry 94 92 Oxygen Delivery Method 11/10/22 16:00 11/10/22 16:00 11/10/22 16:06 Temperature Pulse Rate 108 H 178 H Respiratory Rate 28 H 23 Blood Pressure 161/77 H Pulse Oximetry 91 95 Oxygen Delivery Method 11/10/22 16:06 11/10/22 16:00 11/10/22 16:00 Temperature 100.5 F H Pulse Rate Respiratory Rate Blood Pressure 138/89 Pulse Oximetry Oxygen Delivery Method Room Air Oxygen Delivery Method Room Air Oxygen Flow Rate 0 Narrative Exam Narrative: NAD, normal speech and calm. Atraumatic head, EOMI. Neck supple and midline trachea. Lungs CTA, normal rate and effort. Heart RRR, without murmur, gallop, or rub. Abdomen Soft, NT, ND No leg edema. No skin rash. Objective <Byron Olivier MD - Last Filed: 11/10/22 18:27> ECG Impression: Wide complex tachycardia Imaging Echo: Radiologist's impression: nterpretation Summary The study quality was technically difficult. The ejection fraction is estimated to be 50-55%. Unable to grade diastolic function. The right ventricle grossly appears normal in size with probable normal systolic function. There is mild mitral regurgitation. Pulmonary artery pressures cannot be estimated because of the lack of a measurable TR jet velocity but the IVC suggests a CVP of around 8 mmHg. ? Compared to the prior study dated 06/07/2022, sinus rhythm with frequent ectopy has replaced atrial fibrillation and there is a very slight reduction in ejection fraction. US - abdomen: Radiologist's impression: IMPRESSION:? ? 1. Cholelithiasis with gallbladder wall thickening and pericholecystic fluid suspicious for cholecystitis. Labs 11/12/22 03:03 11/12/22 03:03 Labs: Laboratory Results - last 24 hr 11/09/22 11/09/22 11/09/22 22:05 22:05 22:05 Sodium 129 L Potassium 3.8 Chloride 99 Carbon Dioxide 21 L BUN 8 Creatinine 0.67 Estimated GFR > 60 BUN/Creatinine Ratio 11.9 Glucose 228 H Calcium 8.9 Magnesium 1.5 L Total Bilirubin AST ALT Alkaline Phosphatase Troponin I < 0.012 Total Protein Albumin Globulin Albumin/Globulin Ratio 11/10/22 11/10/22 11/10/22 04:55 04:55 15:20 Sodium 128 L Potassium 3.9 Chloride 98 Carbon Dioxide 21 L BUN 7 Creatinine 0.65 Estimated GFR > 60 BUN/Creatinine Ratio 10.8 Glucose 245 H Calcium 8.5 Magnesium 1.9 Total Bilirubin 1.1 AST 45 H ALT 234 H Alkaline Phosphatase 216 H Troponin I < 0.012 Total Protein 6.3 Albumin 3.4 L Globulin 2.9 Albumin/Globulin Ratio 1.2 PFSH <Byron Olivier MD - Last Filed: 11/10/22 18:27> Medical History Anxiety disorder, unspecified Benign essential HTN Cervical cancer (~1979) Chicken pox (~1965) COPD (chronic obstructive pulmonary disease) Essential hypertension Eustachian tube disorder JUANA (generalized anxiety disorder) (~1987) GERD (gastroesophageal reflux disease) History of cervical cancer in adulthood History of recurrent ear infection Hyperlipidemia Hyperthyroidism (~1991) Hypothyroidism Hypothyroidism Iron deficiency anemia Long-term current use of insulin for diabetes mellitus Low back pain Major depression Major depressive disorder, single episode, unspecified Measles (~1964) Mixed hyperlipidemia Mumps (~1964) Neuropathy of both feet Obesity (BMI 30-39.9) Paroxysmal atrial fibrillation Progressive hearing loss of both ears PTSD (post-traumatic stress disorder) Tremor Type 2 diabetes mellitus with diabetic neuropathy, unspecified Type 2 diabetes mellitus with diabetic neuropathy, with long-term current use of insulin (~1988) Surgical History Anesthesia History of arthroscopic surgery of shoulder History of carpal tunnel release History of hysterectomy History of laparoscopic adjustable gastric banding Family History Mother Congestive heart failure Lung cancer Hyperlipidemia Hypertension Father COPD (chronic obstructive pulmonary disease) Cardiovascular disease Diabetes mellitus History of heart disease Hypertension Hyperlipidemia Social History household members: spouse Smoking Status: Never smoker alcohol intake: never Discharge Assessment & Plan <Byron Olivier MD - Last Filed: 11/10/22 18:27> Assessment and Plan Assessment: 1. VT required cardioversion, new and active -continue amiodarone infusion -replete and monitor lytes -cardiac ECHO to assess heart structurally, fairly normal. Hypomagnesemia, new and improved. 2. Acalculus cholecystitis, POA and active. -4 days of epigastric pain, right upper quadrant pain, with nausea and vomiting and has elevated LFTs -Zosyn IV Q8 -N.p.o. ?Normal saline -Dr. Johnson from general surgery was consulted by the ER ?Last Pradaxa dose was on Tuesday morning 11/08 -surgery on hold pending cardiac issues resolution. 3. Hyponatremia (hypovolemic), POA and active. -Related to nausea and vomiting -Normal saline, continuous infusion. 4. Atrial fibrillation Paroxysmal (and chronic LBBB). POA and stable. -Normal sinus rhythm with left bundle branch block -Telemetry -Metoprolol IV 5. Diabetes mellitus type 2, POA and stable. -Requires insulin and oral hypoglycemics -Reduce Lantus -Sliding scale -Hypoglycemics Plan of Treatment: Transfer to [facility] Discharge Plan Discharge Plan Patient Disposition: [facility] Discharge Data Primary Care Provider: Pedro Alberto <Byron Olivier MD - Last Filed: 11/10/22 18:27> VTE Deep Vein Thrombosis/Pulmonary Embolism Present on Admission: No
[2022-11-12] MEDS: ARIPiprazole 10 MG TABLET 5 MG PO (08:33)
[2022-11-12] MEDS: DULOXETINE 20 MG CAPSULE PO (08:33)
[2022-11-12] MEDS: DULOXETINE 30 MG CAPSULE 60 MG PO (08:34)
[2022-11-12] MEDS: ASPIRIN EC 81 MG TABLET PO (08:34)
[2022-11-12] MEDS: INSULIN GLARGINE 100 UNIT/ML 3ML PEN 13 UNIT SUBCUT (08:36)
[2022-11-12 09:22] LABS: PTT Partial Thromboplastin Tim 55 SECONDS (26-36)
--- NOTE | 2022-11-12 09:36 | PM.PN.EICU ---
Subjective Subjective IF CAMERA ACTIVATED, patient seen via real-time interactive audiovisual communication: Camera activated Consent obtained for tele-vehicle trimmer care: Yes Patient Location: ICU Provider location (State): [place] Other participants/roles: bedside nursing team Dr. Lowe Interval history: no acute events overnight Current Medications Current Medications Medications: Home Medications alpha lipoic acid 600 mg capsule 600 mg PO BID 02/10/22 [History Confirmed 11/09/22] aspirin 81 mg tablet,delayed release (Adult Aspirin Regimen) 81 mg PO DAILY A-fib 02/10/22 [History Confirmed 11/09/22] cetirizine 10 mg tablet (Aller-Rosibel) 10 mg PO DAILY PRN Allergy Symptoms 02/10/22 [History Confirmed 11/09/22] cholecalciferol (vitamin D3) 25 mcg (1,000 unit) capsule 25 mcg PO DAILY 02/10/22 [History Confirmed 11/09/22] chromium picolinate 400 mcg tablet 800 mcg PO DAILY 02/10/22 [History Confirmed 11/09/22] coenzyme Q10 [H2Q CoQ10] See Rx Instructions .Route .COMPLEX 02/10/22 [History Confirmed 11/09/22] cranberry extract See Rx Instructions .Route .COMPLEX cholesterol control 02/10/22 [History Confirmed 11/09/22] dabigatran etexilate 150 mg capsule (Pradaxa) 150 mg PO BID #180 caps 02/10/22 [Rx Confirmed 11/09/22] duloxetine 20 mg capsule,delayed release (Cymbalta) 20 mg PO DAILY #90 caps 02/10/22 [Rx Confirmed 11/09/22] duloxetine 60 mg capsule,delayed release 60 mg PO DAILY #90 caps 02/10/22 [Rx Confirmed 11/09/22] metformin 500 mg tablet 1,000 mg PO BID #360 tabs 02/10/22 [Rx Confirmed 11/09/22] pantoprazole 40 mg tablet,delayed release 40 mg PO DAILY #90 tabs 02/10/22 [Rx Confirmed 11/09/22] rosuvastatin 40 mg tablet 40 mg PO BEDTIME #90 tabs 02/10/22 [Rx Confirmed 11/09/22] insulin lispro 100 unit/mL subcutaneous pen (Humalog KwikPen (U-100) Insulin) See Rx Instructions .Route .COMPLEX 04/06/22 [History Confirmed 11/09/22] liraglutide 0.6 mg/0.1 mL (18 mg/3 mL) subcutaneous pen injector (Victoza 2-Cecilio) 0.6 mg (0.1 mL) SUBCUT DAILY diabetes #18 mL 05/26/22 [Rx Confirmed 11/09/22] metoprolol succinate 50 mg tablet,extended release 24 hr 50 mg PO BID #180 tabs 07/05/22 [Rx Confirmed 11/09/22] clonazepam 0.5 mg tablet 0.5 mg PO BEDTIME Anxiety #30 tabs 08/12/22 [Rx Confirmed 11/09/22] levothyroxine 100 mcg tablet 100 mcg PO DAILY #90 tabs 11/02/22 [Rx Confirmed 11/09/22] aripiprazole 5 mg tablet 5 mg PO DAILY depression 11/09/22 [History Confirmed 11/09/22] benazepril 20 mg tablet 20 mg PO DAILY High blood pressure 11/09/22 [History Confirmed 11/09/22] blood sugar diagnostic (True Metrix Glucose Test Strip) 11/09/22 [History Confirmed 11/09/22] insulin detemir U-100 100 unit/mL subcutaneous solution (Levemir U-100 Insulin) 50 unit SUBCUT BID 11/09/22 [History Confirmed 11/09/22] Visit Medications (administered) Generic Name Dose Route Start Last Admin Trade Name Latrellq PRN Reason Stop Dose Admin Aripiprazole 5 mg 11/09/22 15:30 11/12/22 08:33 Aripiprazole 10 Mg Tablet PO 5 mg DAILY TEODORO Administration Aspirin 81 mg 11/10/22 10:30 11/12/22 08:34 Aspirin Ec 81 Mg Tablet PO 81 mg DAILY TEODORO Administration Atorvastatin Calcium 80 mg 11/10/22 21:00 11/11/22 21:27 Atorvastatin 20 Mg Tablet PO 80 mg BEDTIME TEODORO Administration Duloxetine HCl 60 mg 11/09/22 15:30 11/12/22 08:34 Duloxetine 30 Mg Capsule PO 60 mg DAILY TEODORO Administration Duloxetine HCl 20 mg 11/09/22 15:30 11/12/22 08:33 Duloxetine 20 Mg Capsule PO 20 mg DAILY TEODORO Administration Piperacillin Sod/Tazobactam 100 mls @ 25 mls/hr 11/09/22 04:00 11/12/22 04:35 Sod 3.375 gm/ Sodium Chloride IV 25 mls/hr Q8H TEODORO Administration Sodium Chloride 1,000 mls @ 100 mls/hr 11/09/22 15:30 11/12/22 04:34 Normal Saline 0.9% IV 100 mls/hr CONT TEODORO Administration Heparin Sodium/Dextrose 25,000 unit in 500 mls @ 20 mls/hr 11/10/22 17:30 11/12/22 03:33 Heparin Drip IV 1,250 units/hr CONT TEODORO 25 mls/hr Titration Protocol 1,000 UNITS/HR Insulin Glargine 13 unit 11/11/22 21:00 11/12/22 08:36 Insulin Glargine 100 Unit/Ml 3ml Pen SUBCUT 13 unit BID TEODORO Administration Insulin Human Lispro 0 unit 11/10/22 12:00 11/12/22 06:33 Insulin Lispro 100 Unit/Ml 3ml Vial SUBCUT 4 unit Q6H TEODORO Administration Protocol Levothyroxine Sodium 100 mcg 11/11/22 06:00 11/12/22 06:33 Levothyroxine 100 Mcg Tablet PO 100 mcg 0600 [facility] Administration Metoprolol Succinate 50 mg 11/10/22 10:30 11/12/22 08:40 Metoprolol Er 50 Mg Tablet PO Not Given BID [facility] Morphine Sulfate 3 mg 11/09/22 04:01 11/11/22 12:45 Morphine 4 Mg/Ml Inj IV 3 mg Q4HR PRN Administration Pain, Severe (7-10) Ondansetron HCl 4 mg 11/09/22 04:01 11/09/22 20:18 Ondansetron 4 Mg/2 Ml Inj IV 4 mg Q8HR PRN Administration Nausea And Vomiting Objective Labs 11/12/22 03:03 11/12/22 03:03 Labs: Laboratory Results - last 24 hr 11/11/22 11/11/22 11/11/22 06:08 09:39 12:00 WBC RBC Hgb Hct MCV MCH MCHC RDW Plt Count Neut % (Auto) Lymph % (Auto) [place] % (Auto) Eos % (Auto) Baso % (Auto) Neut # (Auto) Lymph # (Auto) [place] # (Auto) Eos # (Auto) Baso # (Auto) RBC Morphology Anisocytosis Microcytosis Acanthocytes (Spur) APTT 41 H Sodium Potassium Chloride Carbon Dioxide BUN Creatinine Estimated GFR BUN/Creatinine Ratio Glucose Calcium Magnesium 1.7 Total Bilirubin AST ALT Alkaline Phosphatase Total Protein Albumin Globulin Albumin/Globulin Ratio TSH 0.73 Free T3 1.92 L 11/11/22 11/12/22 11/12/22 20:18 03:03 03:03 WBC 9.3 RBC 3.63 L Hgb 10.2 L Hct 29.7 L MCV 81.7 MCH 28.0 MCHC 34.3 RDW 25.2 H Plt Count 234 Neut % (Auto) 84.0 H Lymph % (Auto) 5.9 L [place] % (Auto) 7.9 Eos % (Auto) 1.8 L Baso % (Auto) 0.4 Neut # (Auto) 7800 H Lymph # (Auto) 500 L [place] # (Auto) 700 Eos # (Auto) 200 Baso # (Auto) 0 RBC Morphology See below Anisocytosis 2+ H Microcytosis 1+ H Acanthocytes (Spur) 1+ H APTT 35 Sodium 131 L Potassium 3.6 Chloride 99 Carbon Dioxide 24 BUN 10 Creatinine 0.68 Estimated GFR > 60 BUN/Creatinine Ratio 14.7 Glucose 181 H Calcium 8.1 L Magnesium Total Bilirubin 2.7 H AST 165 H ALT 205 H Alkaline Phosphatase 544 H D Total Protein 5.7 L Albumin 2.7 L Globulin 3.0 Albumin/Globulin Ratio 0.9 L TSH Free T3 11/12/22 11/12/22 03:03 03:03 WBC RBC Hgb Hct MCV MCH MCHC RDW Plt Count Neut % (Auto) Lymph % (Auto) [place] % (Auto) Eos % (Auto) Baso % (Auto) Neut # (Auto) Lymph # (Auto) [place] # (Auto) Eos # (Auto) Baso # (Auto) RBC Morphology Anisocytosis Microcytosis Acanthocytes (Spur) APTT 43 H D Sodium Potassium Chloride Carbon Dioxide BUN Creatinine Estimated GFR BUN/Creatinine Ratio Glucose Calcium Magnesium 2.2 Total Bilirubin AST ALT Alkaline Phosphatase Total Protein Albumin Globulin Albumin/Globulin Ratio TSH Free T3 Exam Vital Signs (past 8 hours): - 11/12/22 02:00 11/12/22 02:00 11/12/22 02:30 Temperature Pulse Rate 57 L Respiratory Rate 21 Blood Pressure 102/54 L 106/53 L Pulse Oximetry 95 Oxygen Delivery Method 11/12/22 02:30 11/12/22 03:00 11/12/22 03:00 Temperature Pulse Rate 55 L 56 L Respiratory Rate 19 21 Blood Pressure 94/54 L Pulse Oximetry 97 94 Oxygen Delivery Method 11/12/22 04:00 11/12/22 03:30 11/12/22 03:30 Temperature Pulse Rate 55 L Respiratory Rate 20 Blood Pressure 102/55 L Pulse Oximetry 96 Oxygen Delivery Method Room Air 11/12/22 04:00 11/12/22 04:01 11/12/22 04:01 Temperature Pulse Rate 56 L 55 L Respiratory Rate 23 20 Blood Pressure 109/51 L Pulse Oximetry 96 97 Oxygen Delivery Method 11/12/22 04:30 11/12/22 04:30 11/12/22 05:00 Temperature Pulse Rate 54 L Respiratory Rate 21 Blood Pressure 102/51 L 101/53 L Pulse Oximetry 97 Oxygen Delivery Method 11/12/22 05:00 11/12/22 05:30 11/12/22 05:30 Temperature Pulse Rate 55 L 55 L Respiratory Rate 20 13 Blood Pressure 122/58 L Pulse Oximetry 96 96 Oxygen Delivery Method 11/12/22 06:00 11/12/22 06:00 11/12/22 06:30 Temperature Pulse Rate 52 L Respiratory Rate 18 Blood Pressure 101/55 L 98/54 L Pulse Oximetry 96 Oxygen Delivery Method 11/12/22 06:30 11/12/22 07:00 11/12/22 07:00 Temperature Pulse Rate 56 L 52 L Respiratory Rate 16 15 Blood Pressure 99/54 L Pulse Oximetry 97 96 Oxygen Delivery Method 11/12/22 07:30 11/12/22 07:30 11/12/22 08:00 Temperature Pulse Rate 52 L Respiratory Rate 20 Blood Pressure 108/55 L 112/55 L Pulse Oximetry 95 Oxygen Delivery Method 11/12/22 08:00 Temperature 98.7 F Pulse Rate 53 L Respiratory Rate 22 Blood Pressure Pulse Oximetry 98 Oxygen Delivery Method Fraction of Inspired Oxygen 24 SaO2/FiO2 Ratio 387 Oxygen Delivery Method Room Air Oxygen Flow Rate 1 Quality TeleICU VTE Deep Vein Thrombosis/Pulmonary Embolism Present on Admission: No Assessment & Plan Assessment & Plan narrative: 62 year old with PMHx of AFIB, COPD, Psych issues admitted to ICU with acute cholesystitis vtach s/p cardioversion afib hyponatremia currently afebrile, HD stable mental status intact no complaints wbc 14 echo eF 55% ast/alt 165/505 alk 544 suggest -neurochecks/seizure precautions -avoid benzos/opiods -consider stopping amio, montior LFTs -repeat ruq sono -continue metoprolol 50mg q12 -restart ac per primary team -xfer pending for cardio eval -continue abx, check final cxs -TFTs wnl -monitor ins/ous -replace lytes prn -keep glucose 140-180s -gi/dvt ppx -please call eICU if condition changes -d/w at length with Dr. Lowe Time Spent With Patient Time with patient: 30 to 49 minutes with 50% spent counseling/coordinating care
[2022-11-12] MEDS: HEPARIN DRIP 25,000 UNIT/500 ML IV.SOLN 25 UNIT IV (12:43)
--- NOTE | 2022-11-12 14:24 | ONC.MSW ---
DCP Cont. Reviewed chart and team rounds for evolving d/c planning needs. Pt is pending transfer to [facility] for a higher level of care, waiting for bed. Will continue to monitor any further inpt support/planning needs.
--- NOTE | 2022-11-12 17:50 | PC.NURSE ---
Addendum entered by Suzan Lin R.N. 11/12/22 18:33: 1830 Pt left via ALS, no further pt contact at this time Original Note: Pt to transfer to [address] [place] [address] [address]m [address]4, report called to Nurse in care at [facility], pick-up by ALS transport at 1845, all pt belongings taken home by pt . Pt will transport with glasses and jewelry in her possession.
== END 2022-11-12 18:30 | disposition short-term general hospital (02) ==
LOC: ED 21:32 → AC 11-09 02:24 → ICU 11-09 22:18
PROVIDERS: Family Medicine; Hospitalist; Internal Medicine Critical Care Medicine; Student in an Organized Health Care Education/Training Program; Surgery; Admitting Provider Specialist; Emergency Provider Emergency Medicine; PCP Family Medicine; Referring Provider Emergency Medicine; Visit Provider Specialist
DX: K80.00 Calculus of gallbladder with acute cholecystitis without obstruction (principal); I47.20 Ventricular tachycardia, unspecified; E87.1 Hypo-osmolality and hyponatremia; I48.0 Paroxysmal atrial fibrillation; E11.9 Type 2 diabetes mellitus without complications; I10 Essential (primary) hypertension; F41.9 Anxiety disorder, unspecified; J44.9 Chronic obstructive pulmonary disease, unspecified; E83.42 Hypomagnesemia; Z79.4 Long term (current) use of insulin; Z79.01 Long term (current) use of anticoagulants; Z79.84 Long term (current) use of oral hypoglycemic drugs
CPT/HCPCS: 36415; 36592; 71045; 76700; 80048; 80053; 81003; 82140; 82550; 82962; 83690; 83735; 84443; 84481; 84484; 85025; 85730; 93005; 93306; 96365; 96375; 99232; 99284; 99285; J0282; J1644; J1815; J1885; J2060; J2270; J2405; J2543; J3475; J7050

== ENCOUNTER → 2022-12-20 11:28 | Outpatient (CLI) | payer OTHER, SELFPAY ==
[2022-11-09 02:52] VITALS: BMI 33.5
[2022-12-20 13:34] LABS: Add Manual Diff / Slide Review NO; Basophils Absolute Auto 100 /uL (0-100); Basophils Percent Auto 0.8 % (0-2); Eosinophils Absolute Auto 200 /uL (0-450); Eosinophils Percent Auto 2.5 % (2-4); Hematocrit 39.1 % (36-46); Hemoglobin 13.5 g/dL (12.0-16.0); Lymphocytes Absolute Auto 1000 /uL (1100-4500); Lymphocytes Percent Auto 15.1 % (25-40); Mean Corpuscular HGB Conc 34.4 % (30-36); Mean Corpuscular Hemoglobin 29.3 PG (26-34); Monocytes Absolute Auto 600 /uL (0-900); Monocytes Percent Auto 8.3 % (3-14); Neutrophils Absolute Auto 4900 /uL (1500-7000); Neutrophils Percent Auto 73.3 % (50-75); Platelet Count 376 X10^3/uL (150-400); Red Cell Distribution Width 14.7 % (11.6-14.8); White Blood Cell Count 6.7 X10^3/uL (4.5-11.0)
[2022-12-20 13:43] LABS: Alanine Aminotransferase 58 IU/L (<35); Albumin 4.2 g/dL (3.5-5.0); Albumin Globulin Ratio 1.6 (1.0-2.8); Alkaline Phosphatase 70 U/L (38-126); Aspartate Aminotransferase 53 IU/L (14-36); BUN Creatinine Ratio 14.9 (6-22); Bilirubin Total 0.6 mg/dL (0.2-1.3); Blood Urea Nitrogen 10 mg/dL (7-17); Calcium 10.3 mg/dL (8.4-10.2); Carbon Dioxide 25 mmol/L (22-32); Chloride 97 mmol/L (98-107); Estimated Glomerular Filt Rate > 60 mL/min (>60); Globulin 2.6 g/dL (1.7-4.1); Glucose 86 mg/dL (80-110); HEMOLYSIS < 15 (0-50); Sodium 132 mmol/L (137-145); Total Protein 6.8 g/dL (6.3-8.2)
[2022-12-20 13:44] LABS: Potassium 5.4 mmol/L (3.4-5.1)
[2022-12-20 13:48] LABS: Lipase 295 U/L (23-300)
[2022-12-20 14:10] LABS: TSH w/ Reflex to FT4 0.05 uIU/mL (0.47-4.68)
[2022-12-20 14:35] LABS: Free T4, Direct Thyroxine 2.67 ng/dL (0.78-2.19)
== END ==
PROVIDERS: PCP Family Medicine; Referring Provider Surgery; Visit Provider Surgery
DX: K81.9 Cholecystitis, unspecified (principal); E11.40 Type 2 diabetes mellitus with diabetic neuropathy, unspecified; Z79.4 Long term (current) use of insulin; I10 Essential (primary) hypertension; I48.91 Unspecified atrial fibrillation; D50.9 Iron deficiency anemia, unspecified
CPT/HCPCS: 36415; 80053; 83036; 83690; 84439; 84443; 85025

== ENCOUNTER → 2022-12-23 13:48 | Outpatient (CLI) | payer OTHER, SELFPAY ==
[2022-11-09 02:52] VITALS: BMI 33.5
--- NOTE | 2022-12-23 13:50 | DI.CT.S_ITS ---
PROCEDURE: CT ABDOMEN PELVIS W CON INDICATIONS: Cholecystitis with percutaneous drain TECHNIQUE: After the administration of oral and IV contrast, axial sections were acquired from the lung bases to the pubic symphysis. Coronal and sagittal reformats were performed. For radiation dose reduction, the following was used: automated exposure control, adjustment of mA and/or kV according to patient size. COMPARISON: [facility], US, US ABDOMEN COMPLETE, 11/08/2022, 22:35. FINDINGS: Image quality: Excellent. Lung bases: Unremarkable. Small hiatal hernia. There is concentric thickening of the distal esophagus. Heart: No significant findings. ABDOMEN: There is a percutaneous transhepatic cholecystostomy. Approximately 13 mL dilute Gastrografin was injected through the cholecystectomy. The patient was scanned initially without intravenous contrast, and than after intravenous contrast administration. Liver: Unremarkable. Gallbladder: There is a transhepatic percutaneous cystostomy with a catheter within the gallbladder. Injection through the gallbladder demonstrates a opacification of gallbladder. There are multiple gallstones. Gallbladder wall is thickened. Air within the gallbladder lumen is likely iatrogenic. There is no contrast extravasation in the gallbladder fossa suggesting gallbladder perforation. Biliary ducts: There is mild intrahepatic and extrahepatic biliary dilation. The distal common bile duct appears slightly irregular. Cannot rule out small retained stones in the distal common bile duct. Pancreas: Unremarkable. Spleen: Unremarkable. Adrenal Glands: Unremarkable. Kidneys and Ureters: Unremarkable. Stomach and Bowel: There is gastric banding. Stomach, small bowel loops, and colon are unremarkable. Moderate amount of stool in colon. Peritoneum: No abnormal intraperitoneal fluid. No free air. Ventral Wall: No hernia. Abdominal Nodes: No retroperitoneal or mesenteric adenopathy by size criteria. Vessels: Aorta and inferior vena cava are normal in size. PELVIS: Pelvic Organs: Unremarkable. Bladder: Unremarkable. Pelvic Nodes: No enlarged lymph nodes. Miscellaneous: No inguinal hernias are seen. Bones: Degenerative changes in lumbar spine.. IMPRESSION: 1. Percutaneous transhepatic cholecystostomy. Injection through the cholecystostomy tube demonstrates opacification of gallbladder lumen. There are multiple gallstones. The gallbladder wall thickening. There is no extravasation of injected contrast to suggest gallbladder perforation. The cystic duct is patent, as well as common bile duct. 2. Mild intrahepatic and extrahepatic biliary dilation. The distal common bile duct appears slightly irregular. Cannot rule out small retained stones. 3. Gastric banding. 4. Small hiatal hernia. There is concentric thickening of the distal esophagus. Consider esophagram or EGD for follow-up 5. A large amount of stool in colon. Dictated by: Annalise Dee M.D. on 12/23/2022 at 16:52 Approved by: Annalise Dee M.D. on 12/24/2022 at 8:47
== END ==
PROVIDERS: PCP Family Medicine; Referring Provider Surgery; Visit Provider Surgery
DX: K80.20 Calculus of gallbladder without cholecystitis without obstruction (principal); K83.8 Other specified diseases of biliary tract; K44.9 Diaphragmatic hernia without obstruction or gangrene; Z93.59 Other cystostomy status; Z98.84 Bariatric surgery status
CPT/HCPCS: 74177; 93005; Q9967

== ENCOUNTER 2022-12-28 11:38 | Day surgery (SDC) | payer OTHER, SELFPAY ==
[2022-11-09 02:52] VITALS: BMI 33.5
[2022-12-27 08:30] VITALS: BMI 29.0
[2022-12-28] VITALS (7 sets, daily range): BP systolic 108–148; BP diastolic 39–65; PULSE 59–62; RESP 10–16; TEMP 36.1–36.5; O2SAT 96–100; BMI 29.0
--- NOTE | 2022-12-28 | DI.RAD.S_ITS ---
PROCEDURE: XR CHOLANGIOGRAM OPERATIVE INDICATIONS: Laparoscopic cholecystectomy. COMPARISON: None. FINDINGS: Biliary ducts: The surgeon injected contrast into the biliary ducts after cannulation of the cystic duct stump. Visualized intra- and extrahepatic bile ducts are normal in caliber, without strictures. No intraluminal filling defects to suggest retained ductal stones or sludge. No evidence for iatrogenic ductal injury. Duodenum: Contrast flows promptly through the sphincter of Oddi into the duodenum, which appears normal in caliber. IMPRESSION: Normal intraoperative cholangiogram. Dictated by: Nicolasa Camejo MD, PhD on 12/28/2022 at 16:16 Approved by: Nicolasa Camejo MD, PhD on 12/28/2022 at 16:17
--- NOTE | 2022-12-28 | PATH_ITS ---
[facility] Accession Number: [id number] No. of containers..01 Tissue . 01 Material submitted: . gallbladder - GALLBLADDER . 01 Diagnosis: A. Gallbladder, Cholecystectomy: Acute and chronic cholecystitis and cholelithiasis. Negative for dysplasia and malignancy. Portions of adherent liver parenchyma. [facility] 01/10/2023 1126 Local . 01 Electronically signed: . Marlen Weber MD, Pathologist NPI- [id number] . 01 Gross description: . The specimen is received in formalin labeled with the patient's name, , and gallbladder, consists of an intact gallbladder measuring 6.3 x 3.7 x 1.9 cm. The external surface is congested and roughened. The cystic duct margin is inked blue with no pericystic lymph node identified. The lumen is filled with black roughened calculi measuring up to 0.7 cm in greatest dimension admixed with dark green mucoid bile. A calculous is identified grossly obstructing the cystic duct. The mucosa is cabezas and roughened with no yellow discoloration, polyps or lesions identified. The alegria average 0.4 cm thick. Mechanical Service Specialist sections to include the cystic duct margin and full thickness sections are submitted in cassette A1. ([id number]) /MRV 12/30/2022 1902 Local . 01 Pathologist provided ICD-10: K80.20 . 01 CPT . 808527 Specimen Comment: A courtesy copy of this report has been sent to [phone] Performed at: 01 [facility] [address] [place] [address], [place], [place] [id number] MD Carmelo Mauro MD Phone: [phone]
[2022-12-28] MEDS: LACTATED RINGERS 1,000 ML 42 ML IV (12:29)
[2022-12-28] MEDS: SCOPOLAMINE 1 PATCH TOP (12:32)
--- NOTE | 2022-12-28 13:04 | PM.PREOP ---
Pre-operative Note COVID-19 COVID-19 status: Not tested Interval Note History & Physical reviewed/Exam performed by Physician: Yes Changes to H&P: No ASA Class (for procedural sedation): III
[2022-12-28] MEDS: CEFAZOLIN 2 GM/100 ML PREMIX 100 ML IV (13:20)
[2022-12-28] MEDS: ACETAMINOPHEN IV 1,000 MG/100 ML VIAL 400 MG IV (13:35)
--- NOTE | 2022-12-28 13:51 | SUR.OPER ---
Supine on padded OR bed, head on pillow, arms secured on padded arm boards at <90 degrees abduction, legs uncrossed, safety belt at thigh, footboard in place.
[2022-12-28] MEDS: iopamidoL 30 ML VIAL INJ (14:04)
[2022-12-28] MEDS: BUPIVACAINE 0.5% (PF) 30 ML, EPINEPHrine 0.15 MG INJ (14:05)
--- NOTE | 2022-12-28 15:57 | P.OP_ITS ---
Operative Date/Time/Diagnoses Date of procedure: 12/28/22 Time of procedure: 15:58 Pre-op diagnosis: Chronic cholecystitis Post-op diagnosis: same Procedure & Clinicians Procedure: Laparoscopic cholecystectomy with intraoperative cholangiogram Same procedure as scheduled: Yes Surgeon: Terrell Johnson Business Area Director: Soraya Matt Operative Notes Procedure in detail: The patient is a 62-year-old woman with a history of acute cholecystitis complicated by a ventricular tachycardia. She was transferred to [facility] where a percutaneous cholecystostomy tube was placed. Her tachycardia resolved. She was consented for a laparoscopic cholecystectomy with an intraoperative cholangiogram. The patient was given preoperative antibiotic. The patient was brought to the operating room, placed on the table in the supine position. General endotracheal anesthesia was induced. The abdomen was prepped and draped. A time-out was performed. We made a 1 cm infraumbilical incision. We dissected down to the base of the umbilical stalk using cautery. We grasped the umbilical stalk with a Sky clamp to elevate the abdominal wall. We scored the fascia in the midline with cautery 1 cm. We pierced the peritoneum with a Peon clamp. The Armani port was placed and the abdomen was insufflated to 15 mmHg. A 5 mm 30 degree laparoscopic was inserted. There was no evidence of any injury from the entry. Next, we placed 5 mm ports in the subxiphoid position and right upp er quadrant at the midclavicular line and anterior axillary line. The patient was then positioned in reverse Trendelenburg and the table was tilted to the left. The gallbladder was grasped at the dome and retracted cephalad. There were dense adhesions of the gallbladder to the surrounding tissues. These were carefully dissected using a combination of cautery, sharp dissection and blunt dissection. We then performed a cholangiogram through the percutaneous drain which demonstrated contrast flowing into the common duct with no obvious filling defects. We then dissected the cystic structures with a combination of hook cautery and blunt dissection. The cystic duct was dissected free and a clip was placed at the junction of the cystic duct and infundibulum. A small ductotomy was made with scissors.. A cholangiogram was performed using the 6 Dutch ureteral catheter. There was good flow of contrast into the duodenum and liver with no obvious filling defects. The cystic duct-common duct junction was well visualized. We then placed hemoclips on the cystic duct and artery and divided the cystic duct and artery sharply between the clips. Two more branches of the artery were identified and clipped. The gallbladder was then dissected off the liver and placed in a specimen retrieval bag. We placed a 15 round Myron drain through the lateral port and placed it into the gallbladder fossa. It was secured with a 2-0 nylon stitch. We irrigated the right upper quadrant and all the aspirate returned clear. We then removed the 5 mm ports under direct vision we removed the Armani port. We then injected some local into the fascia and closed the fascia with 3-0 interrupted 0 Vicryl sutures. The skin incisions were closed with 4 Monocryl and Steri-Strips were applied. Band-Aids were applied over the Steri-Strips. EBL: 50 mL Specimen: Gallbladder Dr. Soraya Matt provided assistance that was vital for retraction, exposure and identification of structures Post-operative Condition: stable Disposition: PACU
[2022-12-28] MEDS: OXYCODONE IR 5 MG TABLET PO (16:59)
== END 2022-12-28 17:10 | disposition home or self-care (01) ==
PROVIDERS: PCP Family Medicine; Referring Provider Surgery; Visit Provider Surgery
PROC: 0FT44ZZ Resection of Gallbladder, Percutaneous Endoscopic Approach (ICD-10-PCS; CPT 47562; principal; 2022-12-28 13:00)
DX: K80.12 Calculus of gallbladder with acute and chronic cholecystitis without obstruction (principal); I48.91 Unspecified atrial fibrillation; I10 Essential (primary) hypertension; E11.9 Type 2 diabetes mellitus without complications; Z79.4 Long term (current) use of insulin; Z79.84 Long term (current) use of oral hypoglycemic drugs
CPT/HCPCS: 47563; 74300; 76000; 82962; J0131; J0171; J0690; J1100; J1170; J1885; J2405; J2704; Q9967

== ENCOUNTER → 2023-01-28 09:58 | Outpatient (CLI) | payer OTHER, SELFPAY ==
[2022-11-09 02:52] VITALS: BMI 33.5
[2023-01-28 11:33] LABS: BUN Creatinine Ratio 18.3 (6-22); Blood Urea Nitrogen 13 mg/dL (7-17); Calcium 10.1 mg/dL (8.4-10.2); Carbon Dioxide 27 mmol/L (22-32); Chloride 94 mmol/L (98-107); Estimated Glomerular Filt Rate > 60 mL/min (>60); Glucose 170 mg/dL (80-110); HEMOLYSIS < 15 (0-50); Potassium 5.3 mmol/L (3.4-5.1); Sodium 134 mmol/L (137-145)
[2023-01-28 11:57] LABS: TSH w/ Reflex to FT4 0.02 uIU/mL (0.47-4.68)
== END ==
PROVIDERS: PCP Family Medicine; Referring Provider Family Medicine; Visit Provider Family Medicine
DX: E87.1 Hypo-osmolality and hyponatremia (principal); E87.5 Hyperkalemia
CPT/HCPCS: 36415; 80048; 84439; 84443

== ENCOUNTER → 2023-02-15 14:14 | Outpatient (CLI) | payer OTHER, SELFPAY ==
[2022-11-09 02:52] VITALS: BMI 33.5
--- NOTE | 2023-02-15 14:15 | DI.RAD.S_ITS ---
PROCEDURE: XR CHEST 2V INDICATIONS: chronic cough TECHNIQUE: 2 views of the chest were acquired. COMPARISON: [facility], CR, XR CHEST 2V, 04/26/2018, 16:46. FINDINGS: Surgical changes and devices: None. Lungs and pleura: Lungs are clear. No pleural effusions or pneumothorax. Mediastinum: Mediastinal contours are normal. Heart size is normal. Bones and chest wall: No suspicious bony abnormalities. Soft tissues appear unremarkable. IMPRESSION: No acute cardiopulmonary abnormality is seen. Approved by: Apolinar Campos M.D. on 02/15/2023 at 21:26
== END ==
PROVIDERS: PCP Family Medicine; Referring Provider Family Medicine; Visit Provider Family Medicine
DX: R05.3 Chronic cough (principal)
CPT/HCPCS: 71046

== ENCOUNTER → 2023-03-04 09:08 | Outpatient (CLI) | payer OTHER, SELFPAY ==
[2022-11-09 02:52] VITALS: BMI 33.5
--- NOTE | 2023-03-04 09:12 | DI.RAD.S_ITS ---
PROCEDURE: FL BARIUM SWALLOW INDICATIONS: Dysphagia and old gastric band COMPARISON: None. FINDINGS: Function: There is abnormal esophageal peristalsis with numerous episodes of spontaneous tertiary contractions resulting in delayed and retrograde flow of ingested oral contrast. There is spontaneous, non elicited gastroesophageal reflux to the level of the thoracic inlet. There is normal transit of a calibrated barium tablet through the esophagus into the stomach. Gastric lap band appears in place. Morphology: Air-contrast images demonstrate normal mucosal morphology. Single contrast views show no esophageal strictures, extrinsic mass effects, or definite diverticula. Limited images of the stomach demonstrate normal appearance. IMPRESSION: 1. Moderate spontaneous gastroesophageal reflux to the level of the thoracic inlet. 2. Numerous spontaneous episodes of tertiary contractions resulting in delayed and retrograde flow of ingested oral contrast. Dictated by: Abundio Carney M.D. on 03/04/2023 at 17:03 Approved by: Abundio Carney M.D. on 03/04/2023 at 17:06
[2023-03-04 10:37] LABS: BUN Creatinine Ratio 12.5 (6-22); Blood Urea Nitrogen 11 mg/dL (7-17); Calcium 9.7 mg/dL (8.4-10.2); Carbon Dioxide 28 mmol/L (22-32); Chloride 97 mmol/L (98-107); Estimated Glomerular Filt Rate > 60 mL/min (>60); Glucose 98 mg/dL (80-110); HEMOLYSIS < 15 (0-50); Potassium 4.4 mmol/L (3.4-5.1); Sodium 135 mmol/L (137-145)
[2023-03-04 14:19] LABS: TSH w/ Reflex to FT4 < 0.02 uIU/mL (0.47-4.68)
[2023-03-04 14:47] LABS: Free T4, Direct Thyroxine 2.43 ng/dL (0.78-2.19)
== END ==
LOC: RAD 09:09
PROVIDERS: PCP Family Medicine; Referring Provider Surgery; Visit Provider Surgery
DX: K21.9 Gastro-esophageal reflux disease without esophagitis (principal); R13.10 Dysphagia, unspecified; R63.4 Abnormal weight loss; E87.5 Hyperkalemia; E03.9 Hypothyroidism, unspecified
CPT/HCPCS: 36415; 74220; 80048; 84439; 84443

== ENCOUNTER 2023-03-07 14:37 | Day surgery (SDC) | payer OTHER, SELFPAY ==
[2022-11-09 02:52] VITALS: BMI 33.5
[2023-03-07] VITALS (7 sets, daily range): BP systolic 94–162; BP diastolic 57–84; PULSE 64–74; RESP 14–18; TEMP 36.4–36.7; O2SAT 91–95
--- NOTE | 2023-03-07 | PATH_ITS ---
[facility] Accession Number: [id number] No. of containers..01 Tissue . 01 Material submitted: . gastrointestinal site - ANTRUM . 01 Diagnosis: Stomach, antrum, biopsy: - Gastric mucosa with mild chronic gastritis. - No H. Pylori like organisms identified (by the H/E and immunohistochemical stained slide sections). - No intestinal metaplasia, dysplasia or malignancy identified. - See comment: -- COMMENT: H. Pylori immunohistochemical stain was performed and is negative. TECHNICAL NOTE: THE IMMUNOHISTOCHEMICAL STAINS REPORTED WERE PERFORMED AT [facility] ([address], [facility] [address]). THEY WERE DEVELOPED AND THEIR PERFORMANCE CHARACTERISTICS DETERMINED BY [employer]. THEY HAVE NOT BEEN CLEARED OR APPROVED BY THE [employer], ALTHOUGH SUCH APPROVAL IS NOT REQUIRED FOR ANALYTE-SPECIFIC REAGENTS OF THIS TYPE. [facility] 03/10/2023 1443 Local . 01 Electronically signed: . Brayan Greenwood MD, Pathologist NPI- [id number] . 01 Gross description: . ANTRUM: Received in formalin is multiple fragment(s) of cabezas, soft tissue measuring 1.0 x 0.5 x 0.1 cm in aggregate submitted entirely in 1 cassette(s) /AAY 03/08/2023 0255 Local . 01 Pathologist provided ICD-10: R13.10 . 01 CPT . 746174, A65958 Specimen Comment: A courtesy copy of this report has been sent to [phone] Performed at: [address] [place] [address], [place], [place] [id number] MD Carmelo Mauro MD Phone: [phone]
[2023-03-07] MEDS: LACTATED RINGERS 1,000 ML 42 ML IV ×2 (15:21→17:07)
--- NOTE | 2023-03-07 15:22 | PM.PREOP ---
Pre-operative Note COVID-19 COVID-19 status: Not tested Interval Note History & Physical reviewed/Exam performed by Physician: Yes Changes to H&P: No ASA Class (for procedural sedation): III
--- NOTE | 2023-03-07 16:37 | PM.OP.EGD ---
Operative Date/Time/Diagnoses Date of procedure: 03/07/23 Time of procedure: 16:38 Pre-op diagnosis: Dysphagia Post-op diagnosis: same Procedure & Clinicians Study performed: Esophagogastroduodenoscopy Same procedure as scheduled: Yes Surgeon: Terrell Johnson Procedure Notes Procedure in detail: Surgeon: Terrell Johnson MD Anesthesia: Rachel Noel CRNA A timeout was performed. A bite blocked was placed. The patient was positioned in the left lateral decubitus position. Anesthesia was administered. The endoscope was inserted through the bite block and passed into the esophagus. There was some old food and debris in the distal esophagus. There was a small portion of the stomach containing small food which appeared to be above band suggesting that some of the stomach had slipped through the band. The scope was able to be advanced into the remainder of the stomach. The scope was advanced into the duodenal. The duodenal mucosa appeared normal. The scope was withdrawn into the duodenal bulb and no abnormalities were seen. The scope was withdrawn into the stomach. There was some antritis and random biopsies were taken from the antrum. The rest of the stomach was normal. The scope was retroflexed and the the stomach was visualized leading up to the band. The scope was withdrawn into the esophagus and no other abnormalities were seen. The remainder of the esophagus was normal. The scope was withdrawn. The patient was awakened and brought to recovery. Sedation time: 5 minutes Findings: Likely some stomach has slipped through the band Post-procedure Disposition: PACU
== END 2023-03-07 17:16 | disposition home or self-care (01) ==
PROVIDERS: PCP Family Medicine; Referring Provider Surgery; Visit Provider Surgery
PROC: 0DJ08ZZ Inspection of Upper Intestinal Tract, Via Natural or Artificial Opening Endoscopic (ICD-10-PCS; CPT 43235; principal; 2023-03-07 15:45)
DX: R13.10 Dysphagia, unspecified (principal); Z98.84 Bariatric surgery status; K29.50 Unspecified chronic gastritis without bleeding
CPT/HCPCS: 43239; J2704

== ENCOUNTER → 2023-03-22 13:09 | Outpatient (CLI) | payer OTHER, SELFPAY ==
[2022-11-09 02:52] VITALS: BMI 33.5
[2023-03-22 13:58] LABS: Add Manual Diff / Slide Review NO; Basophils Absolute Auto 0 /uL (0-100); Basophils Percent Auto 0.7 % (0-2); Eosinophils Absolute Auto 100 /uL (0-450); Eosinophils Percent Auto 2.3 % (2-4); Hematocrit 44.4 % (36-46); Hemoglobin 14.9 g/dL (12.0-16.0); Lymphocytes Absolute Auto 1100 /uL (1100-4500); Mean Corpuscular HGB Conc 33.6 % (30-36); Mean Corpuscular Hemoglobin 29.9 PG (26-34); Mean Corpuscular Volume 88.8 fL (80-100); Monocytes Absolute Auto 400 /uL (0-900); Monocytes Percent Auto 6.7 % (3-14); Neutrophils Absolute Auto 4300 /uL (1500-7000); Neutrophils Percent Auto 71.3 % (50-75); Platelet Count 397 X10^3/uL (150-400); Red Cell Distribution Width 14.7 % (11.6-14.8)
[2023-03-22 14:12] LABS: INR 1.3 (0.9-1.3); Prothrombin Time 14.7 SECONDS (9.4-12.5)
[2023-03-22 14:18] LABS: Hemoglobin A1C% w Est Avg Glu 5.5 % (4.0-6.0)
[2023-03-22 14:32] LABS: Alanine Aminotransferase 93 IU/L (<35); Albumin 4.5 g/dL (3.5-5.0); Albumin Globulin Ratio 1.4 (1.0-2.8); Alkaline Phosphatase 95 U/L (38-126); Aspartate Aminotransferase 78 IU/L (14-36); BUN Creatinine Ratio 14.1 (6-22); Bilirubin Total 0.8 mg/dL (0.2-1.3); Blood Urea Nitrogen 14 mg/dL (7-17); Calcium 10.4 mg/dL (8.4-10.2); Carbon Dioxide 27 mmol/L (22-32); Chloride 96 mmol/L (98-107); Cholesterol 152 mg/dL (140-199); Estimated Glomerular Filt Rate > 60 mL/min (>60); Globulin 3.3 g/dL (1.7-4.1); Glucose 101 mg/dL (80-110); HDL Cholesterol 40 mg/dL (40-60); HEMOLYSIS < 15 (0-50); LDL Cholesterol Calculated 82 mg/dL (<100); Potassium 4.4 mmol/L (3.4-5.1); Sodium 137 mmol/L (137-145); Total Protein 7.8 g/dL (6.3-8.2); Triglycerides 152 mg/dL (35-150)
[2023-03-22 14:33] LABS: PTT Partial Thromboplastin Tim 83 SECONDS (25.1-36.5)
[2023-03-22 15:07] LABS: Ferritin 28 ng/mL (11-264)
[2023-03-22 15:39] LABS: Folate > 20.0 ng/mL (2.76-20.0); Vitamin B12 > 1000 pg/mL (239-931)
[2023-03-22 17:34] LABS: Vitamin D 25 Hydroxy (D3) 48.9 ng/mL (30.0-100.0)
[2023-03-22 21:18] LABS: HEMOLYSIS < 15 (0-50); Total Iron Binding Capacity 395 ug/dL (265-497); Transferrin 355 mg/dL (206-381)
[2023-03-23 03:19] LABS: Iron 90 ug/dL (37-170); Percent Iron Saturation 23 % (15-50)
[2023-03-23 03:51] LABS: Thyroid Stimulating Hormone 0.145 uIU/mL (0.47-4.68)
[2023-03-27 09:40] LABS: Vitamin B1 344.9 nmol/L (66.5-200.0)
== END ==
LOC: LAB 13:10
PROVIDERS: PCP Family Medicine; Referring Provider Surgery; Visit Provider Surgery
DX: Z01.812 Encounter for preprocedural laboratory examination (principal); E51.9 Thiamine deficiency, unspecified; E46 Unspecified protein-calorie malnutrition; E63.9 Nutritional deficiency, unspecified
CPT/HCPCS: 36415; 80053; 80061; 82306; 82607; 82728; 82746; 83036; 83540; 83550; 84425; 84443; 84481; 85025; 85610; 85730

== ENCOUNTER → 2023-04-07 11:21 | Outpatient (CLI) | payer OTHER, SELFPAY ==
[2022-11-09 02:52] VITALS: BMI 33.5
[2023-04-07 19:03] LABS: TSH w/ Reflex to FT4 0.22 uIU/mL (0.47-4.68)
[2023-04-07 19:37] LABS: Free T4, Direct Thyroxine 2.04 ng/dL (0.78-2.19)
== END ==
PROVIDERS: PCP Family Medicine; Referring Provider Family Medicine; Visit Provider Family Medicine
DX: E03.8 Other specified hypothyroidism (principal)
CPT/HCPCS: 36415; 84439; 84443

== ENCOUNTER → 2023-07-08 12:12 | Outpatient (CLI) | payer OTHER, SELFPAY ==
[2022-11-09 02:52] VITALS: BMI 33.5
[2023-07-08 13:29] LABS: Hemoglobin A1C% w Est Avg Glu 5.5 % (4.0-6.0)
== END ==
PROVIDERS: PCP Family Medicine; Referring Provider Family Medicine; Visit Provider Family Medicine
DX: E11.40 Type 2 diabetes mellitus with diabetic neuropathy, unspecified (principal); Z79.4 Long term (current) use of insulin
CPT/HCPCS: 36415; 83036

== ENCOUNTER → 2023-11-02 09:32 | Outpatient (CLI) | payer OTHER, SELFPAY ==
[2022-11-09 02:52] VITALS: BMI 33.5
[2023-11-02 10:50] LABS: Hemoglobin A1C% w Est Avg Glu 5.7 % (4.0-6.0)
[2023-11-02 11:34] LABS: TSH w/ Reflex to FT4 0.05 uIU/mL (0.47-4.68)
[2023-11-02 18:54] LABS: Free T4, Direct Thyroxine 2.23 ng/dL (0.78-2.19)
== END ==
PROVIDERS: PCP Family Medicine; Referring Provider Family Medicine; Visit Provider Family Medicine
DX: E11.40 Type 2 diabetes mellitus with diabetic neuropathy, unspecified (principal); Z79.4 Long term (current) use of insulin; E03.8 Other specified hypothyroidism
CPT/HCPCS: 36415; 83036; 84439; 84443

== ENCOUNTER → 2024-01-04 09:32 | Outpatient (CLI) | payer OTHER, SELFPAY ==
[2022-11-09 02:52] VITALS: BMI 33.5
[2024-01-04 11:51] LABS: TSH w/ Reflex to FT4 0.15 uIU/mL (0.47-4.68)
[2024-01-04 12:17] LABS: Free T4, Direct Thyroxine 2.02 ng/dL (0.78-2.19)
== END ==
PROVIDERS: PCP Family Medicine; Referring Provider Family Medicine; Visit Provider Family Medicine
DX: E03.9 Hypothyroidism, unspecified (principal)
CPT/HCPCS: 36415; 84439; 84443

== ENCOUNTER → 2024-02-28 14:37 | Outpatient (CLI) | payer OTHER, SELFPAY ==
[2022-11-09 02:52] VITALS: BMI 33.5
[2024-02-28 17:00] LABS: TSH w/ Reflex to FT4 1.35 uIU/mL (0.47-4.68)
== END ==
PROVIDERS: PCP Family Medicine; Referring Provider Family Medicine; Visit Provider Family Medicine
DX: E03.8 Other specified hypothyroidism (principal)
CPT/HCPCS: 36415; 84443

== ENCOUNTER → 2024-03-01 16:01 | Outpatient (CLI) | payer OTHER, SELFPAY ==
[2022-11-09 02:52] VITALS: BMI 33.5
== END ==
PROVIDERS: PCP Family Medicine; Visit Provider Physician Assistant
DX: R30.0 Dysuria (principal)
CPT/HCPCS: 87077; 87086; 87186

== ENCOUNTER → 2024-05-01 10:42 | Outpatient (CLI) | payer OTHER, SELFPAY ==
[2022-11-09 02:52] VITALS: BMI 33.5
[2024-05-01 11:09] LABS: Add Manual Diff / Slide Review NO; Basophils Absolute Auto 0 /uL (0-100); Basophils Percent Auto 0.7 % (0-2); Eosinophils Absolute Auto 400 /uL (0-450); Eosinophils Percent Auto 6.9 % (2-4); Hematocrit 44.9 % (36-46); Hemoglobin 14.8 g/dL (12.0-16.0); Lymphocytes Absolute Auto 1100 /uL (1100-4500); Lymphocytes Percent Auto 20.3 % (25-40); Mean Corpuscular Hemoglobin 30.7 PG (26-34); Mean Corpuscular Volume 93.1 fL (80-100); Monocytes Absolute Auto 600 /uL (0-900); Monocytes Percent Auto 11.1 % (3-14); Neutrophils Absolute Auto 3400 /uL (1500-7000); Platelet Count 351 X10^3/uL (150-400); Red Blood Cell Count 4.82 X10^6/uL (4.0-5.2); Red Cell Distribution Width 13.4 % (11.6-14.8); White Blood Cell Count 5.5 X10^3/uL (4.5-11.0)
[2024-05-01 11:24] LABS: Hemoglobin A1C% w Est Avg Glu 6.1 % (4.0-6.0)
[2024-05-01 11:49] LABS: Creatinine Urine Random 44.46 mg/dL
[2024-05-01 11:54] LABS: Microalbumin Urine Random 3.9 mg/dL (0-1.6)
[2024-05-01 11:57] LABS: Alanine Aminotransferase 35 IU/L (<35); Albumin 4.5 g/dL (3.5-5.0); Albumin Globulin Ratio 2.1 (1.0-2.8); Alkaline Phosphatase 75 U/L (38-126); Aspartate Aminotransferase 49 IU/L (14-36); Bilirubin Total 0.7 mg/dL (0.2-1.3); Blood Urea Nitrogen 24 mg/dL (7-17); Calcium 9.5 mg/dL (8.4-10.2); Carbon Dioxide 25 mmol/L (22-32); Chloride 99 mmol/L (98-107); Cholesterol 138 mg/dL (140-199); Estimated Glomerular Filt Rate > 60 mL/min (>60); Globulin 2.1 g/dL (1.7-4.1); Glucose 137 mg/dL (80-110); HDL Cholesterol 63 mg/dL (40-60); HEMOLYSIS < 15 (0-50); LDL Cholesterol Calculated 62 mg/dL (<100); Potassium 4.5 mmol/L (3.4-5.1); Sodium 134 mmol/L (137-145); Total Protein 6.6 g/dL (6.3-8.2); Triglycerides 64 mg/dL (35-150)
[2024-05-01 18:34] LABS: Hep C Virus Ab w/Reflex Quant NEGATIVE s/c (NEGATIVE)
[2024-05-01 18:35] LABS: HIV 1 & 2 Ab/Ag 4th Gen Combo NEGATIVE (NEGATIVE)
== END ==
PROVIDERS: PCP Family Medicine; Referring Provider Family Medicine; Visit Provider Family Medicine
DX: I48.0 Paroxysmal atrial fibrillation (principal); D50.9 Iron deficiency anemia, unspecified; E78.5 Hyperlipidemia, unspecified; E66.9 Obesity, unspecified; Z11.59 Encounter for screening for other viral diseases; Z11.4 Encounter for screening for human immunodeficiency virus [HIV]; I10 Essential (primary) hypertension; E11.40 Type 2 diabetes mellitus with diabetic neuropathy, unspecified; Z79.4 Long term (current) use of insulin
CPT/HCPCS: 36415; 80053; 80061; 82043; 82570; 83036; 85025; 86803; 87389

== ENCOUNTER → 2024-10-31 08:30 | Outpatient (CLI) | payer OTHER, SELFPAY ==
[2022-11-09 02:52] VITALS: BMI 33.5
[2024-10-31 10:05] LABS: Hemoglobin A1C% w Est Avg Glu 5.9 % (4.0-6.0)
== END ==
PROVIDERS: PCP Family Medicine; Referring Provider Family Medicine; Visit Provider Family Medicine
DX: E11.40 Type 2 diabetes mellitus with diabetic neuropathy, unspecified (principal); Z79.4 Long term (current) use of insulin
CPT/HCPCS: 36415; 83036

== ENCOUNTER → 2025-01-17 13:48 | Outpatient (CLI) | payer OTHER, SELFPAY ==
[2022-11-09 02:52] VITALS: BMI 33.5
== END ==
PROVIDERS: PCP Family Medicine; Visit Provider Chiropractor
DX: R30.0 Dysuria (principal)
CPT/HCPCS: 87086

== ENCOUNTER → 2025-01-28 11:38 | Outpatient (CLI) | payer OTHER, SELFPAY ==
[2022-11-09 02:52] VITALS: BMI 33.5
--- NOTE | 2025-01-28 11:39 | DI.RAD.S_ITS ---
PROCEDURE: XR ABDOMEN MIN 2V INDICATIONS: constipation TECHNIQUE: 2 views of the abdomen were acquired. COMPARISON: None. FINDINGS: Surgical changes and devices: Surgical pinning of the right femur. Bowel: No pneumoperitoneum. The bowel gas pattern is normal. Large colonic stool load. Soft tissues: No masses; visualized solid organ contours appear normal in size. No suspicious abdominal calcifications. Bones: No suspicious bony abnormalities. IMPRESSION: Large colonic stool load. Dictated by: Tremayne Walker M.D. on 01/28/2025 at 16:46 Approved by: Tremayne Walker M.D. on 01/28/2025 at 16:46
== END ==
PROVIDERS: PCP Family Medicine; Referring Provider Family Medicine; Visit Provider Family Medicine
DX: K59.00 Constipation, unspecified (principal)
CPT/HCPCS: 74019

== ENCOUNTER → 2025-02-12 10:31 | Outpatient (CLI) | payer OTHER, SELFPAY ==
[2022-11-09 02:52] VITALS: BMI 33.5
[2025-02-12 11:24] LABS: Hematocrit 43.6 % (36-46); Hemoglobin 14.2 g/dL (12.0-16.0); Mean Corpuscular HGB Conc 32.6 % (30-36); Mean Corpuscular Hemoglobin 30.3 PG (26-34); Mean Corpuscular Volume 92.9 fL (80-100); Platelet Count 322 X10^3/uL (150-400)
[2025-02-12 12:22] LABS: Alanine Aminotransferase 27 IU/L (<35); Albumin 4.5 g/dL (3.5-5.0); Albumin Globulin Ratio 1.9 (1.0-2.8); Alkaline Phosphatase 87 U/L (38-126); Blood Urea Nitrogen 20 mg/dL (7-17); Calcium 9.7 mg/dL (8.4-10.2); Carbon Dioxide 20 mmol/L (22-32); Chloride 101 mmol/L (98-107); Estimated Glomerular Filt Rate > 60 mL/min (>60); Globulin 2.4 g/dL (1.7-4.1); Glucose 160 mg/dL (70-99); HEMOLYSIS < 15 (0-50); Potassium 4.7 mmol/L (3.4-5.1); Sodium 136 mmol/L (137-145); Total Protein 6.9 g/dL (6.3-8.2)
[2025-02-12 12:43] LABS: TSH w/ Reflex to FT4 7.26 uIU/mL (0.47-4.68)
[2025-02-12 13:11] LABS: Free T4, Direct Thyroxine 2.11 ng/dL (0.78-2.19)
== END ==
PROVIDERS: PCP Family Medicine; Referring Provider Family Medicine; Visit Provider Family Medicine
DX: G20.B1 Parkinson's disease with dyskinesia, without mention of fluctuations (principal); I48.0 Paroxysmal atrial fibrillation; J44.9 Chronic obstructive pulmonary disease, unspecified; Z79.4 Long term (current) use of insulin; E11.40 Type 2 diabetes mellitus with diabetic neuropathy, unspecified; I10 Essential (primary) hypertension; E78.5 Hyperlipidemia, unspecified
CPT/HCPCS: 36415; 80053; 84439; 84443; 85027